=== PATIENT | male | born 1980 | race Caucasian/White ===

== ENCOUNTER → 2017-09-04 | Outpatient (CLI) | payer MEDICARE, MEDICAID ==
[~2017-09-04] MED LIST: ACCUNEB SO1.25 MG/1 INH; ACCUNEB SO1.25 MG/1 PO; ACETAMINOPHEN-1 EAC1 PO; ACETAMINOPHEN325 M1 PO; ADVAIR 250-501 EACH INH; ADVAIR 500-501 EACH INH; ADVAIR HFA 115-12 G1 INH; ADVAIR HFA 230M12 GM INH; ALBUTEROL2.5 MG/0.5 INH; ALBUTEROL2.5 MG/3 M INH; ALLEGRA ALLERG180 MG PO; ALLEGRA180 MG PO; AMOXICILLIN 50500 M1 PO; AUGMENTIN 875-1 EACH PO; AVELOX 400 MG400 M1 PO; AZITHROMYCIN 2250 MG PO; B COMPLEX-VITA1 EACH PO; B COMPLEX1 EACH PO; BACTROBAN22 GM TOP; BACTROBAN22 GM TP; CEFDINIR300 MG PO; CEFTIN 250 MG250 MG PO; CEFUROXIME500 MG PO; CENTRUM COMPLE1 EACH PO; CICLODAN 0.77%544 GM TOP; CICLODAN 0.77%544 GM TP; CLARITIN-D 24 H1 TA1 PO; CLARITIN10 MG PO; CLOTRIMAZOLE 1%15 G1 TOP; DELSYM COU30 MG/5 M1 PO; DELSYM30 MG/5 M1 PO; DELTASONE20 MG PO; DESONIDE CR. 1515 GM TOP; DIFLUCAN200 MG PO; DITROPAN XL5 M1 PO; DOXYCYCLINE 10100 MG PO; DUONEB 2.5-0.5 M3 ML INH; EUCERIN CREME120 GM TOP; EUCERIN CREME57 GM TOP; FLONASE16 GM NASAL; IBUPROFEN 200200 M1 PO; IBUPROFEN 400400 M2 PO; IBUPROFEN 800800 M1 PO; IPRATROPIU0.2 MG/1 M INH; KEFLEX500 MG PO; LEVAQUIN 500 M500 M1 PO; LEVAQUIN 500 M500 M2 PO; LEVAQUIN 500 M500 M4 PO; LEVAQUIN 750 M750 MG PO; LEVOTHYROXIN0.112 M1 PO; LEVOTHYROXIN0.125 M1 PO; MIRALAX17 GM PO; MUCINEX TA600 MG/TA2 PO; MUCINEX600 MG PO; MULTIVITAMINS1 EAC7 PO; MUPIROCIN15 GM TOP; NEXIUM40 MG PO; OMEPRAZOLE40 MG PO; OXYBUTYNIN 5 MG5 M1 PO; PHENERGAN50 M1 PO; PREDNISONE 10 M10 MG PO; PREDNISONE 20 M20 M1 PO; PREDNISONE 20 M20 MG; PREDNISONE 5 MG5 M1 PO; PREDNISONE50 MG PO; PROAIR HFA8.5 GM INH; PROZAC 10 MG CA10 MG PO; PROZAC10 MG PO; SINGULAIR 10 MG10 M1 PO; TESSALON PERLE100 M1 PO; THEREMS1 EAC1 PO; TRIAMCINOLONE A80 G2 TOP; TUMS PO; TYLENOL325 MG PO; VENTOLIN HFA 1818 GM INH; VITAMIN B COMP1 EACH PO; VITAMINC500 PO; ZPAK PO; ZYVOX600 MG PO; [UNRECOGNIZED DRUG - OTHER]; [UNRECOGNIZED DRUG - OTHER] TOP; [UNRECOGNIZED DRUG - SUPPLY] INH
== END ==
LOC: M.RAD 11:15
DX: J45.41 Moderate persistent asthma with (acute) exacerbation (principal)

== ENCOUNTER 2017-09-09 11:47 | Inpatient (IN) | payer MEDICARE, MEDICAID ==
[~2017-09-09] VITALS: Ht 165.1 cm; Wt 97.5 kg
[~2017-09-09 11:47] MED LIST changes: -ACCUNEB SO1.25 MG/1 INH; -ADVAIR HFA 115-12 G1 INH; -AMOXICILLIN 50500 M1 PO; -AUGMENTIN 875-1 EACH PO; -B COMPLEX1 EACH PO; -CEFDINIR300 MG PO; -CICLODAN 0.77%544 GM TOP; -CLOTRIMAZOLE 1%15 G1 TOP; -DELSYM30 MG/5 M1 PO; -DELTASONE20 MG PO; -DUONEB 2.5-0.5 M3 ML INH; -EUCERIN CREME57 GM TOP; -IBUPROFEN 200200 M1 PO; -IBUPROFEN 400400 M2 PO; -LEVAQUIN 500 M500 M1 PO; -MUPIROCIN15 GM TOP; -OMEPRAZOLE40 MG PO; -PHENERGAN50 M1 PO; -PREDNISONE 20 M20 MG; -PREDNISONE50 MG PO; -TRIAMCINOLONE A80 G2 TOP; -ZYVOX600 MG PO; -[UNRECOGNIZED DRUG - OTHER] TOP; -[UNRECOGNIZED DRUG - SUPPLY] INH
[2017-09-09 11:55] VITALS: BP 131/64
[2017-09-09] MEDS ORDERED: OMEPRAZOLE40 MG PO (12:07)
[2017-09-09] MEDS ORDERED: MUCINEX600 MG PO (12:08)
[2017-09-09] MEDS ORDERED: [UNRECOGNIZED DRUG - SUPPLY] INH (12:08)
[2017-09-09] MEDS ORDERED: TRIAMCINOLONE A80 G2 TOP (12:08)
[2017-09-09] MEDS ORDERED: CLOTRIMAZOLE 1%15 G1 TOP (12:08)
[2017-09-09] MEDS ORDERED: DELSYM30 MG/5 M1 PO (12:09)
[2017-09-09] MEDS ORDERED: IBUPROFEN 200200 M1 PO (12:09)
[2017-09-09] MEDS ORDERED: [UNRECOGNIZED DRUG - OTHER] TOP (12:09)
[2017-09-09] MEDS ORDERED: MUPIROCIN15 GM TOP (12:10)
[2017-09-09 12:23] LABS: ABSOLUTE BASOPHILS 0.1 thou/uL (0.0-0.2); ABSOLUTE EOSINOPHILS 0.2 thou/uL (0.0-0.7); ABSOLUTE LYMPHOCYTES 1.3 thou/uL (0.8-5.3); ABSOLUTE MONOCYTES 0.7 thou/uL (0.0-1.2); ABSOLUTE NEUTROPHILS 8.8 thou/uL (1.6-8.1); BASOPHILS 0.8 %; EOSINOPHILS 1.9 %; HEMATOCRIT 44.1 % (42.0-52.0); HEMOGLOBIN 14.4 gm/dL (14.0-18.0); MCH 31.5 pg (26.0-34.0); MCHC 32.6 g/dL (28.0-37.0); MCV 96.6 fL (80.0-100.0); MONOCYTES 6.5 %; MPV 6.7 fl. (7.2-11.1); NUCLEATED RBCS 0 /100WBC; PLATELET COUNT* 311 thou/uL (150-400); POLYS 78.8 %; RBC 4.56 mil/uL (4.50-6.00); RDW-CV 17.1 % (10.5-14.5); WBC 11.2 thou/uL (4.0-11.0)
[2017-09-09 12:31] LABS: ANION GAP 7 mmol/L (7-16); BUN 14 mg/dL (7-18); CALCIUM 8.4 mg/dL (8.5-10.1); CHLORIDE 102 mmol/L (98-107); CO2 31 mmol/L (21-32); CREATININE 1.4 mg/dL (0.6-1.3); GLUCOSE 109 mg/dL (70-99); POTASSIUM 3.8 mmol/L (3.5-5.1); SODIUM 140 mmol/L (136-145)
[2017-09-09 12:38] LABS: ALBUMIN 3.3 g/dL (3.4-5.0); ALKALINE PHOSPHATASE 70 U/L (46-116); SGOT 18 U/L (15-37); SGPT 38 U/L (30-65); TOTAL BILIRUBIN 0.3 mg/dL (<0.1-1.0); TROPONIN-I LEVEL <0.06 ng/mL (<0.06)
[2017-09-09 15:10] VITALS: BP 116/64
[2017-09-09 16:00] VITALS: BP 112/93; BP 118/61
[2017-09-09 20:20] VITALS: BP 113/50
[2017-09-10 08:54] VITALS: BP 116/61
[2017-09-10 10:28] LABS: INFLUENZA A ANTIGEN None Detected (None Detect); INFLUENZA B ANTIGEN None Detected (None Detect)
[2017-09-10 15:30] VITALS: BP 113/61
--- NOTE | 2017-09-10 16:38 | EKG ---
[place] [address] ELECTROCARDIOGRAM REPORT Name: BATESSONI Room: [address] ADM IN .R.#: [id number] Admission: 09/09/17 Attend Phys: Conner Field, Discharge: Date of : 84 Report #: [id number] THIS REPORT FOR: //name// [facility] ED Test Date: 2017-09-09 Test Time: 11:55:19 Pat Name: SONI BATES Department: Room: [facility] Gender: M Long Term: [place] : 1980 Requested By: Yesenia Williamson Order Number: [id number] MD: Derrick Polanco Measurements Intervals [place] Rate: 82 P: 43 ND: 129 QRS: 58 QRSD: 78 T: 41 QT: 344 QTc: 402 Interpretive Statements Sinus rhythm Low voltage, extremity leads Compared to ECG 04/04/2017 15:14:33 Sinus tachycardia no longer present Electronically Signed On 09-10-2017 16:38:33 CDT by Derrick Polanco [email or web address] <ELECTRONICALLY SIGNED> By: Derrick Polanco MD, [facility] 09/10/17 1638 [id number] [id number] Derrick Polanco MD, [facility] /EPI
[2017-09-10 21:00] VITALS: BP 99/61
[2017-09-11 00:59] VITALS: BP 101/67
[2017-09-11 09:10] VITALS: BP 128/57
[2017-09-11] MEDS ORDERED: LEVAQUIN 500 M500 M2 PO (13:24)
[2017-09-11 15:27] VITALS: BP 128/57
[2017-09-11] MEDS ORDERED: ACCUNEB SO1.25 MG/1 INH (15:47)
[2017-09-11 17:25] VITALS: BP 128/57
[2017-11-28] MEDS ORDERED: DOXYCYCLINE 10100 MG PO (07:51)
[2017-11-28] MEDS ORDERED: PREDNISONE 10 M10 MG PO (07:51)
[2017-11-28] MEDS ORDERED: CEFDINIR300 MG PO (07:51)
== END 2017-09-11 17:29 | disposition home or self-care (01) | DRG 177 ==
LOC: M.ERS 11:47 → M.TBA-ER 13:40 → M.ORTHSURG 13:40
PROVIDERS: Nurse Practitioner Family; ADMIT Family Medicine
DX: J15.6 Pneumonia due to other Gram-negative bacteria (principal); J96.21 Acute and chronic respiratory failure with hypoxia; Q90.9 Down syndrome, unspecified; J45.909 Unspecified asthma, uncomplicated; G47.33 Obstructive sleep apnea (adult) (pediatric); E03.9 Hypothyroidism, unspecified; Z79.51 Long term (current) use of inhaled steroids; Z99.81 Dependence on supplemental oxygen; Z79.899 Other long term (current) drug therapy; Z88.2 Allergy status to sulfonamides

== ENCOUNTER 2017-09-22 06:08 | Inpatient (IN) | payer MEDICARE, MEDICAID ==
[~2017-09-22] VITALS: Ht 162.6 cm; Wt 95.3 kg
[~2017-09-22 06:08] MED LIST changes: +ACCUNEB SO1.25 MG/1 INH; +CLOTRIMAZOLE 1%15 G1 TOP; +DELSYM30 MG/5 M1 PO; +IBUPROFEN 200200 M1 PO; +MUPIROCIN15 GM TOP; +OMEPRAZOLE40 MG PO; +TRIAMCINOLONE A80 G2 TOP; +[UNRECOGNIZED DRUG - OTHER] TOP; +[UNRECOGNIZED DRUG - SUPPLY] INH
[2017-09-22 06:09] VITALS: BP 99/71
[2017-09-22] MEDS ORDERED: PREDNISONE 20 M20 MG (06:33)
[2017-09-22 06:37] LABS: ABSOLUTE BASOPHILS 0.1 thou/uL (0.0-0.2); ABSOLUTE EOSINOPHILS 0.1 thou/uL (0.0-0.7); ABSOLUTE LYMPHOCYTES 1.7 thou/uL (0.8-5.3); ABSOLUTE MONOCYTES 0.6 thou/uL (0.0-1.2); ABSOLUTE NEUTROPHILS 6.2 thou/uL (1.6-8.1); BASOPHILS 0.8 %; EOSINOPHILS 1.7 %; HEMATOCRIT 43.1 % (42.0-52.0); HEMOGLOBIN 14.2 gm/dL (14.0-18.0); LYMPHOCYTES 19.3 %; MCH 31.9 pg (26.0-34.0); MCHC 32.9 g/dL (28.0-37.0); MONOCYTES 6.9 %; MPV 6.8 fl. (7.2-11.1); NUCLEATED RBCS 0 /100WBC; PLATELET COUNT* 247 thou/uL (150-400); POLYS 71.3 %; RBC 4.44 mil/uL (4.50-6.00); RDW-CV 17.7 % (10.5-14.5); WBC 8.6 thou/uL (4.0-11.0)
[2017-09-22 07:02] LABS: ANION GAP 10 mmol/L (7-16); BUN 15 mg/dL (7-18); CALCIUM 8.6 mg/dL (8.5-10.1); CHLORIDE 102 mmol/L (98-107); CO2 30 mmol/L (21-32); CREATININE 1.3 mg/dL (0.6-1.3); GLUCOSE 95 mg/dL (70-99); POTASSIUM 3.6 mmol/L (3.5-5.1); SODIUM 142 mmol/L (136-145)
[2017-09-22 07:06] LABS: ALBUMIN 3.4 g/dL (3.4-5.0); ALKALINE PHOSPHATASE 60 U/L (46-116); LIPASE 98 U/L (73-393); MAGNESIUM 2.1 mg/dL (1.8-2.4); NT-PRO BRAIN NAT PEPTIDE 37 pg/mL (<300); SGOT 17 U/L (15-37); SGPT 36 U/L (30-65); TOTAL BILIRUBIN 0.5 mg/dL (<0.1-1.0); TROPONIN-I LEVEL <0.06 ng/mL (<0.06)
[2017-09-22 07:29] LABS: INFLUENZA A ANTIGEN None Detected (None Detect); INFLUENZA B ANTIGEN None Detected (None Detect)
[2017-09-22 09:48] VITALS: BP 110/71
[2017-09-22 10:03] VITALS: BP 112/74
--- NOTE | 2017-09-22 13:55 | EKG ---
[place] [address] ELECTROCARDIOGRAM REPORT Name: SONI BATES Room: [address] ADM IN .R.#: [id number] Admission: 09/22/17 Attend Phys: Juan Pablo Valencia Discharge: Date of : 84 Report #: [id number] THIS REPORT FOR: //name// [facility] ED Test Date: 2017-09-22 Test Time: 06:39:08 Pat Name: SONI BATES Department: Room: [facility] Gender: M Dietary Assistant: 9 : 1980 Requested By: Roc Paz Order Number: [id number] MD: Derrick Polanco Measurements Intervals [place] Rate: 71 P: 30 W[place]: 138 QRS: 50 QRSD: 79 T: 12 QT: 385 QTc: 419 Interpretive Statements Sinus rhythm Borderline low voltage, extremity leads Baseline wander in lead(s) V5 Compared to ECG 09/09/2017 11:55:19 No significant changes Electronically Signed On 09-22-2017 13:54:57 CDT by Derrick Polanco [email or web address] <ELECTRONICALLY SIGNED> By: Derrick Polanco MD, [facility] 09/22/17 1354 [id number] Derrick Polanco MD, [facility] /EPI
[2017-09-22 16:00] VITALS: BP 120/65
[2017-09-22 20:38] VITALS: BP 99/65
[2017-09-23] VITALS (7 sets, daily range): BP systolic 102–137; BP diastolic 50–71
[2017-09-23 05:33] LABS: CALCIUM 8.3 mg/dL (8.5-10.1); CREATININE 1.3 mg/dL (0.6-1.3); MAGNESIUM 1.9 mg/dL (1.8-2.4); POTASSIUM 4.2 mmol/L (3.5-5.1)
--- NOTE | 2017-09-23 06:04 | NUR ---
At 2245, pt reports having pain to chest with coughing and deep breathing. Pt tearful. Page physician, orders received for one time dose of Fentanyl IVP. By the time medication was given, pt reports pain nearly subsided. Otherwise, no complaints. VSS. Will continue to monitor.
--- NOTE | 2017-09-23 18:55 | NUR ---
ASSUMED PT CARE AT 0700 PT IS ALERT AND ORIENTED X 4 PT IS UP WITH SBA PT IS NOT A FALL RISK PT HAD SHOWER TODAY, PT IS SR ON THE MONITOR PT IS PLEASANT AND COOPERTIVE, PT VSS, PT WALKED THE HALLWAY WITH FAMILY, PT HAS ANTIBIOTICS NO ADVERSE SIGNS NOTED, WILL CONTINUE TO MONITOR
--- NOTE | 2017-09-24 00:57 | NUR ---
ASSUMED CARE AT 1940, ASSESSMENT CHARTED. PATIENT ALERT/ORIENTED X4, RESTING IN BED WATCHING TV. UP WITH STANDBY ASSIST TO BATHROOM. DENIES PAIN OR NEEDS. REFUSING SCD'S. MEDS PER MAR. CALL LIGHT WITHIN REACH, ENCOURAGED TO CALL FOR NEEDS.
[2017-09-24 04:00] VITALS: BP 118/65
[2017-09-24 04:27] LABS: HEMATOCRIT 40.7 % (42.0-52.0); HEMOGLOBIN 13.2 gm/dL (14.0-18.0); MCH 31.6 pg (26.0-34.0); MCHC 32.5 g/dL (28.0-37.0); MCV 97.4 fL (80.0-100.0); NUCLEATED RBCS 0 /100WBC; PLATELET COUNT* 240 thou/uL (150-400); RBC 4.18 mil/uL (4.50-6.00); RDW-CV 17.8 % (10.5-14.5); WBC 14.6 thou/uL (4.0-11.0)
[2017-09-24 04:52] LABS: ABSOLUTE EOSINOPHILS 0.3 thou/uL (0.0-0.7); ABSOLUTE LYMPHOCYTES 0.7 thou/uL (0.8-5.3); ABSOLUTE NEUTROPHILS 12.6 thou/uL (1.6-8.1); ANISOCYTOSIS 1+; PLATELET ESTIMATE ADEQUATE
[2017-09-24 04:53] LABS: TOXIC GRANULATION 1+
--- NOTE | 2017-09-24 07:07 | NUR ---
PATIENT RESTING IN BED. REPORT GIVEN TO ONCOMING NURSE. WILL MONITOR.
[2017-09-24 09:00] VITALS: BP 128/63
--- NOTE | 2017-09-24 10:59 | NUR ---
ASSUMED PT CARE AT 0700 PT IS ALERT AND ORIENTED X 4 PT IS UP AD [place] PT IS NOT A FALL RISK, PT DENIES PAIN OR SOA ON RA, PT IS SR-ST ON THE MONITOR, PT IS PLEASANT AND COOPERATIVE, PT MAY DISCHARGE BACK TO SENIOR LIVING TODAY, PT HAS ATHELETS FOOT APPLIED CREAM, PT HAS FLUIDS RUNNING, WILL CONTINUE TO MONITOR
[2017-09-24] MEDS ORDERED: LEVAQUIN 500 M500 M2 PO (12:05)
[2017-09-24 12:06] VITALS: BP 128/63
[2017-09-24] MEDS ORDERED: DUONEB 2.5-0.5 M3 ML INH (12:23)
[2017-11-28] MEDS ORDERED: CEFDINIR300 MG PO (07:51)
[2017-11-28] MEDS ORDERED: PREDNISONE 10 M10 MG PO (07:51)
[2017-11-28] MEDS ORDERED: DOXYCYCLINE 10100 MG PO (07:51)
== END 2017-09-24 14:30 | disposition home or self-care (01) | DRG 194 ==
LOC: M.ERS 06:08 → M.2W 08:38 → M.TBA-ER 08:38 → M.2W 09:38
PROVIDERS: Emergency Medicine Emergency Medical Services; Personal Emergency Response Attendant; ADMIT Internal Medicine
DX: J15.9 Unspecified bacterial pneumonia (principal); L03.116 Cellulitis of left lower limb; L03.115 Cellulitis of right lower limb; R65.10 Systemic inflammatory response syndrome (SIRS) of non-infectious origin without acute organ dysfunction; J96.10 Chronic respiratory failure, unspecified whether with hypoxia or hypercapnia; J45.909 Unspecified asthma, uncomplicated; E03.9 Hypothyroidism, unspecified; Z88.2 Allergy status to sulfonamides; Q90.9 Down syndrome, unspecified; Z79.899 Other long term (current) drug therapy

== ENCOUNTER 2017-10-01 03:40 | Inpatient (IN) | payer MEDICARE, MEDICAID ==
[~2017-10-01] VITALS: Ht 165.1 cm; Wt 102.5 kg
[~2017-10-01 03:40] MED LIST changes: +DUONEB 2.5-0.5 M3 ML INH; +PREDNISONE 20 M20 MG
[2017-10-01 03:47] VITALS: BP 99/46
[2017-10-01 04:15] LABS: BE -0.6 mmol/L (-2 to +3); HCO3 23.2 mmol/L (22.0-26.0); PCO2 35.6 mmHg (35.0-45.0); pH 7.432 (7.340-7.450)
[2017-10-01 04:17] LABS: PO2 45.3 mmHg (75.0-100.0)
[2017-10-01 04:27] LABS: HEMATOCRIT 39.7 % (42.0-52.0); HEMOGLOBIN 13.1 gm/dL (14.0-18.0); MCH 31.6 pg (26.0-34.0); MCV 95.7 fL (80.0-100.0); MPV 7.2 fl. (7.2-11.1); NUCLEATED RBCS 0 /100WBC; PLATELET COUNT* 233 thou/uL (150-400); RBC 4.15 mil/uL (4.50-6.00); WBC 18.9 thou/uL (4.0-11.0)
[2017-10-01 04:44] LABS: CALCIUM 8.4 mg/dL (8.5-10.1); CREATININE 1.7 mg/dL (0.6-1.3); POTASSIUM 3.3 mmol/L (3.5-5.1)
[2017-10-01 04:49] LABS: ALBUMIN 3.2 g/dL (3.4-5.0); TOTAL BILIRUBIN 0.5 mg/dL (<0.1-1.0); TOTAL PROTEIN 6.6 g/dL (6.4-8.2)
[2017-10-01 05:09] LABS: NT-PRO BRAIN NAT PEPTIDE 165 pg/mL (<300); TROPONIN-I LEVEL <0.06 ng/mL (<0.06)
[2017-10-01 06:18] VITALS: BP 108/50
[2017-10-01 06:22] LABS: ABSOLUTE BASOPHILS 0.2 thou/uL (0.0-0.2); ABSOLUTE LYMPHOCYTES 0.9 thou/uL (0.8-5.3); ABSOLUTE MONOCYTES 0.6 thou/uL (0.0-1.2); ABSOLUTE NEUTROPHILS 17.2 thou/uL (1.6-8.1); PLATELET ESTIMATE ADEQUATE
[2017-10-01 07:34] LABS: MAGNESIUM 1.5 mg/dL (1.8-2.4); PHOSPHORUS* 2.5 mg/dL (2.5-4.9)
[2017-10-01 07:35] LABS: APTT 30.3 Seconds (25.0-31.3); INR 1.1; PROTIME 10.6 Seconds (9.20-11.50)
[2017-10-01 07:55] LABS: URINE BILIRUBIN NEGATIVE (Negative); URINE BLOOD NEGATIVE (Negative); URINE CLARITY CLEAR; URINE COLOR YELLOW; URINE GLUCOSE-RANDOM NEGATIVE (Negative); URINE KETONES NEGATIVE (Negative); URINE LEUKOCYTES-REFLEX NEGATIVE (Negative); URINE NITRITE-REFLEX NEGATIVE (Negative); URINE PROTEIN TRACE (Negative); URINE UROBILINOGEN 0.2 E.U./dl (0.2-1.0)
--- NOTE | 2017-10-01 08:12 | NUR ---
ASSUMED CARE OF PATIENT AT 0625 PAID CAREGIVER ARRIVES TO UNIT WITH PATIENT AND FACILITATES WITH OBTAINING HISTORY SAFETY INTERVENTIONS INITIATED SPOKE WITH PHARMACY REGARDING PENDING VANC DOSE AT 0700 PHARMACY TO ADJUST ET SUPPLY TO UNIT PENDING ADMINISTRATION REPORTED TO ONCOMING RN PATIENT WITHOUT ACUTE S/SX OF DISTRESS
[2017-10-01 08:15] VITALS: BP 105/54
[2017-10-01 11:37] VITALS: BP 121/62
[2017-10-01 14:06] LABS: IgA 212 mg/dL (90-386); IgG 657 mg/dL (700-1600); IgM 75 mg/dL (20-172)
[2017-10-01 15:29] VITALS: BP 122/56
--- NOTE | 2017-10-01 18:27 | NUR ---
ASSUMED PT CARE AT 0730, FULL ASSESMENT DONE CHARTED. PT A/O X4, C/O PAIN IN CHEST FROM COUGHING. LOW GRADE FEVER NOTED THIS AM. PT GIVEN TYLENOL WHICH HELPED BOTH. OTHER MEDS GIVEN PER AUG. FLUIDS INFUSING AT 150MLHR TO RIGHT FA. PT UP TO CHAIR FOR LUNCH AND DINNER. GOOD APITITE THIS AFTERNOON. PTS ABIMBOLA IN THIS AM, DIAMOND [phone]). PTS MOM ALEXANDREMIRIAM JANA([phone])ALSO IN TO VISIT. PTS VSS, ST ON THE MONITOR. HE CALLS APPROPRIALTY FOR NEEDS. UP TO BSC OR USES URINAL. WEARING O2 HIGH FLOW NC AT 10L THIS EVENING SATS 98%.
[2017-10-01 20:00] VITALS: BP 114/66
[2017-10-02] VITALS (7 sets, daily range): BP systolic 94–130; BP diastolic 35–79
--- NOTE | 2017-10-02 04:16 | NUR ---
ASSUMED CARE OF PATIENT AT 1900 THE PATIENT REMAINS SR ON THE MONITOR O2 SAT MAINTAINED ON 12 L HIGH DEXTER CONTINUES TO BE UP WITH ASSIST OF 1 TO THE BSCTHE PAITENT PROGRESSES TOWARDS GOALS THE ROUTINE REGIMEN CONTINUES TO BE EFFECTIVE FOR SX MANAGEMENT SAFETY INTERVENTIONS CONTINUE BED LOWERED WHEELS LOCKED CALL LIGHT IN REACH SIDE RAILS UP REPORT TO BE GIVEN TO ROCKY HARMAN
[2017-10-02 05:32] LABS: ABSOLUTE LYMPHOCYTES 0.4 thou/uL (0.8-5.3); ABSOLUTE MONOCYTES 0.1 thou/uL (0.0-1.2); ABSOLUTE NEUTROPHILS 19.4 thou/uL (1.6-8.1); BASOPHILS 0.1 %; HEMATOCRIT 35.4 % (42.0-52.0); HEMOGLOBIN 11.8 gm/dL (14.0-18.0); LYMPHOCYTES 2.2 %; MCH 32.5 pg (26.0-34.0); MCHC 33.3 g/dL (28.0-37.0); MCV 97.5 fL (80.0-100.0); MONOCYTES 0.6 %; MPV 7.4 fl. (7.2-11.1); NUCLEATED RBCS 0 /100WBC; PLATELET COUNT* 213 thou/uL (150-400); POLYS 97.1 %; RBC 3.63 mil/uL (4.50-6.00); RDW-CV 17.2 % (10.5-14.5)
[2017-10-02 06:00] LABS: CALCIUM 7.7 mg/dL (8.5-10.1); CREATININE 1.4 mg/dL (0.6-1.3); MAGNESIUM 1.9 mg/dL (1.8-2.4); POTASSIUM 4.2 mmol/L (3.5-5.1)
--- NOTE | 2017-10-02 08:28 | NUR ---
ASSUMED PT CARE AT 0730, FULL ASSESMENT DONE CHARTED. PT A/O X4, DENIES PAIN, AFEBRILE. ALL OTHER VSS, PT ON 10 L HIGH FLOW NC, SATS 96%. WILL ATTEMPT TO TITRATE HIM DOWN TODAY. PT USES CALL LIGHT APPROPRIALTY. WILL CONTINUE WITH PLAN OF CARE.
--- NOTE | 2017-10-02 11:40 | CON ---
[address] [address] CONSULTATION Name: SONI BATES Room: [address] IN M.R.#: [id number] Admission: 10/01/17 Attend Phys: Conner Field, Discharge: Date of : 84 Report #: [id number] THIS REPORT FOR: //name// CC: Shae Field DATE OF SERVICE: 10/01/2017 Consult has been requested by Dr. Reina. INDICATION FOR CONSULTATION: Pulmonary infiltrates and hypoxia. HISTORY OF PRESENT ILLNESS: A 37-year-old gentleman, his past medical history includes a history of Down syndrome. The patient also has obstructive sleep apnea and is on a CPAP long-term. The patient has had 2 previous admissions in this month in which he has been treated as pneumonia. The patient has been hypoxemic in both of these previous admissions. The patient is now again here with similar complaints. The patient at baseline does appear to have mild elevation in creatinine to around 1.2-1.4 as well. He currently is on 12 liters oxygen via nasal cannula and so far has been requiring 12 liters to maintain an O2 saturation in the low 90s. His O2 saturation has now improved to around 95%-96%. I do not see previous documentation of the patient using oxygen at his skilled nursing where he lives long-term, but he says that he uses oxygen long-term. The patient is not aware as to how much oxygen he uses. As noted, the patient does have a CPAP and he did have it at his bedside. The patient is able to provide only a limited history, but he does state that he is here because he has been short of breath. He says that he has also been wheezing and that he has had a cough with yellowish sputum production as well as fever. The patient while requiring oxygen at 12 liters in fact is in no distress. He is comfortably sitting in a chair. He is having his breakfast. He states that at this moment, he only has mild shortness of breath. The patient answered to the negative for 12 questions for review of systems. The patient's ability to answer questions, however, is limited. 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 I do not, however, see previous documentation of the patient being on long-term oxygen, Down syndrome, he lives in a skilled nursing, severe persistent asthma as mentioned on the chart. I do not have previous PFTs available, severe seasonal allergies, hypothyroidism, frequent urinary tract infections. SOCIAL HISTORY: Lifetime nonsmoker. No known history of heavy alcohol use or illegal drug use. He currently [place] [address] CONSULTATION Name: SONI BATES Room: [address] IN .RWilian#: [id number] Admission: 10/01/17 Attend Phys: Conner Field, Discharge: Date of : 84 Report #: [id number] FAMILY HISTORY: There is no known pertinent family history. CURRENT MEDICATIONS: List in [facility] reviewed. HOME MEDICATIONS: List in [facility] also reviewed and the patient is on Singulair and Advair 500/50 long-term. He is also on DuoNebs. PHYSICAL EXAMINATION: GENERAL: He is alert, awake and oriented. He is able to provide only a limited history. He is sitting comfortably in a chair having lunch. VITAL SIGNS: Has a pulse of 106 and a blood pressure of 121/62. He is on 12 liters oxygen via a high flow nasal cannula. He is saturating 95%-96%. He does not appear to be in any distress at this time. There is mild elevation in temperature to 37.5. HEENT: Head is normocephalic and atraumatic. Pupils are equal and reactive. There is no throat erythema. He has a very narrow airway around Mallampati class 4. NECK: Does not show raised JVP, asymmetry, mass or lymph nodes. CHEST: Symmetrical expansion on inspection and palpation. On auscultation, chest in fact is clear. HEART: Regular. There is no murmur. ABDOMEN: Soft and nontender. EXTREMITIES: Lower extremities show trace edema only. There is no calf tenderness. SKIN: Dry and intact. NEUROLOGICAL: He moves all extremities bilaterally, equally and spontaneously with no focal deficit identified. DIAGNOSTIC DATA: The patient's CT chest as well as chest x-ray done this morning are reviewed. The patient does have an infiltrate in the left lower lobe. There is a smaller infiltrate in the right lower lobe noted as well. Previous chest x-rays looked similar. I do not have a previous recent CT available for comparison. There are infiltrates present on the last CT performed in 2017; however, the infiltrate seen now appeared to be new. The patient's lab work, which does show elevation in creatinine up to 1.7 in [facility] reviewed. The patient's chemistries as well as arterial blood gas consistent with acute hypoxemic respiratory failure in [facility] reviewed. ASSESSMENT AND PLAN: 1. Acute hypoxemic respiratory failure. The patient does have infiltrates on his CT; however, I am not completely certain that this is the etiology of his acute hypoxemic respiratory failure. I would like to look at other etiologies as well and therefore, I would recommend that we repeat an echo as well as obtain a venous Doppler. The patient does have a large infiltrate in the left lower lobe and a smaller one in the right lower lobe. This [place] [address] CONSULTATION Name: SONI BATES Room: [address] IN [facility].#: [id number] Admission: 10/01/17 Attend Phys: Conner Field, Discharge: Date of : 84 Report #: [id number]; however, he should still have enough normal lung to maintain O2 saturation. The degree of hypoxemia appears to be out of proportion. 2. Pulmonary infiltrates, discussion as above. There are significant infiltrates present. The patient has had previous 2 admissions with pneumonia and the Infectious Disease service is on the case and I understand that they have elected to discontinue antibiotics and would prefer that we perform a bronchoscopy. Note, however, that the patient is on 12 liters oxygen at this time. Note also that the patient has a class 4 Mallampati airway. Note also in addition to the patient is currently receiving IV fluids, considering his elevation in creatinine. I therefore feel that it will be difficult to perform a bronchoscopy unless there is improvement in the patient's O2 saturation. I will keep him n.p.o. after midnight so that we can evaluate tomorrow and assess as to whether bronchoscopy can be safely performed. Otherwise, may need to restart empiric antibiotics and stabilize him first and consider bronchoscopy later when his oxygen needs are better. In addition to cultures and serologies as already ordered looking for infectious etiologies of infiltrates, I will go ahead and order connective tissue markers and alcohol levels as well. The patient may be aspirating. I recommend that during this admission, we also do a video swallow. 3. Severe persistent asthma. This is mentioned on the chart. The patient does not appear to be bronchospastic on exam. Regardless secondary to high FiO2 needs, I would continue still Solu-Medrol as well as DuoNebs as currently ordered. 4. Obstructive sleep apnea. Recommend continuing continuous positive airway pressure while asleep. We will need to get further information regarding whether the patient was on long-term oxygen or not. Weight loss is also recommended. 5. Down syndrome. He lives at a skilled nursing. Thanks for this consultation. <ELECTRONICALLY SIGNED> By: Brian Brown MD 10/02/17 1140 [id number] Long MD /nt
--- NOTE | 2017-10-02 14:43 | NUR ---
CM ASSESSMENT: Pt is A&O. Resides at [facility] [place] [facility]. Pt's family member, Ramo, is Pt's DPOA. Pt states that he is independent with ADLs, states he is able to do his own bathing and grooming. Pt wears home o2 and cpap through [facility]. No hx of HH or SNF. Staff prepare meals. Pt currently on 10L oxygen. Facility staff normally provide dc transportation. Following.
--- NOTE | 2017-10-02 19:09 | NUR ---
PT AFEBRILE TODAY, ST ON THE MONITOR. COUGHING UP YELLOW SPUTUME, ATTEMPTED TO GET A SPUTUME SAMPLE, PT CANNOT SPIT IT OUT WITH OUT SALIVA MIXED. PT GIVEN COUGH SYRUP PRN. PT USES CALL LIGHT APPROPRILATY. WILL CONTINUE TO MONITOR.
[2017-10-03 04:00] VITALS: BP 108/62
[2017-10-03 05:10] LABS: ABSOLUTE LYMPHOCYTES 0.5 thou/uL (0.8-5.3); ABSOLUTE MONOCYTES 0.5 thou/uL (0.0-1.2); ABSOLUTE NEUTROPHILS 24.8 thou/uL (1.6-8.1); BASOPHILS 0.1 %; HEMATOCRIT 33.3 % (42.0-52.0); HEMOGLOBIN 11.2 gm/dL (14.0-18.0); MCH 32.3 pg (26.0-34.0); MCHC 33.5 g/dL (28.0-37.0); MCV 96.4 fL (80.0-100.0); MONOCYTES 1.8 %; MPV 7.5 fl. (7.2-11.1); NUCLEATED RBCS 0 /100WBC; PLATELET COUNT* 221 thou/uL (150-400); POLYS 96.1 %; RBC 3.45 mil/uL (4.50-6.00); WBC 25.8 thou/uL (4.0-11.0)
[2017-10-03 08:15] VITALS: BP 106/67
--- NOTE | 2017-10-03 08:20 | NUR ---
ASSUMED CARE AT 1999, ASSESSMENT CHARTED. PATIENT ALERT/ORIENTED X4, RESTING IN BED. UP WITH ASSIST TO BATHROOM. DENIES NEEDS. STATES HAVING PAIN TO CHEST FROM FREQUENT COUGHING, MEDS PER MAR WITH RELIEF NOTED. REFUSING SCD'S. BED ALARM ON. REMAINS IN ISOLATION FOR PENDING RVP PANEL/MRSA. CALL LIGHT WITHIN REACH, ENCOURAGED TO CALL FOR NEEDS.
--- NOTE | 2017-10-03 08:23 | NUR ---
NO ACUTE CHANGES THROUGH THE NIGHT. REPORT GIVEN TO ONCOMING NURSE. BED ALARM ON. WILL MONITOR.
--- NOTE | 2017-10-03 12:03 | NUR ---
RECIEVED REPORT FROM SIMA AND ASSUMED CARE OF PT AT 0730. PT IS A/O X4, BP SLIGHTLY LOW AT 106/67. TRACING SR ON MONTIOR. LUNG SOUNDS ARE DIMINSHED WITH CRACKLES WITH GOOD PRODUCTIVE COUGH. LAST BM WAS YESTERDAY AND LOOSE-MIRALAX HELD TODAY. IV RIGHT FOREARM SALINE LOCKED AND PATENT. PT IS CALM AND COOPERATIVE WITH NO C/O PAIN AT TIME OF ASSESSMENT. PT GETS UP WITH SBA TO BATHROOM OR BSC AND URINAL. PT MAINTAINS CONTACT ISOLATION FOR MRSA IN NARES AND DROPLET PRECAUTIONS FOR PENDING VIRUS PANEL. PT GOT UP TO CHAIR FOR BREAKFAST AND TOOK SHOWER WITH STAFF PHYSICAL THERAPY ASSISTANT ASSIST. PT LEFT IN CHAIR WITH FALL PRECAUTIONS AND CALL LIGHT WITHIN REACH. WILL CONTINUE TO MONITOR.
[2017-10-03 16:11] VITALS: BP 107/70
--- NOTE | 2017-10-03 18:24 | NUR ---
THIS NURSE AGREES WITH ALL CHARTING AND DOCUMENTATION COMPLETED BY SONAL TOLEDO RN.
--- NOTE | 2017-10-03 18:40 | NUR ---
PT VSS, CARDIAC MONTIORING IN PLACE WITH NO CHANGES.REMAINS ON 10L O2 NC-UNABLE TO TITRATE DOWN.O2 SAT MID 90S. PT WEARS CPAP WHEN SLEEPING.PT PROGRESSING TOWARDS GOALS.PT DENIED PAIN THROUGHOUT SHIFT. IV PATENT AND SALINE LOCKED. PT IN FORMED OF PLAN OF CARE AND COMMUNICATES UNDERSTANDING. PT AMBULATED IN HALLWAY WITH STAFF AND UP TO CHAIR SEVERAL TIMES.ISOLATION FOR CONTACT AND DROPLET MAINTAINED. HOURLY ROUNDING COMPLETED FOR PT SAFETY. CALL LIGHT AND FALL PRECAUTIONS IN PLACE. WILL CONTINUE TO MONITOR FOR DURATION OF SHIFT.
[2017-10-03 20:00] VITALS: BP 107/60
[2017-10-03 23:10] LABS: MYCOPLASMA PNEUMONIA IgG 274 U/mL (0-99); MYCOPLASMA PNEUMONIA IgM <770 U/mL (0-769)
[2017-10-04 00:04] VITALS: BP 124/69
[2017-10-04 04:00] VITALS: BP 107/69
--- NOTE | 2017-10-04 05:28 | NUR ---
PT CARE ASSUMED AFTER REPORT. ASSESSMENT COMPLETE. SR ON MONITOR. O2 10 HFNC. UP WITH MIN ASSIST TO BSC. FALL PRECAUTIONS IN PLACE INCLUDING BED ALARM. DENIES PAIN. CALL LIGHT IN REACH. BED IN LOWEST POSITION. SLOW TO PROGRESS TOWARDS GOALS.
[2017-10-04 09:00] VITALS: BP 113/68
[2017-10-04 10:07] LABS: ANTI-DNA SCREEN <1 IU/mL (0-9); ANTI-RNP <0.2 AI (0.0-0.9)
[2017-10-04 11:55] VITALS: BP 106/65
[2017-10-04 16:00] VITALS: BP 111/66
--- NOTE | 2017-10-04 16:11 | NUR ---
ASSUMED PT CARE AT 0700 PT IS ALERT AND ORIENTED X 4 PT DENIES PAIN OR SOA ON 10L/HIGHFLOW, PT VOICE IS HOARSE PT HAS NO DIFFICULTY SWALLOWING PILLS, PT IS UP WITH SBA USING COMMODE PT IS A FALL RISK HAS CHAIR AND BED ALARM ON, PT HAS STEADY GAIT, PT IS SR ON THE MONITOR, PT IS IN DROPLET AND CONTACT ISOLATION, PT IS PLEASANT AND COOPERATIVE WILL CONTINUE TO MONITOR
[2017-10-04 20:00] VITALS: BP 128/77
[2017-10-05 00:13] VITALS: BP 123/77
[2017-10-05 03:53] VITALS: BP 116/69
--- NOTE | 2017-10-05 05:18 | NUR ---
PT CARE ASSUMED AFTER REPORT. ASSESSMENT COMPLETE. SR ON MONITOR. O2 9L HFNC. CPAP WHILE RESTING. VIRAL PANEL SWAB RESENT. CONTACT AND DROPLET PRECAUTIONS IN PLACE. UP WITH STB TO BSC. FALL PRECAUTIONS IN PLACE INCLUDING BED ALARM. CALL LIGHT IN REACH. BED IN LOWEST POSITION. SLOW TO PROGRESS TOWARDS GOALS.
[2017-10-05 07:43] VITALS: BP 119/74
--- NOTE | 2017-10-05 11:26 | NUR ---
RECEIVED REPORT AND ASSUMED CARE AT 0730. VSS. CARDIAC MONITORING IN PLACE. PT UP WITH SBA TO BSC. ON 7L NC. A&OX4. PT DENIES ANY COMPLAINTS OF PAIN. ASSESSMENT COMPLETED CHARTED. DISCUSSED PLAN OF CARE WITH PT, VERBALIZED UNDERSTANDING. BED IN LOWEST POSITION, CALL LIGHT WITHIN REACH, BED ALARM ON. WILL CONTINUE TO MONITOR FOR REMAINDER OF SHIFT.
[2017-10-05 11:56] VITALS: BP 113/68
[2017-10-05 17:01] VITALS: BP 106/64
--- NOTE | 2017-10-05 19:32 | NUR ---
PT IN ROOM RESTING. VSS. CARDIAC MONITORING IN PLACE. PT ON 6L NC, UP SBA TO BSC. PT DENIES ANY COMPLAINTS OF PAIN. A&O X4.PT STATUS NOT CHANGED. PT SAT IN CHAIR AT BEDSIDE FOR MAJORITY OF THE SHIFT. PROGRESSING TOWARDS GOAL NURSING WILL CONTINUE TO MONITOR
--- NOTE | 2017-10-05 19:46 | NUR ---
THIS NURSE AGREES WITH ALL CHARTING AND DOCUMENTATION COMPLETED BY AARTI BYRD RN THIS SHIFT.
[2017-10-05 20:00] VITALS: BP 130/67
[2017-10-06 00:52] VITALS: BP 126/71
[2017-10-06 04:43] VITALS: BP 123/64
--- NOTE | 2017-10-06 05:19 | NUR ---
PT CARE ASSUMED AFTER REPORT. ASSESSMENT COMPLETE. SR ON MONITOR. O2 6L HFNC. CPAP WHILE RESTING. UP WITH STB TO BSC. CONTACT AND DROPLET PRECAUTIONS IN PLACE. UA SENT. DENIES PAIN. FALL PRECAUTIONS IN PLACE INCLUDING BED ALARM. CALL LIGHT IN REACH. BED IN LOWEST POSITION. SLOWLY PROGRESSING TOWARDS GOALS.
[2017-10-06 05:30] LABS: ALBUMIN 2.9 g/dL (3.4-5.0); CREATININE 1.3 mg/dL (0.6-1.3); POTASSIUM 3.9 mmol/L (3.5-5.1); TOTAL BILIRUBIN 0.3 mg/dL (<0.1-1.0); TOTAL PROTEIN 6.1 g/dL (6.4-8.2)
[2017-10-06 06:27] LABS: HEMATOCRIT 38.1 % (42.0-52.0); HEMOGLOBIN 12.5 gm/dL (14.0-18.0); MCH 32.1 pg (26.0-34.0); MCHC 32.7 g/dL (28.0-37.0); MPV 7.7 fl. (7.2-11.1); NUCLEATED RBCS 0 /100WBC; PLATELET COUNT* 270 thou/uL (150-400); RBC 3.89 mil/uL (4.50-6.00); RDW-CV 16.9 % (10.5-14.5)
[2017-10-06 07:15] LABS: ABSOLUTE NEUTROPHILS 18.1 thou/uL (1.6-8.1)
[2017-10-06 07:16] LABS: PLATELET ESTIMATE ADEQUATE
[2017-10-06 08:18] VITALS: BP 122/75
--- NOTE | 2017-10-06 10:43 | NUR ---
ASSUMED CARE OF PATIENT AFTER REPORT THIS MORNING. PATIENT AWAKE, ALERT, AND ORIENTED APPROPRIATELY. PHYSICAL ASSESSMENT COMPLETED AND CHARTED. NO COMPLAINTS OF PAIN. VITAL SIGNS STABLE AND OXYGEN SATURATION WITHIN NORMAL LIMITS ON 3 LPM PER NASAL CANULA. SCHEDULED MEDICATIONS GIVEN BY CLAIMS COUNSEL JOSÉ AND HER INSTRUCTOR, SEE EMAR FOR DOCUMENTATION. PATIENT IS SITTING IN CHAIR AT BEDSIDE AT THIS TIME. TRANSFERS AND AMBULATES WITH ASSISTANCE FROM STAFF. USES CALL LIGHT APPROPRIATELY. DENIES NEEDS AT THIS TIME. CALL LIGHT WITHIN REACH. NURSING WILL CONTINUE TO MONITOR.
[2017-10-06 11:55] VITALS: BP 128/75
[2017-10-06 15:42] VITALS: BP 129/74
--- NOTE | 2017-10-06 15:51 | NUR ---
BRISSA, GUEST SERVICES ASSISTANT, LEFT PHONE NUMBER FOR NURSING TO CALL WHEN PATIENT IS BEING DISCHARGED. SHE WILL ASSIST IN SETTING UP A RIDE FOR PATIENT. PHONE NUMBER IS [phone].
--- NOTE | 2017-10-06 17:53 | NUR ---
PATIENT REMAINS ALERT AND ORIENTED APPROPRIATELY. NO COMPLAINTS OF PAIN. HAS SAT IN CHAIR AT BEDSIDE FOR MOST OF DAY. DENIES NEEDS AT THIS TIME. CALL LIGHT WITHIN REACH. NURSING WILL CONTINUE TO MONITOR.
[2017-10-06 20:00] VITALS: BP 124/72
[2017-10-07 00:04] VITALS: BP 120/74
[2017-10-07 04:00] VITALS: BP 123/73
--- NOTE | 2017-10-07 04:59 | NUR ---
ASSUMED CARE OF PATIENT AT 1900 THE PATIENT REMAINS SR ON THE MONITOR O2 SAT MAINTAINED ON 2 L NC CONTINUES TO BE UP WITH STANDBY ASSIST OF 1 PROGRESS CONTINUES TOWARDS GOALS THE ROUTINE REGIMEN CONTINUES TO BE EFFECTIVE FOR SX MANAGEMENT SAFETY INTERVENTIONS CONTINUE BED LOWERED WHEELS LOCKED CALL LIGHT IN REACH SIDE RAILS UP REPORT TO BE GIVEN TO ROCKY HARMAN
[2017-10-07 05:10] LABS: IgG 748 mg/dL (700-1600)
[2017-10-07 08:00] VITALS: BP 102/73
[2017-10-07 16:52] VITALS: BP 129/76
--- NOTE | 2017-10-07 18:16 | NUR ---
RECEIVED REPORT. ASSUMED CARE OF PT AROUND 07. VSS, BP A BIT SOFT AT 102/73, PT ASYMPTOMATIC. 02 SAT 96% ON 2L PER NC. YARD CLEANER IN PLACE THIS AM, TRACING SR. PT CHANGED TO M/S STATUS, MONITOR REMOVED. AM ASSESSMENT AND VITALS COMPELTED CHARTED. IV TO RIGHT FA INTACT AND SALINE LOCKED. PT EATING AND DRINKING WITHOUT ISSUE THROUGHOUT THE SHIFT. PT HAS DENIED PAIN OR DISCOMFORT THIS SHIFT. PT UP WITH STANDBY ASSIST TO BATHROOM FREQUENTLY THIS SHIFT, VOIDING WITHOUT ISSUE. PT HAD LARGE BM THIS AFTERNOON THAT WAS LOOSE - MIRALAX SHOULD BE HELD TOMORROW. PT ABLE TO BE TITRATED TO OFF NC TODAY, 02 SAT >90%. PT ALSO WALKED THE UNIT WITH STANDBY ASSIST AND O2 MONITOR WITHOUT O2 - SAT'S NEVER DROPPED BELOW 92%. FAMILY AT BEDSIDE OVER THE LUNCH TIME. PTS GUARDIAN CALLED THIS MORNING FOR UPDATE ON PT. RESPIRATORY PANNEL STILL PENDING. ISOLATION MAINTAINED FOR MRSA NARES. PT HAS SAT IN BEDSIDE CHAIR MOST OF DAY. PT REPOSITIONING SELF FOR COMFORT. HOURLY ROUNDING COMPLETED. LOW FALL RISK PRECAUTIONS ARE IN PLACE. CALL LIGHT IS WITHIN REACH. WCTM FOR DURATION OF SHIFT.
[2017-10-07 20:00] VITALS: BP 124/71
[2017-10-08 04:53] LABS: HEMATOCRIT 41.6 % (42.0-52.0); HEMOGLOBIN 13.6 gm/dL (14.0-18.0); MCH 31.9 pg (26.0-34.0); MCHC 32.7 g/dL (28.0-37.0); MCV 97.6 fL (80.0-100.0); MPV 7.5 fl. (7.2-11.1); RBC 4.26 mil/uL (4.50-6.00); RDW-CV 17.3 % (10.5-14.5); WBC 18.8 thou/uL (4.0-11.0)
[2017-10-08 05:20] LABS: CALCIUM 8.3 mg/dL (8.5-10.1); CREATININE 1.6 mg/dL (0.6-1.3); MAGNESIUM 2.3 mg/dL (1.8-2.4); POTASSIUM 4.6 mmol/L (3.5-5.1)
--- NOTE | 2017-10-08 05:20 | NUR ---
ASSUMED CARE OF PATIENT AT 1900 THE PATIENT REMAINS ON ISOLATION PRECAUTIONS +MRSA OF NARES AND PENDING RESP PANEL MOTHER AT BEDSIDE AT SHIFT START THE PATIENT WAS ON RA, DURING NIGHT HE AMBULATED TO BR AND REPORTEDLY GOT SHORT OF AIR AND HE THOUGHT HE WAS GOING TO PASS OUT PER MOTHER UPON ASSESSMENT O2 SAT 97% ON RA PATIENT UPRIGHT IN BED REPORTS FEELING BETTER NOW RESTING HOWEVER HE REQUEST THE O2 PLACED ON RT NOTIFIFED TOLERATING WELL MONITOR O2 SAT MAINTAINED ON CONTINUES TO BE UP WITH ASSIST OF TO THE ROUTINE REGIMEN CONTINUES TO BE EFFECTIVE FOR SX MANAGEMENT SAFETY INTERVENTIONS CONTINUE BED LOWERED WHEELS LOCKED CALL LIGHT IN REACH SIDE RAILS UP REPORT TO BE GIVEN TO ONCOMING RN
[2017-10-08 06:08] VITALS: BP 123/72
[2017-10-08] MEDS ORDERED: PREDNISONE 10 M10 MG PO (08:23)
[2017-10-08] MEDS ORDERED: ZYVOX600 MG PO (08:23)
[2017-10-08] MEDS ORDERED: LEVAQUIN 500 M500 M1 PO (08:23)
[2017-10-08 08:30] VITALS: BP 122/72
--- NOTE | 2017-10-08 09:00 | NUR ---
ASSUMED PT. CARE AND RECEIVED REPORT AT 0730. PT A/OX4,VSS, MED/SURG STATUS. PT. DENIES CURRENT PAIN/SOB. PT. ON RA 90% AT THIS TIME. UP TO BSC WITH LARGE URINE OUTPUT. FULL ASSESSMENT COMPLETED, REFER TO CHARTING. DR. PONCE INTO SEE, PLAN FOR DC TODAY. SPOKE WITH PT. GUARDIAN DIAMOND VIA PHONE. AWARE OF PLAN. ASKS THAT WE ARRANGE DC WITH BRISSA AT ALF AND FURTHER STATES THAT PT. WILL TRANSPORT WITH MOTHER AND HE WILL BE STAYING WITH HER AT HER HOUSE FOR A COUPLE OF DAYS.
[2017-10-08 12:07] VITALS: BP 122/72
--- NOTE | 2017-10-08 12:34 | NUR ---
DC ORDERS RECEIVED. PT. CAREGIVER AT BEDSIDE. DC PAPERWORK, CHART COPY, AND SCRIPTS GIVEN TO CAREGIVER. AWAITING PT. MOTHER TO ARRIVE FOR TRANSPORT. PT. EATING LUNCH AT THIS TIME. CDD CONSULTATION FORM GIVEN TO STAFF BY CAREGIVER, STATES IT HAS TO BE SIGNED AND FILLED OUT FOR PT. TO RETURN TO LONGTERM. DR. HAYWOOD NOTIFIED OF NEED AND ON UNIT TO SIGN. COPY MADE AND PLACED IN CHART.
--- NOTE | 2017-10-08 13:42 | NUR ---
IV REMOVED. PT. ABLE TO DRESS SELF. PT. LEFT WITH MOTHER TO RETURN HOME IN PERSONAL VEHICLE, ALL BELONGINGS ACCOUNTED FOR.
[2017-10-09 23:09] LABS: ADENOVIRUS Negative (Negative); INFLUENZA A Negative (Negative); INFLUENZA B Negative (Negative); METAPNEUMOVIRUS Negative (Negative); PARAINFLUENZA 1 Negative (Negative); PARAINFLUENZA 2 Negative (Negative); PARAINFLUENZA 3 Negative (Negative); RHINOVIRUS Negative (Negative); RSV A Negative (Negative); RSV B Negative (Negative)
--- NOTE | 2017-10-21 08:01 | CON ---
[address] [address] CONSULTATION Name: SONI DUMAS Room: [address] IN M.R.#: [id number] Admission: 10/01/17 Attend Phys: Conner Field, Discharge: 10/08/17 Date of : 84 Report #: [id number] THIS REPORT FOR: //name// CC: Shae Field DATE OF SERVICE: 10/01/2017 CONSULTATION: Infectious diseases. HISTORY OF PRESENT ILLNESS: Charles Dumas is a 37-year-old white male, who is readmitted to the hospital for the third time in 22 days for respiratory complaints diagnosed as "pneumonia." The patient has Down's syndrome and lives at a long term. He comes to the hospital with increasing cough, congestion and shortness of breath. The patient was admitted to the hospital on 09/09/2017 to 09/11/2017 with very similar symptoms. He did not have a positive culture. The radiographs showed some banding and streaking, but no obvious infiltrate. He was given IV antibiotic therapy in the hospital and was discharged on oral antibiotics. The patient returned to the hospital, 09/22/2017 through 09/24/2017 with a very similar history. He was treated in the hospital with Rocephin and azithromycin. Upon discharge, he went home on, I believe , Levaquin, cefdinir and azithromycin. I do not know how long he was on the antibiotics or if he is still on the antibiotics. He returned to the hospital last night with complaint of pressure in the chest, congestion and shortness of breath. He was started on broad-spectrum antibiotic therapy with vancomycin and Zosyn, given Solu-Medrol IV as well as a number of aerosolized bronchodilators and steroids. Infectious Disease consultation was requested. PAST MEDICAL HISTORY: Significant for Down syndrome. The patient has a diagnosis of asthma, hypothyroidism and sleep apnea. ALLERGIES: HE HAS A HISTORY OF ALLERGY TO SULFA DRUGS. MEDICATION RECONCILIATION: Current medication regimens include the following drugs: Budesonide 0.5 mg aerosol inhalation b.i.d., montelukast 10 mg daily, vitamin C 500 mg daily, vancomycin 1 g IV b.i.d., methylprednisolone 62.5 mg IV every 8 hours, triamcinolone cream q.i.d., Zosyn 3.375 g IV every 6 hours, DuoNeb 3 mL aerosol q.4h., clotrimazole b.i.d., fluoxetine 10 mg daily, fluticasone propionate nasal inhalation daily, pantoprazole 40 mg p.o. daily, levothyroxine 0.112 mg daily, loratadine 10 mg daily, multivitamins, vitamin C with minerals 1 tablet daily, polyethylene glycol 17 [place] [address] CONSULTATION Name: DUMASSONI Room: [address]#: [id number] Admission: 10/01/17 Attend Phys: Conner Field, Discharge: 10/08/17 Date of : 84 Report #: [id number] currently is on IV fluids, p.r.n. IV phosphorus, p.r.n. magnesium, potassium, promethazine, ondansetron, bisacodyl, Maalox, melatonin, Benadryl, ibuprofen, dextromethorphan, calcium carbonate, guaifenesin scheduled twice a day, p.r.n. Tylenol and DuoNeb. FAMILY HISTORY: Noncontributory. SOCIAL HISTORY: The patient is unmarried. He lives in a long term. He has no history of tobacco, alcohol nor drugs. REVIEW OF SYSTEMS: Somewhat difficult because of the patient's Down syndrome. The patient was somewhat somnolent and was answering questions intermittently; however, he did not admit to having any fevers, chills or sweats. He admitted to feeling badly. Denies any head or neck complaints. No congestion or drainage. The patient notes cough and dyspnea. When asked about pain, he points to the substernal area. The patient denies diarrhea or GI problems. No complaints of urinary problems. No pain in his extremities. PHYSICAL EXAMINATION: GENERAL: The patient appears comfortable, sitting up in bed, not in any distress. VITAL SIGNS: Show maximum measured temperature of 37.4. SKIN: Shows no significant rash nor exanthem. ENT: Examination demonstrates typical Down syndrome facies. HEENT: Mucous membranes are moist and normal. NECK: Thick, but supple. HEART: Sounds S1, S2. LUNGS: Breath sounds are very moist and coarse with rhonchi throughout. The patient was not coughing during the examination. ABDOMEN: Belly is protuberant, obese, soft, nontender. EXTREMITIES: Thin and otherwise unremarkable. No cyanosis, no edema. LABORATORY DATA: White count was elevated at 18.9, hemoglobin 13.1, platelets 233,000. Electrolytes normal. BUN 18, creatinine 1.7, glucose 110. Liver function tests were normal. BNP was normal. Troponin was normal. During the previous hospitalization on 09/22/2017, the patient had a normal TSH and normal T4. His blood gases in the ER showed pH 7.43, pCO2 of 36, pO2 of 45 on 2 liters of supplemental oxygen. The chest x-ray showed enlarged heart, widening of the mediastinum and some stranding in the right middle lobe. These were all described during his previous hospitalization radiographs on 09/24/2017. Chest radiographs bilateral basal densities suggesting atelectasis and chronic pleural thickening or fat during the 09/09/2017 hospitalization for cough and "pneumonia." The radiograph was described as stable right basilar atelectasis or scarring. CT angiogram done 04/02/2017 showed bilateral atelectasis or pneumonia in both bases with early bronchiectasis. Two views of the chest at that time showed improving, but persistent basal infiltrates, [place] [address] CONSULTATION Name: SONI DUMAS Room: [address] IN ..#: [id number] Admission: 10/01/17 Attend Phys: Conner Field, Discharge: 10/08/17 Date of : 84 Report #: [id number] than the left. A chest film done on 06/02/2017 for complaint of 6 weeks of chronic cough and sputum production described persistent opacities in the right lower lobe without improvement. IMPRESSION: Persistent pulmonary complaints in spite of multiple antibiotics. At this time, the patient has again respiratory complaints in spite of being on IV and oral antibiotics almost continuously since 09/09/2017. I am not convinced this represents acute pneumonia given the poor response to the antibiotics. I think it may be worthwhile to stop all the antibiotic therapy at this time and try to reassess what the underlying problem is. We should consider the possibility of a chronic anatomical problem like bronchiectasis, partial obstruction. Down syndrome can be associated with a tracheoesophageal fistulas, but usually in the period, I wonder if the patient may be having some kind of allergies with chronic mucus productions or even sinus drainage, which he is coughing up. For now, we will stop the antibiotic therapy. We will await pulmonary consultation. Bronchoscopy may be indicated. We have test pending for respiratory viruses as well as a sputum culture. We can check sputum antigens for Legionella and Pneumococcus. We now have 6 blood cultures in the last 3 weeks that so far are all no growth. A swallow study looking for reflux or aspiration may be indicated. It may be worthwhile for the patient to see an natural gas treating unit operator after this discharge to see if there is a chronic problem that is causing these recurring pulmonary symptoms. I appreciate the opportunity of input in the care of this pleasant gentleman. I am going to stop the antibiotic therapy and wait for results of cultures and pulmonary evaluation. A CT scan was done earlier today and this result is pending. Dr. Carvajal will assume infectious disease followup tomorrow. <ELECTRONICALLY SIGNED> By: Suresh Shay MD 10/21/17 0801 1121 [id number] Shay MD /nt
[2017-11-28] MEDS ORDERED: DOXYCYCLINE 10100 MG PO (07:51)
[2017-11-28] MEDS ORDERED: PREDNISONE 10 M10 MG PO (07:51)
[2017-11-28] MEDS ORDERED: CEFDINIR300 MG PO (07:51)
== END 2017-10-08 13:30 | disposition home or self-care (01) | DRG 871 ==
LOC: M.ERS 03:40 → M.2W 05:01 → M.TBA-ER 05:01 → M.2W 06:59
PROVIDERS: Internal Medicine; Internal Medicine Critical Care Medicine; Personal Emergency Response Attendant; Specialist; ADMIT Family Medicine
DX: A41.9 Sepsis, unspecified organism (principal); J18.9 Pneumonia, unspecified organism; J96.01 Acute respiratory failure with hypoxia; J45.51 Severe persistent asthma with (acute) exacerbation; E03.9 Hypothyroidism, unspecified; G47.33 Obstructive sleep apnea (adult) (pediatric); E66.9 Obesity, unspecified; N18.3 Chronic kidney disease, stage 3 (moderate); Q90.9 Down syndrome, unspecified; Z87.01 Personal history of pneumonia (recurrent); Z79.899 Other long term (current) drug therapy; Z88.2 Allergy status to sulfonamides; Z99.81 Dependence on supplemental oxygen; Z68.37 Body mass index [BMI] 37.0-37.9, adult

== ENCOUNTER 2017-12-12 17:23 | Inpatient (IN) | payer MEDICARE, MEDICAID ==
[~2017-12-12] VITALS: Ht 165.1 cm; Wt 91.6 kg
[~2017-12-12 17:23] MED LIST changes: +CEFDINIR300 MG PO; +LEVAQUIN 500 M500 M1 PO; +ZYVOX600 MG PO
[2017-12-12 17:35] VITALS: BP 111/82
[2017-12-12 18:19] LABS: HEMATOCRIT 37.8 % (42.0-52.0); HEMOGLOBIN 12.4 gm/dL (14.0-18.0); MCH 32.3 pg (26.0-34.0); MCHC 32.9 g/dL (28.0-37.0); MCV 98.3 fL (80.0-100.0); MPV 6.7 fl. (7.2-11.1); NUCLEATED RBCS 0 /100WBC; PLATELET COUNT* 282 thou/uL (150-400); RBC 3.84 mil/uL (4.50-6.00); RDW-CV 18.6 % (10.5-14.5); WBC 10.8 thou/uL (4.0-11.0)
[2017-12-12 18:30] LABS: CALCIUM 8.9 mg/dL (8.5-10.1); CREATININE 1.4 mg/dL (0.6-1.3)
[2017-12-12 18:35] LABS: ALBUMIN 3.1 g/dL (3.4-5.0); TOTAL BILIRUBIN 0.5 mg/dL (<0.1-1.0); TOTAL PROTEIN 6.4 g/dL (6.4-8.2)
[2017-12-12 18:40] LABS: ABSOLUTE BASOPHILS 0.2 thou/uL (0.0-0.2); ABSOLUTE EOSINOPHILS 0.1 thou/uL (0.0-0.7); ABSOLUTE LYMPHOCYTES 0.6 thou/uL (0.8-5.3); ABSOLUTE MONOCYTES 0.1 thou/uL (0.0-1.2); ABSOLUTE NEUTROPHILS 9.7 thou/uL (1.6-8.1); CLUMPED PLTS OCCASIONAL; PLATELET ESTIMATE ADEQUATE
[2017-12-12 18:41] LABS: ANISOCYTOSIS 1+; MACROCYTES 1+; POLYCHROMASIA 1+
[2017-12-12 19:53] LABS: URINE BILIRUBIN NEGATIVE (Negative); URINE BLOOD NEGATIVE (Negative); URINE CLARITY CLEAR; URINE COLOR YELLOW; URINE GLUCOSE-RANDOM NEGATIVE (Negative); URINE KETONES NEGATIVE (Negative); URINE LEUKOCYTES NEGATIVE (Negative); URINE NITRITE NEGATIVE (Negative); URINE PROTEIN NEGATIVE (Negative); URINE SPECIFIC GRAVITY 1.015 (1.005-1.030); URINE UROBILINOGEN 0.2 E.U./dl (0.2-1.0)
[2017-12-12 21:27] VITALS: BP 94/52
[2017-12-12 22:49] VITALS: BP 148/73
[2017-12-13 08:00] VITALS: BP 103/72
--- NOTE | 2017-12-13 10:34 | EKG ---
[place] [address] ELECTROCARDIOGRAM REPORT Name: SONI BATES Room: [address] ADM IN [facility].#: [id number] Admission: 12/12/17 Attend Phys: Juan Pablo Valencia Discharge: Date of : 84 Report #: [id number] THIS REPORT FOR: //name// [facility] ED Test Date: 2017-12-12 Test Time: 17:36:39 Pat Name: SONI BATES Department: Room: Gender: Animal Caregiver: Michael WAITE : 1980 Requested By: Delia Will Order Number: [id number] MD: Derrick Polanco Measurements Intervals [place] Rate: 124 P: OR: QRS: 71 QRSD: 72 T: 8 QT: 272 QTc: 391 Interpretive Statements sinus tachycardia Low voltage, extremity leads ST elev, probable normal early repol pattern Artifact in lead(s) I,II,III,aVR,aVL,aVF,V1,V2 Compared to ECG 11/24/2017 18:16:10 Sinus rhythm no longer present Electronically Signed On 12-13-2017 10:34:24 CDT by Derrick Polanco [email or web address] <ELECTRONICALLY SIGNED> By: Derrick Polanco MD, FACC 12/13/17 1034 1736 1736 Derrick Polanco MD, FAC /EPI
[2017-12-13 16:25] VITALS: BP 107/45
[2017-12-13 23:59] VITALS: BP 112/52
[2017-12-14 09:30] VITALS: BP 101/65
--- NOTE | 2017-12-14 11:33 | CON ---
[address] [address] CONSULTATION Name: SONI BATES Room: [address] IN M.R.#: [id number] Admission: 12/12/17 Attend Phys: Juan Pablo Valencia Discharge: Date of : 84 Report #: [id number] THIS REPORT FOR: //name// CC: Shae Salmon DATE OF SERVICE: 12/13/2017 INFECTIOUS DISEASE CONSULTATION ATTENDING PHYSICIAN: Ryan Salmon DO. REASON FOR EVALUATION: Pneumonitis. HISTORY OF PRESENT ILLNESS: Chart reviewed, the patient examined. This is a 37-year-old man with Down syndrome, who I saw in early October of this year when he was admitted with diagnosis of pneumonitis. Ultimately, he was discharged after a course of empiric antimicrobial therapy. Seemingly, he had improved. He developed fairly subacute onset of progressive shortness of breath with associated productive cough with greenish sputum. At this point, he complains of some chest discomfort, although he is not markedly uncomfortable. He did have a temperature at 100.2 earlier today, with fcvu-za-igttdamd hemodynamic instability with tachycardia, tachypnea and some borderline hypotension. He was initiated on therapy with piperacillin, tazobactam as well as vancomycin. Review of previous cultures during hospitalization were otherwise unrevealing. Per information, today he had lactic acid elevated at 3.2. Gram stain of his sputum showed rare gram-positive cocci with some gram-negative cocci and a few wbcs. ALLERGIES: SULFA. PAST MEDICAL HISTORY: In addition to the Down syndrome, he has history of asthma. He has some underlying COPD, utilizing CPAP; recurrent pneumonitis; hypothyroidism and seasonal allergies. SOCIAL HISTORY: Nonsmoker, no ethanol. FAMILY HISTORY: Noncontributory. REVIEW OF SYSTEMS: As above. Denies significant gastrointestinal-related complaints. CURRENT MEDICATIONS: Include levothyroxine, vancomycin, Zosyn, montelukast, ascorbic acid, fluoxetine and ipratropium inhaler. PHYSICAL EXAMINATION: [place] [address] CONSULTATION Name: SONI BATES Room: [address]#: [id number] Admission: 12/12/17 Attend Phys: Juan Pablo Valencia Discharge: Date of : 84 Report #: [id number] GENERAL: He is appears to be fairly well nourished. He is in mjso-jm-soooquko distress secondary to his breathing. VITAL SIGNS: Temperature 98.6, pulse 80, respirations 18 and blood pressure 107/45. SKIN: Warm, dry. No rashes. HEENT: Unremarkable. NECK: Supple. LUNGS: Few scattered coarse breath sounds. No wheezes. HEART: Regular. I do not appreciate a murmur. ABDOMEN: Obese, soft and nontender. There are no peritoneal signs. GENITOURINARY: Deferred. RECTAL: Deferred. LABORATORY DATA: Sputum culture is pending. Gram stain noted above. Blood cultures sterile thus far. Lactic acid elevated at 3.2. Urinalysis unremarkable. CBC: White count of 10.8, H and H 12.4 and 37.8 and platelets of 282,000. Electrolytes: Sodium 140, potassium 4.0, chloride 102, bicarbonate is 31, anion gap of 7, BUN and creatinine 11 and 1.4 and glucose of 111. LFTs unremarkable. Albumin of 3.1. Total protein 6.4. Estimated GFR 58. Chest x-ray, there is some hyperinflation, consistent with emphysematous changes. Heart is normal size. Some bibasilar interstitial infiltrates. There is similar to previous x-ray on 11/26/2017. ASSESSMENTAND PLAN: Pneumonitis in the setting of recurrence. It has been so difficult to obtain a sputum to collect for culture. At this point, it appears for his upper tract priscilla. Continue broad-spectrum therapy. At this point, he is not overtly toxic. Noted Pulmonary to evaluate and we will see if he has benefit from therapeutic bronchoscopy. <ELECTRONICALLY SIGNED> By: Jermaine Carvajal MD 12/14/17 1133 1742 [id number] Carvajal MD /nt
[2017-12-14 14:40] LABS: ABSOLUTE BASOPHILS 0.1 thou/uL (0.0-0.2); ABSOLUTE EOSINOPHILS 0.5 thou/uL (0.0-0.7); ABSOLUTE LYMPHOCYTES 0.9 thou/uL (0.8-5.3); ABSOLUTE MONOCYTES 0.6 thou/uL (0.0-1.2); ABSOLUTE NEUTROPHILS 6.1 thou/uL (1.6-8.1); BASOPHILS 1.3 %; HEMOGLOBIN 11.6 gm/dL (14.0-18.0); LYMPHOCYTES 10.4 %; MCH 32.1 pg (26.0-34.0); MCHC 33.2 g/dL (28.0-37.0); MCV 96.9 fL (80.0-100.0); MONOCYTES 7.9 %; MPV 7.1 fl. (7.2-11.1); NUCLEATED RBCS 0 /100WBC; PLATELET COUNT* 246 thou/uL (150-400); POLYS 74.4 %; RBC 3.61 mil/uL (4.50-6.00); RDW-CV 18.5 % (10.5-14.5); WBC 8.2 thou/uL (4.0-11.0)
[2017-12-14 15:08] LABS: ALBUMIN 2.8 g/dL (3.4-5.0); CALCIUM 8.1 mg/dL (8.5-10.1); CREATININE 1.5 mg/dL (0.6-1.3); POTASSIUM 3.6 mmol/L (3.5-5.1); TOTAL BILIRUBIN 0.5 mg/dL (<0.1-1.0); TOTAL PROTEIN 6.1 g/dL (6.4-8.2)
[2017-12-14 16:24] VITALS: BP 124/65
[2017-12-14 20:00] VITALS: BP 105/54
[2017-12-15 08:25] VITALS: BP 120/72
--- NOTE | 2017-12-15 08:33 | CON ---
[address] [address] CONSULTATION Name: SONI BATES Room: [address] IN M.R.#: [id number] Admission: 12/12/17 Attend Phys: Juan Pablo Valencia Discharge: Date of : 84 Report #: [id number] THIS REPORT FOR: //name// CC: Shae Salmon DATE OF SERVICE: 12/14/2017 HISTORY OF PRESENT ILLNESS: The patient is a 37-year-old man with Down syndrome. He is a nonsmoker. He has had recurrent episodes of pneumonia and unfortunately has had fair number of hospitalizations here at [facility], specifically over the last couple of years. He does have a history of asthma. He is a nonsmoker. He does live in a mcc. He was hospitalized here last month and treated for pneumonia. Was discharged home on 11/28/2017. Was discharged with antibiotics, prednisone taper, to continue his nebulizer treatments at home. However, presented to the Emergency Department on the evening of the of this month. care home had noted increased hypoxemia. Was on 4 liters and had low sats. Was seen in the ED. Chest x-ray was unchanged relative to prior studies. Does have prominent markings in the bases. He was admitted and was started on antibiotics to cover for pneumonia. Note, his white blood cell count was normal. Blood cultures negative to date. Overall, he is feeling fairly good this morning. In fact, he is asking me if he can go home. He has been seen by the Infectious Disease Service. He has been seen by our group when he has been hospitalized here previously. I am not sure if he has any followup in our office. As noted, he is a nonsmoker. Older CT scans done last year did reveal changes of bronchiectasis in his bases. When all of his imaging studies were reviewed last month when he was here, it was also noted that consistently his larger airways appeared collapsed on the imaging studies. He is not sure if this was representing either bronchial megaly or tracheomalacia versus just catching him at end inspirations at the time of the CT scans. He has been afebrile since admission here. He is resting quite comfortably, in fact is asking when he can go home. He is on O2 at 3 liters per nasal cannula. He has not been coughing much here now since admission. He notes he was coughing up some green mucus prior to coming in. PAST MEDICAL HISTORY: Remarkable for the asthma, seasonal allergies, bronchiectasis and recurrent infections, sleep apnea for which he does use CPAP at night, hypothyroidism. He has had urinary tract infections. When he was here previously, he did have a fairly extensive evaluation [place] [address] CONSULTATION Name: JANASONI Room: [facility] IN .R.#: [id number] Admission: 12/12/17 Attend Phys: Juan Pablo Valencia Discharge: Date of : 84 Report #: [id number] immunoglobulins done, which were normal. He has also been checked for connective tissue disease. His GINNY has been unremarkable, his ANCAs were also unremarkable. Also, note his IgG subclasses were normal. HOME MEDICATIONS: Scheduled nebulizer treatments with p.r.n. albuterol, Flonase nasal spray, montelukast, Advair 500/50 one puff b.i.d., loratadine, guaifenesin 600 mg twice a day, levothyroxine, Synthroid, ipratropium bromide along with the albuterol and the neb treatments, omeprazole, p.r.n. acetaminophen, p.r.n. ibuprofen. ALLERGIES: SULFA. SOCIAL HISTORY: Nonsmoker. He lives in a mcc. Previously been involved in some workshops but has not been doing that given his recurrent pneumonias and avoidance of respiratory irritants. FAMILY HISTORY: Negative for lung disease, heart disease. REVIEW OF SYSTEMS: ROS was done. Reliability appears to be fair. Denies any difficulty swallowing. Not having any chest pain. Still having some cough, though his mother notes she has not noted any cough while he has been here. Denies any nausea or vomiting. Appetite has been good. Intermittently may have the cough, was bringing up green mucus. No hemoptysis. No blood in his stools. No syncopal episodes. No recent falls. PHYSICAL EXAMINATION: GENERAL: A young man sitting up in the chair. He has obvious features of Down syndrome. His O2 running via nasal cannula. He is alert, conversant. He is in no acute distress. Did appear to be becoming increasingly anxious; however, throughout the interview and discussions. Looks comfortable at rest. HEENT: Sclerae nonicteric. Mucous membranes little dry. NECK: Negative for adenopathy. No JVD. HEART: He has regular rate. Minimally tachycardic. No S3 is heard. LUNGS: Sounds are clear. Breath sounds minimally diminished in the bases. No wheezing or crackles are heard. ABDOMEN: Soft without appreciable hepatosplenomegaly. There is no guarding or rebound tenderness noted. EXTREMITIES: He has no clubbing. No lower extremity edema. SKIN: Warm and dry. Turgor is fairly good. PSYCHIATRIC: Does appear alert and oriented x 3. LABORATORY AND X-RAY FINDINGS: X-rays were reviewed. He has some prominence of markings in the bases. It is actually quite similar to the study he had when he was discharged here in late October. He had a CT scan done of his chest mid October this year. Bibasilar infiltrates. Given some of the respiratory artifact, somewhat difficult to interpret. He did have [place] [address] CONSULTATION Name: SONI BATES Yasmine Room: [address] IN [facility]#: [id number] Admission: 12/12/17 Attend Phys: Juan Pablo Valencia Discharge: Date of : 84 Report #: [id number] Studies done last fall did show changes of bronchiectasis. Echocardiogram done last month given the question of pericardial effusion revealed LV to be normal with an EF of 65%. No diastolic dysfunction was noted. No significant valvular heart disease. He had a mild circumferential pericardial effusion. His chemistry, BUN is 11, creatinine of 1.4, potassium 4.0, bicarbonate 31. Transaminases normal. White blood cell count 10,800, hemoglobin 12.4, hematocrit 37.8, platelets are normal. He is known to test positive in his nose for MRSA. Blood cultures sent on admission are pending. Sputum cultures also sent. Gram stain is showing few gram-positive cocci and gram-negative cocci. Culture to date; however, is growing only upper respiratory priscilla. IMPRESSION: 1. Recurrent lower respiratory tract infections. Changes of bronchiectasis noted on older CT scans in lower lung basurto. It is probably the main culprit. He may also have certain amount of tracheomalacia. This would also contribute to difficulty clearing secretions and consequently make him more likely to have recurrent episodes of pneumonia. Clinically, doubt tuberculosis, etc. Could have a mycobacterial infection. Prior immune workup was unremarkable. Clinically, does not appear to be aspirating. 2. History of asthma, not bronchospastic. 3. History of sleep apnea, is compliant with his CPAP at night. 4. Chronic hypoxic respiratory failure. 5. History of Down syndrome. 6. Chronic kidney disease, has mild elevated creatinine with decreased clearance. RECOMMENDATIONS: 1. Discussed possible bronchoscopy with the patient. He did become quite nervous and anxious in regards to discussion. He notes he does "not want to do it." His mother was there as we discussed the procedure. However, she is not his DPOA. Although he does have a DPOA, obviously would not want to proceed with any type of procedure if the patient himself is not willing to proceed with that. We can revisit that. 2. Antibiotics per ID. 3. Increase his neb treatments to be scheduled every 4 hours with combination of the albuterol and ipratropium. 4. Long-term remains a difficult problem. Consider cycling antibiotics. 5. Potentially could also benefit from vibrating vest if he would tolerate that. <ELECTRONICALLY SIGNED> By: Gabby Navarro MD 12/15/17 0833 1113 1421Gabby Navarro MD /nt
[2017-12-15 10:48] VITALS: BP 120/72
[2017-12-15 11:05] LABS: HEMATOCRIT 34.4 % (42.0-52.0); HEMOGLOBIN 11.2 gm/dL (14.0-18.0); MCH 32.1 pg (26.0-34.0); MCHC 32.7 g/dL (28.0-37.0); MCV 98.3 fL (80.0-100.0); MPV 7.6 fl. (7.2-11.1); NUCLEATED RBCS 0 /100WBC; PLATELET COUNT* 228 thou/uL (150-400); RDW-CV 18.3 % (10.5-14.5); WBC 7.1 thou/uL (4.0-11.0)
[2017-12-15 11:12] LABS: ALBUMIN 2.8 g/dL (3.4-5.0); CALCIUM 8.1 mg/dL (8.5-10.1); CREATININE 1.3 mg/dL (0.6-1.3); TOTAL BILIRUBIN 0.5 mg/dL (<0.1-1.0); TOTAL PROTEIN 5.6 g/dL (6.4-8.2)
[2017-12-15 11:33] LABS: ABSOLUTE BASOPHILS 0.1 thou/uL (0.0-0.2); ABSOLUTE EOSINOPHILS 0.4 thou/uL (0.0-0.7); ABSOLUTE LYMPHOCYTES 1.2 thou/uL (0.8-5.3); ABSOLUTE MONOCYTES 0.4 thou/uL (0.0-1.2)
[2017-12-15 11:34] LABS: PLATELET ESTIMATE ADEQUATE
[2017-12-15 11:35] LABS: MACROCYTES 1+
[2017-12-15 17:28] VITALS: BP 114/72
[2017-12-15 23:00] VITALS: BP 104/68
[2017-12-16 03:58] LABS: ABSOLUTE BASOPHILS 0.1 thou/uL (0.0-0.2); ABSOLUTE EOSINOPHILS 0.1 thou/uL (0.0-0.7); ABSOLUTE LYMPHOCYTES 0.9 thou/uL (0.8-5.3); ABSOLUTE MONOCYTES 0.6 thou/uL (0.0-1.2); ABSOLUTE NEUTROPHILS 7.7 thou/uL (1.6-8.1); BASOPHILS 0.9 %; EOSINOPHILS 0.7 %; HEMATOCRIT 31.2 % (42.0-52.0); HEMOGLOBIN 10.5 gm/dL (14.0-18.0); LYMPHOCYTES 9.7 %; MCH 32.5 pg (26.0-34.0); MCHC 33.7 g/dL (28.0-37.0); MCV 96.6 fL (80.0-100.0); MONOCYTES 6.3 %; MPV 7.3 fl. (7.2-11.1); NUCLEATED RBCS 0 /100WBC; PLATELET COUNT* 233 thou/uL (150-400); POLYS 82.4 %; RBC 3.23 mil/uL (4.50-6.00); RDW-CV 17.9 % (10.5-14.5); WBC 9.3 thou/uL (4.0-11.0)
[2017-12-16 04:04] LABS: ALBUMIN 2.6 g/dL (3.4-5.0); CALCIUM 8.2 mg/dL (8.5-10.1); CREATININE 1.2 mg/dL (0.6-1.3); POTASSIUM 3.8 mmol/L (3.5-5.1); TOTAL BILIRUBIN 0.4 mg/dL (<0.1-1.0)
[2017-12-16 04:16] LABS: PREALBUMIN 30.9 mg/dL (18.0-35.7)
[2017-12-16 08:45] VITALS: BP 104/71
[2017-12-16 16:00] VITALS: BP 102/63
[2017-12-16 23:03] VITALS: BP 100/61
[2017-12-17 08:00] VITALS: BP 112/68
[2017-12-17] MEDS ORDERED: PREDNISONE 10 M10 MG PO (12:04)
[2017-12-17] MEDS ORDERED: AUGMENTIN 875-1 EACH PO (12:05)
== END 2017-12-17 13:00 | disposition home health service (06) | DRG 177 ==
LOC: M.ERS 17:23 → M.TBA-ER 20:29 → M.3W 20:29
PROVIDERS: Internal Medicine; Physician Assistant Surgical; ADMIT Internal Medicine
DX: J15.6 Pneumonia due to other Gram-negative bacteria (principal); J96.21 Acute and chronic respiratory failure with hypoxia; N17.0 Acute kidney failure with tubular necrosis; R65.10 Systemic inflammatory response syndrome (SIRS) of non-infectious origin without acute organ dysfunction; J44.0 Chronic obstructive pulmonary disease with (acute) lower respiratory infection; M83.9 Adult osteomalacia, unspecified; J39.8 Other specified diseases of upper respiratory tract; M10.9 Gout, unspecified; G47.33 Obstructive sleep apnea (adult) (pediatric); N18.9 Chronic kidney disease, unspecified; E03.9 Hypothyroidism, unspecified; K21.9 Gastro-esophageal reflux disease without esophagitis; Q90.9 Down syndrome, unspecified; Z88.2 Allergy status to sulfonamides; Z79.2 Long term (current) use of antibiotics; Z79.899 Other long term (current) drug therapy; Z99.81 Dependence on supplemental oxygen

== ENCOUNTER 2018-01-26 09:15 | Emergency (ER) | payer MEDICARE, MEDICAID ==
[~2018-01-26] VITALS: Ht 165.1 cm; Wt 91.6 kg
[~2018-01-26 09:15] MED LIST changes: +AUGMENTIN 875-1 EACH PO
[2018-01-26 10:28] LABS: ABSOLUTE BASOPHILS 0.1 thou/uL (0.0-0.2); ABSOLUTE EOSINOPHILS 0.2 thou/uL (0.0-0.7); ABSOLUTE LYMPHOCYTES 1.3 thou/uL (0.8-5.3); ABSOLUTE MONOCYTES 0.6 thou/uL (0.0-1.2); ABSOLUTE NEUTROPHILS 6.6 thou/uL (1.6-8.1); BASOPHILS 1.4 %; HEMATOCRIT 40.8 % (42.0-52.0); HEMOGLOBIN 13.6 gm/dL (14.0-18.0); LYMPHOCYTES 14.7 %; MCH 31.8 pg (26.0-34.0); MCHC 33.2 g/dL (28.0-37.0); MCV 95.8 fL (80.0-100.0); MONOCYTES 7.3 %; MPV 7.6 fl. (7.2-11.1); NUCLEATED RBCS 0 /100WBC; PLATELET COUNT* 347 thou/uL (150-400); POLYS 74.6 %; RBC 4.26 mil/uL (4.50-6.00); RDW-CV 16.9 % (10.5-14.5); WBC 8.9 thou/uL (4.0-11.0)
[2018-01-26 10:37] LABS: ANION GAP 8 mmol/L (7-16); BUN 7 mg/dL (7-18); CALCIUM 9.1 mg/dL (8.5-10.1); CHLORIDE 101 mmol/L (98-107); CO2 30 mmol/L (21-32); CREATININE 1.2 mg/dL (0.6-1.3); GLUCOSE 120 mg/dL (70-99); POTASSIUM 3.7 mmol/L (3.5-5.1); SODIUM 139 mmol/L (136-145)
[2018-01-26 10:48] LABS: ALBUMIN 3.3 g/dL (3.4-5.0); ALKALINE PHOSPHATASE 75 U/L (46-116); LIPASE 83 U/L (73-393); NT-PRO BRAIN NAT PEPTIDE 68 pg/mL (<300); SGOT 17 U/L (15-37); SGPT 27 U/L (30-65); TOTAL BILIRUBIN 0.3 mg/dL (<0.1-1.0); TOTAL PROTEIN 7.6 g/dL (6.4-8.2); TROPONIN-I LEVEL <0.06 ng/mL (<0.06)
[2018-01-26 11:14] VITALS: BP 113/68
--- NOTE | 2018-01-26 16:32 | EKG ---
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
== END 2018-01-26 11:14 | disposition home or self-care (01) ==
LOC: M.ERS 09:15
PROVIDERS: Emergency Medicine
DX: R07.89 Other chest pain (principal); J45.50 Severe persistent asthma, uncomplicated; G47.30 Sleep apnea, unspecified; Z87.01 Personal history of pneumonia (recurrent); Z88.2 Allergy status to sulfonamides

== ENCOUNTER 2018-03-09 18:52 | Emergency (ER) | payer MEDICARE, MEDICAID ==
[~2018-03-09] VITALS: Ht 160 cm; Wt 97.1 kg
[2018-03-09] MEDS ORDERED: EUCERIN CREME57 GM TOP (19:15)
[2018-03-09] MEDS ORDERED: CICLODAN 0.77%544 GM TOP (19:17)
[2018-03-09] MEDS ORDERED: B COMPLEX1 EACH PO (19:18)
[2018-03-09] MEDS ORDERED: IBUPROFEN 400400 M2 PO (19:21)
[2018-03-09] MEDS ORDERED: PHENERGAN50 M1 PO (19:22)
[2018-03-09] MEDS ORDERED: VENTOLIN HFA 1818 GM INH (19:23)
[2018-03-09] MEDS ORDERED: AMOXICILLIN 50500 M1 PO (19:29)
[2018-03-09] MEDS ORDERED: ZPAK PO (19:29)
[2018-03-09] MEDS ORDERED: PREDNISONE50 MG PO (19:30)
[2018-03-09 19:35] VITALS: BP 107/65
--- NOTE | 2018-03-10 12:48 | EKG ---
[place] [address] ELECTROCARDIOGRAM REPORT Name: SONI BATES Room: [facility]#: [id number] Admission: 03/09/18 Attend Phys: Discharge: 03/09/18 Date of : 84 Report #: [id number] THIS REPORT FOR: //name// [facility] ED Test Date: 2018-03-09 Test Time: 19:00:29 Pat Name: SONI BATES Department: Room: Gender: M Account Clerk: : 1980 Requested By: Андрей Aragon Order Number: [id number] MD: Angel Avalos Measurements Intervals [place] Rate: 86 P: 61 CA: 129 QRS: 77 QRSD: 82 T: 49 QT: 345 QTc: 413 Interpretive Statements Sinus rhythm Compared to ECG 01/26/2018 10:07:29 No significant changes Electronically Signed On 03-10-2018 12:48:22 CDT by Angel Avalos [email or web address] <ELECTRONICALLY SIGNED> By: Jefferson Avalos MD, [facility] 03/10/18 1248 1900 99 Jefferson Avalos MD, FACC /EPI
== END 2018-03-09 19:40 | disposition home or self-care (01) ==
LOC: M.ERS 18:52
DX: J18.1 Lobar pneumonia, unspecified organism (principal); Q90.9 Down syndrome, unspecified; E03.9 Hypothyroidism, unspecified; G47.30 Sleep apnea, unspecified; Z88.2 Allergy status to sulfonamides

== ENCOUNTER 2018-03-22 07:18 | Inpatient (IN) | payer MEDICARE, MEDICAID ==
[~2018-03-22] VITALS: Ht 165.1 cm; Wt 104.3 kg
[~2018-03-22 07:18] MED LIST changes: +AMOXICILLIN 50500 M1 PO; +B COMPLEX1 EACH PO; +CICLODAN 0.77%544 GM TOP; +EUCERIN CREME57 GM TOP; +IBUPROFEN 400400 M2 PO; +PHENERGAN50 M1 PO; +PREDNISONE50 MG PO
[2018-03-22 07:19] VITALS: BP 117/63
--- NOTE | 2018-03-22 07:30 | NUR ---
Katie BALBUENA CONTACTED FOR NEBULIZER TREATMENT.
[2018-03-22 07:55] LABS: HEMATOCRIT 43.4 % (42.0-52.0); HEMOGLOBIN 14.1 gm/dL (14.0-18.0); MCH 30.9 pg (26.0-34.0); MCHC 32.4 g/dL (28.0-37.0); MCV 95.4 fL (80.0-100.0); MPV 6.8 fl. (7.2-11.1); NUCLEATED RBCS 0 /100WBC; PLATELET COUNT* 340 thou/uL (150-400); RBC 4.55 mil/uL (4.50-6.00); RDW-CV 16.3 % (10.5-14.5); WBC 14.3 thou/uL (4.0-11.0)
--- NOTE | 2018-03-22 08:03 | NUR ---
OBTAINED TELEPHONE CONSENT FROM DIAMOND MCKEON TO TREAT PATIENT WITH SECOND WITNESS OF ELIOT SANCHEZ RN. RECIEVED ALTERNATIVE PHONE NUMBER DUE TO [employer] AT WORK AND CELL PHONE OCCASIONALLY DOES NOT WORK. [phone].
[2018-03-22 08:13] LABS: ANION GAP 6 mmol/L (7-16); BUN 15 mg/dL (7-18); CHLORIDE 102 mmol/L (98-107); CO2 30 mmol/L (21-32); CREATININE 1.2 mg/dL (0.6-1.3); GLUCOSE 100 mg/dL (70-99); POTASSIUM 3.6 mmol/L (3.5-5.1); SODIUM 138 mmol/L (136-145)
[2018-03-22 08:17] LABS: ALBUMIN 3.2 g/dL (3.4-5.0); ALKALINE PHOSPHATASE 59 U/L (46-116); LIPASE 108 U/L (73-393); MAGNESIUM 1.6 mg/dL (1.8-2.4); NT-PRO BRAIN NAT PEPTIDE 44 pg/mL (<300); SGOT 15 U/L (15-37); SGPT 27 U/L (30-65); TOTAL BILIRUBIN 0.4 mg/dL (<0.1-1.0); TOTAL PROTEIN 6.5 g/dL (6.4-8.2); TROPONIN-I LEVEL <0.06 ng/mL (<0.06)
[2018-03-22 08:46] LABS: ABSOLUTE LYMPHOCYTES 2.1 thou/uL (0.8-5.3); ABSOLUTE MONOCYTES 0.6 thou/uL (0.0-1.2); ABSOLUTE NEUTROPHILS 11.6 thou/uL (1.6-8.1); PLATELET ESTIMATE ADEQUATE
[2018-03-22 08:51] LABS: URINE BILIRUBIN NEGATIVE (Negative); URINE BLOOD NEGATIVE (Negative); URINE CLARITY CLEAR; URINE COLOR YELLOW; URINE GLUCOSE-RANDOM NEGATIVE (Negative); URINE KETONES NEGATIVE (Negative); URINE LEUKOCYTES-REFLEX NEGATIVE (Negative); URINE NITRITE-REFLEX NEGATIVE (Negative); URINE PROTEIN NEGATIVE (Negative); URINE SPECIFIC GRAVITY 1.015 (1.005-1.030); URINE UROBILINOGEN 0.2 E.U./dl (0.2-1.0)
[2018-03-22 09:42] VITALS: BP 117/63
[2018-03-22 10:00] VITALS: BP 88/55
[2018-03-22 12:00] VITALS: BP 105/54
--- NOTE | 2018-03-22 12:00 | NUR ---
VSS, ASSUMED CARE OF PT FROM ER, ASSESSMENT PERFORMED AND AND CHARTED, PT IS UP WITH ONE, IS A&O4, ON 4L NC AND STATES HE HAS SOME CHEST PAIN BUT ONLY WITH DEEP BREATHING, PT HAS WHZ AND DIM LINGS SOUNDS, PT IS TRAING ST ON THE MONITOR, HAS FALL PRECAUTIONS IN PLACE AND CALL LIGHT IN RECAH, PT GOAL IS TO IMPROVE BREATHING, WILL FOLLOW WITH PLAN OF CARE.
[2018-03-22 16:00] VITALS: BP 131/69
[2018-03-22 16:17] LABS: BE -1.8 mmol/L (-2 to +3); HCO3 21.7 mmol/L (22.0-26.0); PCO2 33.6 mmHg (35.0-45.0); PO2 114.3 mmHg (75.0-100.0); pH 7.428 (7.340-7.450)
--- NOTE | 2018-03-22 16:45 | EKG ---
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
--- NOTE | 2018-03-22 19:44 | NUR ---
vss, pt mom joanna can cause pt to have anxiety, his katey negrete has ask that joanna pt mom to leave if this happens,
[2018-03-22 20:00] VITALS: BP 148/80
[2018-03-23] VITALS: BP 148/66
[2018-03-23 01:12] LABS: ABSOLUTE LYMPHOCYTES 0.3 thou/uL (0.8-5.3); ABSOLUTE MONOCYTES 0.1 thou/uL (0.0-1.2); BASOPHILS 0.2 %; HEMATOCRIT 41.9 % (42.0-52.0); HEMOGLOBIN 13.7 gm/dL (14.0-18.0); MCH 31.1 pg (26.0-34.0); MCHC 32.8 g/dL (28.0-37.0); MCV 94.9 fL (80.0-100.0); MONOCYTES 0.6 %; MPV 7.1 fl. (7.2-11.1); NUCLEATED RBCS 0 /100WBC; PLATELET COUNT* 331 thou/uL (150-400); POLYS 97.2 %; RBC 4.41 mil/uL (4.50-6.00); RDW-CV 15.9 % (10.5-14.5); WBC 15.4 thou/uL (4.0-11.0)
[2018-03-23 01:27] LABS: CALCIUM 8.3 mg/dL (8.5-10.1); CREATININE 1.4 mg/dL (0.6-1.3); MAGNESIUM 1.9 mg/dL (1.8-2.4); POTASSIUM 4.2 mmol/L (3.5-5.1)
[2018-03-23 04:00] VITALS: BP 121/73
--- NOTE | 2018-03-23 05:00 | NUR ---
PT ALERT AND ORIENTED X 4, TYLENOL GIVEN AT HS FOR PAIN IN CHEST, PT ASLEEP AT REASSESMENT, ON , CPAP HS, TELEMETRY TRACING SR, WILL CONTINUE TO MONITOR.
--- NOTE | 2018-03-23 07:56 | CON ---
[address] [address] CONSULTATION Name: SONI BATES Room: [address] IN M.R.#: [id number] Admission: 03/22/18 Attend Phys: Jn Johnson MD Discharge: Date of : 84 Report #: [id number] THIS REPORT FOR: //name// CC: Jn Kaufman Santoro DATE OF SERVICE: 03/22/2018 ATTENDING PHYSICIAN: Jn Johnson M.D. REASON FOR EVALUATION: Pneumonitis and sepsis. HISTORY OF PRESENT ILLNESS: Chart reviewed, patient examined. This is a 38-year-old man who I know from previous, was hospitalized in December of this year, has Down syndrome and has repeated issues with pneumonitis, I suspect on the basis of aspiration, who had developed increasing respiratory difficulty with shortness of air, cough, although no sore throat. He was evaluated and found to have some pulmonary infiltrates. White count was mildly elevated. He was given some supplemental oxygen, empirically started on therapy with Zosyn and levofloxacin. ALLERGIES: SULFA. CURRENT MEDICATIONS: Include levofloxacin, clotrimazole, enoxaparin, montelukast, ascorbic acid, fluoxetine, Zosyn, ipratropium and albuterol inhaler, levothyroxine, loratadine, pantoprazole, and was given some methylprednisolone as well. PAST MEDICAL HISTORY: Down syndrome, history of asthma, seasonal allergies, current pneumonitis, hypothyroidism, and sleep apnea. SOCIAL HISTORY: Nonsmoker, no ethanol. FAMILY HISTORY: Noncontributory. REVIEW OF SYSTEMS: As above. PLAN: Significant gastrointestinal-related complaints. PHYSICAL EXAMINATION: GENERAL: He is pleasant, alert, cooperative. He is in moderate respiratory distress. VITAL SIGNS: Temperature 98.3, pulse 92, respirations 15, blood pressure 105/54. HEENT: He has nasal cannula oxygen in place. NECK: [place] [address] CONSULTATION Name: SONI BATES Room: [address] IN [facility]#: [id number] Admission: 03/22/18 Attend Phys: Jn Johnson MD Discharge: Date of : 82 Report #: [id number] SKIN: Warm, dry, no rashes. LUNGS: Few scattered coarse breath sounds. HEART: Regular. Borderline tachycardic. I do not appreciate murmur. ABDOMEN: Soft, nontender, nondistended. EXTREMITIES: No cyanosis. GENITOURINARY: Deferred. RECTAL: Deferred. LABORATORY DATA: Chest x-ray: Patchy medial right basilar and right middle lobe opacities. Lactic acid 1.2. D-dimer 0.32. Electrolytes: Sodium 138, potassium 3.6, chloride 102, bicarbonate is 30, BUN and creatinine 15 and 1.2, anion gap of 6, glucose of 100. LFTs unremarkable. Albumin of 3.2, total protein of 6.5. CBC: White count of 14.3, H and H of 14.1 and 43.4, platelets of 340, neutrophilia. Urinalysis was unremarkable. ASSESSMENT: Pneumonitis. In the current situation, we will continue combination therapy due to possibility of resistant organisms at this point, he is not overtly toxic. Continue efforts to wean off therapy, I think he has some underlying aspiration issues, certainly he has an asthmatic component as well that perhaps puts him at risk. We will see how he does clinically over the next 24-48 hours. <ELECTRONICALLY SIGNED> By: Jermaine Carvajal MD 03/23/18 0756 [id number] 1924Jomariana Carvajal MD /nt
[2018-03-23 08:00] VITALS: BP 125/64
--- NOTE | 2018-03-23 15:06 | NUR ---
MET WITH PT AND SPOKE WITH GUARDIAN/DIAMOND MCKEON AND CAREGIVERS FROM [facility]. PT HAS DOWNS, LIVES AT [facility]. HE MANAGES WELL THERE. WEARS O2 AND USES NEBULIZER. IS FOLLOWED BY [facility] AND WOULD LIKE TO CONTINUE THAT CARE AT [place]. PT IS FAIRLY INDEPENDENT WITH ADLS. PLAN IS FOR HIM TO RETURN HOME AT [place]. WILL FOLLOW [facility] [phone] IF PT DC'S OVER WEEKEND DIAMOND MCKEON-[facility] [phone] [facility] [phone] FAX [phone]
[2018-03-23 15:08] VITALS: BP 125/64
[2018-03-23 20:00] VITALS: BP 126/70
[2018-03-24] VITALS: BP 114/60
--- NOTE | 2018-03-24 05:12 | NUR ---
PATIENT PROGRESSING TOWARDS GOALS: REMAINS ON 4L 02 NC, HAS "HOME" CPAP, 02 SATS REMAIN GREATER THAN 92%. COUGH RELIEVED WITH ROBITUSSIN. PATIENT ANXIOUS AND TEARFUL AT START OF SHIFT BUT WAS RESOLVED TOWARD THE END DUE TO REASSURANCE. PATIENT HAS RESTED WELL. HOURLY ROUNDED OBSERVED CALL LIGHT WITHIN REACH.
[2018-03-24 05:22] LABS: BE -1.2 mmol/L (-2 to +3); HCO3 23.6 mmol/L (22.0-26.0); PO2 60.1 mmHg (75.0-100.0); pH 7.389 (7.340-7.450)
[2018-03-24 05:30] LABS: ALBUMIN 2.8 g/dL (3.4-5.0); CREATININE 1.3 mg/dL (0.6-1.3); POTASSIUM 3.8 mmol/L (3.5-5.1); TOTAL BILIRUBIN 0.2 mg/dL (<0.1-1.0); TOTAL PROTEIN 6.2 g/dL (6.4-8.2)
[2018-03-24 05:36] LABS: ABSOLUTE LYMPHOCYTES 0.8 thou/uL (0.8-5.3); ABSOLUTE MONOCYTES 0.8 thou/uL (0.0-1.2); ABSOLUTE NEUTROPHILS 24.3 thou/uL (1.6-8.1); BASOPHILS 0.1 %; HEMATOCRIT 38.6 % (42.0-52.0); HEMOGLOBIN 12.6 gm/dL (14.0-18.0); LYMPHOCYTES 3.1 %; MCH 31.2 pg (26.0-34.0); MCHC 32.8 g/dL (28.0-37.0); MCV 95.1 fL (80.0-100.0); MONOCYTES 3.2 %; MPV 7.1 fl. (7.2-11.1); NUCLEATED RBCS 0 /100WBC; PLATELET COUNT* 318 thou/uL (150-400); POLYS 93.6 %; RBC 4.06 mil/uL (4.50-6.00); RDW-CV 16.7 % (10.5-14.5)
[2018-03-24 08:00] VITALS: BP 125/68
[2018-03-24 12:00] VITALS: BP 112/56
--- NOTE | 2018-03-24 18:35 | NUR ---
RECEIVED REPORT. ASSUMED CARE OF PT AROUND 729. PT A&O X4, VSS, O2 SAT 90% ON RA. RT HAS TURNED PT'S O2 SAT UP TO 5L PER NC TO MAINTAIN SATS >90%. PT M/S STATUS. AM ASSESSMENT AND VITALS COMPLETED CHARTED. PT USING INCENTIVE SPIROMETER. IV TO LEFT FA INTACT AND SALINE LOCKED. PT SEEN BY ID AND THERAPIES THIS SHIFT. PT PLACED ON NECTAR THICK FLUIDS PER SPEECH THERAPY - PT TO HAVE VIDEO SWALLOW STUDY DONE MONDAY. PT'S GUARDIAN DIAMOND CALLED, UPDATE GIVEN. PT HAS HAD GOOD APPETITE THIS SHIFT. PT UP TO THE BATHROOM WITH STAND BY ASSIST SEVERAL TIMES THIS SHIFT TO VOID AND HAVE A BM. PT HAS DENIED PAIN OR DISCOMFORT THROUGHOUT THIS SHIFT. ALL NEEDS MET AT THIS TIME. PT CURRENTLY SITTING UP IN BEDSIDE CHAIR. FALL PRECAUTIONS IN PLACE. CALL LIGHT IS WITHIN REACH. HOURLY ROUNDING PERFORMED. WCTM FOR DURATION OF SHIFT.
[2018-03-24 20:00] VITALS: BP 108/52
[2018-03-25] VITALS: BP 112/65
[2018-03-25 04:45] LABS: ABSOLUTE LYMPHOCYTES 0.5 thou/uL (0.8-5.3); ABSOLUTE MONOCYTES 0.4 thou/uL (0.0-1.2); ABSOLUTE NEUTROPHILS 15.1 thou/uL (1.6-8.1); HEMATOCRIT 38.3 % (42.0-52.0); HEMOGLOBIN 12.6 gm/dL (14.0-18.0); LYMPHOCYTES 3.4 %; MCH 31.2 pg (26.0-34.0); MCHC 32.9 g/dL (28.0-37.0); MCV 94.8 fL (80.0-100.0); MONOCYTES 2.4 %; NUCLEATED RBCS 0 /100WBC; PLATELET COUNT* 303 thou/uL (150-400); POLYS 94.2 %; RBC 4.04 mil/uL (4.50-6.00); RDW-CV 16.4 % (10.5-14.5)
--- NOTE | 2018-03-25 04:45 | NUR ---
PATIENT HAS BEEN ON 5L O2 NC AND HOME CPAP. SATS MAINTAINED >92%. SHOWER PROVIDED. PT WAS LESS ANXIOUS THIS SHIFT. HOURLY ROUNDING OBSERVED. CALL LIGHT WITHIN REACH.
[2018-03-25 05:00] LABS: CALCIUM 7.9 mg/dL (8.5-10.1); CREATININE 1.3 mg/dL (0.6-1.3)
[2018-03-25 08:00] VITALS: BP 116/70
[2018-03-25 15:55] VITALS: BP 112/69
--- NOTE | 2018-03-25 18:38 | NUR ---
RECEIVED REPORT. ASSUMED CARE OF PT AROUND 729. PT A&O X4. VSS. O2 SAT 97% ON 5L NC THIS AM - PT ABLE TO BE TITRATED DOWN TO 1.5 LITERS PER NC. PT M/S STATUS. AM ASSESSMENT AND VITALS COMPLETED CHARTED. IV TO LEFT FA INTACT AND SALINE LOCKED. PT HAS DENIED PAIN OR DISCOMFORT THIS SHIFT. PT EATING AND DRINKING WITHOUT ISSUE - TOLERATING NECTAR THICK LIQUIDS. PT ABLE TO AMBULATE IN THE HALLWAY THIS SHIFT WITH O2. PT VISITED BY FAMILY AND HIS GUARDIAN. PT PROGRESSING TOWARDS GOALS. PT ABLE TO HAVE 2 SMALL BM'S THIS SHIFT - SCANT BRIGHT RED BLOOD NOTED IN TOILET, PT REPORTS THAT HE HAS HEMORRHOIDS AND THAT THEY BLEED SOMETIMES. PT CURRENTLY SITTING UP IN BEDSIDE CHAIR. FALL PRECAUTIONS IN PLACE. CALL LIGHT IS WITHIN REACH. HOURLY ROUNDING PERFORMED. WCTM FOR DURATION OF SHIFT.
[2018-03-25 20:00] VITALS: BP 119/67
--- NOTE | 2018-03-26 05:17 | NUR ---
PATIENT TRANSFERRED FROM TELEMETRY AT SHIFT CHANGE. REPORT GIVEN FROM DAY NURSE. HAS RESTED COMFORTABLY SINCE BEING TRANSFERRED FROM TELEMETRY. VSS ON 1.5L OF 02 VIA NASAL CANNULA. NO C/O PAIN. IV IN LEFT FOREARM-SL. PATIENT INSTRUCTED TO USE CALL LIGHT WHEN NEEDING ASSISTANCE. HOURLY ROUNDS MADE. WILL CONTINUE WITH PLAN OF CARE AND NURSING TO MONITOR.
[2018-03-26 08:50] VITALS: BP 127/59
--- NOTE | 2018-03-26 11:57 | NUR ---
PT.TO BE DISCHARGED TODAY AFTER VIDEO SWALLOW. NOTIFIED [facility]SHANIA JAIL. SHE SAID TO CALL HER WHEN PT.READY FOR CLINICAL DOCUMENTATION CLERK. SHE SAID THEY WILL NEED CHART COPIES TO COME WITH HIM.
--- NOTE | 2018-03-26 13:04 | NUR ---
I have reviewed the documentation by MYA RUSH from 03/26/18 and I concur with it. KARIN BATES
[2018-03-26] MEDS ORDERED: LEVAQUIN 750 M750 MG PO (14:27)
--- NOTE | 2018-03-26 14:34 | NUR ---
NOTIFIED BY NURSING THAT PT.CAN BE DISCHARGED. VIDEO SWALLOW WAS NORMAL. CALLED [facility] TO INFORM.SHE SAID THEY CAN PICK PT.UP BETWEEN 4:30-5:00. THEY WILL BRING O2. NOTIFIED DIAMOND MCKEON/GUARDIAN THAT PT.BEING DISCHARGED BACK TO [facility].
[2018-03-26] MEDS ORDERED: VITAMIN B COMP1 EACH PO (14:36)
[2018-03-26 15:41] VITALS: BP 125/64
[2018-03-26] MEDS ORDERED: TUMS PO (15:56)
[2018-03-26] MEDS ORDERED: DELSYM30 MG/5 M1 PO (15:59)
[2018-03-26 16:00] VITALS: BP 132/58
[2018-03-26] MEDS ORDERED: EUCERIN CREME120 GM TOP (16:01)
[2018-03-26] MEDS ORDERED: DELTASONE20 MG PO (16:05)
[2018-03-26 16:30] VITALS: BP 125/64
--- NOTE | 2018-03-26 17:24 | NUR ---
PT ALERT ORIENTED X 4. PT DENIES NAUSEA OR PAIN. IV PATENT. PT USING OXYGEN @ 1.5 L/NC. LUNGS COARSE WITH CRACKLES. PT HAS DRY SKIN ON LOWER EXTREMITIES-TREATMENT PROVIDED. PT TOLERATING NECTAR THICK LIQUIDS DURING SHIFT. ISOLATION MAINTAINED. VIDEO SWALLOW COMPLETED IN AFTERNOON. PT UP WITH THERAPY TO AMBULATE IN AFTERNOON. HOURLY ROUNDS MAINTAINED. VS STABLE. WILL USE CALL LIGHT FOR ASSISTANCE. CALL LIGHT WITHIN REACH. CAREGIVER/TRANSPORT GIVEN ENVELOPE WITH PATIENT MEDICAL INFORMATION TO TAKE BACK TO ASSISTED. IV REMOVED. PT GIVEN DISCHARGE INSTRUCTIONS. PT LEFT WITH PERSONAL BELONGINGS AND CAREGIVER BY W/C PER PRIVATE CAR @ 5154.
== END 2018-03-26 16:30 | disposition home or self-care (01) | DRG 177 ==
LOC: M.ERS 07:18 → M.TBA-ER 08:30 → M.2W 08:30 → M.ORTHSURG 03-25 20:27
PROVIDERS: Emergency Medicine Emergency Medical Services; ADMIT Internal Medicine
PROC: 5A09357 Assistance with Respiratory Ventilation, Less than 24 Consecutive Hours, Continuous Positive Airway Pressure (ICD-10-PCS; principal; 2018-03-25)
DX: J69.0 Pneumonitis due to inhalation of food and vomit (principal); J96.21 Acute and chronic respiratory failure with hypoxia; R65.10 Systemic inflammatory response syndrome (SIRS) of non-infectious origin without acute organ dysfunction; E03.9 Hypothyroidism, unspecified; G47.33 Obstructive sleep apnea (adult) (pediatric); J44.9 Chronic obstructive pulmonary disease, unspecified; Q90.9 Down syndrome, unspecified; Z88.2 Allergy status to sulfonamides; Z79.899 Other long term (current) drug therapy

== ENCOUNTER → 2018-04-04 | Outpatient (CLI) | payer MEDICARE, MEDICAID ==
[~2018-04-04] MED LIST changes: +ADVAIR HFA 115-12 G1 INH; +DELTASONE20 MG PO
[2018-04-04 13:31] LABS: BE 1.5 mmol/L (-2 to +3); HCO3 25.6 mmol/L (22.0-26.0); PCO2 38.8 mmHg (35.0-45.0); pH 7.437 (7.340-7.450)
== END ==
LOC: M.PUL 12:52
PROVIDERS: Internal Medicine Critical Care Medicine
DX: J45.909 Unspecified asthma, uncomplicated (principal); E03.9 Hypothyroidism, unspecified; G47.33 Obstructive sleep apnea (adult) (pediatric)

== ENCOUNTER 2018-05-04 23:56 | Inpatient (IN) | payer MEDICARE, MEDICAID ==
[~2018-05-04] VITALS: Ht 152.4 cm; Wt 92.1 kg
[~2018-05-04 23:56] MED LIST changes: -ADVAIR HFA 115-12 G1 INH
[2018-05-05 00:03] VITALS: BP 111/71
[2018-05-05 00:44] LABS: ABSOLUTE BASOPHILS 0.1 thou/uL (0.0-0.2); ABSOLUTE EOSINOPHILS 0.2 thou/uL (0.0-0.7); ABSOLUTE LYMPHOCYTES 1.2 thou/uL (0.8-5.3); ABSOLUTE MONOCYTES 0.7 thou/uL (0.0-1.2); ABSOLUTE NEUTROPHILS 6.6 thou/uL (1.6-8.1); BASOPHILS 1.2 %; EOSINOPHILS 1.7 %; HEMATOCRIT 39.7 % (42.0-52.0); HEMOGLOBIN 13.2 gm/dL (14.0-18.0); LYMPHOCYTES 14.1 %; MCH 31.8 pg (26.0-34.0); MCHC 33.3 g/dL (28.0-37.0); MCV 95.4 fL (80.0-100.0); MONOCYTES 8.5 %; MPV 7.1 fl. (7.2-11.1); NUCLEATED RBCS 0 /100WBC; PLATELET COUNT* 346 thou/uL (150-400); POLYS 74.5 %; RBC 4.16 mil/uL (4.50-6.00); RDW-CV 17.3 % (10.5-14.5); WBC 8.8 thou/uL (4.0-11.0)
[2018-05-05 00:52] LABS: CALCIUM 8.7 mg/dL (8.5-10.1); CREATININE 1.2 mg/dL (0.6-1.3); POTASSIUM 3.8 mmol/L (3.5-5.1)
[2018-05-05 00:57] LABS: ALBUMIN 3.1 g/dL (3.4-5.0); TOTAL BILIRUBIN 0.5 mg/dL (<0.1-1.0); TOTAL PROTEIN 6.9 g/dL (6.4-8.2)
[2018-05-05 01:38] LABS: INFLUENZA A ANTIGEN None Detected (None Detect); INFLUENZA B ANTIGEN None Detected (None Detect)
[2018-05-05 02:02] LABS: BE 0.5 mmol/L (-2 to +3); HCO3 24.7 mmol/L (22.0-26.0); PCO2 38.4 mmHg (35.0-45.0); PO2 67.8 mmHg (75.0-100.0); pH 7.426 (7.340-7.450)
[2018-05-05 02:29] VITALS: BP 115/65
[2018-05-05 03:00] VITALS: BP 131/57
[2018-05-05 07:55] VITALS: BP 126/79
[2018-05-05 11:45] VITALS: BP 120/68
[2018-05-05 16:53] VITALS: BP 111/66
[2018-05-06 00:31] VITALS: BP 93/60
[2018-05-06 03:49] LABS: HEMATOCRIT 37.5 % (42.0-52.0); HEMOGLOBIN 12.4 gm/dL (14.0-18.0); MCH 31.6 pg (26.0-34.0); MCV 95.8 fL (80.0-100.0); MPV 7.8 fl. (7.2-11.1); NUCLEATED RBCS 0 /100WBC; PLATELET COUNT* 360 thou/uL (150-400); RBC 3.91 mil/uL (4.50-6.00); RDW-CV 17.4 % (10.5-14.5); WBC 18.6 thou/uL (4.0-11.0)
[2018-05-06 04:00] VITALS: BP 99/40
[2018-05-06 04:21] LABS: CALCIUM 8.3 mg/dL (8.5-10.1); CREATININE 1.1 mg/dL (0.6-1.3); POTASSIUM 3.8 mmol/L (3.5-5.1)
[2018-05-06 06:00] LABS: ABSOLUTE LYMPHOCYTES 0.7 thou/uL (0.8-5.3); ABSOLUTE MONOCYTES 0.2 thou/uL (0.0-1.2); ABSOLUTE NEUTROPHILS 17.7 thou/uL (1.6-8.1); PLATELET ESTIMATE ADEQUATE
[2018-05-06 06:01] LABS: ANISOCYTOSIS 1+
[2018-05-06 07:55] VITALS: BP 114/54
[2018-05-06 16:53] VITALS: BP 123/71
[2018-05-06 20:00] VITALS: BP 117/65
[2018-05-07] VITALS: BP 150/64
[2018-05-07 04:00] VITALS: BP 122/62
[2018-05-07 04:18] LABS: ABSOLUTE LYMPHOCYTES 1.3 thou/uL (0.8-5.3); ABSOLUTE MONOCYTES 0.6 thou/uL (0.0-1.2); BASOPHILS 0.1 %; EOSINOPHILS 0.1 %; HEMATOCRIT 37.1 % (42.0-52.0); HEMOGLOBIN 12.2 gm/dL (14.0-18.0); LYMPHOCYTES 8.5 %; MCH 31.7 pg (26.0-34.0); MCHC 32.9 g/dL (28.0-37.0); MCV 96.4 fL (80.0-100.0); MONOCYTES 4.3 %; MPV 7.6 fl. (7.2-11.1); NUCLEATED RBCS 0 /100WBC; PLATELET COUNT* 328 thou/uL (150-400); RBC 3.84 mil/uL (4.50-6.00); RDW-CV 17.3 % (10.5-14.5); WBC 14.9 thou/uL (4.0-11.0)
[2018-05-07 04:35] LABS: CALCIUM 8.1 mg/dL (8.5-10.1); CREATININE 1.2 mg/dL (0.6-1.3); TOTAL BILIRUBIN 0.1 mg/dL (<0.1-1.0); TOTAL PROTEIN 6.5 g/dL (6.4-8.2)
[2018-05-07 08:15] VITALS: BP 120/71
--- NOTE | 2018-05-07 09:54 | EKG ---
[place] [address] ELECTROCARDIOGRAM REPORT Name: SONI BATES Room: [address] ADM IN .R.#: [id number] Admission: 05/05/18 Attend Phys: Jn Johnson MD Discharge: Date of : 82 Report #: [id number] THIS REPORT FOR: //name// [facility] ED Test Date: 2018-05-05 Test Time: 00:27:58 Pat Name: SONI BATES Department: Room: [facility] Gender: M Horseradish Maker: JORDAN : 1980 Requested By: Nicolasa Estrada Order Number: [id number] MD: Derrick Polanco Measurements Intervals [place] Rate: 84 P: 18 TN: 137 QRS: 63 QRSD: 79 T: 15 QT: 362 QTc: 428 Interpretive Statements Sinus rhythm Low voltage, extremity leads Compared to ECG 03/22/2018 07:21:35 Sinus tachycardia no longer present Electronically Signed On 05-07-2018 9:54:40 [employer]CO WAREHOUSE MANAGER by Derrick Polanco [email or web address] <ELECTRONICALLY SIGNED> By: Derrick Polanco MD, [facility] 05/07/18 0954 0027 0027 Derrick Polanco MD, [facility] /EPI
[2018-05-07 16:00] VITALS: BP 130/81
[2018-05-07 19:30] VITALS: BP 107/61
[2018-05-07 23:55] VITALS: BP 105/42
[2018-05-08 04:01] VITALS: BP 114/65
[2018-05-08 09:30] VITALS: BP 145/76
[2018-05-08 12:00] VITALS: BP 154/85
--- NOTE | 2018-05-08 12:30 | CON ---
[address] [address] CONSULTATION Name: SONI BATES Room: [address] IN M.R.#: [id number] Admission: 05/05/18 Attend Phys: Jn Johnson MD Discharge: Date of : 82 Report #: [id number] THIS REPORT FOR: //name// CC: Jn Santoro REASON FOR CONSULTATION: Acute hypoxic respiratory failure. HISTORY OF PRESENT ILLNESS: This is a 38-year-old male patient with history of Down syndrome. He has had multiple hospitalizations at this facility. I was able to talk to his guardian over the phone who told me in the past he was diagnosed with asthma, then he started following with a ict trainer in [place], Dr. Zaidi, who told him last week he has COPD, but he does not need oxygen, so they took him off oxygen and they took him off his inhaler. He was on Singulair, Advair and albuterol inhaler in addition to nebulization machine. According to the guardian, he had been diagnosed with COPD secondary to significant secondhand smoke when he lived with his both parents, they were smoking around him all the time. The patient has oxygen equipment at home and he had actually been wearing oxygen until 3 weeks ago. He has also obstructive sleep apnea. He sleeps on CPAP with oxygen bled through the CPAP. The patient started having increasing shortness of breath of a few days associated with cough with sputum production. The sputum was yellow to green in color and he was found hypoxic. Currently, he is on 5 liters oxygen. He was admitted to the hospital for further evaluation. Reviewing his previous medical records, a CT showed changes of bronchiectasis at the bases of the lung bilaterally. The patient reported also had been wheezing in the last few days more than usual. ALLERGIES: SULFA. HOME MEDICATIONS: Ascorbic acid, Flonase, loratadine, vitamin B12, levothyroxine, omeprazole, calcium supplement, mineral oil in addition to Advair, Singulair, albuterol and nebulization treatment that were stopped a few days ago. PAST MEDICAL HISTORY: History of Down syndrome, history of asthma in the past. In addition to that, there is a mention of COPD. He has seasonal allergies. He has recurrent pneumonias as mentioned above, sleep apnea on CPAP at night in addition to oxygen, history of COPD as mentioned above. PAST SURGICAL HISTORY: No major chest surgery. SOCIAL HISTORY: He never smoked in his life, but he had secondhand smoke when he lived with his parents. REVIEW OF SYSTEMS: The patient denied fever, chills, nasal congestion, dysarthria. Denied any change in urine, denied any nausea or vomiting. Denied any bruising or anemia or blood loss. The rest [place] [address] CONSULTATION Name: SONI BATES Room: [address] IN ..#: [id number] Admission: 05/05/18 Attend Phys: Jn Johnson MD Discharge: Date of : 84 Report #: [id number]. PHYSICAL EXAMINATION: VITAL SIGNS: When I saw him this morning, he was on 5 liters oxygen with saturation more than 90%, blood pressure 99/40, breathing 17 times a minute, pulse rate 74, temperature 36.5. GENERAL: He looks comfortable. HEENT: He had a CPAP with a nasal mask. He was able to talk, has features of Down syndrome. He is not pale. External ears look healthy and normal. Oral cavity: Moist mucous membrane. Mallampati of 3. NECK: Supple, thick. No palpable lymph node, no palpable thyroid. Trachea is central. CHEST: Diminished air movement bilaterally with rhonchi and occasional wheezes. HEART: S1, S2, no murmur. ABDOMEN: Soft, lax, nontender, positive bowel sounds. No masses felt, no rebound or rigidity. EXTREMITIES: Lower extremities, no edema noted. SKIN: Normal for age and race. NEUROLOGIC: Moving 4 extremities spontaneously. No focal weakness. PSYCHIATRIC: Mood and affect calm and quiet. LYMPHATICS: No palpable lymph nodes. LABORATORY DATA: His chest x-ray in the ER demonstrated basilar opacities with possible atelectasis. His white blood count is 8.8, hemoglobin 13.2, platelets 346. ABG 7.42/38/67. His D-dimer is not elevated. His creatinine is 1.1 with potassium 3.8, sodium 137. His influenza A and B screen was negative. His previous CTs were reviewed as mentioned above. IMPRESSION: 1. Acute hypoxemic respiratory failure on chronic. 2. Chronic obstructive pulmonary disease/asthma. 3. Bronchiectasis based on previous CT scan. 4. Secondhand smoke exposure. 5. Down syndrome. 6. Obstructive sleep apnea, on CPAP. The patient's hypoxia is most likely a combination of factors. He has secondhand smoking, which definitely could be a risk factor for chronic obstructive pulmonary disease, but also there is a history of asthma in the past. In any case, I agree with the steroids at this point, scheduled nebulization treatment. Also, his previous CT scan showed bronchiectasis at the bases, which also can cause obstructive defect. I would continue the antibiotic. We will try to get sputum sample for further analysis, culture and sensitivity. [facility] [address] [place] [address] CONSULTATION Name: SONI BATES Room: [address] IN M.R.#: [id number] Admission: 05/05/18 Attend Phys: Jn Johnson MD Discharge: Date of : 84 Report #: [id number] I would recommend for the patient to go back on his medication, which include Advair, Singulair and nebulization treatments at home. Likely he will need to continue to be on oxygen. At this point, we will start to wean his oxygen down. We will follow along with you. Thank you for the consult. <ELECTRONICALLY SIGNED> By: Brian Brown MD 05/08/18 1230 0740 [id number] Brown MD /nt
[2018-05-08] MEDS ORDERED: PREDNISONE 10 M10 MG PO (14:08)
[2018-05-08] MEDS ORDERED: SINGULAIR 10 MG10 M1 PO (14:09)
[2018-05-08] MEDS ORDERED: ADVAIR HFA 115-12 G1 INH (14:22)
[2018-05-08] MEDS ORDERED: AUGMENTIN 875-1 EACH PO (14:22)
[2018-05-08 14:51] VITALS: BP 154/85
== END 2018-05-08 16:30 | disposition home or self-care (01) | DRG 177 ==
LOC: M.ERS 23:56 → M.3W 05-05 01:37 → M.TBA-ER 05-05 01:37 → M.3W 05-05 02:52
PROVIDERS: Emergency Medicine; ADMIT Internal Medicine
DX: J15.6 Pneumonia due to other Gram-negative bacteria (principal); J96.21 Acute and chronic respiratory failure with hypoxia; R65.11 Systemic inflammatory response syndrome (SIRS) of non-infectious origin with acute organ dysfunction; E66.2 Morbid (severe) obesity with alveolar hypoventilation; J44.0 Chronic obstructive pulmonary disease with (acute) lower respiratory infection; E03.9 Hypothyroidism, unspecified; Q90.9 Down syndrome, unspecified; J30.2 Other seasonal allergic rhinitis; Z77.22 Contact with and (suspected) exposure to environmental tobacco smoke (acute) (chronic); Z68.39 Body mass index [BMI] 39.0-39.9, adult; Z88.2 Allergy status to sulfonamides; Z87.01 Personal history of pneumonia (recurrent); Z99.81 Dependence on supplemental oxygen; Z79.2 Long term (current) use of antibiotics; Z79.899 Other long term (current) drug therapy

== ENCOUNTER 2018-06-12 19:41 | Inpatient (IN) | payer MEDICARE, MEDICAID ==
[~2018-06-12] VITALS: Ht 162.6 cm; Wt 97.1 kg
[~2018-06-12 19:41] MED LIST changes: +ADVAIR HFA 115-12 G1 INH; +FLONASE 0.05%50 MCG NASAL; -FLONASE16 GM NASAL; -LEVOTHYROXIN0.112 M1 PO; +SYNTHROID112 MC1 PO
[2018-06-12 19:55] VITALS: BP 155/113
[2018-06-12] MEDS ORDERED: MUCINEX600 MG PO (20:11)
[2018-06-12] MEDS ORDERED: DELSYM30 MG/5 M1 (20:12)
[2018-06-12] MEDS ORDERED: NEPHROCAPS SOFT1 CAP PO (20:12)
[2018-06-12] MEDS ORDERED: IBUPROFEN 200200 M1 PO (20:13)
[2018-06-12] MEDS ORDERED: NAPROSYN500 MG PO (20:13)
[2018-06-12] MEDS ORDERED: PROMETHAZINE (20:15)
[2018-06-12 20:22] LABS: ABSOLUTE BASOPHILS 0.1 thou/uL (0.0-0.2); ABSOLUTE EOSINOPHILS 0.1 thou/uL (0.0-0.7); ABSOLUTE LYMPHOCYTES 1.1 thou/uL (0.8-5.3); ABSOLUTE MONOCYTES 0.9 thou/uL (0.0-1.2); BASOPHILS 1.1 %; EOSINOPHILS 0.9 %; HEMATOCRIT 41.2 % (42.0-52.0); HEMOGLOBIN 13.8 gm/dL (14.0-18.0); LYMPHOCYTES 12.3 %; MCH 32.1 pg (26.0-34.0); MCHC 33.5 g/dL (28.0-37.0); MCV 95.8 fL (80.0-100.0); MONOCYTES 9.9 %; MPV 7.3 fl. (7.2-11.1); NUCLEATED RBCS 0 /100WBC; PLATELET COUNT* 293 thou/uL (150-400); POLYS 75.8 %; RDW-CV 15.8 % (10.5-14.5); WBC 9.3 thou/uL (4.0-11.0)
[2018-06-12 20:35] LABS: CALCIUM 8.9 mg/dL (8.5-10.1); CREATININE 1.2 mg/dL (0.6-1.3); POTASSIUM 3.7 mmol/L (3.5-5.1)
[2018-06-12 20:40] LABS: ALBUMIN 3.5 g/dL (3.4-5.0); TOTAL BILIRUBIN 0.5 mg/dL (<0.1-1.0); TOTAL PROTEIN 6.8 g/dL (6.4-8.2)
[2018-06-12 23:05] LABS: BE 0.6 mmol/L (-2 to +3); HCO3 25.1 mmol/L (22.0-26.0); PCO2 40.4 mmHg (35.0-45.0); PO2 97.5 mmHg (75.0-100.0); pH 7.412 (7.340-7.450)
[2018-06-12 23:37] VITALS: BP 108/57
[2018-06-13 00:30] VITALS: BP 113/54
[2018-06-13 04:43] VITALS: BP 95/67
--- NOTE | 2018-06-13 05:39 | NUR ---
RECEIVED REPORT FROM ED. PT TRANSFERRED TO 231. PT A&OX4. VSS. ADMISSION ASSESSMENT & PHYSICAL ASSESSMENT COMPLETED AND CHARTED. PT ON O2 AT 4L NC/ BIPAP WHEN SLEEPING WITH 92% O2 SAT. PT TRACING SR/ST ON TELE. PT UP STANDBY ASSIST TO RESTROOM. DENIES ANY PAIN OR DISCOMFORT. HOURLY ROUNDING OBSERVED. CALL LIGHT WITHIN REACH.
[2018-06-13 08:00] VITALS: BP 113/86
--- NOTE | 2018-06-13 10:19 | EKG ---
[place] [address] ELECTROCARDIOGRAM REPORT Name: SONI BATES Room: [address] ADM IN M.R.#: [id number] Admission: 06/12/18 Attend Phys: Juan Pablo Valencia Discharge: Date of : 84 Report #: [id number] THIS REPORT FOR: //name// [facility] ED Test Date: 2018-06-12 Test Time: 20:57:20 Pat Name: SONI BATES Department: Room: [facility] Gender: M Foster Care Case Manager: ZEENAT : 1980 Requested By: Nicolasa Estrada Order Number: [id number] MD: Derrick Polanco Measurements Intervals [place] Rate: 105 P: 73 MN: 129 QRS: 70 QRSD: 75 T: 28 QT: 329 QTc: 435 Interpretive Statements Sinus tachycardia Baseline wander in lead(s) V4 Compared to ECG 05/05/2018 00:27:58 Sinus rhythm no longer present Electronically Signed On 06-13-2018 10:19:45 PRODUCTION CONTROL SCHEDULER by Derrick Polanco [email or web address] <ELECTRONICALLY SIGNED> By: Derrick Polanco MD, [facility] 06/13/18 1019 [id number] 56 Derrick Polanco MD, [facility] /EPI
[2018-06-13 11:58] VITALS: BP 108/61
--- NOTE | 2018-06-13 12:45 | NUR ---
Pt is A&O. Resides at [facility]. Pt states that he is able to complete is own IADLS. senior care staff complete ADLs. Pt wears home o2 and has a neb. [facility]x of [facility]. Pt's goal is to return to his shelter at dc. CM left for Pt's legal guardian, Ramo, regarding dc plans. Pt known to this CM from previous hospital stay, [facility]p home staff normally provide dc transportation. Following.
[2018-06-13 16:00] VITALS: BP 109/48
--- NOTE | 2018-06-13 18:20 | NUR ---
PT UP IN ROOM WITH SB ASSIST. PT IN CHAIR MOST OF DAY. DENIES INCREASED SOA. O2@4L NC.PT TOLERATING PO WELL. MOTHER AT BS AND UPDATED ON PLAN OF CARE. SPOKE WITH GUARDIAN DIAMOND WHO WAS UPDATED ON PLAN OF CARE
[2018-06-13 20:00] VITALS: BP 94/53
[2018-06-14] VITALS: BP 113/55
[2018-06-14 04:00] VITALS: BP 99/48
[2018-06-14 05:00] LABS: HEMATOCRIT 37.6 % (42.0-52.0); HEMOGLOBIN 12.3 gm/dL (14.0-18.0); MCHC 32.8 g/dL (28.0-37.0); MCV 97.5 fL (80.0-100.0); MPV 7.8 fl. (7.2-11.1); RBC 3.86 mil/uL (4.50-6.00); RDW-CV 16.2 % (10.5-14.5); WBC 19.8 thou/uL (4.0-11.0)
--- NOTE | 2018-06-14 05:07 | NUR ---
PT ALERT ORIENTED. UP AD MIKEY IN ROOM. O2 AT 4 LITERS NC. PTS HOME CPAP BROUGHT IN AND PLACED ON PT PER RT. DENIES PAIN. TELEMETRY SHOWS SR/ST.
[2018-06-14 05:12] LABS: CALCIUM 8.5 mg/dL (8.5-10.1); CREATININE 1.1 mg/dL (0.6-1.3)
[2018-06-14 08:00] VITALS: BP 114/64
--- NOTE | 2018-06-14 09:00 | NUR ---
ASSUMED CARE OF PT AT 0730. PT SITTING UP IN THE CHAIR WAITING FOR BREAKFAST. PT A&0X4, DENIES ANY PAIN OR SHORTNESS OF BREATH. PT TRACING ST ON THE CIGAR PACKER AND SHADER. ON 5L NC SAT 93%. PT UP AD MIKEY IN ROOM. PT GOAL FOR TODAY IS TITRATE OXYGEN, INCREASE ACTIVITY AND IV STEROIDS. AM ASSESSMENT CHARTED. MEDICATIONS PER AUG. PT REPOSITIONS SELF. HOURLY ROUNDING OBSERVED, BED IN LOW POSITION. CALL LIGHT WITHIN REACH. WILL CONTINUE PLAN OF CARE.
[2018-06-14 11:37] VITALS: BP 103/64
[2018-06-14 16:06] VITALS: BP 112/60
[2018-06-14 19:45] VITALS: BP 112/59
[2018-06-15] VITALS (8 sets, daily range): BP systolic 90–128; BP diastolic 54–76
[2018-06-15 04:59] LABS: HEMATOCRIT 36.9 % (42.0-52.0); HEMOGLOBIN 12.2 gm/dL (14.0-18.0); MCH 32.1 pg (26.0-34.0); MCHC 33.1 g/dL (28.0-37.0); MPV 7.6 fl. (7.2-11.1); RBC 3.8 mil/uL (4.50-6.00); RDW-CV 16.2 % (10.5-14.5); WBC 22.7 thou/uL (4.0-11.0)
[2018-06-15 05:16] LABS: CALCIUM 8.1 mg/dL (8.5-10.1); CREATININE 1.1 mg/dL (0.6-1.3); POTASSIUM 4.2 mmol/L (3.5-5.1)
--- NOTE | 2018-06-15 06:40 | NUR ---
PT ALERT ORIENTED. UP AD MIKEY IN ROOM. O2 AT 2 LITERS NC. HOME CPAP AT HS. TELEMETRY SHOWS SR/ST. DENIES PAIN.
--- NOTE | 2018-06-15 07:56 | CON ---
[address] [address] CONSULTATION Name: SONI BATES Room: [address] ADM IN M.R.#: [id number] Admission: 06/12/18 Attend Phys: Juan Pablo Valencia Discharge: Date of : 84 Report #: [id number] THIS REPORT FOR: //name// CC: Shae Snatoro Primary Care Physician Ryan Salmon DATE OF SERVICE: 06/14/2018 PATIENT LOCATION: He is located in room 231. ATTENDING PHYSICIAN: . HISTORY OF PRESENT ILLNESS: The patient is a pleasant 38-year-old male, nonsmoker, who lives in a halfway. He has had severe persistent asthma and has been oxygen dependent for the last couple of years. Actually, he is a quite good and accurate historian. He knew several details of his medical history. He has had a cough with wheezing for about the past week or so. He initially told his physicians that it was nonproductive. He told me it was yellow-green sputum and he was bringing some up in the morning and occasionally later on in the afternoon. He denied any fever, chills or sweats and states he just was not feeling well. He uses a CPAP at home. He thinks it is 8-12 cm with a nasal mask and he has done that for the last couple of years. He has had problems with recurrent bronchitis and pneumonia and his asthma has been hard to control. Again, he has been oxygen dependent for the last couple of years. He states he sees a door patcher, but we are not sure if he sees anybody in our group or in another group. He just got off a round of prednisone taper and Augmentin, it appears, a week or two ago. He still has some wheezing at this time. He was initially on BiPAP when he first came in the to the hospital 36 hours ago. He is off the BiPAP and is now on 4 liters with a sat of 92% or 93%. He appears in less distress at this time. He has an aunt who is with him at the bedside. He can swallow well, without aspiration. PAST MEDICAL HISTORY: 1. He has had a history of Down syndrome or trisomy 13, lives in a halfway. 2. Severe persistent asthma, not steroid dependent. 3. Allergic rhinitis. 4. Recurrent bronchitis. 5. Obstructive sleep apnea, CPAP dependent at night, 8-12 cm with a nasal mask. ALLERGIES: HE HAS ALLERGIES OR INTOLERANCE TO SULFA, WHICH GIVES HIM A SKIN RASH. OUTPATIENT MEDICATIONS: He was on montelukast 10 mg daily, albuterol nebulizer treatments every 3-4 hours or 4 times a day and also on levothyroxine [address] [place] [address] CONSULTATION Name: SONI BATES Room: [address] IN M.R.#: [id number] Admission: 06/12/18 Attend Phys: Juan Pablo Valencia Discharge: Date of : 84 Report #: [id number]. He was not on Advair or Symbicort that I could ascertain and not on inhaled steroids. Also supposed to be on Prozac 10 mg daily, guaifenesin 600 mg every 12 hours, Naprosyn 500 mg b.i.d., Claritin 10 mg daily and omeprazole 40 mg daily. He does have a peak flow meter he is supposed to check daily. In the hospital, he is on IV Solu-Medrol 62.5 mg IV q 8 hours, DuoNeb treatments q. 4 hours and inhaled budesonide 0.5 mg once daily in the morning. FAMILY HISTORY: Negative for premature cardiopulmonary disease. SOCIAL HISTORY: Lifelong nonsmoker, nondrinker. He lives in a halfway in [place], [place]. REVIEW OF SYSTEMS: A 14-point review of systems reviewed and negative, except for pertinent positives noted in the HPI, according to his aunt. PHYSICAL EXAMINATION: GENERAL: This is a pleasant 38-year-old male who can answer some questions. He is alert and oriented. VITAL SIGNS: His blood pressure is 112/60, heart rate is 96 and respirations are 16-20 and not labored. Saturation on 2 liters is 98% and his temperature is 36.8 degrees. He is 5 feet 4 inches tall, weight is 97 kilograms and his BMI is 36. HEENT: He has some mild boggy turbinates bilaterally. Sinuses are nontender. Pharynx shows a crowded pharynx. Mucous membranes are moist. No exudates noted. NECK: Shows a thick sternocleidomastoid muscle and thick trapezius muscles. No masses or adenopathy is noted. No increased jugular venous pressure. CHEST: Shows inspiratory and expiratory wheezes with prolonged expiratory phase. CARDIOVASCULAR: Sinus tachycardia with a heart rate of 96-100. No S3 is noted. No murmur, gallop or rub is noted. ABDOMEN: Soft, without masses or megaly. EXTREMITIES: No calf tenderness. No cyanosis, clubbing or edema. NEUROLOGIC: He can stand at his bedside and move all fours to commands. LABORATORY DATA: Laboratory from 06/14/2018 shows hemoglobin of 12, white count is 19,800 and platelets are 304,000. Sodium is 142, potassium is 4.0, carbon dioxide is 26, glucose is 153, BUN is 13 and creatinine is 1.0. He had a blood gas upon admit on 80% BiPAP at 14/8, his pO2 was 97, a pH of 7.41, pCO2 is 40 and bicarbonate is 25 with a sat of 96%. Chest x-ray basically showed mild bibasilar scarring and mild hyperinflation; heart size was normal, though. No PFTs on this patient. No previous note of eosinophilia or no note of elevated IgE levels is noted. Previous mycoplasma IgG was positive and regular IgG levels were normal at 74/18 and IgM was normal at 75. I did find an IgE on 10/01/2017 at 54, which was within normal range, 0-100 [place] [address] CONSULTATION Name: SONI BATES Room: [address] IN .R.#: [id number] Admission: 06/12/18 Attend Phys: Juan Pablo Valencia Discharge: Date of : 84 Report #: [id number] IMPRESSION: 1. Moderately severe asthma with frequent exacerbations. 2. Persistent bronchospasm. 3. Obstructive sleep apnea, on CPAP at home. PLAN: Continue therapy and I would avoid beta blockers in this patient with bronchospasm with Coreg, which has beta cecelia effect as well as an alpha adrenergic blockade. I think his tachycardia is physiologic. We will add oral and inhaled bronchodilators. He needs inhaled budesonide daily at home, so we can use inhaled steroids on him. Outpatient fiberoptic bronchoscopy at some point in time may be indicated to evaluate for endobronchial lesion to obtain specimens to make sure he does not have resistant organism. I have ordered a sputum culture on him. Again, his IgE level has been normal in the past. He may need an allergy evaluation. Certainly, a CT scan of the sinuses and workup for esophageal reflux and other exacerbating factors may be indicated. He may also need another repeat sleep study at some point in time. We will see what we can do to increase his oral and inhaled bronchodilators and see if we can get him under better control. He has proved to be a difficult challenging situation. We may need to talk about durable ramírez of attorneys and intubation if needed. We will continue to follow up along with you while he is in the hospital. Thanks again for allowing us to participate in this man's care. <ELECTRONICALLY SIGNED> By: Naeem Mcconnell MD 06/15/18 0756 05 0048Alaquita Mcconnell MD /nt
--- NOTE | 2018-06-15 09:00 | NUR ---
ASSUMED PT. CARE AND RECEIVED REPORT AT 0730. PT A/OX4, VSS, MONITOR ON TRACING SR. PT. DENIES CURRENT PAIN. STATES HE IS FEELING BETTER AND NOT WHEEZING MUCH TODAY. ON 2L NC @ 94%. FULL ASSESSMENT COMPLETED, REFER TO CHARTING. PT UP TO CHAIR FOR BREAKFAST, DR. LORENZO INTO SEE, SPOKE VIA PHONE TO PT. EDUARDO FIELDS. PLAN FOR PT. TO SEE DR. LORENZO GROUP OUTPATIENT, DISCHARGE UPDATED. CALL LIGHT IN REACH, WILL CONTINUE WITH PLAN OF CARE.
--- NOTE | 2018-06-15 13:08 | NUR ---
INFO FOR DC: IF DC'ING OVER WEEKEND CONTACT JOSH @ [phone] IF DC'ING MONDAY CONTACT BRISSA @ [phone]
--- NOTE | 2018-06-15 14:24 | NUR ---
CONTINUE TO FOLLOW. PT NEEDS F/U WITH [facility] SAQIB GUAMAN RN. MADE APPT FOR JUL 06 AND FAXED CLINICAL INFO TO [facility] [phone] IF PT DC'D OVER WEEKEND, NEED TO CONTACT THE FOLLOWING RAFIQ/DIAMOND MCKEON [phone] SHANIA VIZCAINO/JOSH [phone] IF ON MONDAY, BRISSA [phone]
--- NOTE | 2018-06-15 18:57 | NUR ---
PT. STABLE THROUGH OUT THE DAY. UP TO CHAIR MOST OF THE DAY AND AMBULATING IN ROOM AD MIKEY. PT. WITH VERY LITTLE COUGHING TODAY AND HAS REMAINED ON 2L. HAS DENIED SOB. UPDATE GIVEN TO PT. GUARDIJOSH ELIZABETH FROM [facility], AND PT MOTHER. HOURLY ROUNDING COMPLETED THROUGH OUT THE DAY FOR PT. SAFETY.
--- NOTE | 2018-06-16 00:11 | NUR ---
PT NOTED TO HAVE CONGESTED PRODUCTIVE COUGH. PT TRACING SR-ST ON MONITOR. PT DENIES PAIN. IV SITE CHANGED D/T PT C/O PAIN. NO ISSUES NOTED. REFER TOP COMPUTER CHARTING FOR FURTHER DETAIL. CLWR.
[2018-06-16 04:00] VITALS: BP 115/64
--- NOTE | 2018-06-16 05:20 | NUR ---
PT HAS SLEPT WELL T/O THIS SHIFT WITH CPAP ON. VSS. NO NEW CONCERNS AT THIS TIME. CLWR.
[2018-06-16 08:00] VITALS: BP 115/75
[2018-06-16] MEDS ORDERED: PREDNISONE 10 M10 MG PO (09:36)
[2018-06-16] MEDS ORDERED: AUGMENTIN 875-1 EACH PO (09:36)
[2018-06-16] MEDS ORDERED: ALLEGRA ALLERG180 MG PO (09:36)
[2018-06-16] MEDS ORDERED: SINGULAIR 10 MG10 M1 PO (09:36)
[2018-06-16] MEDS ORDERED: ADVAIR HFA 230M12 GM INH (09:36)
[2018-06-16 10:12] VITALS: BP 90/54
--- NOTE | 2018-06-16 10:35 | NUR ---
Following for d/c planning needs. Received request to assist with obtaining small portable tank for pt. Per previous CM note, pt is on service with [facility] and [facility] was contacted on 05/08. Spoke with [facility] answering service today, and she said it takes weeks to obtain authorization for small tank and they are not able to obtain over the weekend. Staff at [facility] will need to follow up with [facility] during regular weekday business hours to inquire about availability of small portable tank.
[2018-06-16 11:50] VITALS: BP 130/77
--- NOTE | 2018-06-16 11:52 | NUR ---
SPOKE WITH JOSH SPARKS, SHE STATES THAT [facility] BROU[facility]HT OUT A BACKPACK REGULATOR FOR PT, BUT THAT PT DID NOT TAKE DEEP ENOUGH BREATHS FOR THE REGULATOR TO RECOGNIZE. TOLD HER THAT [employer] SAID TO CALL [employer] AND DISCUSS WITH THEM ON MONDAY WE HAVE PREVIOUSLY GOTTEN THAT STARTED LAST MONTH.
[2018-06-16 16:31] VITALS: BP 90/54
--- NOTE | 2018-06-16 16:49 | NUR ---
PT CARE GIVERS HERE TO PICK PT UP, ALL DISCHARGE INSTRUCTIONS REVIEWED WITH THEM AND PT. DISCHARGE INSTRUCTIONS, EDUCATION MATERIALS AND PRESCRIPTIONS SENT WITH PT AND CAREGIVERS. PIV WAS DC'D EARLIER AND HOSPICE/HOME HEALTH AIDE. ALL BELONGINGS SENT WITH PT.
== END 2018-06-16 16:52 | disposition home or self-care (01) | DRG 189 ==
LOC: M.ERS 19:41 → M.TBA-ER 20:50 → M.2W 20:50
PROVIDERS: Emergency Medicine; Family Medicine; ADMIT Internal Medicine
PROC: 5A09357 Assistance with Respiratory Ventilation, Less than 24 Consecutive Hours, Continuous Positive Airway Pressure (ICD-10-PCS; principal; 2018-06-13)
PROC: 5A09357 Assistance with Respiratory Ventilation, Less than 24 Consecutive Hours, Continuous Positive Airway Pressure (ICD-10-PCS; 2018-06-14)
PROC: 5A09357 Assistance with Respiratory Ventilation, Less than 24 Consecutive Hours, Continuous Positive Airway Pressure (ICD-10-PCS; 2018-06-16)
DX: J96.21 Acute and chronic respiratory failure with hypoxia (principal); R65.11 Systemic inflammatory response syndrome (SIRS) of non-infectious origin with acute organ dysfunction; J45.901 Unspecified asthma with (acute) exacerbation; E03.9 Hypothyroidism, unspecified; J44.9 Chronic obstructive pulmonary disease, unspecified; G47.33 Obstructive sleep apnea (adult) (pediatric); Z88.6 Allergy status to analgesic agent; Z99.81 Dependence on supplemental oxygen; Q90.9 Down syndrome, unspecified; Z79.899 Other long term (current) drug therapy

== ENCOUNTER 2018-07-11 10:42 | Inpatient (IN) | payer MEDICARE, MEDICAID ==
[2018-07-11] VITALS (11 sets, daily range): BP systolic 78–108; BP diastolic 40–66
[~2018-07-11] VITALS: Ht 162.6 cm; Wt 93.0 kg
[~2018-07-11 10:42] MED LIST changes: +NAPROSYN500 MG PO; +NEPHROCAPS SOFT1 CAP PO; +PROMETHAZINE
[2018-07-11 11:14] LABS: HEMOGLOBIN 14.1 gm/dL (14.0-18.0); MCH 32.1 pg (26.0-34.0); MCHC 33.6 g/dL (28.0-37.0); MCV 95.5 fL (80.0-100.0); MPV 6.7 fl. (7.2-11.1); NUCLEATED RBCS 0 /100WBC; PLATELET COUNT* 284 thou/uL (150-400); RDW-CV 15.9 % (10.5-14.5); WBC 9.1 thou/uL (4.0-11.0)
[2018-07-11 11:25] LABS: ANION GAP 10 mmol/L (7-16); BUN 12 mg/dL (7-18); CALCIUM 7.9 mg/dL (8.5-10.1); CHLORIDE 100 mmol/L (98-107); CO2 26 mmol/L (21-32); CREATININE 1.3 mg/dL (0.6-1.3); GLUCOSE 104 mg/dL (70-99); POTASSIUM 3.4 mmol/L (3.5-5.1); SODIUM 136 mmol/L (136-145)
[2018-07-11 11:26] LABS: APTT 31.8 Seconds (25.0-31.3); INR 1.1; PROTIME 10.9 Seconds (9.20-11.50)
[2018-07-11 11:32] LABS: ALKALINE PHOSPHATASE 54 U/L (46-116); SGOT 16 U/L (15-37); SGPT 21 U/L (30-65); TOTAL BILIRUBIN 0.7 mg/dL (<0.1-1.0); TOTAL PROTEIN 6.3 g/dL (6.4-8.2); TROPONIN-I LEVEL <0.06 ng/mL (<0.06)
--- NOTE | 2018-07-11 11:32 | NUR ---
DIAMOND MCKEON WAS NOTIFIED OF SONI PRESENT IN THE ED, BROUGHT IN BY EMS, DIAMOND AUTHORIZED TREATMENTS OF PT, LET HIM KNOW IF HE IS ADMITTED.
[2018-07-11 11:40] LABS: ABSOLUTE EOSINOPHILS 0.1 thou/uL (0.0-0.7); ABSOLUTE LYMPHOCYTES 0.6 thou/uL (0.8-5.3); ABSOLUTE MONOCYTES 0.7 thou/uL (0.0-1.2); ABSOLUTE NEUTROPHILS 7.6 thou/uL (1.6-8.1); PLATELET ESTIMATE ADEQUATE
[2018-07-11 12:49] LABS: INFLUENZA A ANTIGEN n (None Detect); INFLUENZA B ANTIGEN n (None Detect)
[2018-07-11 13:42] LABS: URINE BILIRUBIN NEGATIVE (Negative); URINE BLOOD NEGATIVE (Negative); URINE CLARITY CLEAR; URINE COLOR YELLOW; URINE GLUCOSE-RANDOM NEGATIVE (Negative); URINE KETONES NEGATIVE (Negative); URINE LEUKOCYTES-REFLEX NEGATIVE (Negative); URINE NITRITE-REFLEX NEGATIVE (Negative); URINE PROTEIN NEGATIVE (Negative); URINE SPECIFIC GRAVITY <= 1.005 (1.005-1.030); URINE UROBILINOGEN 0.2 E.U./dl (0.2-1.0)
[2018-07-11 16:53] LABS: BE -3.5 mmol/L (-2 to +3); HCO3 21.3 mmol/L (22.0-26.0); PCO2 38.2 mmHg (35.0-45.0); PO2 69.8 mmHg (75.0-100.0); pH 7.365 (7.340-7.450)
--- NOTE | 2018-07-11 18:48 | EKG ---
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[facility] [place] 1980 Requested By: Marely Vela Order Number: [id number] MD: Emilio Lowe Measurements Intervals [place] Rate: 133 P: 58 TN: 120 QRS: 48 QRSD: 66 T: 39 QT: 284 QTc: 423 Interpretive Statements Sinus tachycardia Compared to ECG 06/12/2018 20:57:20 No significant changes Electronically Signed On 07-11-2018 18:48:38 METAL WASHING MACHINE OPERATOR by Emilio Lowe [email or web address] <ELECTRONICALLY SIGNED> By: Emilio Lowe MD, [facility] 07/11/18 1848 D: [id number] 50 Emilio Lowe MD, FACC /EPI
[2018-07-12] VITALS (14 sets, daily range): BP systolic 89–107; BP diastolic 47–70
[2018-07-12 03:27] LABS: ABSOLUTE LYMPHOCYTES 0.3 thou/uL (0.8-5.3); ABSOLUTE MONOCYTES 0.1 thou/uL (0.0-1.2); ABSOLUTE NEUTROPHILS 8.6 thou/uL (1.6-8.1); BASOPHILS 0.1 %; HEMATOCRIT 38.6 % (42.0-52.0); LYMPHOCYTES 2.9 %; MCH 32.4 pg (26.0-34.0); MCHC 33.6 g/dL (28.0-37.0); MCV 96.5 fL (80.0-100.0); MONOCYTES 0.8 %; MPV 7.2 fl. (7.2-11.1); NUCLEATED RBCS 0 /100WBC; PLATELET COUNT* 262 thou/uL (150-400); POLYS 96.2 %; RDW-CV 15.9 % (10.5-14.5)
[2018-07-12 03:43] LABS: ALBUMIN 2.6 g/dL (3.4-5.0); CREATININE 1.4 mg/dL (0.6-1.3); MAGNESIUM 1.5 mg/dL (1.8-2.4); PHOSPHORUS* 2.8 mg/dL (2.5-4.9); POTASSIUM 3.7 mmol/L (3.5-5.1); TOTAL BILIRUBIN 0.4 mg/dL (<0.1-1.0)
[2018-07-12 03:48] LABS: CALCIUM 7.9 mg/dL (8.5-10.1)
--- NOTE | 2018-07-12 04:15 | NUR ---
PT'T BP MAP HAS BEEN GREATER THAN 65 ALL NOC SHIFT. ASSESSMENT CHARTED. TOLERATING CPAP DURING SLEEP HOURS. MOTHER AND GAURDIAN UPDATED ON HIS STATUS. ALL NEEDS ADDRESSED. CALL LIGHT IN REACH. CONTINUE WITH PLAN OF CARE.
--- NOTE | 2018-07-12 11:22 | CON ---
[address] [address] CONSULTATION Name: JANASONI OZZIE Room: [address] IN M.R.#: [id number] Admission: 07/11/18 Attend Phys: Arya Milian MD Discharge: Date of : 84 Report #: [id number] THIS REPORT FOR: //name// CC: Shae Milian DATE OF SERVICE: 07/11/2018 REASON FOR CONSULTATION: Respiratory failure, pneumonia, asthma exacerbation. HISTORY OF PRESENT ILLNESS: This is a 38-year-old male patient with history of Down syndrome who is known to our service from previous hospitalization. He is a resident of a nursing home, presented to the ER with nausea, vomiting, diarrhea prior to presentation started 1 night before; then the second day, he was tired and fatigued. He was found to be tachycardic with low blood pressure in the ER and he was hypoxic and he had fever. Apparently had 3 episodes of nausea and vomiting the night before hospitalization. He was admitted to the ICU, bolused with IV fluid and started on antibiotic and had a central line placed. He has a background history of asthma and obstructive sleep apnea. He is on Advair and albuterol in addition to nebulization machine at home and he is chronically on oxygen. Also, he has a CPAP machine. The patient told me he does not have much of a cough or sputum production. He feels better. When I saw him, he was on 2 L oxygen. He denied any lower extremity edema, but he reported history of wheezing. PAST MEDICAL HISTORY: Down syndrome, history of asthma, obstructive sleep apnea. There is a mention of COPD in his record. He has seasonal allergies. He is on CPAP machine at home. PAST SURGICAL HISTORY: No major surgery. SOCIAL HISTORY: Never smoked in his life. He had secondhand smoke exposure when he lived with his parents. He is a resident of a nursing home. He has Down syndrome. REVIEW OF SYSTEMS: Currently, he denied fever, chills, nasal congestion. He denied any change in urine. He denied any further nausea or vomiting. He is currently actually on diet. He denied any bruising. The 12-point review of systems reviewed with the patient and negative other than as mentioned above. HOME MEDICATIONS: He is on Flonase, fluoxetine, levothyroxine, Tylenol, omeprazole, vitamin supplement, bronchodilator as mentioned above, Advair, CPAP, oxygen. PHYSICAL EXAMINATION: [place] [address] CONSULTATION Name: SONI BATES Room: [address] IN [facility]#: [id number] Admission: 07/11/18 Attend Phys: Arya Milian MD Discharge: Date of : 84 Report #: [id number] VITAL SIGNS: During my visit, he was on 2 L oxygen with saturation 94%, blood pressure 100/60, breathing 17 times a minute, pulse rate 100, temperature 37.1. GENERAL: Overall comfortable, no distress, speaks in full sentences, features of Down syndrome. HEENT: Head normocephalic, atraumatic. Pupils are reactive to light. External ear looks healthy and normal. Not pale, no jaundice. Oral cavity: Mallampati of 3, crowded oral airways. NECK: Supple. CHEST: Diminished air movement bilaterally. Rhonchi at the bases and expiratory wheeze. HEART: S1, S2, no murmur. ABDOMEN: Benign, soft, lax, nontender, positive bowel sounds. LOWER EXTREMITIES: No edema, no calf tenderness. SKIN: Normal for age and race. NEUROLOGIC: Moving 4 extremities spontaneously. No focal weakness. Cranial nerves grossly normal. LYMPHATICS: No palpable lymph node. LABORATORY DATA: His white blood count 9.1, hemoglobin 14.1, platelets of 284. His ABGs 7.36/38/69. His INR is 1.1. Creatinine of 1.4, respiratory virus panel pending. He had abdominal CT in the ER, did not show acute intra-abdominal process, some basilar atelectatic changes. Chest x-ray suggested pneumonia at the bases with infiltrates. IMPRESSION: 1. Quqtk-sr-lkdzpty hypoxic respiratory failure. 2. Asthma exacerbation. 3. Bronchospasm. 4. Wheezing. 5. Pulmonary infiltrate. 6. Pneumonia. 7. Picture of sepsis. 8. Obstructive sleep apnea. PLAN: At this point, I would continue the patient on the current therapy. Continue scheduled nebulization treatment, steroids, IV antibiotic. Follow cultures and adjust accordingly. Wean oxygen down. Continue CPAP during sleep. Encouraged more time off the bed. Monitor for signs of aspiration and monitor blood pressure. We will continue to follow along with you. Thank you for the consult. <ELECTRONICALLY SIGNED> By: Brian Brown MD 07/12/18 1122 0925 Clemencia Brown MD /nt
--- NOTE | 2018-07-12 14:45 | NUR ---
PT CARE ASSUMED AFTER REPORT. ASSESSMENTS COMPLETE. SR/ST ON MONITOR. O2 2L NC. HOME CPAP WHILE ASLEEP. PT TRANSFERED TO ROOM 204. REPORT GIVEN TO GHAZAL NICOLE. PT CPAP, GLASSES AND ALL OTHER BELONGINGS SENT WITH PT. VOICE MAIL LEFT FOR GUARDIAN DIAMOND LINDA RE: PT TRANSFER TO ROOM 204.
--- NOTE | 2018-07-12 18:48 | NUR ---
PT TRANSFERED TO ROOM 204 FROM ICU AT APPROX 1440 REVIEWED PREVIOUS SHIFT ASSESMENT, AGREE WITH CHARTING OF PREVIOUS ASSESMENT. PT ON 2L O2, SOA WITH EXHERSION, LUNGS VERY COURSE. PT C/O COUGH, STOMACH ACHE, LOOSE STOOLS. PT USES CALL LIGHT APPROPRIATLY. UP WITH ASSIST. ST ON THE MONITOR. WILL CONTINUE WITH PLAN OF CARE
[2018-07-13] VITALS: BP 101/55
--- NOTE | 2018-07-13 01:40 | NUR ---
ASSUMED PT CARE @ 1930. PT WAS SOA W COUGHING EPISODE AFTER WALKING BACK FROM THE BATHROOM. RT PAGED FOR BREATHING TX. PT WAS VERY CONGESTED AND COUGHED UP MUCOUS. SYMPTOMS RESOLVED AFTER RT TX. ASSISTED PT WITH CPAP @ HS. D/C'D IV IN R HAND- OCCLUDED. R AC IV AND R GROIN TLC FLUSHES WELL. NO C/O OF PAIN OR OTHER DISCOMFORTS. CALL LIGHT IN REACH. HOURLY ROUNDING FOR SAFETY.
[2018-07-13 04:00] VITALS: BP 108/63
[2018-07-13 08:00] VITALS: BP 100/62; BP 96/54
--- NOTE | 2018-07-13 08:32 | NUR ---
ASSUMED PT CARE AT 0700, PT IN BED, CIPAP ON, DEFENSE TRAVEL ADMINISTRATOR TRACING SINUS RHYTHM. TRANSPORTATION PRESENT TO TAKE PT TO XRAY. IV FLUIDS RUNNING, IV IN RIGHT AC WITH TRANSPARENT DRESSING. PT CONT ON IV ABTS.
[2018-07-13 12:00] VITALS: BP 97/54
--- NOTE | 2018-07-13 14:01 | NUR ---
Pt is A&O. Resides at [facility]. Known to this CM from previous hospital stays. Pt is independent with IADLS. Staff complete ADLs. Pt has a legal guardian, Ramo, his [id number]. Pt wears home o2 and has a neb through [facility]. [facility] of [facility]. Goal is to return to his [facility] dc. Ramo will need to be contacted prior to dc to inform of disposition. Staff will transport.
[2018-07-13 16:00] VITALS: BP 104/63
--- NOTE | 2018-07-13 17:24 | 2DMMODE ---
[place] [address] 2 D/M-MODE ECHOCARDIOGRAM Name: BATESSONI OZZIE Room: [facility]- ADM IN [facility]#: [id number] Admission: 07/11/18 Attend Phys: Arya Milian MD Discharge: Date of : 84 Date of Service: 07/13/18 1724 Report #: [id number] THIS REPORT FOR: //name// APPROVED REPORT Study performed: 07/13/2018 16:19:15 EXAM: Comprehensive 2D, Doppler, and color-flow Echocardiogram Patient Location: In-Patient Room #: [facility] Status: routine BSA: 1.99 HR: 88 bpm BP: 97/54 mmHg Rhythm: NSR Other Information Study Quality: Good Indications Hypotension Sepsis 2D Dimensions IVSd: 8.12 (7-11mm) LVOT Diam: 25.31 (18-24mm) LVDd: 54.68 mm PWd: 7.73 (7-11mm) Ascending Ao: 28.18 (22-36mm) LVDs: 31.56 (25-40mm) Aortic Root: 29.66 mm Volumes Left Atrial Volume (Systole) LA ESV Index: 19.40 mL/m2 Aortic Valve AoV Peak Romulo.: 1.32 m/s AO Peak Gr.: 6.97 mmHg LVOT Max P.69 mmHg AO Mean Gr.: 4.21 mmHg LVOT Mean P.89 mmHg LVOT Max V: 0.96 m/s AO V2 VTI: 28.34 cm LVOT Mean V: 0.64 m/s AKANKSHA (VTI): 3.35 cm2 LVOT V1 VTI: 18.88 cm Mitral Valve E/A Ratio: 1.19 MV Decel. Time: 188.55 [place] [address] 2 D/M-MODE ECHOCARDIOGRAM Name: SONI BATES Room: [address] IN .R.#: [id number] Admission: 07/11/18 Attend Phys: Arya Milian MD Discharge: Date of : 84 Date of Service: 07/13/18 1724 Report #: [id number] MV E Max Romulo.: 1.10 m/s MV PHT: 54.68 ms MVA (PHT): 4.02 cm2 TDI E/Lateral E': 6.11 E/Medial E': 6.11 Medial E' Romulo.: 0.18 m/s Lateral E' Romulo.: 0.18 m/s Pulmonary Valve PV Peak Romulo.: 0.91 m/s PV Peak Gr.: 3.29 mmHg Tricuspid Valve RAP Estimate: 5.00 mmHg TR Peak Gr.: 21.57 mmHg RVSP: 26.00 mmHg PA Pressure: 26.00 mmHg Left Ventricle The left ventricle is normal size. There is normal LV segmental wall motion. There is normal left ventricular wall thickness. Left ventricular systolic function is normal. LVEF is 50-55%. The left ventricular diastolic function is normal. Right Ventricle The right ventricle is normal size. The right ventricular systolic function is normal. Atria The left atrium size is normal. The right atrium size is normal. Aortic Valve The aortic valve is normal in structure. Mild aortic regurgitation. There is no aortic valvular stenosis. Mitral Valve The mitral valve is normal in structure. There is no mitral valve regurgitation noted. No evidence of mitral valve stenosis. Tricuspid Valve The tricuspid valve is normal in structure. Trace tricuspid regurgitation. No pulmonary hypertension. Pulmonic Valve The pulmonary valve is normal in structure. There is no pulmonic [place] [address] 2 D/M-MODE ECHOCARDIOGRAM Name: SONI BATES Room: [address] IN [facility]#: [id number] Admission: 07/11/18 Attend Phys: Arya Milian MD Discharge: Date of : 84 Date of Service: 07/13/18 1724 Report #: [id number] Great Vessels The aortic root is normal in size. IVC is normal in size and collapses >50% with inspiration. Pericardium Mild circumferential pericardial effusion. No echo indications of pericardial tamponade. <Conclusion> The left ventricle is normal size. There is normal left ventricular wall thickness. Left ventricular systolic function is normal. LVEF is 50-55%. The left ventricular diastolic function is normal. Mild aortic regurgitation. Trace tricuspid regurgitation. No pulmonary hypertension. IVC is normal in size and collapses >50% with inspiration. Mild circumferential pericardial effusion. No echo indications of pericardial tamponade. <ELECTRONICALLY SIGNED> By: Emilio Lowe MD, FACC 07/13/181723 23 23 Emilio Lowe MD, FACC /INF
--- NOTE | 2018-07-13 18:41 | NUR ---
PT LYING IN BED, FLUIDS RUNNING, RIGHT AC IV PATENT WITH FLUIDS RUNNING, TRIPLE LUMEN CENTRAL LINE IN GROIN. LS RHONCHI, LOOSE COUGH, 2LPM VIA NC. BARGAIN TABLE CLERK CONT TO TRACE SINUS RHYTHM ON MONITOR. HOURLY ROUNDING COMPLETED, PT ABLE TO USE CALL LIGHT AND MAKE NEEDS KNOWN, FALL PRECAUTIONS IN PLACE.
[2018-07-13 20:00] VITALS: BP 104/56
[2018-07-14 00:15] VITALS: BP 102/72
[2018-07-14 04:00] VITALS: BP 99/63
--- NOTE | 2018-07-14 06:09 | NUR ---
ASSUMED PT CARE @ 1930. PT HAS SOA WHEN AMBULATES TO BATHROOM. PRODUCTIVE COUGHING SPELLS AT TIMES. NO PAIN OR DISCOMFORT REPORTED OR OBSERVED. TRACING ST/SR WITH PVCS ON MONITOR. PT ABLE TO SLEEP MORE THIS SHIFT THAN OBSERVED BY THIS RN ON PREVIOUS MD PHYSICIAN DERMATOLOGIST. CALL LIGHT IN REACH. HOURLY ROUNDING FOR SAFETY.
[2018-07-14 08:10] VITALS: BP 114/67
[2018-07-14 11:30] VITALS: BP 121/69
[2018-07-14 16:00] VITALS: BP 126/77
--- NOTE | 2018-07-14 18:07 | NUR ---
ASSUMED PT CARE AT 0730, FULL ASSESMENT DONE CHARTED. PT A/O X4, UP TO CHAIR MOST OF THE SHIFT, NON PRODUCTIVE COUGH, GOOD APITITE, LOOSE STOOLS THIS SHIFT, BLOOD NOTED, PT REPORTS HAVING HEMORRHIODS, MEDS ORDERED, REFER TO MAR. VSS, ST/PVC'S ON THE MONITOR, FALL PRECAUIONS IN PLACE, PT USES CALL LIGHT APPROPRAILTY. WILL CONTINUE WITH PLAN OF CARE.
[2018-07-15] VITALS (7 sets, daily range): BP systolic 103–141; BP diastolic 58–75
--- NOTE | 2018-07-15 07:03 | NUR ---
ASSUMED PT CARE @ 1930. PT A+OX4. PT HAD SOME SOA W AMBULATION. PT DID WELL W NIGHT MEDS AND WAS RELAXING IN BED. PT STARTED HAVING SOA WITH COUGHING EPISODE AROUND 2330.RT WAS PAGED FOR A PRN BREATHING TX. WHILE WAITING FOR HIS TREATMENT THE COUGHING RESOLVED BUT REPORTED NEW ONSET CHEST PAIN- AND WAS CLUTCHING CHEST. WAS NOTIFIED. SERIAL TROPONIN, STAT EKG, AND CXR ORDERED. NOTIFIED WE HAD ALSO STOPPED IVF. NO OTHER LABS OR ORDERS RECEIVED. PT WAS ABLE TO RELAX AND GO BACK TO SLEEP AFTER TREATMENT. NO OTHER ISSUES NOTED THROUGH REST OR OBSERVED. CALL LIGHT IN REACH. HOURLY ROUNDING FOR SAFETY.
[2018-07-15 11:10] LABS: MCH 32.2 pg (26.0-34.0)
[2018-07-15 11:15] LABS: HEMATOCRIT 35.4 % (42.0-52.0); MCHC 33.9 g/dL (28.0-37.0); MCV 95.1 fL (80.0-100.0); MPV 7.6 fl. (7.2-11.1); NUCLEATED RBCS 0 /100WBC; PLATELET COUNT* 213 thou/uL (150-400); RBC 3.72 mil/uL (4.50-6.00); RDW-CV 15.9 % (10.5-14.5)
[2018-07-15 11:39] LABS: CALCIUM 7.7 mg/dL (8.5-10.1); CREATININE 1.2 mg/dL (0.6-1.3)
[2018-07-15 12:05] LABS: ABSOLUTE MONOCYTES 0.4 thou/uL (0.0-1.2); ABSOLUTE NEUTROPHILS 9.6 thou/uL (1.6-8.1); PLATELET ESTIMATE ADEQUATE
[2018-07-15 12:06] LABS: ANISOCYTOSIS Occasional
--- NOTE | 2018-07-15 13:49 | EKG ---
[place] [address] ELECTROCARDIOGRAM REPORT Name: SONI BATES Room: [address] ADM IN M.R.#: [id number] Admission: 07/11/18 Attend Phys: Arya Milian MD Discharge: Date of : 84 Report #: [id number] THIS REPORT FOR: //name// [facility] Test Date: 2018-07-14 Test Time: 22:45:56 Pat Name: SONI BATES Department: Room: [address] Gender: M Emergency Vehicle Dispatcher: : 1980 Requested By: Arya Milian Order Number: [id number] Reading MD: Bryce Camarena Measurements Intervals [place] Rate: 101 P: 57 TX: 124 QRS: 62 QRSD: 79 T: 30 QT: 334 QTc: 433 Interpretive Statements Sinus tachycardia Ventricular premature complex Borderline low voltage, extremity leads Compared to ECG 07/11/2018 10:51:45 Ventricular premature complex(es) now present Electronically Signed On 07-15-2018 13:49:31 CIRCUIT WALKER by Bryce Camarena [email or web address] <ELECTRONICALLY SIGNED> By: Bryce Camarena MD, [facility] 07/15/18 1349 [id number] Bryce Camarena MD, [facility] /EPI
--- NOTE | 2018-07-15 20:03 | NUR ---
I ASSUMED CARE OF THE PATIENT AT 0700. HE IS ALERT AND ORIENTED X4 AND IS UP WITH STAND BY ASSIST. BED IS IN THE LOW LOCKED POSITION AND CALL LIGHT IS IN REACH. HOURLY ROUNDING WAS COMPLETED AND PATIENT NEEDS WERE MET. PAIN IS DENIED. RIGHT A/C IV WAS REMOVED INTACT. MOM WAS HERE FOR A VISIT. PATIENT HAD A FULL SHOWER AND LINEN CHANGE. ISOLATION WAS MAINTAINED FOR DROPLET/CONTACT. PATIENT HAD ISSUES WITH HEMORROIDS MOST OF THE DAY AND A WAFFLE CUSHION WAS REQUESTED. WILL CONTINUE TO MONITOR.
[2018-07-16 04:00] VITALS: BP 117/54
--- NOTE | 2018-07-16 04:57 | NUR ---
REPORT RECEIVED FROM OFF GOING SHIFT. CARE ASSEMMED. PT AAOX4 SITTING IN CHAIR AT BEDSIDE. RESP REG AND UNALBORED SKIN W/D NO ACUTE DISTRESS NOTED AT THIS TIME, CARDAIC MONITOR INTACT WITH ALARMS SET. PT UTILIZED HIS CPAP WHEN IN BED FOR THE NIGHT. VSS AND NO ACUTE CHANGES DURING SHIFT WILL CONTINUE TO MONITOR. PT REMAINS IN ISOLATION ORDERED.
[2018-07-16 08:00] VITALS: BP 136/73
--- NOTE | 2018-07-16 08:00 | NUR ---
ASSUMED PT CARE AT 0700, PT UP IN CHAIR, CALL LIGHT IN REACH, CALL CENTER DISPATCHER TRACING SINUS ARRYTHMIA. PT DENIES ANY PAIN OR SOA, PT REMAINS ON O2 2LPM, LS COARSE WITH RHONCHI IN UPPER AND LOWER LOBES. PT UP WITH ASSIST, CONT ON CONTACT AND DROPLET PRECAUTIONS FOR MRSA.
[2018-07-16 11:51] VITALS: BP 116/66
[2018-07-16 15:55] VITALS: BP 99/62
--- NOTE | 2018-07-16 18:30 | NUR ---
PT SITTING UP IN CHAIR, O2 VIA NC, LS CONT TO SOUND COARSE WITH RHONCHI IN UPPER AND LOWER LEFT LOBES. UP WITH STANDBY ASSIST FOR ALL TRANSFERS, PT HAVING MULTIPLE BM'S THROUGH OUT DAY AND HEMORRHOIDS BLEEDING, PRN CREAM APPLIED. PT CONT ON FALL PRECAUTIONS. NO C/O PAIN AT THIS TIME. CENTRAL LINE IN RIGHT GROIN IS PATENT AND ALL 3 LUMENS FLUSHING APPROPIATELY.
[2018-07-17] VITALS: BP 126/66
[2018-07-17 04:00] VITALS: BP 132/72
[2018-07-17 06:05] LABS: ADENOVIRUS Negative (Negative); INFLUENZA A Negative (Negative); INFLUENZA B Negative (Negative); METAPNEUMOVIRUS Negative (Negative); PARAINFLUENZA 1 Negative (Negative); PARAINFLUENZA 2 Negative (Negative); PARAINFLUENZA 3 Negative (Negative); RHINOVIRUS Negative (Negative); RSV A Negative (Negative); RSV B Negative (Negative)
--- NOTE | 2018-07-17 07:52 | CON ---
[address] [address] CONSULTATION Name: JANASONI OZZIE Room: [address] IN M.R.#: [id number] Admission: 07/11/18 Attend Phys: Arya Milian MD Discharge: Date of : 84 Report #: [id number] THIS REPORT FOR: //name// CC: Shae Milian DATE OF SERVICE: 07/16/2018 INFECTIOUS DISEASE CONSULTATION ATTENDING PHYSICIAN: Jn Johnson M.D. REASON FOR EVALUATION: Pneumonitis with laboratory evidence of MRSA, associated with at least colonization. The patient with repeated pneumonitis. HISTORY OF PRESENT ILLNESS: Chart reviewed, the patient examined. This 38-year-old well known to myself has Down syndrome and history of multiple hospitalizations, primarily involving pneumonitis. He is on supplemental oxygen per nasal cannula on a chronic basis for underlying pulmonary disease. He presented on 07/11/2018 with history of nausea, emesis, chest congestion and chest pain and thought to have a component of asthma exacerbation as well. He was transferred to the Intensive Care Unit for aggressive treatments. He was eventually transitioned now to the telemetry floor where he is being seen. He nearly feels somewhat better. He does have persistent cough. It is only marginally productive. He has been on empiric antimicrobial therapy with levofloxacin, vancomycin and fluconazole. Cultures thus far have been otherwise unrevealing. He did have a positive MRSA PCR. ALLERGIES: SULFA. CURRENT MEDICATIONS: Include prednisone, vancomycin, fluconazole, hydrocortisone, levofloxacin, fluoxetine, levofloxacin, pantoprazole, montelukast, budesonide, enoxaparin, benzonatate and ipratropium and albuterol inhaler. PAST MEDICAL HISTORY: As noted above, respiratory failure, history of repeated pneumonitis; has obstructive sleep apnea, requiring CPAP and he does have a component of asthma. SOCIAL HISTORY: Nonsmoker, no ethanol, no illicit drug use. FAMILY HISTORY: Noncontributory. REVIEW OF SYSTEMS: A 10-point review of systems is otherwise unremarkable, with the exception noted in the above history of present illness. No gastrointestinal-related [place] [address] CONSULTATION Name: SONI BATES Room: [address] IN [facility]#: [id number] Admission: 07/11/18 Attend Phys: Arya Milian MD Discharge: Date of : 84 Report #: [id number] PHYSICAL EXAMINATION: GENERAL: He appears moderately ill. He is not acutely distressed. He is on nasal cannula oxygen. He is alert, oriented. VITAL SIGNS: Temperature 97.8, pulse 74, respirations 18 and blood pressure 117/54. SKIN: Warm, dry. No rashes. HEENT: Extraocular muscles intact. He does have a bit of a scleral hemorrhage on the left. Oropharynx appears to be moist. NECK: Supple. LUNGS: Few scattered coarse breath sounds. I do not appreciate anything for consolidation. HEART: Regular. I do not appreciate a murmur. ABDOMEN: Soft. He is obese, nontender. There are no peritoneal signs. EXTREMITIES: Distal lower extremities have trace edema. GENITOURINARY: Deferred. RECTAL: Deferred. LABORATORY DATA: Chest x-ray, persistent patchy bibasilar atelectasis and pneumonitis. CBC from 07/15/2018, white count of 11.0, H and H 12.0 and 35.4 and platelets of 213,000. Electrolytes: Sodium 144, potassium 3.0, chloride 105, bicarbonate is 30, anion gap of 9 and BUN and creatinine 8 and 1.2. Sputum culture showed some yeast. Gram stain culture pending. MRSA PCR nasal was positive. Pneumococcal antigen was negative. Legionella antigen in the urine was negative as well. DIAGNOSTIC STUDIES: Echo showed EF of 50% to 55%, mild aortic regurgitation, trace tricuspid regurgitation and mild circumferential pericardial effusion without evidence of tamponade. Blood cultures were sterile. ASSESSMENT AND PLAN: Recurrent pneumonitis in a patient with known evidence of methicillin-resistant Staphylococcus aureus associated with the respiratory tract. We will continue combination therapy at this point, as he is better based on the clinical picture, however, it is not certain whether MRSA is playing a role at this point. Ultimately, there may be a consideration to use linezolid in this setting, although he is on fluoxetine. We will explore that a little further as he is on a low dose. We will see how he does over the course of the next 24-48 hours. <ELECTRONICALLY SIGNED> By: Jermaine Carvajal MD 07/17/18 0752 0934 [id number] Carvajal MD /ginna
[2018-07-17 08:00] VITALS: BP 120/65
--- NOTE | 2018-07-17 10:10 | NUR ---
ASSUMED PT CARE AT 0700, PT LYING IN BED, CALL LIGHT IN REACH, BED IN LOWEST POSITION. PT CONT ON FALL PRECAUTIONS. A&O, O2 97% WITH CPAP, LS CONT TO HAVE COARSE SOUNDS WITH RHONCHI IN LEFT UPPER AND LOWER LOBES. CORN SHREDDER TRACING SINUS RHYTHM, PT DENIES ANY PAIN/SOA.
[2018-07-17 12:00] VITALS: BP 101/53
--- NOTE | 2018-07-17 14:58 | NUR ---
CALLED IN [employer] SCRIPT PER DR MULLER TO CHECK ON COST, PT LIVES IN [place] AND WENT THRU WITH NO COPAY PER [employer]. HAVE ASKED THAT THEY NOT FILL SCRIPT UNTIL FINAL ONE SENT FROM [place].
--- NOTE | 2018-07-17 19:56 | NUR ---
PT CURRENTLY IN CHAIR, O2 2LPM VIA NC, IV ABTS DISCONTINUED AND PO ABTS STARTED. FAMILY UPDATED ON PROBABLE DISCHARGE TOMORROW. MULTIPLE BM'S THIS SHIFT WITH SMALL AMT OF BRIGHT RED BLOOD FROM HEMORRHOIDS, PT HAS PRN CREAM ON BOARD. HOURLY ROUNDING, PT CONT ON CONTACT PRECAUTION FOR MRSA IN NARES.
[2018-07-17 20:22] VITALS: BP 101/61
[2018-07-18] VITALS: BP 118/73
[2018-07-18 03:53] VITALS: BP 132/78
[2018-07-18 05:04] LABS: HEMATOCRIT 37.2 % (42.0-52.0); HEMOGLOBIN 12.5 gm/dL (14.0-18.0); MCH 32.3 pg (26.0-34.0); MCHC 33.6 g/dL (28.0-37.0); MCV 96.2 fL (80.0-100.0); MPV 8.1 fl. (7.2-11.1); RBC 3.87 mil/uL (4.50-6.00); RDW-CV 15.8 % (10.5-14.5); WBC 11.1 thou/uL (4.0-11.0)
[2018-07-18 05:27] LABS: CALCIUM 8.1 mg/dL (8.5-10.1); CREATININE 1.2 mg/dL (0.6-1.3); POTASSIUM 3.4 mmol/L (3.5-5.1)
--- NOTE | 2018-07-18 05:41 | NUR ---
RECEIVED REPORT AND ASSUMED CARE AT 1900. VSS. CARDIAC MONITORING IN PLACE. PT DENIES ANY COMPLAINTS OF PAIN. ASSESSMENT COMPLETED CHARTED. PT GIVEN BATH, LINENS CHANGED. PT UP WITH SBA TO BATHROOM, ON 2L NC. BED LOCKED IN LOWEST POSITION, CALL LIGHT WITHIN REACH. HOURLY ROUNDING COMPLETED AND ALL NEEDS MET. NURSING WILL CONTINUE TO MONITOR
[2018-07-18 08:00] VITALS: BP 120/74
--- NOTE | 2018-07-18 10:00 | NUR ---
MAXIMUS spoke with Pt's [facility], [facility]. She confirmed that Pt continues to wear home o2. Edita stated that Pt recently went to a new vest front presser, during that visit, the pulm asked the Pt if he wanted to go to a day program, Pt stated yes, staff informed pulm that in order for Pt to go to a day program, he will need to be on PRN o2, so the dtr switched him to PRN o2. Per Edita, Pt requires continuous o2, so she requested that if the pulm wanted Pt on PRN o2, that they would need the documentation to support it, per their penitentiary policy. Per Edita, they have yet to receive that documentation, so stated that they have kept him on his continuous o2. Per nursing, Pt continues to require o2 at dc. Anticipate dc today. Edita stated that they can provide transportation at dc.
[2018-07-18] MEDS ORDERED: LINEZOLID600 MG PO (11:41)
[2018-07-18] MEDS ORDERED: PHENERGAN 25 MG25 M1 PO (11:48)
[2018-07-18 11:51] VITALS: BP 120/74
== END 2018-07-18 15:00 | disposition home or self-care (01) | DRG 871 ==
LOC: M.ERS 10:42 → M.TBA-ER 13:18 → M.ICU 13:18 → M.ERS 13:32 → M.ICU 13:49 → M.2W 07-12 14:51
PROVIDERS: Internal Medicine; Nurse Practitioner Family; ADMIT Family Medicine
DX: A41.9 Sepsis, unspecified organism (principal); R65.21 Severe sepsis with septic shock; J96.21 Acute and chronic respiratory failure with hypoxia; J15.212 Pneumonia due to Methicillin resistant Staphylococcus aureus; J45.51 Severe persistent asthma with (acute) exacerbation; J44.0 Chronic obstructive pulmonary disease with (acute) lower respiratory infection; E83.42 Hypomagnesemia; G47.33 Obstructive sleep apnea (adult) (pediatric); E03.9 Hypothyroidism, unspecified; Z79.899 Other long term (current) drug therapy; Z88.2 Allergy status to sulfonamides; Q90.9 Down syndrome, unspecified; Z99.81 Dependence on supplemental oxygen

== ENCOUNTER 2018-08-07 21:22 | Emergency (ER) | payer MEDICARE, MEDICAID ==
[~2018-08-07] VITALS: Ht 162.6 cm; Wt 89.0 kg
--- NOTE | ~2018-08-07 | EKG ---
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
[~2018-08-07 21:22] MED LIST changes: +LINEZOLID600 MG PO; +PHENERGAN 25 MG25 M1 PO
[2018-08-07] MEDS ORDERED: LEVAQUIN 500 M500 M2 PO (21:35)
[2018-08-07 22:03] LABS: ABSOLUTE BASOPHILS 0.1 thou/uL (0.0-0.2); ABSOLUTE EOSINOPHILS 0.1 thou/uL (0.0-0.7); ABSOLUTE LYMPHOCYTES 1.2 thou/uL (0.8-5.3); ABSOLUTE MONOCYTES 0.5 thou/uL (0.0-1.2); ABSOLUTE NEUTROPHILS 3.7 thou/uL (1.6-8.1); BASOPHILS 1.3 %; EOSINOPHILS 2.7 %; HEMATOCRIT 39.8 % (42.0-52.0); HEMOGLOBIN 13.2 gm/dL (14.0-18.0); LYMPHOCYTES 21.7 %; MCH 31.6 pg (26.0-34.0); MCHC 33.1 g/dL (28.0-37.0); MCV 95.5 fL (80.0-100.0); MONOCYTES 8.9 %; MPV 7.1 fl. (7.2-11.1); NUCLEATED RBCS 0 /100WBC; PLATELET COUNT* 343 thou/uL (150-400); POLYS 65.4 %; RBC 4.16 mil/uL (4.50-6.00); WBC 5.6 thou/uL (4.0-11.0)
[2018-08-07 22:24] LABS: ALBUMIN 3.6 g/dL (3.4-5.0); ALKALINE PHOSPHATASE 63 U/L (46-116); ANION GAP 8 mmol/L (7-16); CALCIUM 9.4 mg/dL (8.5-10.1); CHLORIDE 105 mmol/L (98-107); CO2 27 mmol/L (21-32); CREATININE 1.3 mg/dL (0.6-1.3); GLUCOSE 92 mg/dL (70-99); POTASSIUM 3.9 mmol/L (3.5-5.1); SGOT 17 U/L (15-37); SGPT 22 U/L (30-65); SODIUM 140 mmol/L (136-145); TOTAL BILIRUBIN 0.3 mg/dL (<0.1-1.0); TOTAL PROTEIN 6.8 g/dL (6.4-8.2); TROPONIN-I LEVEL <0.06 ng/mL (<0.06)
[2018-08-07 22:33] LABS: INFLUENZA A ANTIGEN None Detected (None Detect); INFLUENZA B ANTIGEN None Detected (None Detect)
[2018-08-07] MEDS ORDERED: LEVAQUIN 500 M500 MG PO (23:26)
[2018-08-07 23:30] LABS: BUN 14 mg/dL (7-18)
[2018-08-07 23:35] VITALS: BP 118/61
== END 2018-08-07 23:35 | disposition home or self-care (01) ==
LOC: M.ERS 21:22
PROVIDERS: Emergency Medicine
DX: J18.9 Pneumonia, unspecified organism (principal); J44.9 Chronic obstructive pulmonary disease, unspecified; G47.30 Sleep apnea, unspecified; E03.9 Hypothyroidism, unspecified; Z88.2 Allergy status to sulfonamides

== ENCOUNTER 2018-08-12 13:42 | Inpatient (IN) | payer MEDICARE, MEDICAID ==
[~2018-08-12] VITALS: Ht 162.6 cm; Wt 88.5 kg
[~2018-08-12 13:42] MED LIST changes: +LEVAQUIN 500 M500 MG PO
[2018-08-12 13:47] VITALS: BP 103/65
[2018-08-12 14:23] LABS: HEMATOCRIT 39.7 % (42.0-52.0); HEMOGLOBIN 13.5 gm/dL (14.0-18.0); MCH 32.2 pg (26.0-34.0); MCHC 34.1 g/dL (28.0-37.0); MCV 94.6 fL (80.0-100.0); MPV 7.2 fl. (7.2-11.1); NUCLEATED RBCS 0 /100WBC; PLATELET COUNT* 346 thou/uL (150-400); RDW-CV 16.9 % (10.5-14.5); WBC 9.9 thou/uL (4.0-11.0)
[2018-08-12 14:32] LABS: ANION GAP 6 mmol/L (7-16); BUN 12 mg/dL (7-18); CALCIUM 9.1 mg/dL (8.5-10.1); CHLORIDE 102 mmol/L (98-107); CO2 30 mmol/L (21-32); CREATININE 1.3 mg/dL (0.6-1.3); GLUCOSE 92 mg/dL (70-99); POTASSIUM 3.9 mmol/L (3.5-5.1); SODIUM 138 mmol/L (136-145)
[2018-08-12 14:35] LABS: APTT 34.4 Seconds (25.0-31.3); PROTIME 10.6 Seconds (9.20-11.50)
[2018-08-12 14:45] LABS: ALBUMIN 3.4 g/dL (3.4-5.0); ALKALINE PHOSPHATASE 60 U/L (46-116); LIPASE 70 U/L (73-393); MAGNESIUM 1.9 mg/dL (1.8-2.4); NT-PRO BRAIN NAT PEPTIDE 98 pg/mL (<300); SGOT 17 U/L (15-37); SGPT 21 U/L (30-65); TOTAL BILIRUBIN 0.8 mg/dL (<0.1-1.0); TOTAL PROTEIN 7.1 g/dL (6.4-8.2); TROPONIN-I LEVEL <0.06 ng/mL (<0.06)
[2018-08-12 14:46] LABS: ABSOLUTE EOSINOPHILS 0.1 thou/uL (0.0-0.7); ABSOLUTE MONOCYTES 0.6 thou/uL (0.0-1.2); ABSOLUTE NEUTROPHILS 8.2 thou/uL (1.6-8.1); PLATELET ESTIMATE ADEQUATE
[2018-08-12 16:11] VITALS: BP 123/83
[2018-08-12 20:00] VITALS: BP 139/51
[2018-08-13 00:53] VITALS: BP 111/58
[2018-08-13 04:42] LABS: ABSOLUTE BASOPHILS 0.2 thou/uL (0.0-0.2); ABSOLUTE EOSINOPHILS 0.2 thou/uL (0.0-0.7); ABSOLUTE LYMPHOCYTES 1.2 thou/uL (0.8-5.3); ABSOLUTE MONOCYTES 0.7 thou/uL (0.0-1.2); ABSOLUTE NEUTROPHILS 5.3 thou/uL (1.6-8.1); BASOPHILS 2.2 %; EOSINOPHILS 2.3 %; HEMATOCRIT 36.7 % (42.0-52.0); HEMOGLOBIN 12.3 gm/dL (14.0-18.0); LYMPHOCYTES 15.4 %; MCH 31.9 pg (26.0-34.0); MCHC 33.5 g/dL (28.0-37.0); MCV 95.2 fL (80.0-100.0); MONOCYTES 9.6 %; MPV 7.4 fl. (7.2-11.1); NUCLEATED RBCS 0 /100WBC; PLATELET COUNT* 325 thou/uL (150-400); POLYS 70.5 %; RBC 3.86 mil/uL (4.50-6.00); RDW-CV 17.6 % (10.5-14.5); WBC 7.5 thou/uL (4.0-11.0)
[2018-08-13 04:48] VITALS: BP 97/58
[2018-08-13 05:00] LABS: CALCIUM 8.5 mg/dL (8.5-10.1); CREATININE 1.3 mg/dL (0.6-1.3); POTASSIUM 3.5 mmol/L (3.5-5.1)
--- NOTE | 2018-08-13 10:24 | EKG ---
[place] [address] ELECTROCARDIOGRAM REPORT Name: JANASONI Room: [address] ADM IN .R.#: [id number] Admission: 08/12/18 Attend Phys: Jn Johnson MD Discharge: Date of : 84 Report #: [id number] THIS REPORT FOR: //name// [facility] ED Test Date: 2018-08-12 Test Time: 13:49:01 Pat Name: SONI BATES Department: Room: [facility] Gender: M Special Needs Child Caregiver: MARY LOU : 1980 Requested By: Roc Paz Order Number: [id number] MD: Derrick Polanco Measurements Intervals [place] Rate: 100 P: 52 MS: 125 QRS: 63 QRSD: 80 T: 32 QT: 337 QTc: 435 Interpretive Statements Sinus tachycardia Low voltage, extremity leads Compared to ECG 08/07/2018 21:41:05 Sinus rhythm no longer present Electronically Signed On 08-13-2018 10:24:33 LOOM OVERHAULER by Derrick Polanco [email or web address] <ELECTRONICALLY SIGNED> By: Derrick Polanco MD, [facility] [id number] Derrick Polanco MD, FAC /EPI
[2018-08-13 11:19] VITALS: BP 113/52
[2018-08-13 15:32] VITALS: BP 119/64
[2018-08-13 20:00] VITALS: BP 114/60
[2018-08-13 20:57] LABS: URINE BILIRUBIN NEGATIVE (Negative); URINE BLOOD NEGATIVE (Negative); URINE CLARITY CLEAR; URINE COLOR YELLOW; URINE GLUCOSE-RANDOM NEGATIVE (Negative); URINE KETONES NEGATIVE (Negative); URINE LEUKOCYTES NEGATIVE (Negative); URINE NITRITE NEGATIVE (Negative); URINE PROTEIN NEGATIVE (Negative); URINE SPECIFIC GRAVITY 1.015 (1.005-1.030); URINE UROBILINOGEN 0.2 E.U./dl (0.2-1.0)
[2018-08-14] VITALS: BP 107/50
[2018-08-14 04:00] VITALS: BP 114/44
[2018-08-14 04:48] LABS: ABSOLUTE LYMPHOCYTES 0.2 thou/uL (0.8-5.3); ABSOLUTE MONOCYTES 0.1 thou/uL (0.0-1.2); BASOPHILS 0.1 %; HEMATOCRIT 34.9 % (42.0-52.0); HEMOGLOBIN 11.7 gm/dL (14.0-18.0); LYMPHOCYTES 2.6 %; MCH 31.8 pg (26.0-34.0); MCHC 33.6 g/dL (28.0-37.0); MCV 94.6 fL (80.0-100.0); MONOCYTES 0.9 %; MPV 7.9 fl. (7.2-11.1); NUCLEATED RBCS 0 /100WBC; PLATELET COUNT* 331 thou/uL (150-400); POLYS 96.4 %; RBC 3.69 mil/uL (4.50-6.00); RDW-CV 16.8 % (10.5-14.5); WBC 7.3 thou/uL (4.0-11.0)
[2018-08-14 08:00] VITALS: BP 85/45
--- NOTE | 2018-08-14 08:35 | CON ---
[address] [address] CONSULTATION Name: JANASONI HORNE Room: [address] ADM IN M.R.#: [id number] Admission: 08/12/18 Attend Phys: nJ Johnson MD Discharge: Date of : 84 Report #: [id number] THIS REPORT FOR: //name// CC: Jn Santoro MD DATE OF SERVICE: 08/13/2018 ATTENDING PHYSICIAN: Jn Johnson MD. LOCATION: The patient is located in room 203 at the [facility] [place]. INDICATION FOR CONSULTATION: Asthma, chronic bronchitis, bronchiectasis, progressive hypoxemia. CLINICAL SUMMARY: The patient is a 38-year-old male, nonsmoker, lives in a usp. The patient has Down syndrome and trisomy 13. He has had recurrent admissions because of hypoxia and chronic bronchitis with bronchiectasis. He has been admitted to the hospital here probably 8 or 10 times over the past year, about every month or so. He comes in with low O2 sats and fever, cough and bronchitis. He was seen by my partner, Dr. Nuñez, on 07/05/2018. He was added on Incruse. He had seen either a primary care physician or urgent care physician, was on a prednisone taper about 10 days, 2 weeks ago and also a round of Levaquin 500 mg daily and he had a day or two left of [facility] when he was admitted yesterday. His O2 sats were low again in the 77-78% range and he has had concerns or problems with trying to keep the oxygen on at the usp. Specific orders have been written for supplemental oxygen at 2 liters 23/01 and he is on CPAP at night. We think it is either 8-12 cm. He has been on an auto titrating CPAP in the past, so that may be the other issue. The patient is sleeping relatively well at this time. He does feel better today than he felt yesterday. He is a relatively high functioning individual and called his legal guardian, Ramo Foster, and I talked with Ramo on the phone and he reiterated the same issues. We may see by trying to get a home health nurse to the usp twice a week to see if that will help. PAST MEDICAL HISTORY: The patient has a history of chronic asthma and chronic bronchitis, bronchiectasis. He has had previous immunoglobulins checked and they are within normal limits. He has not had a bronchoscopy at this time. PAST MEDICAL HISTORY: Again, is positive for cough and chronic bronchitis, has had MRSA of his nares. ALLERGIES: HE HAS ALLERGIES OR INTOLERANCE TO SULFA, WHICH GIVES HIM A SKIN [place] [address] CONSULTATION Name: SONI BATES Room: [address] IN .R.#: [id number] Admission: 08/12/18 Attend Phys: Jn Johnson MD Discharge: Date of : 84 Report #: [id number] OUTPATIENT MEDICATIONS: Included montelukast 10 mg daily. He is supposed to be on Advair HFA 230/21 two puffs b.i.d., albuterol nebulizer treatments 2-4 times a day routinely every day and then levofloxacin. He was tapering off of 500 mg 1 tablet daily. He was not on prednisone at this time. He is currently back on Solu-Medrol 60 mg IV q. 8 hours. Also, on linezolid 600 mg b.i.d. OTHER MEDICAL AND SURGICAL HISTORY: The patient has had frequent upper respiratory infections and bronchitis. He is hypothyroid, had recurrent pneumonia, also has obstructive sleep apnea, on auto titrating CPAP either that or 8-12 cm at night with oxygen at 2 liters, we are not exactly certain. Also, Down syndrome, lives in a usp. FAMILY HISTORY: Negative for premature cardiopulmonary disease. SOCIAL HISTORY: The patient lives in a usp. He is a lifelong nonsmoker, nondrinker. His legal guardian is Ramo Foster whose address is [address] [place] [address]. The patient's cell phone number is [phone]. The legal guardian works at [employer]. REVIEW OF SYSTEMS: Otherwise, 14-point review of systems reviewed and negative except for pertinent positives noted in HPI. PHYSICAL EXAMINATION: GENERAL: This is a 38-year-old male, pleasant, sleeping quietly on oxygen at 2 liters. VITAL SIGNS: Blood pressure is 111/60, heart rate is 88, respirations are 16, and he is afebrile, saturation at least at this time on 3 liters is 97%. He is 5 feet 3 inches tall, weight 89 kilograms or 208 pounds, BMI is 33. HEENT: He has wide set eyes and broad nose and pharynx is somewhat crowded. He has a decreased submental angle and some redundant neck tissue. Carotid pharynx was noted also. Probably Mallampati score 3-4. CHEST: Shows a few rhonchi and expiratory wheeze in both lower lobes. CARDIOVASCULAR: Regular rate and rhythm without murmur, gallop or rub. Heart rate is 88. ABDOMEN: Obese without masses or megaly. EXTREMITIES: Without cyanosis, clubbing or edema. NEUROLOGIC: Grossly intact, moves all fours to commands. LABORATORY DATA: Hemoglobin is 12, white count 7500, platelets are 325,000, normal differential. Serology MRSA screen is pending. Electrolytes from today from 08/13/2018: Sodium is 139, potassium 3.5, being repleted. Carbon dioxide is 28, BUN is 10, creatinine is 1.3, glucose is 94. LFTs within normal limits and lipase was low at 70. Anti-ProBNP was 98 within normal limits. Chest x-ray shows patchy basilar infiltrates. Heart size upper limits of normal. Some mild [place] [address] CONSULTATION Name: SONI BATES Room: [address] ADM IN [facility].#: [id number] Admission: 08/12/18 Attend Phys: Jn Johnson MD Discharge: Date of : 84 Report #: [id number] PFTs dated 01/16/[address] Marie shows an FEV1 of 1.45, FVC of 2.28, ratio of 64%, FEV1 48% of predicted making him GOLD level 3. Minimal bronchodilator effect was noted. He had marked decrease in small airways disease with 23-33% of predicted of small airways. His vital capacity did improve 32% after FEV1. He could not get into the body box and performed plethysmography. It should be noted that the patient was able to blow longer than 5 seconds prior to the bronchodilator. His vital capacity is also 48% of predicted. IMPRESSION: 1. Moderately severe to severe chronic asthmatic bronchitis. Also, has restrictive defect, probably related to his body habitus. 2. Down syndrome with recurrent chronic asthmatic bronchitis with bronchiectasis, frequent flareups and exacerbations. 3. Down syndrome. 4. Obstructive sleep apnea. PLAN: The patient appears to be on auto titrating CPAP. We will keep him somewhere between 8 and 12 and may need a Stim card to see how he is doing. May need to repeat sleep study at some point in time. May need to see next time he is in the office, we can do some full PFTs or at least some spirometry with and without bronchodilators and see what he does. He has had recurrent exacerbations, had been in the hospital about every month. We will try and get a counter caser and nurse to go out to his usp at least twice a week, see if he is getting up and moving around and see if he is on oral medications that will keep his asthma and bronchitis under control. Other options include azithromycin 500 mg every other day, Mondays, Wednesdays and Fridays and then also possibly using prednisone 10 mg every other day. On the off days, he is not on azithromycin. We will see if we cut down his infections and cut down him coming into the hospital. It has been quite frustrating to all involved including his legal guardian that he has had such a kind of a downhill course. I think bronchoscopy in the future might be an option, although he may need a general anesthetic to keep him sedated enough to do a bronchoscopy. It may have to be done in the operating room. Again, repeat high resolution CT of the chest at some point in time to rule out pulmonary fibrosis might be indicated and CT scan of the sinuses to rule out chronic sinusitis. He denies any esophageal reflux to me and we will see what we can do to keep Ramo out of the hospital here. Thanks again for allowing us to participate in this challenging man's care. We will follow up along with you and see what we can do to help him out. He has [facility] [address] [place] [address] CONSULTATION Name: SONI BATES Room: [address] ADM IN M.R.#: [id number] Admission: 08/12/18 Attend Phys: Jn Johnson MD Discharge: Date of : 84 Report #: [id number] Nuñez in our office and hopefully we will try and keep him coming back to our office for further followup. <ELECTRONICALLY SIGNED> By: Naeem Mcconnell MD 08/14/18 0835 1125 [id number] Mcconnell MD /nt
[2018-08-14 12:00] VITALS: BP 103/51
[2018-08-14 16:51] VITALS: BP 106/55
[2018-08-14 20:00] VITALS: BP 107/58
[2018-08-15] VITALS: BP 97/42
[2018-08-15 04:00] VITALS: BP 109/46
[2018-08-15 08:00] VITALS: BP 113/61
[2018-08-15 12:00] VITALS: BP 114/52
[2018-08-15 16:00] VITALS: BP 96/44
[2018-08-15 20:00] VITALS: BP 121/65
[2018-08-16] VITALS: BP 107/70
[2018-08-16 04:00] VITALS: BP 118/77
[2018-08-16 08:17] VITALS: BP 107/69
--- NOTE | 2018-08-16 11:21 | CON ---
[address] [address] CONSULTATION Name: SONI BATES Room: [address] ADM IN M.R.#: [id number] Admission: 08/12/18 Attend Phys: Jn Johnson MD Discharge: Date of : 84 Report #: [id number] THIS REPORT FOR: //name// CC: Jn Johnson Shae Santoro DATE OF SERVICE: 08/15/2018 INFECTIOUS DISEASE CONSULTATION ATTENDING PHYSICIAN: Jn Johnson M.D. REASON FOR EVALUATION: MRSA pneumonitis, appears to be relapsing. HISTORY OF PRESENT ILLNESS: Chart reviewed, the patient examined. This is a 38-year-old, well known to myself, has Down syndrome as well as some underlying COPD in the setting of asthma, who gets repeatedly admitted to the hospital with respiratory complaints. He was in July. At that point, he was found to be PCR positive with MRSA in his nasopharyngeal tract as well as MRSA from a respiratory tract specimen collection. Apparently, he had been maintaining; however, in the days leading up to 08/12/2018, he had increasing cough productive of yellow sputum, perhaps some chills, low-grade temperature elevations and worsening dyspnea. He is intermittently on supplemental oxygen and may be that he needs it on a more regular basis. He does have underlying obstructive sleep apnea as well. Due to his tenuous state, he was admitted through the Emergency Room. He was placed on supplemental oxygen, treated with broad-spectrum antibiotic therapy including piperacillin, tazobactam, levofloxacin and vancomycin. He is somewhat improved, approaching his baseline at this point. ALLERGIES: SULFA. CURRENT MEDICATIONS: Include vancomycin, folic acid, ascorbic acid, fluoxetine, fluticasone, budesonide, levothyroxine, pantoprazole, montelukast, enoxaparin, p.r.n. analgesics, antiemetics, Zosyn, Levaquin and ipratropium and albuterol inhaler. PAST MEDICAL HISTORY: As noted, Down syndrome, asthma, component of COPD, seasonal allergies, recurrent pneumonitis, hypothyroidism and sleep apnea. SOCIAL HISTORY: Nonsmoker. No ethanol. FAMILY HISTORY: Noncontributory. REVIEW OF SYSTEMS: Denies any significant gastrointestinal-related complaints including anorexia, nausea or any issue with bowel movements. Otherwise, [place] [address] CONSULTATION Name: JANASONI OZZIE Room: [address]#: [id number] Admission: 08/12/18 Attend Phys: Jn Johnson MD Discharge: Date of : 84 Report #: [id number] unremarkable 10-point review of systems. PHYSICAL EXAMINATION: GENERAL: He is pleasant, alert, cooperative, in moderate distress. He has features of Down syndrome. VITAL SIGNS: Temperature 97.6, pulse 89, respirations 18 and blood pressure 114/52. SKIN: Warm, dry. No rashes. HEENT: Nasal cannula oxygen in place. Extraocular muscles intact. He is normocephalic. NECK: Supple. LUNGS: Diminished breath sounds. Few scattered crackles. HEART: Regular. I do not appreciate a murmur. ABDOMEN: Soft, obese and nontender. There are no peritoneal signs. GENITOURINARY: Deferred. RECTAL: Deferred. LABORATORY DATA: Most recent chest x-ray showed basilar infiltrates, cardiomegaly. Blood cultures sterile thus far, collected at time of admission. CBC from 08/14/2018, white count 7.3, H and H 11.7 and 34.9 and platelets of 331,000. Urinalysis unremarkable. Electrolytes: Sodium 139, potassium 3.5, chloride 103, bicarb 28, BUN and creatinine 10 and 1.3, anion gap of 8 and estimated GFR of 62. Initial lactic acid was 0.5. ASSESSMENT AND PLAN: Recurrent pneumonitis with known recent history of isolation of methicillin-resistant Staphylococcus aureus from both upper and lower respiratory tracts and there is some concern that recurrent aspiration, exposure and underlying lung disease puts him at risk for difficulty to eradicate colonization. There is a CT of the chest ordered and there has been discussion about possible bronchoscopy. I think that is reasonable. Historically, he has been somewhat reluctant to proceed with that; however, considering his recurrent nature of these infections and repeated hospitalizations, I think we have to consider other interventions. <ELECTRONICALLY SIGNED> By: Jermaine Carvajal MD 08/16/18 1121 1422 [id number] Carvajal MD /nt
[2018-08-16 12:04] VITALS: BP 105/56
[2018-08-16 17:20] VITALS: BP 92/54
[2018-08-16 19:45] VITALS: BP 102/56
[2018-08-17] VITALS: BP 116/60
[2018-08-17 04:00] VITALS: BP 116/76
[2018-08-17 08:00] VITALS: BP 107/66
[2018-08-17 10:22] VITALS: BP 107/66
[2018-08-17 11:58] VITALS: BP 101/67
[2018-08-17] MEDS ORDERED: PREDNISONE 10 M10 MG PO (12:47)
[2018-08-17 13:20] VITALS: BP 107/66
== END 2018-08-17 14:40 | disposition home health service (06) | DRG 193 ==
LOC: M.ERS 13:42 → M.2W 15:14 → M.TBA-ER 15:14 → M.2W 16:25
PROVIDERS: Emergency Medicine Emergency Medical Services; ADMIT Internal Medicine
PROC: 5A09357 Assistance with Respiratory Ventilation, Less than 24 Consecutive Hours, Continuous Positive Airway Pressure (ICD-10-PCS; principal; 2018-08-12)
DX: J18.1 Lobar pneumonia, unspecified organism (principal); J96.21 Acute and chronic respiratory failure with hypoxia; J45.51 Severe persistent asthma with (acute) exacerbation; E66.2 Morbid (severe) obesity with alveolar hypoventilation; J20.8 Acute bronchitis due to other specified organisms; E03.9 Hypothyroidism, unspecified; B95.62 Methicillin resistant Staphylococcus aureus infection as the cause of diseases classified elsewhere; G47.33 Obstructive sleep apnea (adult) (pediatric); Q90.9 Down syndrome, unspecified; Z68.33 Body mass index [BMI] 33.0-33.9, adult; Z79.51 Long term (current) use of inhaled steroids; Z79.899 Other long term (current) drug therapy; Z88.2 Allergy status to sulfonamides

== ENCOUNTER → 2018-08-28 | Outpatient (CLI) | payer MEDICARE, MEDICAID ==
--- NOTE | 2018-08-30 07:53 | PROC ---
[address] [address] PROCEDURE REPORT Name: JANASONI OZZIE [facility] [id number] Admission: 08/28/18 Attend Phys: Naeem Mcconnell MD Discharge: Date of : 84 Report #: [id number] THIS REPORT FOR: //name// CC: Naeem Andrews DATE OF SERVICE: 08/28/2018 PROCEDURE: Outpatient bronchoscopy with brushings and washings. PRIMARY CARE PHYSICIAN: Shae Santoro DO. PREOPERATIVE DIAGNOSES: Chronic bronchitis, bronchiectasis, left lower lobe recurrent infections. POSTOPERATIVE DIAGNOSES: Chronic bronchitis; bronchiectasis, left lower lobe recurrent infections and mucus plugging, left lower lobe. No endobronchial lesions. COMPLICATIONS: None. SPECIMENS: Noted and obtained. INDICATIONS: The patient is a 38-year-old male, special needs with Down syndrome, who has had recurrent bronchitis and pneumonias. He has had multiple admissions to the hospital for the last year or two. He has had a left lower lobe bronchiectasis noted on CAT scans and on chest x-rays. He has now been off antibiotics for the last 3-4 days. He is still on a steroid taper. He has been on breathing treatments and oxygen at 2 liters. Bronchoscopy is indicated to evaluate for endobronchial lesion to obtain specimens. The indications, benefits and risks of bronchoscopy and possible biopsy were explained to the patient and also to his durable power of district attorney, Angel Cavazos.. He understood and agreed and informed consent was obtained from Angel Cavazos, the patient's legal guardian and durable power of district attorney. I discussed this with him when he was in the hospital last week or two. The patient was n.p.o. prior to the procedure. He did a verbal timeout there. His elastic assembler from the retirement was with him here, her name is Beverley, and his mother's name is Vivienne and she was also here with him. The procedure was explained to them. Premedication consisted of meperidine 50 mg and Robinul 0.1 mg IM and then he had fentanyl 50 mcg and then Versed 5 mg total in 1 mg increments throughout the procedure and prior to the procedure. O2 was at 3 liters per nasal cannula and O2 sat did not drop below 94%. Heart rate did get up to 120s-130s, [place] [address] PROCEDURE REPORT Name: SONI BATES Room: [facility]#: [id number] Admission: 08/28/18 Attend Phys: Naeem Mcconnell MD Discharge: Date of : 84 Report #: [id number] patient has always run a sinus tachycardia between 110 and 120 normally in the hospital. Blood pressure was adequate and above 100. DESCRIPTION OF PROCEDURE: Flexible fiberoptic bronchoscopy carried out via right transnasal route subsegmental level. Nasopharynx and vocal cords were normal. Vocal cords opposed normally. Trachea and slime were normal. Slime was sharp. Right lung was normal, without any endobronchial lesions or mucosal abnormalities. He had mild erythema and some heaping of his bronchial openings, but there was no actual tracheomalacia noted in the right lower lung. Secretions were suctioned easily from there. He had moderate coughing, so no pictures were obtained. Left lung was then examined. Left upper lobe was within normal limits. Left middle lobe and lingula were within normal limits. Left lower lobe was covered with thick mucus plugging. This took us several minutes to lavage out his mucus plugs from the left lower lobe and we obtained a bronchial wash for that. We also sent the bronchial wash #1 for Gram stain, C and S, AFB with smear and culture and fungal smear with culture and then later on, a micro brush was also obtained for Gram stain, C and S, AFB with smear and culture and fungal smear and cultures. The left lower lobe was lavaged nearly clear. A second bronchial wash which came up with some purulent secretions was also sent for cytology and then again as mentioned before, there was also a cytology brush from the left lower lobe, which was sent for chronic bronchitis and recurrent pneumonias from the left lower lobe. Evaluate for malignant process versus chronic inflammation. Bronchoscope was then withdrawn without incident. The patient tolerated the procedure well, without complications. Working diagnosis was chronic bronchitis and chronic bronchiectasis with mucus plugging of the left lower lobe. No endobronchial lesions were noted. The patient's family will call us in the office on 08/31/2018, in the afternoon and we will discuss results, may need another phone call about a week later. We will get the AFB and fungal smears back. Hopefully, this was diagnostic as well as somewhat therapeutic in helping him stay out of the hospital. Continue to take his breathing treatments and his prednisone tapers. May need prednisone 10 mg every other day, Monday, Monday and Monday to keep him out of the hospital. He has a Z-JAMES at the retirement if needed if he starts having more problems. He had some mild wheezing post-bronchoscopy and we gave him Solu-Medrol 62.5 mg IV push and albuterol breathing treatment 2.5 mg. He is doing quite well. He is chronically on oxygen at 2 liters. We will see him in the office in a couple of months and make sure he is more stable. We will attempt to do some spirometry on him at some point in time. <ELECTRONICALLY SIGNED> By: Naeem Mcconnell MD 08/30/18 0753 1120 [id number] Mcconnell MD /nt
--- NOTE | 2018-08-31 15:27 | PATH ---
[address] [address] PATHOLOGY RPT PROCEDURE Name: SONI BATES Room: [facility] Cande#: [id number] Admission: 08/28/18 Date of : 84 Discharge: Report #: [id number] Path Case #: [id number] Note [facility] Accession Number: [id number] TESTS RESULT FLAG UNITS REF RANGE LAB Clinician Provided Cytology Information No. of containers..01 Slide Source: BRONCHIAL BRUSHING DIAGNOSIS: 02 LLL, BRONCHIAL BRUSHING NEGATIVE FOR MALIGNANT CELLS. REACTIVE BRONCHIAL EPITHELIAL CELLS, PULMONARY MACROPHAGES AND FEW INFLAMMATORY CELLS. Signed out by: 02 Shahbaz Avila MD, Pathologist NPI- [id number] Performed by: 01 Horace Myrick, Clerk Rating (ASCP) FLAG LEGEND: L-Low Normal,H-High Normal,LL-Alert Low,HH-Alert High <-Panic Low,>-Panic High,A-Abnormal,AA-Critical Abnormal Performed at: [address] [place] [address] Altaf Bryant MD, [address] [place] [address] [facility], [place] [address] Shahbaz Avila MD, Performed at: [address], [place], [place] [id number] MD Altaf Bryant MD Phone: [phone]
--- NOTE | 2018-08-31 15:27 | PATH ---
[address] [address] PATHOLOGY RPT PROCEDURE Name: SONI BATES Room: [facility] Peggy.Raya.#: [id number] Admission: 08/28/18 Date of : 84 Discharge: Report #: [id number] Path Case #: [id number] Note [facility] Accession Number: [id number] TESTS RESULT FLAG UNITS REF RANGE LAB Clinician Provided Cytology Information No. of containers..01 Other (Miscellaneous) Source: BRONCHIAL WASHING DIAGNOSIS: 02 LLL, BRONCHIAL WASHING NEGATIVE FOR MALIGNANT CELLS. SCANT CELLULARITY WITH BRONCHIAL EPITHELIAL CELLS, PULMONARY MACROPHAGES (DUST CELLS) AND INFLAMMATORY CELLS. Signed out by: Shahbaz Avila MD, Pathologist NPI- [id number] Performed by: Horace Myrick, Cable Assembler ([facility]) Gross description: 01 20ML, YELLOW TINTED, CLOUDY /LCS FLAG LEGEND: L-Low Normal,H-High Normal,LL-Alert Low,HH-Alert High <-Panic Low,>-Panic High,A-Abnormal,AA-Critical Abnormal Performed at: [address] [place] [address] Altaf Bryant MD, 02 [facility] [address] [facility], [place] [address] Shahbaz Avila MD, Specimen Comment: Report sent to Performed at: [address], [place], [place] [id number] MD Altaf Bryant MD Phone: [phone]
== END | disposition home or self-care (01) ==
LOC: M.PUL 05:19
DX: J20.1 Acute bronchitis due to Hemophilus influenzae (principal); B96.3 Hemophilus influenzae [H. influenzae] as the cause of diseases classified elsewhere; J42 Unspecified chronic bronchitis; J47.9 Bronchiectasis, uncomplicated; Z88.2 Allergy status to sulfonamides; Z79.899 Other long term (current) drug therapy; Z98.890 Other specified postprocedural states

== ENCOUNTER 2018-09-26 13:46 | Inpatient (IN) | payer MEDICARE, MEDICAID ==
[~2018-09-26] VITALS: Ht 160 cm; Wt 92.6 kg
[2018-09-26 13:49] VITALS: BP 130/69
[2018-09-26 14:12] LABS: ABSOLUTE BASOPHILS 0.1 thou/uL (0.0-0.2); ABSOLUTE EOSINOPHILS 0.1 thou/uL (0.0-0.7); ABSOLUTE LYMPHOCYTES 1.5 thou/uL (0.8-5.3); ABSOLUTE MONOCYTES 0.5 thou/uL (0.0-1.2); ABSOLUTE NEUTROPHILS 3.9 thou/uL (1.6-8.1); BASOPHILS 1.9 %; EOSINOPHILS 1.7 %; HEMATOCRIT 41.5 % (42.0-52.0); HEMOGLOBIN 13.9 gm/dL (14.0-18.0); LYMPHOCYTES 24.8 %; MCHC 33.5 g/dL (28.0-37.0); MCV 92.6 fL (80.0-100.0); MONOCYTES 7.6 %; MPV 7.4 fl. (7.2-11.1); NUCLEATED RBCS 0 /100WBC; PLATELET COUNT* 445 thou/uL (150-400); RBC 4.48 mil/uL (4.50-6.00); RDW-CV 19.2 % (10.5-14.5)
[2018-09-26] MEDS ORDERED: LORATIDINE 10 M10 M1 PO (14:14)
[2018-09-26] MEDS ORDERED: THEREMS-M1 EACH PO (14:17)
[2018-09-26] MEDS ORDERED: IBUPROFEN 200200 M1 PO (14:17)
[2018-09-26 14:35] LABS: ALBUMIN 3.4 g/dL (3.4-5.0); CALCIUM 9.3 mg/dL (8.5-10.1); CREATININE 1.3 mg/dL (0.6-1.3); POTASSIUM 4.1 mmol/L (3.5-5.1); TOTAL BILIRUBIN 0.2 mg/dL (<0.1-1.0); TOTAL PROTEIN 7.2 g/dL (6.4-8.2)
[2018-09-26 15:41] LABS: INFLUENZA A ANTIGEN None Detected (None Detect); INFLUENZA B ANTIGEN None Detected (None Detect)
[2018-09-26 16:13] VITALS: BP 116/60
[2018-09-26 16:30] VITALS: BP 111/56
--- NOTE | 2018-09-26 18:40 | NUR ---
PATIENT ARIVED FROM ER THIS EVENING. PATIENT SETTLED TO ROOM. HISTORY, ASSESSMENT AND VITALS COMPLETED AND DOCUMENTED. PATIENT ON 5L/NC, DENIES ANY TROUBLE BREATHING AT THIS TIME. PATIENT IS UP STANDBY ASSIST. PATIENT DENIES ANY NEEDS AT THIS TIME. CALL LIGHT WITHIN REACH. WILL CONTINUE TO MONITOR.
[2018-09-26 23:59] VITALS: BP 109/43
[2018-09-27 02:10] LABS: IgA 232 mg/dL (90-386); IgG 809 mg/dL (700-1600); IgM 94 mg/dL (20-172)
[2018-09-27 03:45] VITALS: BP 99/50
--- NOTE | 2018-09-27 06:11 | NUR ---
PATIENT SLEPT MOST OF THE NIGHT. IV REMAINS SALINE LOCKED. FIRST COUPLE HOURS OF THE SHIFT PATIENT WAS HAVING COUGHING SPELLS AND HAVING A VERY HARD TIME COUGH UP THICK SPUTUM. HR WAS GOING UP TO 150'S TO 160'S DURING THE COUGHING SPELLS BUT THEN CAME BACK DOWN TO LOW 100'S AND 90'S. PATIENT HAS BEEN ON HIS CPAP MOST OF THE NIGHT WITH 5L OF 02. WILL CONTINUE TO MONITOR.
[2018-09-27 08:05] VITALS: BP 130/56
--- NOTE | 2018-09-27 12:52 | 2DMMODE ---
[place] [address] 2 D/M-MODE ECHOCARDIOGRAM Name: JANASONI OZZIE Room: 316-P ADM IN .R.#: [id number] Admission: 09/26/18 Attend Phys: Ethel Bowie, Discharge: Date of : 84 Date of Service: 09/27/18 1251 Report #: [id number] THIS REPORT FOR: //name// APPROVED REPORT Study performed: 09/27/2018 11:11:29 EXAM: Limited 2D Echocardiogram Patient Location: In-Patient Room #: 316 Status: routine BSA: 1.95 HR: 100 bpm BP: 99/50 mmHg Rhythm: NSR Other Information Study Quality: Good Indications Pericardial Effusion Left Ventricle The left ventricle is normal size. There is normal LV segmental wall motion. There is normal left ventricular wall thickness. The left ventricular systolic function is normal. The left ventricular ejection fraction is within the normal range. LVEF is 55-60%. Right Ventricle The right ventricle is normal size. The right ventricular systolic function is normal. Atria The left atrium size is normal. The right atrium size is normal. Aortic Valve The aortic valve is normal in structure. Mitral Valve The mitral valve is normal in structure. Tricuspid Valve Tricuspid valve is not well visualized. Pulmonic Valve [address] [address] 2 D/M-MODE ECHOCARDIOGRAM Name: SONI BATES Room: 316-P ADM IN M.R.#: [id number] Admission: 09/26/18 Attend Phys: Ethel Bowie, Discharge: Date of : 84 Date of Service: 09/27/18 1251 Report #: [id number] Pulmonic valve is not well visualized. Great Vessels The aortic root is normal in size. IVC is normal in size and collapses >50% with inspiration. Pericardium small ,circumferential pericardial effusion. <Conclusion> LVEF is 55-60%. There is normal LV segmental wall motion. small pericardial effusion. <ELECTRONICALLY SIGNED> By: Bryce Camarena MD, FACC 09/27/18 1251 1251 50 Bryce Camarena MD, FACC /INF
[2018-09-27 15:44] LABS: URINE BILIRUBIN NEGATIVE (Negative); URINE BLOOD NEGATIVE (Negative); URINE CLARITY CLEAR; URINE COLOR YELLOW; URINE GLUCOSE-RANDOM NEGATIVE (Negative); URINE KETONES NEGATIVE (Negative); URINE LEUKOCYTES-REFLEX NEGATIVE (Negative); URINE NITRITE-REFLEX NEGATIVE (Negative); URINE PROTEIN NEGATIVE (Negative); URINE SPECIFIC GRAVITY <= 1.005 (1.005-1.030); URINE UROBILINOGEN 0.2 E.U./dl (0.2-1.0)
[2018-09-27 16:47] VITALS: BP 122/56
--- NOTE | 2018-09-27 16:53 | NUR ---
Pt up walking with walker and staff. Pt known to SW due to previous admissions. Pt lives at [facility]. Pt has hx with [facility], oxygen and nebulizer with [facility]. SW to continue to follow to assist with safe dc planning. Pt has a gaurdian and [facility] staff involved in his care.
--- NOTE | 2018-09-27 17:22 | NUR ---
PATIENT RESTING UP IN CHAIR. PATIENT IS UP STANDBY ASSIST. PATIENT WALKED IN HALLS THIS AFTERNOON. PATIENT HAS O2 ON AT 5L/NC. PATIENT IS SHORT OF AIR WITH EXERTION. PATIENT DENIES ANY PAIN. PATIENT HAS GOOD APPETITE. PATIENT DENIES ANY NEEDS AT THIS TIME. CALL LIGHT WITHIN REACH. WILL CONTINUE TO MONITOR.
--- NOTE | 2018-09-27 19:37 | NUR ---
PATIENT WENT TO BATHROOM THIS EVENING. PATIENT BECAME NAUSEATED AND SHORT OF BREATH. PATIENT DID VOMIT AND HAD BOWEL MOVEMENT. PATIENT OXYGEN SATS GOOD AT 95% ON 5L.NC. PATIENT ASSISTED BACK TO BED. ZOFRAN GIVEN. PATIENT HAD COMPLAINTS OF ABDOMINAL/CHEST PAIN. UNABLE TO GET CLEAR ANSWER TO AREA OF DISCOMFORT. EKG SHOW SINUS TACHYCARDIA. PATIENT STATES HE FEELS BETTER AT THIS TIME. DR ZABALA NOTIFIED.
[2018-09-27 20:20] VITALS: BP 121/59
[2018-09-28] VITALS (7 sets, daily range): BP systolic 99–120; BP diastolic 45–72
[2018-09-28 03:56] LABS: HEMATOCRIT 34.2 % (42.0-52.0); MCH 31.1 pg (26.0-34.0); MCHC 33.1 g/dL (28.0-37.0); MCV 93.7 fL (80.0-100.0); MPV 7.5 fl. (7.2-11.1); NUCLEATED RBCS 0 /100WBC; PLATELET COUNT* 398 thou/uL (150-400); RBC 3.65 mil/uL (4.50-6.00); RDW-CV 19.5 % (10.5-14.5)
[2018-09-28 04:10] LABS: HEMOGLOBIN 11.3 gm/dL (14.0-18.0); WBC 25.2 thou/uL (4.0-11.0)
[2018-09-28 04:12] LABS: ALBUMIN 3.1 g/dL (3.4-5.0); CREATININE 1.3 mg/dL (0.6-1.3); PHOSPHORUS* 2.7 mg/dL (2.5-4.9); TOTAL BILIRUBIN 0.3 mg/dL (<0.1-1.0); TOTAL PROTEIN 6.3 g/dL (6.4-8.2)
--- NOTE | 2018-09-28 06:01 | NUR ---
PATIENT SLEPT PART OF THE NIGHT. PATIENT WAS ANXIOUS AND RESTLESS BEGINNING PART OF SHIFT ATIVAN WAS GIVEN ONCE FOR ANXIETY WITH SOME RELIEF. PATIENT WAS GIVEN TYLENOL FOR LEG PAIN ONCE. PATIENT REMAINS ON OXYGEN AT 5L NC WHILE AWAKE AND CPAP AT NIGHT WITH 5L. SPUTUM SAMPLE WAS SENT TO LAB. PATIENT HAS BEEN SR TO STACH ON MONITOR. IV ANTIBIOTICS WERE GIVEN ORDERED. WILL CONTINUE TO MONITOR.
[2018-09-28 06:06] LABS: ABSOLUTE LYMPHOCYTES 0.3 thou/uL (0.8-5.3); ABSOLUTE MONOCYTES 0.5 thou/uL (0.0-1.2); ABSOLUTE NEUTROPHILS 24.4 thou/uL (1.6-8.1); ANISOCYTOSIS 1+; PLATELET ESTIMATE ADEQUATE; POLYCHROMASIA 1+
[2018-09-28 06:07] LABS: POIKILOCYTOSIS 1+
--- NOTE | 2018-09-28 12:39 | EKG ---
[place] [address] ELECTROCARDIOGRAM REPORT Name: SONI BATES Room: [address] ADM IN M.R.#: [id number] Admission: 09/26/18 Attend Phys: Ethel Bowie MD Discharge: Date of : 84 Report #: [id number] THIS REPORT FOR: //name// [facility] Test Date: 2018-09-27 Test Time: 19:07:38 Pat Name: SONI BATES Department: Room: [address] Gender: M [employer] Manager: AP : 1980 Requested By: Ethel Bowie Order Number: [id number] Nisha MD: Derrick Polanco Measurements Intervals [place] Rate: 104 P: 36 [place]: 123 QRS: 54 QRSD: 81 T: 10 QT: 348 QTc: 458 Interpretive Statements Sinus tachycardia Compared to ECG 08/12/2018 13:49:01 No significant changes Electronically Signed On 09-28-2018 12:39:41 CDT by Derrick Polanco [email or web address] <ELECTRONICALLY SIGNED> By: Derrick Polanco MD, [facility] 09/28/18 1239 D: [id number] Derrick Polanco MD, FACC /EPI
--- NOTE | 2018-09-28 15:32 | NUR ---
ASSESSMENT COMPLETE. PT ALERT AND ORIENTED X4. PT UNABLE TO HAVE EGD TODAY DUE TO RESPIRATORY FUNCTION PER ANAESTHESIOLOGY. PT DENIES PAIN. PT TOLERATING MEALS. SOLUMEDROL DECREASED TO 40MG. VANC TROUGH WNL AT 19 TODAY. PT TAKES MEDICATIONS WITHOUT COMPLICATIONS. ISOLATION FOR MRSA. RENAL US DONE THIS AFTERNOON. PT HAS RED FACE, REPORT FROM [facility]. PT DENIES PAIN. SEE ASSESSMENT AND VITALS FOR OTHER DETAILS. CALL LIGHT WITHIN REACH, WILL CONTINUE PLAN OF CARE
[2018-09-29] VITALS: BP 95/50
[2018-09-29 04:00] VITALS: BP 135/66
--- NOTE | 2018-09-29 04:46 | NUR ---
PT CARE ASSUMED AT 1930. SAT MAINTAINED IN CPAP AT NIGHT. ALERT AND ORIENTED X4. CALL LIGHT WITHIN REACH AND BED IN LOW POSITION. PT IS AMXIOUS AT TIMES. HAS CHEST PAIN WITH COUGH. HOURLY ROUNDING DONE FOR PT SAFETY.
[2018-09-29 05:02] LABS: ABSOLUTE LYMPHOCYTES 0.5 thou/uL (0.8-5.3); ABSOLUTE MONOCYTES 0.5 thou/uL (0.0-1.2); ABSOLUTE NEUTROPHILS 23.4 thou/uL (1.6-8.1); HEMATOCRIT 33.5 % (42.0-52.0); LYMPHOCYTES 2.1 %; MCH 30.7 pg (26.0-34.0); MCHC 32.7 g/dL (28.0-37.0); MCV 93.8 fL (80.0-100.0); MONOCYTES 2.1 %; MPV 7.8 fl. (7.2-11.1); NUCLEATED RBCS 0 /100WBC; PLATELET COUNT* 389 thou/uL (150-400); POLYS 95.8 %; RBC 3.57 mil/uL (4.50-6.00); RDW-CV 19.6 % (10.5-14.5); WBC 24.5 thou/uL (4.0-11.0)
[2018-09-29 05:38] LABS: ALBUMIN 2.9 g/dL (3.4-5.0); CALCIUM 7.4 mg/dL (8.5-10.1); CREATININE 1.2 mg/dL (0.6-1.3); POTASSIUM 3.5 mmol/L (3.5-5.1); TOTAL BILIRUBIN 0.3 mg/dL (<0.1-1.0); TOTAL PROTEIN 5.7 g/dL (6.4-8.2)
[2018-09-29 08:00] VITALS: BP 114/57
[2018-09-29 11:50] VITALS: BP 111/61
[2018-09-29 15:56] VITALS: BP 103/53
--- NOTE | 2018-09-29 17:12 | NUR ---
PT REMAINED A&Ox4 THROUGHOUT SHIFT. VITALS STABLE. IV PULLED OUT, NEW ON PLACED IN L HAND THAT IS PATENT, INFUSING. ISOLATION MAINTAINED FOR MRSA. WORKED WELL WITH THERAPY AND WALKED AROUND THE ROOM. BM TODAY. DENIED PAIN. ON 3LO2. UP WITH STB USING WALKER. CALL LIGHT WITHIN REACH. FALL PRECAUTIONS IN PLACE. WILL CONTINUE TO MONITOR.
[2018-09-30] VITALS: BP 144/77
[2018-09-30 04:08] VITALS: BP 124/74
--- NOTE | 2018-09-30 05:03 | NUR ---
PT REMAINED A&O X 4. VITALS, SpO2 STABLE. IV ANTIBIOTICS GIVEN ORDERED. NO NAUSEA OR VOMITING. PT DENIED PAIN. PT COUGHED UP LARGE MUCUS PLUG AT HS. NO BREATHING DIFFICULTY THROUGH THE NIGHT. PT TOLERATED RT TREATMENT AND CPAP. PT AMBULATED HALLWAY WITH WALKER, GAIT BELT, OXYGEN AND TOLERATED WELL. HOURLY ROUNDING COMPLETED. WILL CONTINUE TO MONITOR.
[2018-09-30 09:15] VITALS: BP 138/74
--- NOTE | 2018-09-30 13:47 | CON ---
[address] [address] CONSULTATION Name: JANASONI OZZIE Room: [address] ADM IN M.R.#: [id number] Admission: 09/26/18 Attend Phys: Ethel Bowie MD Discharge: Date of : 84 Report #: [id number] THIS REPORT FOR: //name// CC: Ethel BARBOSA DO Shae Barbosa DICTATED BY: Haydee Walker [facility] DATE OF SERVICE: 09/27/2018 PCP: Dr. Shae Barbosa. Please note at the time of this dictation, the patient was seen and physically examined by myself. HISTORY OF PRESENT ILLNESS: This 38-year-old male who presented to the ER with increasing shortness of breath that was noted that morning. The patient has Down syndrome and lives [place] [facility] [place]. His guardian is Ramo. He apparently recently had hospitalization for pneumonia about 2 weeks ago, in which Pulmonary has been following him and now he is on Trelegy. He does wear oxygen 2 liters nasal cannula. However, due to his increased needs, he is now on 5 liters due to his shortness of air. He has been on several rounds of oral antibiotics and admits that he has not been eating very well either. The patient is not the best historian; however, he does admit that he has been noticing some heartburn and that he does cough a lot. He does not noticing coughing more after he eats however. He has never seen a GI doctor before. His mother can add to his history who came in the middle of the consultation and states that he has never had any upper scopes done or lower scopes. The patient does take omeprazole 40 mg daily; however, it is also noted that he is on prednisone and also takes naproxen twice a day as well. ALLERGIES: SULFA. MEDICATIONS: Albuterol and Singulair. Recently, finished the Levaquin. Prednisone, he just finished the treatment and Dorita. PAST MEDICAL HISTORY: Down syndrome and he lives [place] [facility] [place], persistent asthma, severe seasonal allergies, recurrent pneumonia, and hypothyroidism. He does have sleep apnea and has a CPAP at night. PAST SURGICAL HISTORY: When he was younger, tonsillectomy and adenoidectomy and myringotomy tubes. FAMILY HISTORY: Negative for any [place] [address] CONSULTATION Name: SONI BATES Room: [address]#: [id number] Admission: 09/26/18 Attend Phys: Ethel Bowie MD Discharge: Date of : 84 Report #: [id number] SOCIAL HISTORY: The patient lives in [place] [facility] [place]. Negative for any alcohol, tobacco or illegal drug use. REVIEW OF SYSTEMS: Twelve-point review of systems is essentially negative except what is mentioned in the HPI. PHYSICAL EXAMINATION: VITAL SIGNS: Temperature 37, pulse 96, respirations 18 and blood pressure 130/56. HEART: Regular rate and rhythm. LUNGS: Diminished with a few crackles and wheezes noted. ABDOMEN: Soft, positive bowel sounds in all 4 quadrants with no masses or tenderness noted. NEUROLOGIC: In talking about the possible procedure for EGD, the patient became very emotional. LABORATORY DATA: White count is 6, hemoglobin 13.9, platelets 445, GFR is 62. LFTs are normal. ASSESSMENT: 1. Gastroesophageal reflux disease history per mother. 2. History of asthma. 3. Cough. 4. Recurrent pneumonia. 5. Down syndrome. PLAN: 1. EGD tomorrow with Dr. Combs. 2. Further recommendations to be made once the EGD has been performed. Thank you for allowing us to participate in this patient's care. Please do not hesitate to call with any questions in regard to this consult. <ELECTRONICALLY SIGNED> By: Sundeep Liriano DO 09/30/18 1347 1116 [id number] Liriano DO /nt
--- NOTE | 2018-09-30 16:12 | NUR ---
PATIENT RESTING UP IN CHAIR. PATIENT IS UP STANDBY ASSIST. PATIENT HAS WALKED IN HALLS X 1 TODAY. PATIENT DENIES ANY TROUBLE BREATHING. OXYGEN IS ON AT 3L/NC. PATIENT HAS EXCELLENT APPETITE. PATIENT DENIES ANY NEEDS AT THIS TIME. CALL LIGHT WITHIN REACH. WILL CONTINUE TO MONITOR.
[2018-09-30 20:00] VITALS: BP 140/66
[2018-10-01] VITALS: BP 124/63
--- NOTE | 2018-10-01 03:02 | NUR ---
ASSUMED CARE OF PATIENT AT 1900. VSS, AFEBRILE. UP TO CHAIR UNTIL READY FOR BED. HAS COUGHING FIT ONE TIME, COUGHS UP A SMALL AMOUNT OF THICK SPUTUM. HEART RATE EXTREMELY TACHY DURING THIS EPISODE. SAYS IT HURTS HIM AND IT WON'T STOP. CPAP PLACED WHEN READY TO SLEEP. CALLS OUT APPROPRIATELY. NPO AFTER MIDNIGHT FOR PLANNED EGD IN AM. WILL CONTINUE TO MONITOR.
[2018-10-01 04:00] VITALS: BP 126/65
[2018-10-01 04:14] LABS: ABSOLUTE LYMPHOCYTES 0.6 thou/uL (0.8-5.3); ABSOLUTE MONOCYTES 0.5 thou/uL (0.0-1.2); ABSOLUTE NEUTROPHILS 14.9 thou/uL (1.6-8.1); BASOPHILS 0.1 %; HEMATOCRIT 35.6 % (42.0-52.0); HEMOGLOBIN 11.6 gm/dL (14.0-18.0); LYMPHOCYTES 3.6 %; MCH 30.5 pg (26.0-34.0); MCHC 32.7 g/dL (28.0-37.0); MCV 93.5 fL (80.0-100.0); MONOCYTES 3.3 %; MPV 7.7 fl. (7.2-11.1); NUCLEATED RBCS 0 /100WBC; PLATELET COUNT* 375 thou/uL (150-400); RBC 3.81 mil/uL (4.50-6.00); RDW-CV 19.7 % (10.5-14.5)
[2018-10-01 04:43] LABS: ALBUMIN 2.9 g/dL (3.4-5.0); CALCIUM 7.7 mg/dL (8.5-10.1); CREATININE 1.2 mg/dL (0.6-1.3); TOTAL BILIRUBIN 0.3 mg/dL (<0.1-1.0); TOTAL PROTEIN 5.7 g/dL (6.4-8.2)
[2018-10-01] MEDS ORDERED: PREDNISONE 10 M10 MG PO (10:14)
[2018-10-01] MEDS ORDERED: AUGMENTIN 875-1 EACH PO (10:14)
[2018-10-01 10:55] VITALS: BP 116/57
[2018-10-01 12:00] VITALS: BP 147/83
--- NOTE | 2018-10-01 14:13 | CON ---
[address] [address] CONSULTATION Name: JANASONI HORNE Room: [address] IN M.R.#: [id number] Admission: 09/26/18 Attend Phys: Ethel Bowie MD Discharge: Date of : 84 Report #: [id number] THIS REPORT FOR: //name// CC: Ethel Snatoro DATE OF SERVICE: 09/27/[address] Bowie. INDICATION FOR CONSULTATION: Shortness of breath. HISTORY OF PRESENT ILLNESS: This is a 38-year-old gentleman. He has a history of Down syndrome as well as bronchial asthma. He does have some bronchiectasis as well and does have obstructive sleep apnea. He uses a CPAP at night. The patient was on 2 liters of oxygen with subsequent last admission in this hospital in August. Duration for which he is on oxygen is not known to me at this time. The patient has had a recent bronchoscopy, which was performed by Dr. Mcconnell, this did grow Haemophilus parainfluenzae as well as Renea albicans. The patient has a previous history of documented MRSA colonization. The patient is reported to have received multiple antibiotics recently. I do not have full details available. The patient was admitted yesterday for worsening shortness of breath as well as hypoxemia. As noted previously, the patient was on 2 liters of oxygen. He was now requiring 5 liters of oxygen to maintain O2 saturation above 90%. He complained of increasing shortness of breath as well as some chest pain with respiration and coughing as well. He was coughing as well. He does not report much increase in sputum production or upper respiratory complaints, swelling of lower extremities or calf pain. He answered to the negative for 12 questions for review of systems; however, his ability to understand questions appears to be limited. Since yesterday, there has been an improvement in the patient's shortness of breath. He also is no longer complaining of chest pain at this time. The patient, however, continues to require 5 liters of oxygen to maintain O2 saturation, which has trended up though to 95% now; now therefore, there may be some room to cut back on oxygen therapy. PAST MEDICAL HISTORY: Down syndrome, bronchial asthma, bronchiectasis, recurrent pulmonary infiltrates, MRSA colonization. Recent bronchoscopy with Dr. Mcconnell as discussed above. The patient has had a video swallow, which was performed and last swallowing was unremarkable. He does use a CPAP at night. He has a recent echocardiogram performed, which was unremarkable; however, it appears that the right heart was not fully evaluated during this echocardiogram and he did have a small pericardial effusion. SOCIAL HISTORY: Lifetime nonsmoker. No known [place] [address] CONSULTATION Name: SONI BATES Room: [address] IN .R.#: [id number] Admission: 09/26/18 Attend Phys: Ethel Bowie MD Discharge: Date of : 84 Report #: [id number] illegal drug use. He lives at a intermediate. ALLERGIES: He has had an adverse reaction or allergy to SULFONAMIDE ANTIBIOTICS, which may have included itching. CURRENT MEDICATIONS: List in [employer] reviewed. [facility] MEDICATIONS[facility]. FAMILY HISTORY: There is no pertinent family history. PHYSICAL EXAMINATION: GENERAL: He is alert, awake and oriented; however, he is able to provide only a limited history. VITAL SIGNS: Has a pulse of 96 and blood pressure of 130/56. He is saturating 95%. He is on 5 liters nasal cannula. His respiratory rate is 18. HEENT: There is no throat erythema. Airway is Mallampati 4. NECK: Does not show raised JVP. CHEST: Breath sounds equal, decreased. No added sounds. HEART: Regular, no murmur. ABDOMEN: Soft and nontender. EXTREMITIES: Lower extremities show no edema, no calf tenderness. The patient did have a CT chest performed, which does show increase in left lower lobe infiltrates compared to the patient's previous CT. There is also a pericardial effusion, this is moderate in size noted. The patient's lab work is in [facility] and is reviewed. ASSESSMENT/PLAN: 1. Acute respiratory insufficiency. There has been an increase in patient's oxygen needs. On his CT, there is clearly an increase in left lower lobe infiltrates; however, this may not be the full etiology of his hypoxia. Note that he does have a pericardial effusion as well. Connective tissue markers are ordered by the primary service and we will follow these. We will continue to titrate oxygen. 2. Pulmonary infiltrates. Agree with vancomycin and Zosyn at this time. Note that he did have Haemophilus parainfluenzae cultured recently and does have a history of MRSA colonization. There is also Renea albicans noted on his bronchoscopy. I doubt that this will be an infectious organism in his lungs; however, there could be Renea infection in his upper airways and therefore, I did go ahead and add fluconazole as well. We will go ahead and repeat a sputum culture as well as obtain urine for legionella and pneumococcal antigens. His previous swallow evaluation is unremarkable. Regardless, he does appear to be high risk for aspiration; however, recommend keeping him on strict aspiration precautions and making sure that he is fully sitting up when he is taking p.o. 3. Bronchial asthma. We will continue with albuterol as well [place] [address] CONSULTATION Name: SONI BATES Room: [address] IN M.R.#: [id number] Admission: 09/26/18 Attend Phys: Ethel Bwoie MD Discharge: Date of : 84 Report #: [id number] I will be inclined to cut back on Solu-Medrol dose tomorrow. 4. Bronchiectasis that appears primarily supportive at this time. 5. Obstructive sleep apnea. Continue CPAP for a while asleep. 6. Evaluation for thromboembolic phenomena. I feel that we should investigate this further as well. Right heart was not fully evaluated in the recent echo. At this time, we will start with obtaining venous Dopplers. Should the patient's oxygen needs remain high, I will consider obtaining a CTA chest. 7. Down's syndrome. Thanks for this consultation. <ELECTRONICALLY SIGNED> By: Kathy Nuñez MD 10/01/18 1413 1351 Sushma Long MD /nt
[2018-10-01 16:00] VITALS: BP 121/65
--- NOTE | 2018-10-01 18:39 | NUR ---
PATIENT IS ALERT AND ORIENTED TODAY VERY PLEASANT. PATIENT IS ANXIOUS TO GO HOME BUT PROVIDER WANTS ANOTHER DAY AND MORE TREATMENT. DPOA NOTIFIED. PATIENT HAS WALKED THE HALLS TODAY WITH THE TECH AND HAS DONE WELL. NO COMPLAINTS OF PAIN TODAY. PATIENT WAS UNABLE TO EGD TODAY WILL DO OUTPATIENT. CALL LIGHT IS IN REACH, WILL CONTINUE TO MONITOR,
[2018-10-01 21:30] VITALS: BP 105/67
[2018-10-02] VITALS (9 sets, daily range): BP systolic 103–144; BP diastolic 59–84
--- NOTE | 2018-10-02 05:38 | NUR ---
PT SLEPT MOST OF SHIFT. ASSESSMENT DOCUMENTED. MEDS GIVEN PER E-MAR. PT REPORTED CHEST DISCOMFORT FROM COUGHING. O2 WORN AT 3L NC WHILE AWAKE AND BIPAP WORN WHILE SLEEPING. IV PATENT, ABX INFUSED. TELE MONITOR IN PLACE READING SR-ST. WILL CONTINUE WITH PLAN OF CARE.
[2018-10-02] MEDS ORDERED: MAXZIDE-25 MG1 EACH PO (10:29)
--- NOTE | 2018-10-02 14:03 | NUR ---
LOAN talked with Edita to confirm dc information, summary, pt to dc home to half-way today. SW faxed dc orders, med list to [facility] to be able to resume HH care. Pt caregiver provided pt ride home.
--- NOTE | 2018-10-03 21:28 | CON ---
[address] [address] CONSULTATION Name: SONI BATES Room: [address] IN M.R.#: [id number] Admission: 09/26/18 Attend Phys: Ethel Bowie MD Discharge: 10/02/18 Date of : 84 Report #: [id number] THIS REPORT FOR: //name// CC: Ethel Santoro DO DATE OF SERVICE: 09/27/2018 ADDENDUM REFERRING PHYSICIAN: Ethel Bowie MD Addendum to the job #[id number]. I have seen and examined the patient and agree with plan that has been outlined by our nurse practitioner, Haydee Walker. HISTORY OF PRESENT ILLNESS: This is a pleasant 38-year-old white male with Down syndrome, who has had problem with chronic asthma issues and respiratory issues. He also has problems with chronic acid reflux. He currently does not take anything on a regular basis for his reflux, but is on a number of different medications to help with issues related to same. He is currently in the hospital at this point in time complaining of some heartburn and indigestion. However, he has been able to eat well at this time. He has never had previous studies of his upper or lower GI tract in the past. In reviewing his records, it does appear, however, that he has taken omeprazole 40 mg once daily, but he has never had an upper endoscopy. Because he has already eaten today, we will have to wait until tomorrow to have him undergo an endoscopic evaluation. I have discussed these plans with the patient as well as family and everyone is in agreement with the same. We will proceed with upper endoscopy tomorrow and make further recommendations thereafter. <ELECTRONICALLY SIGNED> By: Sundeep Liriano DO 10/03/18 2128 1419 [id number] Liriano DO /nt
== END 2018-10-02 14:05 | disposition home health service (06) | DRG 177 ==
LOC: M.ERS 13:46 → M.3W 14:58 → M.TBA-ER 14:58 → M.3W 16:33
PROVIDERS: Internal Medicine Critical Care Medicine; Nurse Practitioner Family; ADMIT Internal Medicine
PROC: 5A09357 Assistance with Respiratory Ventilation, Less than 24 Consecutive Hours, Continuous Positive Airway Pressure (ICD-10-PCS; principal; 2018-10-01)
PROC: 5A09357 Assistance with Respiratory Ventilation, Less than 24 Consecutive Hours, Continuous Positive Airway Pressure (ICD-10-PCS; 2018-10-02)
DX: J15.6 Pneumonia due to other Gram-negative bacteria (principal); J96.20 Acute and chronic respiratory failure, unspecified whether with hypoxia or hypercapnia; E43 Unspecified severe protein-calorie malnutrition; J44.0 Chronic obstructive pulmonary disease with (acute) lower respiratory infection; J45.909 Unspecified asthma, uncomplicated; E03.9 Hypothyroidism, unspecified; K21.9 Gastro-esophageal reflux disease without esophagitis; G47.33 Obstructive sleep apnea (adult) (pediatric); Z79.1 Long term (current) use of non-steroidal anti-inflammatories (NSAID); Z88.2 Allergy status to sulfonamides; Q90.9 Down syndrome, unspecified; Z88.1 Allergy status to other antibiotic agents; Z68.36 Body mass index [BMI] 36.0-36.9, adult; Z79.899 Other long term (current) drug therapy

== ENCOUNTER 2018-10-31 11:08 | Inpatient (IN) | payer MEDICARE, MEDICAID ==
[~2018-10-31] VITALS: Ht 152.4 cm; Wt 90.7 kg
[~2018-10-31 11:08] MED LIST changes: +LORATIDINE 10 M10 M1 PO; +MAXZIDE-25 MG1 EACH PO; +THEREMS-M1 EACH PO
[2018-10-31 11:21] VITALS: BP 114/59
[2018-10-31] MEDS ORDERED: GAVILAX17 GM PO (11:24)
[2018-10-31] MEDS ORDERED: TRELEGY ELLIPT1 EACH INH (11:26)
[2018-10-31 11:43] LABS: HEMATOCRIT 42.3 % (42.0-52.0); MCH 30.6 pg (26.0-34.0); MCV 92.6 fL (80.0-100.0); MPV 7.3 fl. (7.2-11.1); NUCLEATED RBCS 0 /100WBC; PLATELET COUNT* 375 thou/uL (150-400); RBC 4.56 mil/uL (4.50-6.00); RDW-CV 19.5 % (10.5-14.5)
[2018-10-31 12:16] LABS: ALBUMIN 3.1 g/dL (3.4-5.0); CALCIUM 8.9 mg/dL (8.5-10.1); CREATININE 1.6 mg/dL (0.6-1.3); POTASSIUM 3.5 mmol/L (3.5-5.1); TOTAL BILIRUBIN 0.4 mg/dL (<0.1-1.0); TOTAL PROTEIN 6.9 g/dL (6.4-8.2); TROPONIN-I LEVEL 0.11 ng/mL (<0.06)
[2018-10-31 12:44] LABS: ABSOLUTE EOSINOPHILS 0.2 thou/uL (0.0-0.7); ABSOLUTE LYMPHOCYTES 1.4 thou/uL (0.8-5.3); ABSOLUTE MONOCYTES 0.6 thou/uL (0.0-1.2); ABSOLUTE NEUTROPHILS 17.8 thou/uL (1.6-8.1); LARGE PLATELETS RARE; MYELOCYTES 1 %; PLATELET ESTIMATE ADEQUATE
[2018-10-31 12:45] LABS: GIANT PLATELETS RARE; MACROCYTES 1+
[2018-10-31 12:46] LABS: ANISOCYTOSIS 1+; POLYCHROMASIA 1+
[2018-10-31 12:50] LABS: APTT 29.2 Seconds (25.0-31.3); PROTIME 10.2 Seconds (9.20-11.50)
[2018-10-31 14:52] VITALS: BP 104/77
--- NOTE | 2018-10-31 16:10 | EKG ---
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: : 1980 Requested By: Soren Sacnhez Order Number: [id number] MD: Derrick Polanco Measurements Intervals [place] Rate: 122 P: 59 AR: 135 QRS: 68 QRSD: 76 T: 19 QT: 305 QTc: 435 Interpretive Statements Sinus tachycardia Borderline low voltage, extremity leads Compared to ECG 09/27/2018 19:07:38 No significant changes Electronically Signed On 10-31-2018 16:09:46 CDT by Derrick Polanco [email or web address] <ELECTRONICALLY SIGNED> By: Derrick Polanco MD, [facility] 10/31/18 1609 1115 1115 Derrick Polanco MD, FAC /EPI
[2018-10-31 17:00] VITALS: BP 102/69
[2018-10-31 17:36] LABS: INFLUENZA A ANTIGEN None Detected (None Detect); INFLUENZA B ANTIGEN None Detected (None Detect)
--- NOTE | 2018-10-31 19:33 | NUR ---
ASSUMED PT CARE 1700, PT FROM ER. VSS, ADMISSION ASSESSMENT DONE. PT ALERT AND AWAKE, SBA. O2 SAT AT 90'S ON 5L NC. TRACING SR/TACHY ON TELE. COARSE/CRACKLES NOTED ON LUNG SOUND. PT COUGHING THICK SECRETION. PT SPUTUM CULTURE, MRSA, FLU COLLECTED. PT ON CONTACT ISOLATION. LAST BM TODAY, ABDOMEN SOFT AND ROUND. HOURLY ROUNDING OBSERVED, CALL LIGHT WITHIN REACH GIVE REPORT TO FEDERICA HARMAN. WILL CONTINUE TO MONITOR.
--- NOTE | 2018-10-31 19:40 | NUR ---
I HAVE REVIEWED AND AGREE WITH THE CHARTING OF ANDREA HARMAN ON 10/31/18
[2018-10-31 20:10] VITALS: BP 108/56
[2018-11-01] VITALS (7 sets, daily range): BP systolic 88–131; BP diastolic 49–70
--- NOTE | 2018-11-01 03:54 | NUR ---
RECIEVED REPORT AND ASSUMED CARE AT 1900. BUILDING PRINCIPAL IN PLACE. PULSE TACHY, OTHER THAN THAT VITAL SIGNS STABEL. PT IS UP WITH SBA. PT HAS SOME CHEST PAIN AND RIB PAIN RIGHT AND LEFT FROM COUGHING, PRN PAIN MEDS GIVEN ORDERED. ASSESSMENT COMPLETED. BED LOCKED AND CALL LIGHTS WTIHIN REACH. FALL PRECAUTIONS IN PLACE. HOURLY ROUNDING DONE AND ALL NEEDS MET. NURSING WILL CONTINUE TO MONITOR.
[2018-11-01 04:23] LABS: HEMATOCRIT 37.5 % (42.0-52.0); HEMOGLOBIN 12.6 gm/dL (14.0-18.0); MCH 30.9 pg (26.0-34.0); MCHC 33.7 g/dL (28.0-37.0); MCV 91.6 fL (80.0-100.0); MPV 7.6 fl. (7.2-11.1); RBC 4.09 mil/uL (4.50-6.00); RDW-CV 19.5 % (10.5-14.5); WBC 17.2 thou/uL (4.0-11.0)
[2018-11-01 04:38] LABS: CREATININE 1.4 mg/dL (0.6-1.3); MAGNESIUM 1.9 mg/dL (1.8-2.4); POTASSIUM 3.9 mmol/L (3.5-5.1); TOTAL BILIRUBIN 0.4 mg/dL (<0.1-1.0); TOTAL PROTEIN 6.8 g/dL (6.4-8.2)
--- NOTE | 2018-11-01 11:07 | CON ---
[address] [address] CONSULTATION Name: JANASONI OZZIE Room: [place] [address] ADM IN M.R.#: [id number] Admission: 10/31/18 Attend Phys: Ethel Bowie MD Discharge: Date of : 84 Report #: [id number] THIS REPORT FOR: //name// CC: Ethel Santoro DATE OF SERVICE: 10/31/2018 INFECTIOUS DISEASE CONSULTATION ATTENDING PHYSICIAN: Dr. Bowie. REASON FOR EVALUATION: Pneumonitis. HISTORY OF PRESENT ILLNESS: Chart reviewed, patient examined. This is a 38-year-old gentleman with Down syndrome, who has had a series of hospitalizations related to respiratory distress with pneumonitis. He has undergone bronchoscopy in August. At that point, was found to have parainfluenza and Renea albicans on his bronchoscopy specimen. He was initially hospitalized in latter part of August. At that point, he was treated and released. He has been fairly stable. He is on chronic supplemental O2 therapy at 2 liters over the course of the last 24 hours and developed increasing dyspnea with cough productive of varying colors sputum. At one point, saturation was noted to be low 80s. I increased his oxygen to 5 liters per nasal cannula. He has had some low-grade temperature elevations. He lives in a half-way situation. It is not clear if he has had exposure, but cannot exclude it. Denies any significant changes in appetite. No gastrointestinal related complaints. He is not encephalopathic. ALLERGIES: SULFA. MEDICATIONS: Include levofloxacin, methylprednisolone, vancomycin, montelukast, famotidine, enoxaparin, p.r.n. analgesics and antiemetics. PAST MEDICAL HISTORY: As described above, Down syndrome, has chronic anemia, recurrent pneumonitis and has severe seasonal allergies, hypothyroidism, sleep apnea with CPAP. There is some underlying chronic obstructive pulmonary disease, asthmatic component. SOCIAL HISTORY: Nonsmoker, no ethanol. FAMILY HISTORY: Noncontributory. REVIEW OF SYSTEMS: As above. A 10-point review of systems is otherwise unremarkable except noted in the history [place] [address] CONSULTATION Name: BATESSONI Room: [address] IN [facility].#: [id number] Admission: 10/31/18 Attend Phys: Ethel Bowie MD Discharge: Date of : 84 Report #: [id number] PHYSICAL EXAMINATION: GENERAL: He is alert, cooperative, in [id number] distress. He does have paroxysms of coughing, actually quite effectively was able to expectorate some sputum I think from his lungs. This was collected and sent for analysis and culture, appears to be reasonably well nourished. VITAL SIGNS: Temperature 99.8, pulse 113, respirations 13, blood pressure 104/77, saturation is 92-94%. SKIN: Warm, dry, no rashes. HEENT: Normocephalic. Extraocular muscles intact. NECK: Supple. LUNGS: Scattered coarse breath sounds bilaterally. HEART: Regular, tachycardic. I do not appreciate a murmur. ABDOMEN: Soft, mildly distended. There are no peritoneal signs. No tenderness. GENITOURINARY: Deferred. RECTAL: Deferred. LABORATORY DATA: Chest x-ray showed bibasilar infiltrates. Electrolytes: Sodium 139, potassium 3.5, chloride 100, bicarbonate is 30, anion gap of 9, BUN and creatinine of 10 and 1.6, glucose of 144. LFTs unremarkable. Albumin is 3.1, total protein 6.9. CBC: White count of 20.0, H and H 14.0 and 42.3, platelet count of 375. Lactic acid 1.8. ASSESSMENT: Pneumonitis in a patient with recurrent issues with underlying chronic obstructive pulmonary disease. We will support with supplemental oxygen as required, increasing concentrations at this point to maintain saturations. We will continue empiric therapies, reasonable combination with Levophed as well as vancomycin. Recent evaluation is history of methicillin-resistant Staphylococcus aureus as well as Haemophilus parainfluenzae. <ELECTRONICALLY SIGNED> By: Jermaine Carvajal MD 11/01/18 1107 [id number] [id number] Carvajal MD /nt
--- NOTE | 2018-11-01 13:56 | NUR ---
MET WITH PT AND CG/BRISSA FROM [facility] WHERE PT LIVES. ALSO SPOKE WITH GUARDIAN/DIAMOND MCKEON OVER THE PHONE. PT WELL KNOWN TO , HAS HAD MONTHLY ADMITS TO HOSPITAL SINCE FIRST OF THE YEAR, PNEUMONIA. PER BRISSA, THEY ARE COMPLIANT WITH PT'S O2 AND FLUTTER VALVE AT HOME. DIAMOND STATED THAT SINCE LAST ADMIT AND SUBSEQUENT VISIT TO HIS PULMONARY DR DIETRICH, PT HAS NOT BEEN ON RT TX. BRISSA STATED DR DIETRICH OFFICE HAS ORDERED A 'VEST' FOR PT BUT HAS NOT ARRIVED YET. PT HAS HAD HH WITH [facility] FOR SOME TIME BUT THEY HAVE DC'D AND ARE NOT ABLE TO ACCEPT PT BACK. DIAMOND AND BRISSA WOULD LIKE TO HAVE HH WITH RT AVAILABLE. REFERRAL CALLED AND FAXED TO [facility]. WILL FOLLOW SHANIA VIZCAINO [phone] BRISSA [phone] DIAMOND MCKEON [phone] [facility] [phone]
--- NOTE | 2018-11-01 14:26 | NUR ---
ATTEMPTED TO COMPLETE A COGNITIVE/COMMUNICATION EVALUATION. PT AND MOTHER DECLINED PT IS AT CURRENT BASELINE, SAFETY IS NOT AN ISSUE PROVIDING CURRENT LIVING SITUATION, AND PT IS ABLE TO COMMUNICATE WANTS/NEEDS EFFECTIVELY. WILL D/C COGNITIVE/COMMUNICATION EVAL ORDERS.
[2018-11-01] MEDS ORDERED: TRELEGY ELLIPT1 EACH IH (17:45)
[2018-11-01] MEDS ORDERED: MAXZIDE-25 MG1 EACH PO (17:46)
[2018-11-01] MEDS ORDERED: SYNTHROID112 MC1 PO (17:46)
[2018-11-01] MEDS ORDERED: THEREMS1 EAC1 PO (17:46)
[2018-11-01] MEDS ORDERED: CULTURELLE1 EACH PO (17:47)
[2018-11-01] MEDS ORDERED: MUPIROCIN1 GM (17:49)
--- NOTE | 2018-11-01 18:05 | NUR ---
PT ALERT/AWAKE, SBA, O2 SAT 90'S NC 5L. TRACING SR ON TELE/TACH. PT LAST BM TODAY. PT ON CONTACT ISOLATION FOR MRSA. IV ACCESS INTACT ON L AC. PT LUNG SOUND COARSE/CRACKLES. VSS, AM ASSESSMENT, MEDS GIVEN PER MAR CHARTED, HOURLY ROUNDING. WILL CONTINUE TO MONITOR
--- NOTE | 2018-11-01 18:31 | NUR ---
I HAVE REVIEWED AND AGREE WITH THE CHARTING AND NOTES OF ANDREA Willis RN ON 11/01/18
[2018-11-02] VITALS (7 sets, daily range): BP systolic 100–149; BP diastolic 54–72
--- NOTE | 2018-11-02 01:01 | NUR ---
ASSUMED CARE OF PT AT 1900. PT IS ALERT AND ORIENTED. VSS. PERRLA. PT REPORTS ONGOING SOA WITH EXACERBATION. PT REQUIRES 3.5 LITERS OF O2. PT IS CURRENTLY ON HIS CPAP AND TOLERATING WELL. PT IS SINUS TACHYCARDIA ON THE TELEMETRY. PT IS RESTING COMFORTABLY IN BED. RESPIRATIONS ARE EVEN AND NONLABORED. WILL CONTINUE TO MONITOR PT.
[2018-11-02 05:16] LABS: ABSOLUTE LYMPHOCYTES 0.3 thou/uL (0.8-5.3); ABSOLUTE MONOCYTES 0.6 thou/uL (0.0-1.2); ABSOLUTE NEUTROPHILS 27.2 thou/uL (1.6-8.1); HEMATOCRIT 36.9 % (42.0-52.0); HEMOGLOBIN 12.1 gm/dL (14.0-18.0); LYMPHOCYTES 0.9 %; MCH 30.5 pg (26.0-34.0); MCHC 32.9 g/dL (28.0-37.0); MCV 92.7 fL (80.0-100.0); MONOCYTES 2.2 %; MPV 7.6 fl. (7.2-11.1); NUCLEATED RBCS 0 /100WBC; PLATELET COUNT* 319 thou/uL (150-400); POLYS 96.9 %; RBC 3.98 mil/uL (4.50-6.00); RDW-CV 20.2 % (10.5-14.5); WBC 28.1 thou/uL (4.0-11.0)
[2018-11-02 05:40] LABS: CALCIUM 8.8 mg/dL (8.5-10.1); CREATININE 1.2 mg/dL (0.6-1.3); POTASSIUM 3.6 mmol/L (3.5-5.1); TROPONIN-I LEVEL 0.06 ng/mL (<0.06)
--- NOTE | 2018-11-02 14:43 | NUR ---
WAS ASKED BY DR SOARES TO CHECK WITH [facility] RE: CLEANING OF PT'S CPAP. CALLED AND SPOKE WITH BRISSA/SHANIA VIZCAINO. SHE STATED THAT THEY MANAGE THE CLEANING OF HIS EQUIPMENT THERE. HIS TUBING AND MASK ARE CLEANED 2X/WEEK. THEY CHECK THE FILTER WEEKLY AND CHANGE IT NEEDED AND MONTHLY. FOR HIS O2, THEY CHANGE OUT HIS NASAL CANNULA MONTHLY. THEY ARE PROVIDED BY [facility] AND SUPPLIES ARE SENT OUT AND BRISSA STATED WHEN [facility] CALLS TO OFFER NEW SUPPLIES THEY ALWAYS SAY 'YES'
--- NOTE | 2018-11-02 14:57 | EKG ---
[place] [address] ELECTROCARDIOGRAM REPORT Name: ROB BATESOLAS OZZIE Room: [place] [address] ADM IN M.R.#: [id number] Admission: 10/31/18 Attend Phys: Ethel Bowie MD Discharge: Date of : 84 Report #: [id number] THIS REPORT FOR: //name// [facility] Test Date: 2018-11-02 Test Time: 07:57:51 Pat Name: SONI BATES Department: Room: [place] [address] Gender: M Dampener: CHRISTINE : 1980 Requested By: Ryan Salmon Order Number: [id number] Nisha MD: Derrick Polanco Measurements Intervals [place] Rate: 109 P: 64 MN: 130 QRS: 61 QRSD: 81 T: -10 QT: 319 QTc: 430 Interpretive Statements Sinus tachycardia Borderline T abnormalities, inferior leads Compared to ECG 10/31/2018 11:15:51 rate slowed Electronically Signed On 11-02-2018 14:57:07 CDT by Derrick Polanco [email or web address] <ELECTRONICALLY SIGNED> By: Derrick Polanco MD, [facility] 11/02/18 1457 0757 0757 Derrick Polanco MD, FAC /EPI
--- NOTE | 2018-11-02 18:18 | NUR ---
PT ALERT AND ORIENTED. TELE TRACKING NSR/TACH AND ALL VSS ON ROOM AIR. PT HAD EPISODE OF RIGHT SIDED CHEST PAIN DURING NEB THIS AM WHICH QUICKLY RESOLVED-MD AWARE. EDUCATED ON SAFETY AND PLAN OF CARE. PLEASE SEE ASSESSMENT FOR ADDITIONAL INFORMATION. WILL CONT FOR MONITOR
[2018-11-03] VITALS: BP 120/77
[2018-11-03 04:00] VITALS: BP 129/84
--- NOTE | 2018-11-03 04:06 | NUR ---
ASSUMED PT CARE AT APPRX 1930. PT IS AWAKE AND ORIENTED X4. VSS ON 3.5L/NC. TRACING SR/ST ON TELE WITH OCCASIONAL PVCs. WITH C/O GENERALISED BODY PAIN RELIEVED BY TYLENOL GIVEN PER AUG. PT C/O SOA, O2 SAT 94-96%, RELIEVED BY PRN BREATHING TREATMENT. PT WAS ABLE TO SLEEP THROUGH THE NIGHT WITH CPAP ON. CALL LIGHT WITHIN REACH. HOURLY ROUNDING DONE FOR PT SAFETY.
[2018-11-03 05:28] LABS: ABSOLUTE LYMPHOCYTES 0.6 thou/uL (0.8-5.3); ABSOLUTE MONOCYTES 0.6 thou/uL (0.0-1.2); ABSOLUTE NEUTROPHILS 25.2 thou/uL (1.6-8.1); BASOPHILS 0.1 %; HEMATOCRIT 37.1 % (42.0-52.0); HEMOGLOBIN 12.3 gm/dL (14.0-18.0); LYMPHOCYTES 2.5 %; MCH 30.8 pg (26.0-34.0); MCHC 33.2 g/dL (28.0-37.0); MONOCYTES 2.1 %; MPV 7.5 fl. (7.2-11.1); NUCLEATED RBCS 0 /100WBC; PLATELET COUNT* 314 thou/uL (150-400); POLYS 95.3 %; RBC 3.99 mil/uL (4.50-6.00); RDW-CV 20.2 % (10.5-14.5); WBC 26.4 thou/uL (4.0-11.0)
[2018-11-03 05:40] LABS: ALBUMIN 2.9 g/dL (3.4-5.0); CALCIUM 8.8 mg/dL (8.5-10.1); CREATININE 1.3 mg/dL (0.6-1.3); POTASSIUM 3.6 mmol/L (3.5-5.1); TROPONIN-I LEVEL 0.07 ng/mL (<0.06)
[2018-11-03 08:00] VITALS: BP 135/60
[2018-11-03 11:39] VITALS: BP 112/62
[2018-11-03 15:37] VITALS: BP 120/68
--- NOTE | 2018-11-03 16:39 | NUR ---
PATIENT ALERT AND ORIENTED X 3-4. UP WITH ASSIST TO/FROM THE RESTROOM. CONT. ABX.
[2018-11-03 20:00] VITALS: BP 120/74
[2018-11-04] VITALS: BP 121/70
--- NOTE | 2018-11-04 03:55 | NUR ---
ASSUMED PT CARE AT APPROX 1930. PT IS AWAKE AND ORIENTED X4. VSS ON 3.5L/NC. TRACING SR ON TELE. REASSESSMENT DONE AND CHARTED. PT ON CPAP AT HS. PT ABLE TO SLEEP WELL THROUGH THE NIGHT. CALL LIGHTS WITHIN REACH. FALL PRECAUTIONS IN PLACE. HOURLY ROUNDING DONE FOR PT SAFETY.
[2018-11-04 04:00] VITALS: BP 121/70
[2018-11-04 05:14] LABS: HEMATOCRIT 35.4 % (42.0-52.0); HEMOGLOBIN 11.8 gm/dL (14.0-18.0); MCH 30.9 pg (26.0-34.0); MCHC 33.2 g/dL (28.0-37.0); MPV 7.8 fl. (7.2-11.1); NUCLEATED RBCS 0 /100WBC; PLATELET COUNT* 289 thou/uL (150-400); WBC 18.5 thou/uL (4.0-11.0)
[2018-11-04 05:19] LABS: ALBUMIN 2.7 g/dL (3.4-5.0); ANION GAP 9 mmol/L (7-16); BUN 18 mg/dL (7-18); CALCIUM 8.3 mg/dL (8.5-10.1); CHLORIDE 105 mmol/L (98-107); CO2 28 mmol/L (21-32); CREATININE 1.1 mg/dL (0.6-1.3); GLUCOSE 146 mg/dL (70-99); POTASSIUM 3.9 mmol/L (3.5-5.1); SODIUM 142 mmol/L (136-145); TROPONIN-I LEVEL <0.06 ng/mL (<0.06)
[2018-11-04 07:26] LABS: ABSOLUTE LYMPHOCYTES 0.4 thou/uL (0.8-5.3); ABSOLUTE MONOCYTES 0.4 thou/uL (0.0-1.2); ABSOLUTE NEUTROPHILS 17.8 thou/uL (1.6-8.1); METAMYELOCYTES 1 %
[2018-11-04 07:27] LABS: MICROCYTES 2+; OVALOCYTES 2+; PLATELET ESTIMATE ADEQUATE
[2018-11-04 07:28] LABS: ANISOCYTOSIS 1+
[2018-11-04 11:46] VITALS: BP 131/70
[2018-11-04 12:00] VITALS: BP 108/58
--- NOTE | 2018-11-05 08:27 | CON ---
[address] [address] CONSULTATION Name: SONI BATES Room: [address] IN M.R.#: [id number] Admission: 10/31/18 Attend Phys: Ethel Bowie MD Discharge: 11/04/18 Date of : 84 Report #: [id number] THIS REPORT FOR: //name// CC: Ethel Santoro REQUESTING PHYSICIAN: Ethel Bowie MD REASON FOR CONSULTATION: Recurrent pneumonia. DISCUSSION: The patient is a pleasant 38-year-old man who is a nonsmoker. Does have a history of Down syndrome, was in a [place] [facility]. He has had recurrent episodes of pneumonia and lower respiratory tract infections. Our group has seen him previously when he has been here in the hospital. Currently, also has a history of asthma. He was admitted when he presented to the Emergency Room yesterday. Had been having increasing cough, shortness of breath. O2 saturations were low. Typically, he is on 2 liters at the [place] [facility]. Those notes indicate they have dropped down into the 80s. They were having trouble keeping his sats up. He was also complaining of some chest pain. He was seen in the Emergency Department. They had him admitted. Chest imaging did reveal some infiltrates. He has been started on antibiotics. He does tell me he is feeling somewhat better today. He has not had any fever today. Did have a leukocytosis, which is improving. Blood cultures were sent, those results are still pending and sputum is pending as well. Our group has seen him previously. He has had extensive evaluations done. He also had a bronchoscopy, which was done earlier this year. Did have some mucus plugs removed. AFB and cultures were negative. Did grow out some yeast as well as some Haemophilus parainfluenzae. In the past, other cultures have shown MRSA and yeast. He has been followed by Speech Therapy as well. He was reevaluated, was not thought he need any additional services. He also had a barium swallow done today, which was unremarkable. PAST MEDICAL HISTORY: Has recurrent episodes of pneumonia with possible sleep apnea. Does sleep with CPAP at night. He is on O2 continuously at 2 liters. 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 No history of heart disease or thromboembolic disease. He has had cellulitis and sepsis in the past as well, but I do not believe he has ever been intubated at least at this facility. Do note older studies also revealed he had changes of bronchiectasis on the scans. Serologies done in the past, which include ANAs, ANCAs and quantitative immunoglobulins were all normal. SOCIAL HISTORY: He lives in a [place] [facility] [place] [address] CONSULTATION Name: JANASONI Room: [address] IN .R.#: [id number] Admission: 10/31/18 Attend Phys: Ethel Bowie MD Discharge: 11/04/18 Date of : 84 Report #: [id number] FAMILY HISTORY: Apparently is negative for lung disease and heart disease. REVIEW OF SYSTEMS: ROS was done. Note positives as above. At this time, he is not having any pain. He does acknowledge he was having pain at home. His shortness of breath is somewhat better. He is not having any hemoptysis. He denies any vomiting. No diarrhea. He acknowledges that he does sit up for all of his meals in a chair. He does seem to be cognizant of those recommendations. No problems with lower extremity edema. He denies any recent falls. PHYSICAL EXAMINATION: GENERAL APPEARANCE: A male who looks stated age. He is alert, cooperative. O2 running at 5 liters. He is watching TV. He is in no acute distress. HEENT: Head is normocephalic. Sclerae nonicteric. Mucous membranes do look a little dry. NECK: Without any adenopathy. HEART: Regular rate. No S3 is heard. LUNGS: Reveal some rhonchi heard bilaterally, particularly in the lower lung basurto. No dullness to percussion. Excursion is equal. BACK: No CVA tenderness. ABDOMEN: Soft without appreciable hepatosplenomegaly. No guarding or rebound. LOWER EXTREMITIES: Negative for edema. He has no clubbing. Radial pulses are present. SKIN: Warm and dry. LABORATORY AND X-RAY FINDINGS: Chest x-ray does show some bibasilar infiltrates. I am able to review his most current study, but I am unable to do a direct comparison with the studies done a month ago when he was here. Last CT chest was done in late August when he was here. Had showed changes of infiltrates, but they had improved. Had a moderate sized pericardial effusion noted at that time. Current blood cultures are pending. On his chemistry, BUN is 15, creatinine of 1.4 which is improved from 1.6, bicarbonate is normal at 28. Transaminase is normal. Albumin 3.0. White blood cell count on admission was 20,000, down to 17,200 today. Hemoglobin 12.6, hematocrit 37.5. Immunoglobulins checked last year were all normal including the subclasses. Has MRSA positive. Influenza screen was negative this admission. HIV was negative. Last echocardiogram, which was done in August, revealed normal systolic function with EF 55-60%. No valvular disease. Noted just he had a small circumferential pericardial effusion. IMPRESSION: 1. Bibasilar infiltrates consistent with pneumonia. Clinically, he is improving. He has had some improvement in his leukocytosis. 2. Recurrent lower respiratory tract infections. He has already had an extensive evaluation. No definite immune issue has been found. Not aspirating. However, if he does not follow precautions at his [place], it is possibility [address] [place] [address] CONSULTATION Name: JANASONI GEORGE Room: [address] IN [facility].#: [id number] Admission: 10/31/18 Attend Phys: Ethel Bowie MD Discharge: 11/04/18 Date of : 84 Report #: [id number] he could be. However, he does seem relatively reliable. Prior CAT scan suggests he could have bronchiectasis. This may also be contributing to recurrent pneumonias. 3. History of Down syndrome. 4. History of asthma. Not overly bronchospastic on exam. 5. History of sleep apnea, on CPAP at night. 6. Chronic hypoxemia. He is on O2, 23/01. However, he does have increased O2 needs at this time. 7. Acute kidney injury superimposed on chronic kidney disease. RECOMMENDATIONS: 1. Follow up cultures. Continue antibiotics. 2. Continue with bronchodilator regimen. 3. Continue with the guaifenesin maximum strength to help loosen his secretions. Hopefully, he will not need a bronchoscopy again. <ELECTRONICALLY SIGNED> By: Gabby Navarro MD 11/05/18 0827 1647 [id number] Navarro MD /nt
--- NOTE | 2018-11-05 10:00 | NUR ---
RECEIVED CALL FROM [facility] THAT THEY DID NOT RECEIVE DC ORDERS. ORDERS RETRIEVED FROM MEDICAL RECORDS AND FAXED TO [facility]
== END 2018-11-04 14:10 | disposition home health service (06) | DRG 871 ==
LOC: M.ERS 11:08 → M.2W 12:06 → M.TBA-ER 12:06 → M.2W 15:08
PROVIDERS: Family Medicine; Internal Medicine; ADMIT Internal Medicine
DX: A41.9 Sepsis, unspecified organism (principal); J96.21 Acute and chronic respiratory failure with hypoxia; N17.0 Acute kidney failure with tubular necrosis; J15.9 Unspecified bacterial pneumonia; J44.0 Chronic obstructive pulmonary disease with (acute) lower respiratory infection; J45.51 Severe persistent asthma with (acute) exacerbation; G47.33 Obstructive sleep apnea (adult) (pediatric); E88.09 Other disorders of plasma-protein metabolism, not elsewhere classified; N18.9 Chronic kidney disease, unspecified; E03.9 Hypothyroidism, unspecified; Q90.9 Down syndrome, unspecified; Z88.2 Allergy status to sulfonamides; Z82.49 Family history of ischemic heart disease and other diseases of the circulatory system; Z83.6 Family history of other diseases of the respiratory system; Z99.81 Dependence on supplemental oxygen

== ENCOUNTER → 2018-11-19 | Day surgery (SDC) | payer MEDICARE, MEDICAID ==
[~2018-11-19] MED LIST changes: +CULTURELLE1 EACH PO; +GAVILAX17 GM PO; +MUPIROCIN1 GM; +TRELEGY ELLIPT1 EACH IH; +TRELEGY ELLIPT1 EACH INH; +ZANTAC 150MG T150 MG PO
== END | disposition home or self-care (01) ==
LOC: M.SUR 09:11
DX: R12 Heartburn (principal); R05 Cough; K21.9 Gastro-esophageal reflux disease without esophagitis; I10 Essential (primary) hypertension; J45.909 Unspecified asthma, uncomplicated; E66.09 Other obesity due to excess calories; Z98.890 Other specified postprocedural states; Z79.899 Other long term (current) drug therapy; Z99.81 Dependence on supplemental oxygen; Z88.2 Allergy status to sulfonamides

== ENCOUNTER 2018-11-21 07:24 | Inpatient (IN) | payer MEDICARE, MEDICAID ==
[2018-11-21] VITALS (12 sets, daily range): BP systolic 82–153; BP diastolic 46–87
[~2018-11-21] VITALS: Ht 165.1 cm; Wt 89.4 kg
[~2018-11-21 07:24] MED LIST changes: -MUPIROCIN1 GM; +MUPIROCIN1 GM TOP; -ZANTAC 150MG T150 MG PO
[2018-11-21] MEDS ORDERED: OMEPRAZOLE40 MG PO (07:32)
[2018-11-21] MEDS ORDERED: ZANTAC 150MG T150 MG PO (07:33)
[2018-11-21 07:55] LABS: HEMATOCRIT 41.1 % (42.0-52.0); HEMOGLOBIN 13.7 gm/dL (14.0-18.0); MCH 31.1 pg (26.0-34.0); MCHC 33.3 g/dL (28.0-37.0); MCV 93.5 fL (80.0-100.0); MPV 7.2 fl. (7.2-11.1); NUCLEATED RBCS 0 /100WBC; PLATELET COUNT* 236 thou/uL (150-400); RBC 4.39 mil/uL (4.50-6.00); RDW-CV 20.4 % (10.5-14.5); WBC 16.8 thou/uL (4.0-11.0)
[2018-11-21 08:02] LABS: CALCIUM 8.2 mg/dL (8.5-10.1); CREATININE 1.7 mg/dL (0.6-1.3)
[2018-11-21 08:03] LABS: APTT 27.4 Seconds (25.0-31.3); PROTIME 10.7 Seconds (9.20-11.50)
[2018-11-21 08:12] LABS: ALBUMIN 2.9 g/dL (3.4-5.0); MAGNESIUM 1.4 mg/dL (1.8-2.4); TOTAL BILIRUBIN 0.8 mg/dL (<0.1-1.0); TROPONIN-I LEVEL 0.1 ng/mL (<0.06)
[2018-11-21 09:13] LABS: ABSOLUTE BASOPHILS 0.2 thou/uL (0.0-0.2); ABSOLUTE LYMPHOCYTES 0.5 thou/uL (0.8-5.3); ABSOLUTE MONOCYTES 0.3 thou/uL (0.0-1.2); ABSOLUTE NEUTROPHILS 15.8 thou/uL (1.6-8.1); METAMYELOCYTES 1 %; PLATELET ESTIMATE ADEQUATE
--- NOTE | 2018-11-21 09:25 | NUR ---
GUARDIAN HAS BEEN NOTIFIED OF ADMISSION
[2018-11-21 12:41] LABS: BE -2.3 mmol/L (-2 to +3); PCO2 39.1 mmHg (35.0-45.0); PO2 95.8 mmHg (75.0-100.0); pH 7.378 (7.340-7.450)
--- NOTE | 2018-11-21 13:22 | EKG ---
[place] [address] ELECTROCARDIOGRAM REPORT Name: SONI BATES Room: [address] ADM IN M.R.#: [id number] Admission: 11/21/18 Attend Phys: Carl Reina MD Discharge: Date of : 84 Report #: [id number] THIS REPORT FOR: //name// [facility] ED Test Date: 2018-11-21 Test Time: 07:27:07 Pat Name: SONI BATES Department: Room: [facility] Gender: M Respiratory Care Program [facility] 1980 Requested By: Soren Sanchez Order Number: [id number] MD: Suresh Bradley Measurements Intervals [place] Rate: 126 P: 69 MA: 123 QRS: 74 QRSD: 78 T: 32 QT: 323 QTc: 468 Interpretive Statements Sinus tachycardia Ventricular premature complex Low voltage with right axis deviation Compared to ECG 11/02/2018 07:57:51 Ventricular premature complex(es) now present Right-axis deviation now present Low QRS voltage now present Electronically Signed On 11-21-2018 13:21:50 CDT by Suresh Bradley [email or web address] <ELECTRONICALLY SIGNED> By: Suresh Bradley MD, [facility] 11/21/18 1321 0727 0727 Suresh Bradley MD, [facility] /EPI
--- NOTE | 2018-11-21 16:32 | 2DMMODE ---
[place] [address] 2 D/M-MODE ECHOCARDIOGRAM Name: JANASONI OZZIE Room: 008-P ADM IN .R.#: [id number] Admission: 11/21/18 Attend Phys: Carl Reina, Discharge: Date of : 84 Date of Service: 11/21/18 1632 Report #: [id number] THIS REPORT FOR: //name// APPROVED REPORT Study performed: 11/21/2018 16:02:24 EXAM: Limited 2D Echocardiogram Patient Location: In-Patient Room #: 008 Status: routine BSA: 1.97 HR: 92 bpm BP: 100/70 mmHg Rhythm: NSR Other Information Study Quality: Good Indications Pericardial Effusion Left Ventricle The left ventricle is normal size. There is normal LV segmental wall motion. There is normal left ventricular wall thickness. The left ventricular systolic function is normal. The left ventricular ejection fraction is within the normal range. LVEF is 50-55%. Right Ventricle The right ventricle is normal size. The right ventricular systolic function is normal. Atria The left atrium size is normal. The right atrium size is normal. Aortic Valve The aortic valve is normal in structure. Mitral Valve The mitral valve is normal in structure. Tricuspid Valve The tricuspid valve is normal in structure. Pulmonic Valve [facility] [address] [place] [address] 2 D/M-MODE ECHOCARDIOGRAM Name: SONI BATES Room: 008-P ADM IN M.R.#: [id number] Admission: 11/21/18 Attend Phys: Carl Reina, Discharge: Date of : 84 Date of Service: 11/21/181631 Report #: [id number] The pulmonary valve is normal in structure. Great Vessels The aortic root is normal in size. IVC is normal in size and collapses >50% with inspiration. Pericardium Small pericardial effusion without hemodynamic effect There is no pleural effusion. <Conclusion> The left ventricle is normal size. There is normal left ventricular wall thickness. The left ventricular systolic function is normal. The left ventricular ejection fraction is within the normal range. LVEF is 50-55%. The right ventricle is normal size. The left atrium size is normal. The aortic valve is normal in structure. The mitral valve is normal in structure. IVC is normal in size and collapses >50% with inspiration. Small pericardial effusion without hemodynamic effect There is normal LV segmental wall motion. <ELECTRONICALLY SIGNED> By: Suresh Bradley MD, [facility] 11/21/181631 31 1632 Suresh Bradley MD, FACC /INF
--- NOTE | 2018-11-21 17:36 | NUR ---
PT ADMITTED FROM ER. PT CAREGIVER AT BEDSIDE AT TIME OF ADMISSION. CAREGIVER GAVE INFO R/T ADMISSION. PT WITH LIMITED ABILITIES R/T DOWNS SYNDROME. ST ON MONITOR. O2 6L HF NC. HOME CPAP IN ROOM. PT TO WEAR CPAP WHILE RESTING PER DR FRANKLIN. DIAMOND MCKEON, DPOA, REFUSED PT SWALLOW STUDY. STATES THAT PT HAS HAD SEVERAL AND THEY HAVE BEEN NORMAL. DR PONCE NOTIFIED. DIET ORDERED. IVF INFUSING. PT UP WITH STB ASSIST. MAGNESIUM AND POTASSIUM REPLACED. CONTACT PRECAUTIONS R/T HX OF MRSA. DENIES PAIN.
[2018-11-21 18:25] LABS: MAGNESIUM 1.9 mg/dL (1.8-2.4)
[2018-11-21 18:26] LABS: POTASSIUM 4.2 mmol/L (3.5-5.1)
[2018-11-22] VITALS (19 sets, daily range): BP systolic 108–154; BP diastolic 64–87
--- NOTE | 2018-11-22 05:59 | NUR ---
REPORT RECEIVED FROM OFF GOIGN SHIFT AND CARE ASSUMMED. PT AAOX3. O26L HF NC INTACT UNTIL BEDTIME AND PATIENT SLEEP WITH HIS HOME CPAP MACHINE ANBD TOLERATED WELL. VSS AND NO ACUTE CHANGES DURING SHIFT, WILL CONTINUE TO MONITOR
--- NOTE | 2018-11-22 08:13 | CON ---
[address] [address] CONSULTATION Name: SONI BATES Room: [address] ADM IN M.R.#: [id number] Admission: 11/21/18 Attend Phys: Carl Reina MD Discharge: Date of : 84 Report #: [id number] THIS REPORT FOR: //name// CC: Carl Santoro DATE OF SERVICE: 11/21/2018 CONSULT REQUESTED BY: Carl Reina MD. HISTORY OF PRESENT ILLNESS: This is a 38-year-old gentleman with past medical history includes a history of Down syndrome. The patient also has a history of bronchial asthma as well as obstructive sleep apnea, is on a CPAP as well as oxygen long-term. He also carries a diagnosis of bronchiectasis; however, given his previous CT in 2017, I see only minimal bronchiectasis. He has had several CAT scans performed since then; however, evaluation regarding bronchiectasis is limited on these subsequent CAT scans due to the presence of infiltrates. The patient has had multiple episodes of pneumonia and has therefore had several admissions to this hospital in the recent few months. He is noted to have at least 2 positive cultures for MRSA. He also previously has been positive for Renea albicans via bronchoscopy. The last bronchoscopy was positive for Haemophilus parainfluenzae. Further, there have been some unexplained elevations in his creatinine. At his baseline at times, his creatinine is up to 1.3, which appears to be abnormal for his age. During a previous admission, I had, therefore, performed a renal ultrasound which in fact was abnormal. There has been suspicion of aspiration. He has had several video swallows performed. These in fact all look unremarkable. He in fact had a recent barium swallow just a few days ago as an outpatient as well and has been investigated by CT paranasal sinuses recently also. His last echo is from August of this year. Interestingly, it does show a small pericardial effusion. He did have an GINNY profile as well as an ANCA tested at that time. These were unremarkable other than the presence of the pericardial effusion, which is small in size. The last echo in fact is unremarkable. The patient once again is admitted today with significant pneumonia. He is reported to have worsened shortness of breath over the last 24 hours at baseline. He requires only 2 or 3 liters of oxygen during the daytime. He has needed up to 10 liters and currently is on 8 liters, although his O2 saturation is now up in the high 90s. He is reported to have had chills. He also states that he is coughing up significant amounts of yellow sputum and he has had some chest discomfort with respiration and coughing; however, this is not a major complaint for him. He reports that he has had a runny nose. He does not, however, say that he has a sore throat. There is no swelling of lower extremities or calf pain. The patient is reported to be hypotensive on initial presentation. He did receive a fluid bolus in the ER, his blood pressure did return to the normal range. The patient currently is not on vasopressors. The [address] [address] CONSULTATION Name: JANASONI OZZIE Room: [address] IN .R.#: [id number] Admission: 11/21/18 Attend Phys: Carl Reina MD Discharge: Date of : 84 Report #: [id number] patient does have significant electrolyte abnormalities including markedly decreased potassium as well as magnesium levels. I asked him 12 other questions for review of systems. Due to his Down syndrome, his ability to understand and answer questions does appear to be somewhat limited, but he answered to the negative to all other questions asked for review of systems. There is no obvious discomfort with swallowing reported. The patient is noted to have had sleep disturbances and daytime sleepiness, improved with CPAP. He did not report any new change in his sleep pattern. REVIEW OF SYSTEMS: Negative except as described above. PAST MEDICAL HISTORY: Recurrent pneumonia with suspicion of aspiration, possibly positional. Previous video swallow was unremarkable. Obstructive sleep apnea, on CPAP, oil heaterman, on oxygen long-term. In fact, has been on oxygen 2-3 liters during the daytime as well, possible history of bronchiectasis. See discussion above. He is colonized with MRSA, small pericardial effusion on the last echo with unremarkable GINNY and ANCA pattern. I do not have a previous rheumatoid arthritis factor available. His echocardiogram was unremarkable other than the presence of small pericardial effusion. As noted, he does use CPAP at night for sleep apnea. Interestingly, he has been requiring oxygen during the day as well. Previous history of cellulitis and evaluation for HIV which was negative. Also, immunoglobulins reported to be normal in the past. SOCIAL HISTORY: Lives at a halfway. No known history of smoking, ethanol abuse or drug abuse. CURRENT MEDICATIONS: List in MyClasses reviewed. HOME MEDICATIONS: List also in MyClasses reviewed. FAMILY HISTORY: Negative for heart or lung disease per the records. ALLERGIES: SULFONAMIDE ANTIBIOTICS. PHYSICAL EXAMINATION: GENERAL: He is awake. He does answer simple questions appropriately. VITAL SIGNS: He has a pulse of 98 and a blood pressure of 113/75. He was saturating 97% with 8 liters oxygen via nasal cannula when I was in the room. His respiratory rate was around 25, but he did not appear to be in any distress. He was febrile with a temperature of 36.9. Body mass index is elevated to 33. HEENT: Head is normocephalic and atraumatic. Pupils are equal and reactive. There is no throat erythema. Airway is narrow, Mallampati 4. Mucous members are moist. NECK: Does not show raised JVP, asymmetry, mass or lymph nodes. CHEST: Symmetrical expansion on inspection and palpation. On auscultation, [place] [address] CONSULTATION Name: SONI BATES Room: [address] IN [facility]#: [id number] Admission: 11/21/18 Attend Phys: Carl Reina MD Discharge: Date of : 84 Report #: [id number] breath sounds are bilaterally equal, but diminished. His respiratory rate is on the higher side as mentioned. I do not hear any added sounds. HEART: Regular. There is no murmur. ABDOMEN: Soft and nontender. EXTREMITIES: Lower extremities show no edema, no calf tenderness. SKIN: Dry and intact. NEUROLOGICAL: He does move all extremities bilaterally equally and spontaneously. There is no focal deficit identified. LABORATORY DATA: The patient's CBC, which does show leukocytosis with 8% bands as well as chemistries which show creatinine elevated to 1.7 in [employer] reviewed. Arterial blood gases, which was just performed does show pO2 low for the amount of oxygen. He is on about a normal pCO2. We have sent a repeat MRSA culture, which is pending at this time. ASSESSMENT AND PLAN: 1. Acute on chronic hypoxemic respiratory failure secondary to pneumonia. Recommend continuing with oxygen and titrating as tolerated. I feel that it is important that he be kept in a positive airway pressure device while asleep. If he is comfortable and does not have increase in work of breathing then using his home CPAP is reasonable. If his FiO2 needs increase or he has increased work of breathing then in that case, I would consider switching him over to a BiPAP. The patient's pCO2 and pH are noted to be normal. 2. Pneumonia/recurrent pulmonary infiltrates. Despite previous video swallows repeated several times being negative, I have a significant suspicion that he is aspirating. Note that video swallows are performed when the patient is fully sitting up. I have suspicion that the patient has not been fully sitting up and taking orally and thus aspirating intermittently and this may be the etiology of his recurrent infiltrates. At this time, I feel that the safest option will be to keep him n.p.o. overnight and then reevaluate tomorrow morning. Should the patient be stable tomorrow morning then under strict aspiration precautions after performing a video swallow and while making sure that he fully sits up at 90 degrees for all oral intake, we can consider resuming oral intake. Meanwhile, I agree with continuing broad-spectrum antibiotics considering that he has tested positive for MRSA twice in the past. I, regardless of the nasal swab for MRSA, favor continuing with MRSA coverage for now. The patient is noted to have had some mild elevation in creatinine up to 1.3 at his baseline, which will be abnormal for his age and therefore, he is higher than average risk for vancomycin toxicity. I would defer to Dr. Carvajal who has been consulted as to whether we consider switching him over from vancomycin to linezolid now or continue vancomycin with close surveillance of his creatinine, regardless should there be any further rise in his creatinine. I would have a strong preference of switching him over to linezolid. I agree with Zosyn as well as Levaquin as ordered by Dr. Reina, would defer followup of the antibiotics to the Infectious Disease Service. 3. Bronchial asthma exacerbation. The primary etiology of his respiratory [address] [address] CONSULTATION Name: SONI BATES Room: [address] IN [facility].#: [id number] Admission: 11/21/18 Attend Phys: Carl Reina MD Discharge: Date of : 84 Report #: [id number] failure appears to be pneumonia; however, there does appear to be a component of bronchospasm as well. I agree with Solu-Medrol as well as nebulized bronchodilators as currently prescribed. 4. Obstructive sleep apnea. See discussion above. 5. Pericardial effusion. This was small in size in the last echo. I would repeat an echo. His previous GINNY as well as ANCA were negative. I would recommend that we obtain rheumatoid arthritis factor as well. 6. Down syndrome. 7. Gastroesophageal reflux disease. He did have an EGD performed by Dr. Liriano recently and was recommended an aggressive therapy with a proton pump inhibitor. I switched his Protonix over to IV until he is able to take p.o. Note, Dr. Liriano recommended proton pump inhibitor in addition to ranitidine. Proton pump inhibitor appears to be more important, we can add an H2 cecelia as well. 8. Depression/Prozac use. Note that, he is on Prozac. In case he is administered Zyvox, Prozac may need to be held. 9. Hypokalemia/hypomagnesemia. He is on electrolyte replacement protocol. 10. Deep vein thrombosis prophylaxis. I will go ahead and order Lovenox. The patient is critically ill at this time. Total time spent providing critical care to this patient today exceeds 45 minutes. <ELECTRONICALLY SIGNED> By: Gabby Navarro MD 11/22/18 0813 1256 [id number] Long MD /nt
--- NOTE | 2018-11-22 11:00 | NUR ---
PT KNOWN TO CASE MGT FROM PREVIOUS ADMISSIONS. PT LIVES IN A LONG TERM, [place]AN[place] VIZ[place]. HE WAS DISCHARGED ON 11/01 WITH THE [facility]. HE HAS OXYGEN AND CPAP FROM [facility]. GUARDIAN: DIAMOND MCKEON [phone] SHANIA SALAZARSANDY: [phone]
--- NOTE | 2018-11-22 11:02 | CON ---
[address] [address] CONSULTATION Name: JNAASONI OZZIE Room: [address] ADM IN M.R.#: [id number] Admission: 11/21/18 Attend Phys: Carl Reina MD Discharge: Date of : 84 Report #: [id number] THIS REPORT FOR: //name// CC: Carl Santoro DATE OF SERVICE: 11/21/2018 INFECTIOUS DISEASE CONSULTATION ATTENDING PHYSICIAN: Dr. Reina REASON FOR EVALUATION: Recurrent pneumonitis. HISTORY OF PRESENT ILLNESS: Chart reviewed, patient examined. This is a 38-year-old gentleman with Down syndrome who has issues with recurrent aspiration pneumonitis. He was just hospitalized for same earlier part of this month and has had extensive evaluation including swallowing issues. There are times when he requires supplemental oxygen, although this apparently is somewhat non-consistent. He reportedly was noted over the course of the last few days to have increasing dyspnea with associated cough. There was some degree of sputum production. It is unclear whether he has had fevers. He states his appetite has been fair. He is normally on 2 liters. Pulmonary has recommended increase it to 6 at this point. He was not encephalopathic. He responded to the urgent treatment in the Emergency Room. Chest x-ray compared to 11/02/2018 showed development of significant bilateral mid to lower lobe infiltrates. There is a question of aspiration. Lactic acid was 1.9. Electrolytes unremarkable although creatinine was 1.7. White count was elevated at 16.8, which is typical. PO2 on 8 liters was 95.8. He is seen in the Intensive Care Unit, was empirically started on broad-spectrum antimicrobials with vancomycin as well as piperacillin and tazobactam and levofloxacin. Previous cultures, sputum has generally been unremarkable. In August, did have bronchoscopy which grew out Haemophilus parainfluenzae. ALLERGIES: LISTED TO SULFA. CURRENT MEDICATIONS: As noted above, levofloxacin, vancomycin, enoxaparin, montelukast, budesonide, folic acid, ascorbic acid, pantoprazole, ipratropium and albuterol inhaler, methylprednisolone, triamterene and hydrochlorothiazide combination, levothyroxine, fluoxetine, Zosyn, loratadine, Naproxen, p.r.n. analgesics, antiemetics and guaifenesin. PAST MEDICAL HISTORY: As above. Down syndrome. Lives in a correction. There is underlying chronic obstructive pulmonary disease with asthmatic component, severe seasonal allergies, current pneumonitis, hypothyroidism and obstructive sleep [place] [address] CONSULTATION Name: JANASONI GEORGE Room: [address] IN ..#: [id number] Admission: 11/21/18 Attend Phys: Carl Reina MD Discharge: Date of : 84 Report #: [id number] SOCIAL HISTORY: Nonsmoker, no ethanol, no illicit drug use. FAMILY HISTORY: Noncontributory. REVIEW OF SYSTEMS: Otherwise unremarkable 10-point review of systems with exception of the above in the history of present illness. PHYSICAL EXAMINATION: GENERAL: He has typical Down's features. He is alert and cooperative. He is tracking well. HEENT: Normocephalic. Extraocular muscles are intact. NECK: Supple. He does have nasal cannula oxygen at 6 liters per supplemental presently. LUNGS: Scattered coarse breath sounds bilaterally. HEART: Regular, tachycardic. I do not appreciate a murmur. ABDOMEN: Mildly distended, soft. There are no overt peritoneal signs. GENITOURINARY AND RECTAL: Deferred. LABORATORY DATA: Chest x-ray as described above. Electrolytes: Sodium 142, potassium 3.0, chloride 103, bicarbonate is 30, anion gap of 9, BUN and creatinine 15 and 1.7, glucose of 113. LFTs are unremarkable. Albumin of 2.9 and total protein 6.0. Estimated GFR of 46. CBC: White count of 16.8, H and H 13.7 and 41.1, platelets of 236. There is neutrophilia and lymphocytopenia noted on differential. ABGs: pH 7.378, pCO2 of 39.1 and pO2 of 95.8. Troponin elevated at 0.08. ASSESSMENT: Pneumonitis complicated by worsening respiratory failure in this gentleman with underlying chronic obstructive pulmonary disease. Agree with empiric antimicrobial therapy. I think it is worthwhile to try to collect sputum on. Continue the combination therapy of levofloxacin, piperacillin, tazobactam and vancomycin. At this point, it seems to have slowed the worsening progression. He does remain critically ill; however, continue supportive therapy. It is difficult to overcome I think the recurrent aspiration in this setting. Thank you. We will follow. <ELECTRONICALLY SIGNED> By: Jermaine Carvajal MD 11/22/18 1102 [id number] Carvajal MD /nt
--- NOTE | 2018-11-22 12:59 | NUR ---
Nutrition: Pt admitted to Rehab with sepsis 2/2 recurrent PNA. MRSA PNA. Wt is stable all year ~200#. Heart Healthy diet. Fair to good appetite. H/o Down syndrome. RX: MVI, folic/B, L. acidophilus, solumedrol. +BM. BG 113-167, alb 2.9. Uses CPAP. Appears at low nutrition risk at this time. Will follow weekly.
--- NOTE | 2018-11-22 18:10 | NUR ---
11/22 Days: Patient improving, weaned to 4L HHNC. Up to recliner multiple times today. Good UOP and intake. Cough is loosening and decreasing in frequencey. Downgraded to M/S tele.
[2018-11-23 00:18] VITALS: BP 128/74
[2018-11-23 02:15] LABS: CALCIUM 8.4 mg/dL (8.5-10.1); CREATININE 1.5 mg/dL (0.6-1.3); MAGNESIUM 2.1 mg/dL (1.8-2.4); POTASSIUM 3.7 mmol/L (3.5-5.1)
[2018-11-23 02:18] VITALS: BP 126/65
[2018-11-23 02:20] LABS: HEMATOCRIT 31.6 % (42.0-52.0); MCH 31.9 pg (26.0-34.0); MCHC 34.1 g/dL (28.0-37.0); MCV 93.8 fL (80.0-100.0); MPV 7.5 fl. (7.2-11.1); RBC 3.37 mil/uL (4.50-6.00); RDW-CV 20.2 % (10.5-14.5); WBC 20.6 thou/uL (4.0-11.0)
[2018-11-23 02:22] LABS: HEMOGLOBIN 10.8 gm/dL (14.0-18.0)
[2018-11-23 04:18] VITALS: BP 129/67
[2018-11-23 06:18] VITALS: BP 134/70
--- NOTE | 2018-11-23 06:52 | NUR ---
PT REMAINS STABLE, O2 SAT REMAINS >92% ON 5L O2 PER NC WHILE AWAKE AND 5L O2 BLEED-IN ON HOME CPAP MACHINE. DYSPNEA ON EXERTION. ASSISTED TO BSC X3, MILD UNSTEADINESS ON FEET, REQUIRES ONLY SBA. PT IS APPROPRIATE AND ABLE TO MAKE NEEDS KNOWN. CALL LIGHT WITHIN REACH.
[2018-11-23 16:55] VITALS: BP 108/62
--- NOTE | 2018-11-23 18:30 | NUR ---
PT SAT IN CHAIR FOR ALL MEALS. PT AMBULATED IN ROOM. PT DESATTING WITH ACTIVITY. PT SAT IN RECLINER THIS SHIFT. PT AFEBRILE THIS SHIFT. PT HAD 3 BM'S THIS SHIFT. UPDATE GIVEN TO GUARDIAN BY AND BY RN. PT'S MOTHER TO VISIT THIS SHIFT AND UPDATE GIVEN.
[2018-11-23 20:54] VITALS: BP 113/71
--- NOTE | 2018-11-23 21:00 | NUR ---
TORNADO WARNING ANNOUNCED AT APPROXIMATELY 1949. PER HOSPITAL POLICY, PT WAS BROUGHT FROM HIS ROOM TO AREA NEAR THE NURSES STATION. PT SAT UP IN RECLINER DURING THIS PERIOD OF TIME PER HIS REQUEST. INTERMITTENTLY PT BECAME TEARFUL AND AFRAID DURING THE TIME THAT THE TORNADO WARNING WAS ACTIVE. PTS TABLET AND BEDSIDE TABLE WERE BROUGHT TO HIM TO PROVIDE DISTRACTION. COMFORT AND REASSURANCE PROVIDED PRN. TORNADO WARNING WAS LIFTED AT APPROXIMATELY 2044 AND AT THAT TIME PT AND HIS BELONGINGS WERE RETURNED ICU BED 8. DUE TO RELOCATION OF PATIENT DURING TORNADO WARNING, CONTINUOUS TOE CLOSING MACHINE TENDER COULD NOT BE MAINTAINED FROM APPROXIMATELY [id number]. PT DENIED PAIN, SOA AND OTHER DISCOMFORT DURING THIS TIME, COMPLAINING ONLY OF FEAR OF TORNADO.
[2018-11-24 00:20] VITALS: BP 114/63
--- NOTE | 2018-11-24 00:34 | NUR ---
PT AWOKE DUE TO SEVERE COUGHING SPELL, FRIGHTENED AND ANXIOUS. REPORTS UPPER ABD AND RIB PAIN DUE TO COUGHING, BRACING UPPER ABD. COMFORT PROVIDED, ASSISTED PT TO SLOW HIS BREATHING. PT REMAINED SLIGHTLY RESTLESS EVEN AFTER FEAR SUBSIDED, OFFERED PRN BENADRYL FOR ANXIETY WHICH PT AGREED WOULD HELP. PT ALSO REQUESTED SLEEP MED. PRN BENADRYL AND MELATONIN GIVEN ORDERED. WARM BLANKET PLACED TO PTS ABDOMEN TO AID WITH MUSCLE SORENESS, PT STATED HEAT WAS VERY HELPFUL. ORDER RECEIVED FOR K-PAD.
[2018-11-24 03:53] VITALS: BP 125/79
[2018-11-24 05:11] LABS: HEMATOCRIT 30.5 % (42.0-52.0); HEMOGLOBIN 10.4 gm/dL (14.0-18.0); MCH 31.7 pg (26.0-34.0); MCHC 34.1 g/dL (28.0-37.0); MCV 93.2 fL (80.0-100.0); MPV 7.4 fl. (7.2-11.1); RBC 3.27 mil/uL (4.50-6.00); RDW-CV 20.1 % (10.5-14.5); WBC 19.2 thou/uL (4.0-11.0)
[2018-11-24 06:25] LABS: CALCIUM 8.7 mg/dL (8.5-10.1); CREATININE 1.5 mg/dL (0.6-1.3); POTASSIUM 3.8 mmol/L (3.5-5.1)
[2018-11-24 08:00] VITALS: BP 110/70
[2018-11-24 12:04] VITALS: BP 106/58
--- NOTE | 2018-11-24 15:38 | NUR ---
AGREE WITH PRIOR NURSE 0800 ASSESSMENT-NO CHANGES NOTED. PT TOLERATING 3L NC, PRODUCTIVE COUGH. EDUCATED ON SAFETY AND PLAN OF CARE. WILL CONT TO MONITOR
[2018-11-24 16:31] VITALS: BP 115/59
[2018-11-24 19:50] VITALS: BP 114/64
--- NOTE | 2018-11-25 03:43 | NUR ---
ASSUMED CARE OF PT AT 1900. PT IS ALERT AND ORIENTED. VSS. PERRLA. NO COMPLAINTS OF PAIN. PT IS REQUIRING O2 AT 4 LITERS. PT IS CURRENTLY WEARING CPAP. PT IS SLEEPING QUIETLY IN BED. RESPIRATIONS ARE EVEN AND NONLABORED. WILL CONTINUE TO MONITOR PT.
[2018-11-25 04:00] VITALS: BP 118/68
[2018-11-25 07:45] VITALS: BP 112/68
--- NOTE | 2018-11-25 12:25 | NUR ---
PT ALERT AND ORIENTED. M/S STATUS AND ALL VSS ON 5L HFNC. PT DID REQUIRE UP TITRATION IN O2 THIS AM-MD AWARE. CONTINUES TO HAVE PRODUCTIVE COUGH. PT STATES HE IS CONTINUING TO FEEL BETTER EACH DAY AND IS LOOKING FORWARD TO DC [facility] TOMORROW. DENIES CP, SOA STABLE. EDUCATED ON SAFETY AND PLAN OF CARE. PLEASE SEE ASSESSMENT FOR ADDITIONAL INFORMATION. WILL CONT TO MONITOR
[2018-11-25 17:22] VITALS: BP 105/51
[2018-11-25 17:23] VITALS: BP 125/55
[2018-11-25 19:50] VITALS: BP 114/64
--- NOTE | 2018-11-26 03:58 | NUR ---
ASSUMED CAR OF PT AT 1900. PT IS ALERT AND ORIENTED. VSS. PERRLA. NO COMPLAINTS OF PAIN. PT IS ON 4 LITERS OF O2. PT HAS A STEADY GAIT. PT IS SLEEPING COMFORTABLY IN BED. RESPIRATIONS ARE EVEN AND NONLABORED. WILL CONTINUE TO MONITOR PT.
[2018-11-26 04:00] VITALS: BP 127/78
[2018-11-26 05:32] LABS: CALCIUM 8.7 mg/dL (8.5-10.1); CREATININE 1.4 mg/dL (0.6-1.3); MAGNESIUM 1.9 mg/dL (1.8-2.4); POTASSIUM 3.5 mmol/L (3.5-5.1)
[2018-11-26] MEDS ORDERED: IPRAT-ALBUT 0.5-3 ML INH (08:03)
[2018-11-26] MEDS ORDERED: AZITHROMYCIN 2250 MG PO (08:03)
[2018-11-26] MEDS ORDERED: MUCINEX600 MG PO (08:03)
[2018-11-26] MEDS ORDERED: LEVAQUIN 750 M750 MG PO (08:03)
[2018-11-26] MEDS ORDERED: MINOCIN50 MG PO (08:03)
[2018-11-26] MEDS ORDERED: PREDNISONE 10 M10 MG PO (08:06)
[2018-11-26 08:31] VITALS: BP 104/61
[2018-11-26 11:19] VITALS: BP 104/61
--- NOTE | 2018-11-26 12:12 | NUR ---
PT ALERT AND ORIENTED. ABLE TO TITRATE PT TO 3L PER NC THIS AM MAINTAINING SATS > 91%. PT DOES REQUIRE INCREASE IN SUPP O2 WITH EXERTION/AMBULATION. VSS. DENIES CP. SOB STABLE. LOOKING FORWARD TO DC TODAY. DIAMOND MCKEON ([facility]) NOTIFIED OF DC ORDERS AND STATES SOMEONE FROM [facility] WILL BE PICKING PT UP AROUND 1400. EDUCATED ON SAFETY AND PLAN OF CARE. PLEASE SEE ASSESSMENT FOR ADDITIONAL INFORMATION. WILL CONT TO MONITOR
[2018-11-26 15:28] VITALS: BP 104/61
--- NOTE | 2018-11-26 16:31 | NUR ---
THIS RESPIRTORY THERAPIST HAS SPOKEN WITH NURSE ALEJANDRO WHO THEN RELAYED INFORMATION TO DOCTOR ABOUT PATIENTS OXYGEN NEEDS. CHECKED OXYGEN TWICE ON 3 LPM WITH SATS BELOW 90%. ASKED NURSE NOT TO TURN PATIENTS OXYGEN DOWN TO 3 LPM AND TO LEAVE IT ON 5 LPM. SPOKE TO PATIENT'S CAREGIVER ABOUT MY CONCERNS WITH PATIENT GOING HOME, SHE SPOKE WITH THE NURSE.THE NURSE STATES THAT DOCTOR IS FINE WITH ALLOWING PATIENT TO GO HOME ON 5 LPM. BREATH SOUNDS ARE COARSE WHEEZES.
== END 2018-11-26 16:25 | disposition home or self-care (01) | DRG 871 ==
LOC: M.ERS 07:24 → M.ICU 08:57 → M.TBA-ER 08:57 → M.ICU 08:57 → M.2W 11-24 14:03
PROVIDERS: Family Medicine; ADMIT Internal Medicine
DX: A41.9 Sepsis, unspecified organism (principal); J15.212 Pneumonia due to Methicillin resistant Staphylococcus aureus; J96.21 Acute and chronic respiratory failure with hypoxia; J45.51 Severe persistent asthma with (acute) exacerbation; I31.3 Pericardial effusion (noninflammatory); N28.9 Disorder of kidney and ureter, unspecified; F32.9 Major depressive disorder, single episode, unspecified; K21.9 Gastro-esophageal reflux disease without esophagitis; G47.33 Obstructive sleep apnea (adult) (pediatric); E87.6 Hypokalemia; E83.42 Hypomagnesemia; E03.9 Hypothyroidism, unspecified; Z99.81 Dependence on supplemental oxygen; Q90.9 Down syndrome, unspecified; Z88.2 Allergy status to sulfonamides

== ENCOUNTER 2018-11-27 21:24 | Inpatient (IN) | payer MEDICARE, MEDICAID ==
[~2018-11-27] VITALS: Ht 162.6 cm; Wt 87.5 kg
[~2018-11-27 21:24] MED LIST changes: +IPRAT-ALBUT 0.5-3 ML INH; +MINOCIN50 MG PO; +ZANTAC 150MG T150 MG PO
[2018-11-27 21:25] VITALS: BP 119/52
[2018-11-27 22:19] LABS: BE 4.9 mmol/L (-2 to +3); PCO2 44.9 mmHg (35.0-45.0); PO2 71.1 mmHg (75.0-100.0); pH 7.439 (7.340-7.450)
[2018-11-27 22:28] LABS: HEMATOCRIT 37.6 % (42.0-52.0); HEMOGLOBIN 12.3 gm/dL (14.0-18.0); MCH 30.4 pg (26.0-34.0); MCHC 32.6 g/dL (28.0-37.0); MCV 93.4 fL (80.0-100.0); MPV 7.6 fl. (7.2-11.1); NUCLEATED RBCS 0 /100WBC; PLATELET COUNT* 370 thou/uL (150-400); RBC 4.03 mil/uL (4.50-6.00); RDW-CV 20.3 % (10.5-14.5); WBC 8.9 thou/uL (4.0-11.0)
[2018-11-27 22:36] LABS: ANION GAP 7 mmol/L (7-16); BUN 20 mg/dL (7-18); CALCIUM 9.1 mg/dL (8.5-10.1); CHLORIDE 100 mmol/L (98-107); CO2 32 mmol/L (21-32); CREATININE 1.7 mg/dL (0.6-1.3); GLUCOSE 105 mg/dL (70-99); POTASSIUM 3.7 mmol/L (3.5-5.1); SODIUM 139 mmol/L (136-145)
[2018-11-27 22:37] LABS: PROTIME 10.4 Seconds (9.20-11.50)
[2018-11-27 22:46] LABS: ALBUMIN 2.6 g/dL (3.4-5.0); ALKALINE PHOSPHATASE 54 U/L (46-116); MAGNESIUM 1.7 mg/dL (1.8-2.4); NT-PRO BRAIN NAT PEPTIDE 86 pg/mL (<300); SGOT 18 U/L (15-37); SGPT 31 U/L (30-65); TOTAL BILIRUBIN 0.4 mg/dL (<0.1-1.0); TOTAL PROTEIN 6.8 g/dL (6.4-8.2); TROPONIN-I LEVEL <0.06 ng/mL (<0.06)
[2018-11-27 22:54] LABS: URINE BILIRUBIN NEGATIVE (Negative); URINE BLOOD NEGATIVE (Negative); URINE CLARITY CLEAR; URINE COLOR YELLOW; URINE GLUCOSE-RANDOM NEGATIVE (Negative); URINE KETONES NEGATIVE (Negative); URINE LEUKOCYTES-REFLEX NEGATIVE (Negative); URINE NITRITE-REFLEX NEGATIVE (Negative); URINE PROTEIN NEGATIVE (Negative); URINE SPECIFIC GRAVITY <= 1.005 (1.005-1.030); URINE UROBILINOGEN 0.2 E.U./dl (0.2-1.0)
[2018-11-27 22:58] LABS: ABSOLUTE EOSINOPHILS 0.6 thou/uL (0.0-0.7); ABSOLUTE LYMPHOCYTES 1.2 thou/uL (0.8-5.3); ABSOLUTE MONOCYTES 0.3 thou/uL (0.0-1.2); ABSOLUTE NEUTROPHILS 6.9 thou/uL (1.6-8.1); PLATELET ESTIMATE ADEQUATE
[2018-11-28 01:20] VITALS: BP 130/72
[2018-11-28 04:00] VITALS: BP 137/70
[2018-11-28 07:30] VITALS: BP 129/66
--- NOTE | 2018-11-28 11:27 | EKG ---
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: : 1980 Requested By: Rosa Gonzalez Order Number: [id number] Nisha MD: Derrick Polanco Measurements Intervals Benedict Rate: 100 P: 51 DC: 118 QRS: 63 QRSD: 74 T: 34 QT: 323 QTc: 417 Interpretive Statements Sinus tachycardia Compared to ECG 11/21/2018 07:27:07 Ventricular premature complex(es) no longer present Rate slowed Electronically Signed On 11-28-2018 11:27:24 CDT by Derrick Polanco [email or web address] <ELECTRONICALLY SIGNED> By: Derrick Polanco MD, [facility] 11/28/18 1127 22 22 Derrick Polanco MD, [facility] /EPI
[2018-11-28 12:05] VITALS: BP 122/63
[2018-11-28 20:55] VITALS: BP 119/70
[2018-11-29] VITALS: BP 132/48
[2018-11-29 05:17] LABS: CREATININE 1.4 mg/dL (0.6-1.3); POTASSIUM 4.1 mmol/L (3.5-5.1)
--- NOTE | 2018-11-29 07:42 | CON ---
[address] [address] CONSULTATION Name: SONI BATES Room: [address] ADM IN M.R.#: [id number] Admission: 11/28/18 Attend Phys: Carl Reina MD Discharge: Date of : 84 Report #: [id number] THIS REPORT FOR: //name// CC: Carl Santoro DATE OF SERVICE: 11/28/[address] Reina. INDICATION FOR CONSULTATION: Recurrent pneumonia. HISTORY OF PRESENT ILLNESS: This is a 38-year-old gentleman with past medical history as mentioned below. This does include a history of Down syndrome. The patient also does have a history of bronchial asthma as well as obstructive sleep apnea. He carries a diagnosis of bronchiectasis; however, the only CT I have available on which there is not significant infiltrates present as well is from 2017 and it shows only minimal bronchiectasis, so I am not certain if the patient in fact has significant bronchiectasis or not. The patient has had multiple admissions to this hospital, in fact was just discharged a couple of days ago after admission to this hospital. He has had 2 previous positive cultures for MRSA. He again tested positive for nasal swab for MRSA during the last hospitalization. Previous bronchoscopy was positive for Haemophilus parainfluenzae and Renea albicans. The patient at baseline also has some mild unexplained elevation in creatinine to 1.3. The patient was transferred to his long-term care facility. At the long-term care facility, the patient was reported to be significantly hypoxemic with a high flow nasal cannula at 7 or 8 liters. The patient is described as having an O2 saturation in the low 80s and therefore, the patient was transferred back to this hospital. The patient was ordered minocycline as well as Levaquin at the time of discharge, which was the day before yesterday. The patient's antibiotics are reported to not have been picked up from the pharmacy prior to his transfer back to this hospital. At this time, the patient says that he still has shortness of breath, but this is better. He is coughing, but there is in fact not much sputum. There is no chest pain. He does not have upper respiratory complaints. There is minimal swelling of lower extremities. There is no calf pain. The patient is reported to have had sputum production on admission, also is reported to have had abdominal pain as well as abdominal bruising around the umbilicus on admission and therefore, a CT of the abdomen and pelvis has also been performed, which is as described below. I performed 12-point review of systems which is [place] [address] CONSULTATION Name: JANAROBSONI GEORGE Room: [address] IN M.R.#: [id number] Admission: 11/28/18 Attend Phys: Carl Reina MD Discharge: Date of : 84 Report #: [id number]. PAST MEDICAL HISTORY: Down syndrome, bronchial asthma, obstructive sleep apnea. The patient is on a CPAP long-term. Also, is on oxygen long-term. There is a question regarding previous history of bronchiectasis, see further discussion as above. He was tested positive for MRSA on 3 previous occasions, has had Renea albicans as well as Haemophilus parainfluenzae in his bronchoscopy earlier this year. His previous GINNY and ANCA patterns have been unremarkable. Last echocardiogram was also unremarkable except for showing a small pericardial effusion. He has a previous history of cellulitis. He was previously tested negative for HIV. His immunoglobulins are reported to be normal per the records. SOCIAL HISTORY: He lives at a halfway. There is no known history of heavy alcohol use or illegal drug use. CURRENT MEDICATIONS: List in [place] reviewed. HOME MEDICATIONS: List also in [facility] reviewed. FAMILY HISTORY: This is negative for heart or lung disease. ALLERGIES: SULFONAMIDE ANTIBIOTICS. PHYSICAL EXAMINATION: GENERAL: He is alert, awake and oriented. He is sitting in a chair, does not appear to be in any distress at this time. VITAL SIGNS: Has a pulse of 96 and a blood pressure of 122/63. He is on 4 liters nasal cannula, saturating 97%. His respiratory rate is 17. He is afebrile with a temperature of 36.5. His body mass index is elevated to 34. HEENT: Head is normocephalic and atraumatic. Pupils are equal and reactive. There is no throat erythema. Airway is narrow. It is around Mallampati 4. NECK: Does not show raised JVP, asymmetry, mass or lymph nodes. CHEST: Symmetrical expansion on inspection and palpation. On auscultation, breath sounds are bilaterally equal, decreased, expirations are prolonged. I do hear scattered expiratory wheezes as well. HEART: Regular. There is no murmur. ABDOMEN: Soft and nontender. The patient was sitting in a chair and due to that position, it would have been difficult to look under his gown; therefore, I did not examine the abdomen with the gown removed and note that on admission, he is reported to have had bruising around his umbilicus. EXTREMITIES: Lower extremities show trace edema. There is no calf tenderness. SKIN: Dry and intact. NEUROLOGICAL: Moves all extremities bilaterally equally and spontaneously. There is no focal deficit identified. [address] [address] CONSULTATION Name: SONI BATES Room: [address] IN M.R.#: [id number] Admission: 11/28/18 Attend Phys: Carl Reina MD Discharge: Date of : 84 Report #: [id number] LABORATORY DATA: The patient's chest x-ray is reviewed. See further discussion regarding his chest x-ray with assessment and plan. The patient's CT of the abdomen and pelvis report is reviewed. I also reviewed the films of the lower lungs, which accompanied the CT's. This is also as discussed below. The patient's CBC as well as chemistries are in [facility]. These are reviewed. Note that the patient's creatinine is now elevated to 1.7. The patient's arterial blood gas is also in [facility], reviewed. Urinalysis is in [facility] and this is also reviewed. There are several previous video swallows performed which are unremarkable. ASSESSMENT AND PLAN: 1. Acute respiratory insufficiency/hypoxia. The patient does appear to have a component of bronchospasm now. The patient also does have persistent infiltrates; however, at this time, his oxygen needs are at his baseline. Note that, he is reported to have had a significantly decreased oxygen level at the halfway prior to his transfer. If the reading obtained was in fact accurate, then the etiology of this is not fully defined at this time. It will be possible that the patient was more bronchospastic when this was performed, which could be a possible etiology. Also, thromboembolism while not likely is not completely ruled out at this time. 2. Recurrent pneumonia/pulmonary infiltrates. The patient has had recurrent pneumonia; however, on my review since 11/21/2018, the infiltrates are essentially unchanged. The chest x-ray performed on the does look worse likely due to an increase in pulmonary vascular congestion. It is not known to me as to why this occurred, now the infiltrates looked essentially the same as they did on 11/21/2018. The patient is currently on minocycline as well as Levaquin, which are ordered by the ID service. Note that, he tested positive for methicillin-resistant Staphylococcus aureus. The patient did receive vancomycin during the last hospitalization; however, I see 2 vancomycin troughs performed, one is 15 and the other one is 10 and therefore likely the patient did not have therapeutic levels off vancomycin in blood for most of last admission. He has had elevation in creatinine as described above and therefore he does appear to be high risk for nephrotoxicity for vancomycin and therefore, I would try to avoid vancomycin and I did not order the same now. In fact, I would have proceeded with the ordering Zyvox; however, I note that the patient is on Prozac and there is an obvious interaction and therefore, I did not order the same. I called the pharmacy and discussed Teflaro with them. I am told that Teflaro is not stocked in this hospital; therefore, for now, we will continue with minocycline as well as Levaquin as was recommended by Dr. Carvajal. If the patient fails to improve, then I suggest obtaining an ID consult; potentially, we could hold Prozac and treat him with Zyvox in that case. 3. Bronchial asthma exacerbation. On my evaluation, the patient is wheezing and does have a component of bronchospasm. He is on 40 mg of prednisone daily. I went ahead and ordered one additional dose of Solu-Medrol and now suggest reevaluating his steroid needs tomorrow. The patient does remain on nebulized bronchodilators. [address] [address] CONSULTATION Name: SONI BATES Room: [address] IN M.R.#: [id number] Admission: 11/28/18 Attend Phys: Carl Reina MD Discharge: Date of : 84 Report #: [id number] 4. Obstructive sleep apnea. He is on his own CPAP while asleep long-term and notes that the patient also is on long-term oxygen. 5. Evaluation for thromboembolic phenomenon. This appears to be unlikely; however, I will want to do venous Dopplers. 6. Mild chronic renal insufficiency. I have done a renal ultrasound during a previous admission. There are no pertinent findings on his CT of the abdomen and pelvis, would defer additional investigations if indicated to the primary service. I would try to avoid nephrotoxic agents. 7. Mucus plugging. There is a component of this noted on the CT abdomen and pelvis as well. I did not order Mucomyst now as he does have a component of bronchospasm. We will consider the same later. I will go ahead and treat him with Mucinex. He is already on a flutter valve. 8. Pericardial effusion. This is noted. Etiology is not fully defined. 9. Down syndrome. 10. Gastroesophageal reflux disease. 11. High aspiration risk despite the fact that previous video swallows have been unremarkable. I feel that he likely intermittently aspirates when he is not fully sitting up. I recommend fully sitting him up when he is taking orally. 12. Possible bronchiectasis. Bronchiectasis is minimal on the last CT that I have available when he did not have infiltrate, which is from 2017. I recommend obtaining a CT of the chest without contrast at a future date when he does not have pneumonia, so that we can evaluate further as to whether the patient in fact has any significant bronchiectasis or not. Thanks for this consultation. <ELECTRONICALLY SIGNED> By: Gabby Navarro MD 11/29/18 0742 1228 [id number] Long MD /nt
[2018-11-29 08:00] VITALS: BP 117/62
[2018-11-29 11:08] VITALS: BP 117/62
[2018-11-29] MEDS ORDERED: BROVANA15 MCG/2 M INH (11:19)
[2018-11-29] MEDS ORDERED: DULCOLAX5 MG PO (11:19)
[2018-11-29] MEDS ORDERED: VITAMINC500 PO (11:23)
[2018-11-29] MEDS ORDERED: IBUPROFEN 200200 M1 PO (13:34)
[2018-11-29] MEDS ORDERED: CLARITIN10 MG PO (13:36)
== END 2018-11-29 15:29 | DRG 177 ==
LOC: M.ERS 21:24 → M.2W 11-28 00:35 → M.TBA-ER 11-28 00:35 → M.2W 11-28 01:09
PROVIDERS: Personal Emergency Response Attendant; ADMIT Internal Medicine
PROC: 5A09357 Assistance with Respiratory Ventilation, Less than 24 Consecutive Hours, Continuous Positive Airway Pressure (ICD-10-PCS; principal; 2018-11-28)
DX: J15.212 Pneumonia due to Methicillin resistant Staphylococcus aureus (principal); J96.21 Acute and chronic respiratory failure with hypoxia; I31.3 Pericardial effusion (noninflammatory); J45.51 Severe persistent asthma with (acute) exacerbation; J44.9 Chronic obstructive pulmonary disease, unspecified; K21.9 Gastro-esophageal reflux disease without esophagitis; G47.33 Obstructive sleep apnea (adult) (pediatric); N18.9 Chronic kidney disease, unspecified; E03.9 Hypothyroidism, unspecified; T17.990A Other foreign object in respiratory tract, part unspecified in causing asphyxiation, initial encounter; E87.70 Fluid overload, unspecified; J69.0 Pneumonitis due to inhalation of food and vomit; Q90.9 Down syndrome, unspecified; Z88.2 Allergy status to sulfonamides; X58.XXXA Exposure to other specified factors, initial encounter; Y93.89 Activity, other specified; Y92.89 Other specified places as the place of occurrence of the external cause; Y99.8 Other external cause status

== ENCOUNTER 2018-11-29 11:41 | Inpatient (IN) | payer MEDICARE, MEDICAID ==
[~2018-11-29] VITALS: Ht 162.6 cm; Wt 88.9 kg
[~2018-11-29 11:41] MED LIST changes: +BROVANA15 MCG/2 M INH; +DULCOLAX5 MG PO
[2018-11-29] MEDS ORDERED: IBUPROFEN 200200 M1 PO (13:34)
[2018-11-29] MEDS ORDERED: CLARITIN10 MG PO (13:36)
[2018-11-29 16:06] VITALS: BP 117/72
--- NOTE | 2018-11-29 18:57 | NUR ---
PT CAME TO UNIT 1600 ON BED. PT SETTLED AND ADMISSION PROFILE COMPLETED TO BEST OF ABILITY SINCE GUARDIAN WAS NOT PRESENT. PT ATE DINNER AND HAS NO C/O PAIN AT THIS TIME. HOURLY ROUNDING MAINTAINED AND VSS. WILL CONTINUE TO MONITOR AND ASSESS.
[2018-11-29 20:26] VITALS: BP 117/75
--- NOTE | 2018-11-29 23:21 | NUR ---
ASSUMED CARE AT 1929. PATIENT RESTING IN RECLINER UNTIL AROUND 2144 THEN TO BED. CPAP APPLIED BY NURSING. UP WITH SBA, GAIT BELT, WALKER. VOIDS PER TOILET. O2 4L/NC. SOA WITH EXERTION. ON ISOLATION FOR MRSA OF NARES AND RESP. NO C/O PAIN. USED TABLET AND WAS COLORING WITH PENCILS. HOURLY ROUNDS CONTINUE. BED AND CHAIR ALARMS IN USE. CALL LITE IN REACH.
[2018-11-30 03:31] LABS: HEMATOCRIT 35.1 % (42.0-52.0); HEMOGLOBIN 11.3 gm/dL (14.0-18.0); MCH 30.1 pg (26.0-34.0); MCHC 32.3 g/dL (28.0-37.0); MCV 93.2 fL (80.0-100.0); MPV 7.6 fl. (7.2-11.1); RBC 3.76 mil/uL (4.50-6.00); RDW-CV 19.8 % (10.5-14.5); WBC 14.1 thou/uL (4.0-11.0)
[2018-11-30 03:47] LABS: CALCIUM 8.8 mg/dL (8.5-10.1); CREATININE 1.5 mg/dL (0.6-1.3); POTASSIUM 3.5 mmol/L (3.5-5.1)
--- NOTE | 2018-11-30 06:08 | NUR ---
SLEPT NOST OF THE NIGHT. CPAP ON. NO C/O PAIN. HOURLY ROUNDS CONTINUE. BED ALARM ON. CALL LITE IN REACH.
[2018-11-30 08:10] VITALS: BP 112/65
[2018-11-30 09:03] VITALS: BP 112/65
--- NOTE | 2018-11-30 14:45 | NUR ---
SW called and spoke with Edita, hotel service manager of pt assisted to complete initial assessment, introduce self, and role on inpt rehab unit. SW familiar with pt situation from pt previous admissions. Pt has home oxygen and nebulizer isha Cornelius. Pt has hx with [facility] who would not accept back after so many readmissions, so [facility] accepted pt referral. SW to continue to follow to assist with safe dc planning.
--- NOTE | 2018-11-30 18:17 | NUR ---
AM ASSESSMENT AND VITAL SIGNS COMPLETED DOCUMENTED. PT HAS DONE WELL WITH ALL THERAPIES TODAY. O2 HAS BEEN DECREASED FROM 5L TO 2L/NC BY RESPIRATORY THERAPY. PT HAS AN OCCASIONAL WET COUGH BUT I HAVE NOT OBSERVED ANY SPUTUM. FALL PRECAUTIONS AND HOURLY ROUNDING CONTINUE.
[2018-11-30 20:27] VITALS: BP 101/63
[2018-11-30 20:50] VITALS: BP 101/63
--- NOTE | 2018-12-01 05:34 | NUR ---
PT ALERT AND ORIENTED. VSS ON 2L NC. BREATHING TREATMENT GIVEN BY RT THIS SHIFT. TYLENOL GIVEN FOR RIB PAIN RELATED TO COUGHING. MEDS GIVEN PER EMAR AND DOCUMENTED. PT SLEPT THROUGH SHIFT. FALL PRECAUTION IN PLACE. CALL LIGHT WITHIN REACH. HOURLY ROUNDINGS MADE. PT PLEASANT AND COOPERATIVE. WILL CONTINUE TO MONITOR.
[2018-12-01 07:54] VITALS: BP 138/57
[2018-12-01 20:10] VITALS: BP 111/75
[2018-12-02 05:06] LABS: HEMATOCRIT 36.6 % (42.0-52.0); HEMOGLOBIN 11.7 gm/dL (14.0-18.0); MCH 29.9 pg (26.0-34.0); MCV 93.4 fL (80.0-100.0); MPV 7.5 fl. (7.2-11.1); RBC 3.92 mil/uL (4.50-6.00); RDW-CV 19.5 % (10.5-14.5); WBC 15.7 thou/uL (4.0-11.0)
--- NOTE | 2018-12-02 05:26 | NUR ---
PT ALERT AND ORIENTED. HR 107. VSS STABLE ON 2L NC. PT SLEPT WELL THIS SHIFT. SMALL BM NOTED BEGINING OF SHIFT. MEDS GIVEN PER EMAR. FALL PRECAUTION IN PLACE. CONTACT ISOLATION IN PLACE. PT DENIES N/V/P THIS SHIFT. CALL LIGHT WITHIN REACH. HOURLY ROUNDINGS MADE. WILL CONTINUE TO MONITOR.
[2018-12-02 05:45] LABS: CALCIUM 8.4 mg/dL (8.5-10.1); CREATININE 1.5 mg/dL (0.6-1.3); POTASSIUM 3.2 mmol/L (3.5-5.1)
[2018-12-02 07:48] VITALS: BP 124/62
--- NOTE | 2018-12-02 17:46 | NUR ---
PATIENT UP TO CHAIR. PATIENT IS UP STANDBY ASSIST WITH WALKER. PATIENT HAS WALKED IN HALLS WITH ASSISTANCE TODAY. PATIENT DENIES ANY PAIN. PATIENT HAS EXCELLENT APPETITE. PATIENT DENIES ANY NEEDS AT THIS TIME. CALL LIGHT WITHIN REACH. WILL CONTINUE TO MONITOR.
[2018-12-02 19:10] VITALS: BP 99/68
--- NOTE | 2018-12-02 20:30 | NUR ---
SITTING UP IN RECLINER WATCHING [employer] JAFFE ON COMPUTER FROM HOME. DENIES PAIN. 02 NC AT TWO LITERS WITH EXTENSION TUBING. TOOK MEDICATIONS WHOLE WITH WATER. CALL LIGHT WITHIN REACH.
--- NOTE | 2018-12-03 06:19 | NUR ---
RESTED SOUNDLY WITH CPAP AND 02 AT TWO LITERS. NO COMPLAINTS VOICED. TURNS SELF. HOURLY ROUNDING IN PROGRESS.
[2018-12-03 07:51] VITALS: BP 101/54
[2018-12-03 08:02] VITALS: BP 101/54
--- NOTE | 2018-12-03 11:02 | NUR ---
Nutrition: Pt admit to Rehab for debility, PNA. Wt down several pounds from priors. Nsg noted pt w/ "excellent appetite." Intake 100%. Albumin and K+ low. RFT's elevated. Med hx reviewed. MVI, probiotic, pepcid, folic acid with B vitains, vit C and other meds reviewed. BMI inidicates obesity. Assessed at low nutrition risk.
--- NOTE | 2018-12-03 17:59 | NUR ---
AM ASSESSMENT AND VITAL SIGNS COMPLETED DOCUMENTED. PT IS NOW ON 2L/NC DURING THE DAY AND TOLERATES ACTIVITY BETTER. FALL PRECAUTIONS AND HOURLY ROUNDING CONTINUE.
[2018-12-03 20:00] VITALS: BP 102/62
[2018-12-04 03:20] LABS: HEMATOCRIT 37.1 % (42.0-52.0); HEMOGLOBIN 11.9 gm/dL (14.0-18.0); MCH 29.9 pg (26.0-34.0); MCHC 32.1 g/dL (28.0-37.0); MCV 93.2 fL (80.0-100.0); MPV 7.3 fl. (7.2-11.1); RBC 3.98 mil/uL (4.50-6.00); RDW-CV 19.4 % (10.5-14.5); WBC 17.5 thou/uL (4.0-11.0)
[2018-12-04 03:24] LABS: CALCIUM 8.1 mg/dL (8.5-10.1); CREATININE 1.7 mg/dL (0.6-1.3); POTASSIUM 3.3 mmol/L (3.5-5.1)
--- NOTE | 2018-12-04 05:23 | NUR ---
ASSUMED CARES AT 1920. ALERT AND ORIENTED. PLEASANT. ON O2 2L NC. CPAP AT NIGHT. AFLO VEST BROUGHT IN BY [facility]. PT SAYS USES TWICE DAILY. APPLIED VEST FOR 15 MINUTES. HS SNACK GIVEN. SBA WITH GAIT BELT AND WALKER. UP TO BATHROOM. DOES OWN CARES. REMAINS ON ISOLATION FOR MRSA. SLEPT WELL. USING CALL LIGHT APPROPRIATELY. BED ALARM ON.
[2018-12-04 07:58] VITALS: BP 126/73
[2018-12-04 11:42] LABS: CALCIUM 8.6 mg/dL (8.5-10.1); MAGNESIUM 1.9 mg/dL (1.8-2.4); POTASSIUM 3.2 mmol/L (3.5-5.1)
[2018-12-04 14:21] LABS: CREATININE 1.7 mg/dL (0.6-1.3)
--- NOTE | 2018-12-04 18:58 | NUR ---
PT REMAINS PLEASANT AND COOPERATIVE. NO CHANGE IN PLAN OF CARE. POTASSIUM REPLACED PER ELECTROLYTE PROTOCOL THIS SHIFT. HOURLY ROUNDING AND FALL PRECAUTIONS IN PLACE.
[2018-12-04 19:54] VITALS: BP 106/62
[2018-12-05 05:03] LABS: HEMATOCRIT 35.2 % (42.0-52.0); HEMOGLOBIN 11.7 gm/dL (14.0-18.0); MCHC 33.2 g/dL (28.0-37.0); MCV 93.4 fL (80.0-100.0); MPV 7.6 fl. (7.2-11.1); RBC 3.77 mil/uL (4.50-6.00); RDW-CV 19.8 % (10.5-14.5); WBC 14.6 thou/uL (4.0-11.0)
--- NOTE | 2018-12-05 05:25 | NUR ---
ASSUMED CARE AT 1920. ALERT AND ORIENTED. PLEASANT. CONTACT ISOLATION FOR MRSA. CPAP AT NIGHT. ON O2 2L NC. SBA WITH GAIT BELT AND WALKER. UP TO BATHROOM. DOES OWN CARES. SLEPT WELL. CALL LIGHT IN REACH AND BED ALARM ON.
[2018-12-05 05:38] LABS: CALCIUM 8.5 mg/dL (8.5-10.1); CREATININE 1.6 mg/dL (0.6-1.3); POTASSIUM 3.9 mmol/L (3.5-5.1)
[2018-12-05 10:37] VITALS: BP 98/60
--- NOTE | 2018-12-05 15:39 | NUR ---
LOAN and Dr Sánchez met with pt to review team conference summary and plan for pt to remain on inpt rehab unit continuing therapies for at least one more week with plan to reassess pt length of stay during team conference next Tuesday 12/12. LOAN called pt group practice pediatrician Edita and reviewed team conference summary and plan and discussion regarding trying to wean off oxygen. Pt and Edita in agreement with plan. SW to continue to follow to assist with safe dc planning.
--- NOTE | 2018-12-05 17:51 | NUR ---
PATIENT HAS BEEN WITHOUT COMPLAINTS. AMBULATES WITH GAITBELT AND WALKER.
--- NOTE | 2018-12-05 20:00 | NUR ---
SITTING UP IN RECLINER WATCHING A MOVIE ON COMPUTER FROM HOME. DENIES DISCOMFORT. 02 NC AT TWO LITERS. CALL LIGHT WITHIN REACH.
[2018-12-05 20:14] VITALS: BP 98/59
--- NOTE | 2018-12-06 05:49 | NUR ---
RESTED SOUNDLY WITH CPAP AND 02 AT TWO LITERS. NO COMPLAINTS VOICED. HOURLY ROUNDING IN PROGRESS.
[2018-12-06 08:50] VITALS: BP 114/60
[2018-12-06 20:00] VITALS: BP 105/60
--- NOTE | 2018-12-07 06:05 | NUR ---
RESTED QUIETLY WITH CPAP AND OXYGEN AT 2 LITERS. NO COMPLAINTS VOICED. HOURLY ROUNDING IN PROGRESS.
[2018-12-07 08:18] VITALS: BP 109/76
--- NOTE | 2018-12-07 16:54 | NUR ---
ASSUMMED CARE OF PT AT 07, PT ALERT ORIENTED, TRANSFERS WITH SBA GB WALKER AND O2, TAKING FOOD AND FLUID , HAD LUNCH IN DININGROOM, VOIDS PER TOILET, LARGE BM X 2, BRIGHT RED BLOOD NOTED WITH FIRST BM BUT NONE NOTED WITH SECOND, PT STATES HE DOES HAVE HEMORRHOIDS, PT GUARDIAN DIAMOND CALLED THIS AM AND WAS CONCERNED THAT PT WOULD BE WEANED OFF OF HIS 2 LITERS OF 02, EXPRESSED CONCERN THAT IT HAS BEEN ATTEMPTED BEFORE AND PT RESPIRATORY STATUS WORSENS, ASSURED GUARDIAN THAT PT WAS STILL ON O2, GUARDIAN STATED HE HAD LEFT MESSAGE TO HAVE PHYSCIAN CALL HIM MONDAY BUT HAD NOT RECIEVED CALL, INFORMED DR AMBROCIO AND HE TALKED WITH GUARDIAN TODAY. DENIED PAIN THIS SHIFT, PARTICIPATED IN ALL THERAPIES, HOURLY ROUNDING COMPLETED ASSESSMENT COMPLETE, WILL CONTINUE TO MONITOR.
[2018-12-07 20:05] VITALS: BP 106/66
--- NOTE | 2018-12-08 02:08 | NUR ---
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
--- NOTE | 2018-12-08 05:15 | NUR ---
SLEPT LATE SINCE 2300 & SLEPT GOOD ALL NIGHT.BRP X1.TOOK ALL TURKEY SANDWICH, CHIPS,PEACHES,ONE PACKAGE IBIS CRACKERS & SODA HS SNACKS.
--- NOTE | 2018-12-08 06:44 | NUR ---
BEHIND EARS-PINK/RED.FOAM PLACED ON O2 TUBING BEHIND EARS.HAD MOD,FORMED @ 0630 & PINK COLORED H20 IN TOILET BOWL.CLAIMS HE HAS HEMORRHOIDS BUT RN CLEANED ANAL AREA.NO HEMORRHOIDS SEEN.MUST BE INTERNAL.HAS HYDROCORTISONE CREAM BUT ORDERED EXTERNAL USE ONLY.
[2018-12-08 07:29] VITALS: BP 118/72
--- NOTE | 2018-12-08 15:28 | NUR ---
ASSUMED CARE AT 0730. ALERT ORIENTED PLEASANT COOPERATIVE. HX OF PNEUMONIA AND DEBILITY. WEARS O2 AT 2L/M PER N/C CONTINOUSLY. TRANSFERS WITH SBA G BELT AND WALKER AMBULATES TO TO VOID HAS INTERNAL HEMMORHOIDS AND HAS SOME BLEEDING WITH TOILET USE. DR. Amanda BALLESTEROS ORDERED SUPPOSITORY FOR THIS ISSUE ALSO REQUESTS THAT HE WEAR HIS RESPIRATORY VEST X 2 DAY FOR 20 MINUTES HE HAS WORN IT X 1 THIS AFTERNOON. ALSO REQUESTS THAT WE ACQUIRE A NEW C PAP FOR HIM AND NEW TUBING TRANSPORT ASSISTANT HERE AND SPOKE WITH PT. AND HIS MOM REGARDING THIS. PARTICIPATING IN THERAPIES TODAY. TO DR FOR MEALS. APPETITE GOOD FEEDS SELF TAKES MEDS WITHOUT DIFFICULTY. DENIES PAIN OR REQUESTS STAFF HELPED PT. FILL OUT TOMORROWS MENU. IN ISOLATION FOR HX OF MRSA.
[2018-12-08 20:09] VITALS: BP 107/67
--- NOTE | 2018-12-08 23:46 | NUR ---
ASSUMED CARE AT 1930. PATIENT IN CHAIR UNTIL HS. UP WITH ONE, GAIT BELT, WALKER. VOIDS PER TOILET. HAD BM THIS PM. NEEDS HELP WITH HYGIENE AFTER BM. GIVEN ANUSOL SUPPOSITORY AT HS. TAKES PILLS WHOLE WITH WATER ALL AT ONE TIME. NO C/O PAIN. TURNS SELF. O2 2L/NC. CPAP AT HS. HOURLY ROUNDS CONTINUE. BED ALARM ON. CALL LITE IN REACH.
--- NOTE | 2018-12-09 05:42 | NUR ---
SLEPT MOST OF THE NIGHT. CPAP CONTINUES. TURNS SELF. NO C/O PAIN. VOIDED PER TOILET AT HS, NONE SINCE, WHICH IS HIS NORMAL. HOURLY ROUNDS CONTINUE. BED ALARM ON. CALL LITE IN REACH.
[2018-12-09 07:45] VITALS: BP 99/66
[2018-12-09 09:12] VITALS: BP 116/60
--- NOTE | 2018-12-09 14:53 | NUR ---
ASSUMED CARE AT 0730. ALERT ORIENTED PLEASANT COOPERATIVE. HX OF PNEUMONIA DEBILITY AND DOWNS SYNDROME. WEARS O2 AT 2L/M PER N/C CONTINOUSLY. TRANSFERS WITH SBA G BELT WALKER AMBULATES TO TO VOID AND HAS HAD [address] FOR MEALS. APPETITE GOOD FEEDS SELF AND TAKES MEDS WITHOUT DIFFICULTY. USES CALL LIGHT APPROPRIATELY FOR ASSISTANCE. IN ISOLATION FOR HX OF MRSA. DR. BALLESTEROS ROUNDED THIS A.M. DENIES PAIN OR CONCERNS.
--- NOTE | 2018-12-09 18:21 | NUR ---
PT. WORE RESPIRATORY VEST X 1 FOR 20 MINUTES THIS AFTERNOON. HE WANTS TO TALK TO DR. AMBROCIO RE HIS HEALTH WANTS TO KNOW IF HE WILL GET BETTER. WANTS TO RETURN HOME SOON.
[2018-12-09 19:50] VITALS: BP 114/63
--- NOTE | 2018-12-10 05:39 | NUR ---
ASSUMED CARE AT 1929. PATIENT RESTED IN RECLINER UNTIL AROUND 2129. UP WITH SBA, GAIT BELT, WALKER, OXYGEN. WORE RESPIRATORY VEST FROM 2044 TO 2099. O2 2L/NC CONTINUOUSLY. HAD BM PER TOILET, SMALL AMOUNT OF BLOOD NOTED IN TOILET AFTER BM. GIVEN ANUSOL SUPP PER ORDER AT HS. TAKES PILLS WHOLE WITH WATER. HAD HS SNACK OF TWO SHERBETS, TWO APPLE JUICES, AND BOX LUNCH. APPLIES CPAP AT HS. NO C/O PAIN. HOURLY ROUNDS CONTINUE. ALARMS IN USE FOR SAFETY. CALL LITE IN REACH.
[2018-12-10 08:10] VITALS: BP 126/70
--- NOTE | 2018-12-10 16:41 | NUR ---
AM ASSESSMENT AND VITAL SIGNS COMPLETED DOCUMENTED. PT CONTINUES TO WORK WITH ALL THERAPIES AND IS WORKING TOWARD DISCHARGE GOALS. PT REMAINS ON HIS BASELINE O2 AT 2-3L/NC. PT ALSO USES AN AFLO VEST TO HELP WITH SECRETIONS. FALL PRECAUTIONS AND HOURLY ROUNDING CONTINUES.
--- NOTE | 2018-12-10 16:52 | NUR ---
SW working on obtaining new CPAP as recommended and ordered. SW spoke with pt, pt mother, aunt, pt guardian and left a message for group work program director Edita. SW spoke with Ashli who accepted referral and confirmed that first CPAP was issued in 2008, possible pt received new CPAP in 2013 but there was not a record of one being issued through Medicare in 2013. Regardless, pt would be eligible for new CPAP machine now because it has been at least 5 years. SW awaiting call back from [facility] to receive CPAP settings to be able to send order to [facility]. [facility] delivered new supplies, tubing, etc to [facility] already on 12/05 and will deliver new CPAP as soon as they receive order. SW to continue to follow to assist with safe dc planning.
[2018-12-10 19:35] VITALS: BP 117/68
--- NOTE | 2018-12-10 20:15 | NUR ---
SITTING UP IN RECLINER WATCHING WRESTLING ON TV. DENIES DISCOMFORT. 02 NC AT TWO LITERS. HAD BLOODY DISCHARGE ON TOILET FROM RECTUM. GAVE MARYANN CARE AFTERWARDS. CALL LIGHT WITHIN REACH.
--- NOTE | 2018-12-11 05:27 | NUR ---
RESTED QUIETLY WITH CPAP AND 02 AT TWO LITERS. NO COMPLAINTS VOICED. HOURLY ROUNDING IN PROGRESS.
[2018-12-11 07:27] VITALS: BP 124/73
--- NOTE | 2018-12-11 15:38 | EKG ---
[place] [address] ELECTROCARDIOGRAM REPORT Name: ROB BATESOLAS OZZIE Room: [address] ADM IN M.R.#: [id number] Admission: 11/29/18 Attend Phys: Remberto Sánchez MD Discharge: Date of : 84 Report #: [id number] THIS REPORT FOR: //name// [facility] Test Date: 2018-12-10 Test Time: 17:25:24 Pat Name: SONI BATES Department: Room: [address] Gender: M Nursing Home Assistant Administrator: JADE HO : 1980 Requested By: Remberto Sánchez Order Number: [id number] Nisha MD: Emilio Lowe Measurements Intervals [place] Rate: 101 P: 65 DE: 131 QRS: 68 QRSD: 77 T: 24 QT: 342 QTc: 444 Interpretive Statements Sinus tachycardia Compared to ECG 11/27/2018 22:23:20 No significant changes Electronically Signed On 12-11-2018 15:38:12 CDT by Emilio Lowe [email or web address] <ELECTRONICALLY SIGNED> By: Emilio Lowe MD, [facility] 12/11/18 1538 1725 24 Emilio Lowe MD, FACC /EPI
--- NOTE | 2018-12-11 15:44 | EKG ---
[place] [address] ELECTROCARDIOGRAM REPORT Name: BATESSONI Room: [address] ADM IN M.R.#: [id number] Admission: 11/29/18 Attend Phys: Remberto Sánchez MD Discharge: Date of : 84 Report #: [id number] THIS REPORT FOR: //name// [facility] Test Date: 2018-12-11 Test Time: 10:11:47 Pat Name: SONI BATES Department: Room: [address] Gender: M Bridge Opener: : 1980 Requested By: Ethel Bowie Order Number: [id number] Nisha MD: Emilio Lowe Measurements Intervals [place] Rate: 85 P: 33 AK: 125 QRS: 53 QRSD: 78 T: 16 QT: 346 QTc: 412 Interpretive Statements Sinus rhythm Compared to ECG 11/27/2018 22:23:20 Sinus tachycardia no longer present Electronically Signed On 12-11-2018 15:44:09 CDT by Emilio Lowe [email or web address] <ELECTRONICALLY SIGNED> By: Emilio Lowe MD, [facility] 12/11/18 1544 101 Emilio Lowe MD, FACC /EPI
--- NOTE | 2018-12-11 16:11 | NUR ---
ASSUMMED CARE OF PT [id number], PT ALERT AND ORIENTED, PT TRANSFERS WITH SBA, GB WALKER, PT ASKED IF HE WANTED TO NOT USE WALKER BUT STATED HE WANTS TO USE WALKER, PT DENIES PAIN THIS SHIFT, PT HAS RED AREA UNDER LEFT AXILLA, NYSTATIN APPLIED, TAKING FOOD AND FLUIDS WELL, CARDIOLOGY HERE TO SEE PT, PT TO HAVE STRESS TEST TOMORROW SO IS NOT TO HAVE ANY CAFFEINE AND NPO AFTER MIDNIGHT, PT HAD SEVERAL FORMED STOOLS THIS SHIFT, DOES HAVE SOME BRIGHT RED BLEEDING WITH STOOL, AMBULATED TO DININGROOM FOR LUNCH, PARTICIPATED IN ALL THERAPIES, HOURLY ROUNDING COMPLETED, ASSESSMENT COMPLETE, WILL CONTINUE TO MONITOR.
--- NOTE | 2018-12-11 16:22 | NUR ---
LOAN faxed order for new CPAP to [facility]. LOAN spoke with Edita who had a lead nurse at care home contact me to inform of the settings of the pressure being 9. LOAN mentioned preference of pt to have RW at [place] and would this be something that would be allowed in care home setting; Edita discussed with SW that she did not understand why pt would need a RW and it may be more "behavioral" than necessity. SW to discuss this with team tomorrow and LAON spoke with pt to encourage pt to trial walking without the walker during therapies.
[2018-12-11 18:10] LABS: IgA 180 mg/dL (90-386); IgG 630 mg/dL (700-1600); IgM 65 mg/dL (20-172)
[2018-12-11 19:00] VITALS: BP 97/62
--- NOTE | 2018-12-11 20:20 | NUR ---
SITTING UP IN RECLINER WATCHING TV. DENIES DISCOMFORT. 02 NASAL CANNULA AT TWO LITERS. CALL LIGHT WITHIN REACH. INSTRUCTED PATIENT ON NPO STATUS AFTER MIDNIGHT AND NO CAFFEINE INTAKE. PATIENT STATED HE UNDERSTOOD.
--- NOTE | 2018-12-12 05:38 | NUR ---
LAST NIGHT PATIENT'S GUARDIAN, KIM MCKEON, CALLED AND SAID THAT HE DIDN'T WANT PATIENT TO HAVE THE STRESS TEST AND TO MAKE SURE THAT THE PATIENT GOT BREAKFAST. MR. MCKEON STATED THAT HE DISCUSSED THE STRESS TEST WITH THE PATIENT'S MOTHER AND THAT THEY BOTH AGREED THAT THE STRESS TEST WAS UNNECESSARY. PATIENT RESTED QUIETLY WITH CPAP AND 02 AT 2 LITERS. HOURLY ROUNDING IN PROGRESS.
[2018-12-12 08:39] VITALS: BP 103/69
--- NOTE | 2018-12-12 11:16 | CON ---
[facility] [address] [place] [address] CONSULTATION Name: JANASONI OZZIE Room: [address] ADM IN M.R.#: [id number] Admission: 11/29/18 Attend Phys: Remberto Sánchez MD Discharge: Date of : 84 Report #: [id number] THIS REPORT FOR: //name// CC: Shae Sánchez REFERRING PHYSICIAN: Dr. Bowie. REASON FOR CONSULTATION: Persistent infiltrate, chronic respiratory failure and obstructive sleep apnea. HISTORY OF PRESENT ILLNESS: This is a patient who is 38-year-old male patient with known history of Down syndrome. He is well known to our service from previous hospitalization with recurrent respiratory failure. He was last time seen by our service back in 10/2018 when he was hospitalized with pneumonia. He has a background history of chronic respiratory failure, on home oxygen in addition to obstructive sleep apnea, on CPAP. He has a diagnosis of bronchiectasis, although it was minimal. He was hospitalized late October to this facility and from there he was sent to rehab unit. I saw him today in the rehab unit. His previous sputum culture was positive for MRSA. In the past, he had a bronchoscopy that showed ____ influenza and Renea albicans. He had 2 chest x-rays since transfer to rehab unit, still showing some persistent infiltrate, although improved compared to the chest x-ray in late 10/2018. Today, he looked comfortable. He is on 2-liter oxygen and he has the CPAP at the bedside. He sleeps with it every night. He reports that he is breathing at baseline. He has some cough, occasionally green sputum, but nothing significant. He is tolerating diet. He had no difficulty breathing and he had no fever, no chills. REVIEW OF SYSTEMS: All review of systems negative other than as mentioned above. PAST MEDICAL HISTORY: History of Down syndrome, history of asthma, obstructive sleep apnea, on CPAP at home, chronic respiratory failure, on home oxygen; history of bronchiectasis, history of MRSA infection in the past, history of cellulitis. Negative history of HIV. PAST SURGICAL HISTORY: Reviewed. SOCIAL HISTORY: Lives in a correction. He has no history of smoking or drug use. CURRENT MEDICATIONS: Reviewed as documented within the [facility]. HOME MEDICATION: Also reviewed. FAMILY HISTORY: [place] [address] CONSULTATION Name: SONI BATES Room: [address] IN [facility].#: [id number] Admission: 11/29/18 Attend Phys: Remberto Sánchez MD Discharge: Date of : 84 Report #: [id number] ALLERGIES: SULFA. PHYSICAL EXAMINATION: VITAL SIGNS: He is on 2 liter oxygen with O2 saturation more than 90%, afebrile with a pulse of 79 and blood pressure 124/73. GENERAL: Sitting on the side of the bed: Awake, alert, features of Down syndrome. HEENT: Head normocephalic, atraumatic. Pupils reactive to light. Externally, ear looks normal. Oral cavity crowded oral airways with large tongue. NECK: Full range of movement. No masses felt. Trachea central. CHEST: Air movement heard bilaterally. ____ rhonchi. No wheezes. Slightly prolonged expiratory phase. HEART: S1, S2, no murmur. ABDOMEN: Obese, soft, lax, benign, nontender. Positive bowel sounds. No masses felt, no rebound, no rigidity. EXTREMITIES: Lower extremity: No edema, no calf tenderness. SKIN: Normal for age and race. NEUROLOGIC: Moves all 4 extremities spontaneously. No focal weakness. LABORATORY DATA: He had 2 chest x-rays this month, showed bilateral lower lobe infiltrate versus atelectasis, although improved compared to the chest x-ray that was done in late October. His white blood count 14.6, hemoglobin 11.7, platelet 253. His creatinine is 1.6, which seems to be close to baseline. Potassium 3.9, sodium 140, bicarbonate 29. IMPRESSION: 1. Chronic respiratory failure, on home oxygen. 2. Asthma. 3. Pulmonary infiltrate. 4. Obstructive sleep apnea, on CPAP. 5. Down syndrome. 6. History of methicillin-resistant Staphylococcus aureus infection in the past. PLAN: At this point, I would continue the patient on his current nebulization treatment, Singulair. He is on minocycline and I would continue the incentive spirometry, the flutter valve and mucolytics. Monitor him for any signs of aspiration precautions. It was reported that his previous IgG, IgM levels were normal. I will do a repeat level. Please note his chest x-ray actually improving compared to last chest x-ray. These findings could be atelectasis versus some changes related to bronchiectasis and resolving infiltrate. Please note also pneumonia takes few weeks from the x-ray to resolve. [address] [address] CONSULTATION Name: SONI BATES Room: [address] [facility] IN .R.#: [id number] Admission: 11/29/18 Attend Phys: Remberto Sánchez MD Discharge: Date of : 84 Report #: [id number] Thank you for the consult. <ELECTRONICALLY SIGNED> By: Brian Brown MD 12/12/18 1116 1019 [id number] Brown MD /nt
--- NOTE | 2018-12-12 13:53 | NUR ---
LOAN and Dr Sánchez met with pt to review team conference summary and plan for pt to dc home to [facility] tomorrow 12/13. Pt in agreement with plan; SW to discuss plan with guardian Ramo and manager pool Edita. HH services through [facility] to follow. LOAN followed up with CPAP order through [facility]; LOAN faxed updated script with NPI and length of need. Ashli explained that pt will need to come in to company to receive new CPAP and that if it was to be delivered, it could take up to 2 weeks at least to receive new CPAP. LOAN explained pt needs CPAP jayshree and that SW will discuss with guardian about arranging for going with pt to coal picker CPAP. Pt not using rolling walker as much anymore and therapy and pt in agreement pt not needing RW at dc. Team recommending pt practice with backpack home oxygen for managing stairs, LOAN to discuss with [facility] to attempt for this to happen prior to dc.
--- NOTE | 2018-12-12 16:38 | NUR ---
PT PROGRESSING TOWARDS GOALS THIS SHIFT. VSS. WEEKLY TEAM MEETING COMPLETED. DISCUSSED PLAN OF CARE WITH PT'S MOTHER AND GUARDIAN. CASE MANAGEMENT REQUESTING PT'S HOME OXYGEN TO DEMONSTRATE ABILITY TO USE PRIOR TO DISCHARGE. POSSIBLE DISCHARGE TOMORROW. NO OTHER CONCERNS AT THIS TIME. CLWR. WCTM.
[2018-12-12 21:20] VITALS: BP 116/62
--- NOTE | 2018-12-13 01:24 | NUR ---
ASSUMED CARE @ 1924-12/12-MON.SITS IN RECLINER W/ O2 ON @ 2L/NC.CHAIR ALARM Already on @ 1924.ON HIS TABLET PLAYING CARD GAME.ISOLATION OBSERVED.TO BED @ 2199-AFTER BRP.HOB UP WHILE IN BED.BED ALARM PUT ON @ 2199.WANTS DOOR CLOSED @ NIGHT.LEFT AXILLA-RED.CLEANED & DRY @ 2199 & NYSTATIN POWDER APPLIED.PUTS C PAP ON SELF @ NIGHT.RN PUT SOME H20 IN C PAP MACHINE PER PT'S INSTRUCTION. SLEEPING @ 2300 W/ C PAP ON.ON HOURLY ROUNDS.
--- NOTE | 2018-12-13 05:46 | NUR ---
SLEEPING SINCE 2300 & SLEPT STRAIGHT SINCE 0600.AWAKENED @ 0600 FOR MEDS. BRP X1 ONLY W/ SBA.NO ASSISTIVE DEVICE.HAD SMALL AMOUNT RECTAL BLEEDING @ 2152.REFUSED HYDROCORTISONE CREAM.TOOK ALL TURKEY SANDWICH,IBIS CRACKERS,PEACHES,POP & CHIPS HS SNACKS.FOR DISCHARGE TODAY-12/13-MONDAY.
[2018-12-13 08:00] VITALS: BP 110/65
[2018-12-13 10:54] VITALS: BP 110/65
[2018-12-13] MEDS ORDERED: ANUSOL-HC25 MG RECTAL (11:07)
--- NOTE | 2018-12-13 11:12 | NUR ---
Pt to dc home to [facility] today. [facility] services to follow; LOAN faxed referral/orders/med list/resumption of care to intake at [facility]. LOAN spoke with Yolanda at [facility] again about the need for the new CPAP and an appt was scheduled for pt to receive CPAP at [facility] on Monday at 1 pm. LOAN provided information in dc instructions. half-way caregivers, day spa manager, and pt guardian Ramo all aware of dc plans.
[2018-12-13] MEDS ORDERED: NYAMYC15 GM TOP (11:19)
--- NOTE | 2018-12-13 17:26 | NUR ---
PT HAS BEEN PROVIDED WITH A COPY OF HIS DISCHARGE INSTRUCTIONS. A SECOND DISCHARGE PACKET SENT WITH TRANSPORTER FOR THE STAFF AT THE [facility]ENT[place]. PT AND BELONGINGS TRANSPORTED TO THE EXIT, ASSISTED INTO CAR, DISCHARGED IN STABLE CONDITION.
== END 2018-12-13 17:32 | disposition home health service (06) | DRG 189 ==
LOC: M.REH 11:41
PROVIDERS: Family Medicine; Internal Medicine; ADMIT Physical Medicine & Rehabilitation
DX: J96.21 Acute and chronic respiratory failure with hypoxia (principal); J15.6 Pneumonia due to other Gram-negative bacteria; J15.212 Pneumonia due to Methicillin resistant Staphylococcus aureus; E03.9 Hypothyroidism, unspecified; I27.20 Pulmonary hypertension, unspecified; I10 Essential (primary) hypertension; J45.50 Severe persistent asthma, uncomplicated; J44.9 Chronic obstructive pulmonary disease, unspecified; K64.8 Other hemorrhoids; R07.9 Chest pain, unspecified; G47.33 Obstructive sleep apnea (adult) (pediatric); Q90.9 Down syndrome, unspecified; Z87.01 Personal history of pneumonia (recurrent); Z88.2 Allergy status to sulfonamides

== ENCOUNTER → 2019-01-07 | Outpatient (CLI) | payer MEDICARE, MEDICAID ==
[~2019-01-07] MED LIST changes: +ANUSOL-HC25 MG RECTAL; +NYAMYC15 GM TOP
== END ==
LOC: M.PC 04:51
DX: J96.10 Chronic respiratory failure, unspecified whether with hypoxia or hypercapnia (principal); J18.9 Pneumonia, unspecified organism; J45.909 Unspecified asthma, uncomplicated; Q90.9 Down syndrome, unspecified; Z88.2 Allergy status to sulfonamides

== ENCOUNTER 2019-02-09 22:06 | Inpatient (IN) | payer MEDICARE, MEDICAID ==
[~2019-02-09] VITALS: Ht 152.4 cm; Wt 86.5 kg
[2019-02-09 22:07] VITALS: BP 105/64
[2019-02-09 22:35] LABS: HEMATOCRIT 41.3 % (42.0-52.0); HEMOGLOBIN 13.7 gm/dL (14.0-18.0); MCH 30.8 pg (26.0-34.0); MCHC 33.3 g/dL (28.0-37.0); MCV 92.6 fL (80.0-100.0); MPV 6.8 fl. (7.2-11.1); NUCLEATED RBCS 0 /100WBC; PLATELET COUNT* 286 thou/uL (150-400); RBC 4.47 mil/uL (4.50-6.00); RDW-CV 15.5 % (10.5-14.5); WBC 15.4 thou/uL (4.0-11.0)
[2019-02-09 22:41] LABS: CALCIUM 8.8 mg/dL (8.5-10.1); CREATININE 1.6 mg/dL (0.6-1.3); POTASSIUM 3.4 mmol/L (3.5-5.1)
[2019-02-09 22:44] LABS: APTT 26.1 Seconds (25.0-31.3); PROTIME 10.6 Seconds (9.20-11.50)
[2019-02-09 22:52] LABS: ALBUMIN 3.5 g/dL (3.4-5.0); TOTAL BILIRUBIN 0.4 mg/dL (<0.1-1.0); TOTAL PROTEIN 6.8 g/dL (6.4-8.2); TROPONIN-I LEVEL 0.09 ng/mL (<0.06)
[2019-02-09 22:57] LABS: ABSOLUTE BASOPHILS 0.5 thou/uL (0.0-0.2); ABSOLUTE EOSINOPHILS 0.2 thou/uL (0.0-0.7); ABSOLUTE LYMPHOCYTES 0.3 thou/uL (0.8-5.3); ABSOLUTE MONOCYTES 0.2 thou/uL (0.0-1.2); ABSOLUTE NEUTROPHILS 14.3 thou/uL (1.6-8.1); PLATELET ESTIMATE ADEQUATE
[2019-02-09] MEDS ORDERED: LEVAQUIN 500 M500 M2 PO (23:36)
[2019-02-09] MEDS ORDERED: AZITHROMYCIN 2250 MG PO (23:36)
[2019-02-09] MEDS ORDERED: MIRALAX17 GM PO (23:36)
[2019-02-09] MEDS ORDERED: PREDNISONE 10 M10 MG PO (23:36)
[2019-02-09] MEDS ORDERED: THEREMS1 EAC1 PO (23:37)
[2019-02-09] MEDS ORDERED: OMEPRAZOLE40 MG PO (23:37)
[2019-02-09] MEDS ORDERED: MAXZIDE-25 MG1 EACH PO (23:37)
[2019-02-09] MEDS ORDERED: DELSYM COU30 MG/5 M1 (23:38)
[2019-02-09] MEDS ORDERED: GYNE-LOTRIMIN-745 GM TOP (23:38)
[2019-02-09] MEDS ORDERED: IBUPROFEN 200200 M1 PO (23:39)
[2019-02-09] MEDS ORDERED: NAPROSYN500 MG (23:39)
[2019-02-09] MEDS ORDERED: MUPIROCIN22 GM TOP (23:39)
[2019-02-09] MEDS ORDERED: PROMETH-CODEIN 65 ML PO (23:40)
[2019-02-09] MEDS ORDERED: VENTOLIN HFA 1818 GM INH (23:40)
[2019-02-10 00:15] VITALS: BP 128/65
[2019-02-10 04:00] VITALS: BP 119/68
--- NOTE | 2019-02-10 07:39 | NUR ---
PT RECIEVED FROM ED. ALERT AD ORIENTED X4. SAT MAINTAINED IN O2. PT HAS COUGHING FITS. C/O SOB AND CHEST PAIN WHILE HE COUGHS, INFORMED PHYSICIAN, GOT ORDER FOR MEDICATION AND BREATHING TREATMENT. MEDICATION GIVEN PER EMAR. HOURLY ROUNDING DONE FOR PT SAFETY.
[2019-02-10 08:10] VITALS: BP 105/50
[2019-02-10 12:06] VITALS: BP 98/67
[2019-02-10 13:34] LABS: URINE BILIRUBIN NEGATIVE (Negative); URINE BLOOD NEGATIVE (Negative); URINE CLARITY CLEAR; URINE COLOR YELLOW; URINE GLUCOSE-RANDOM NEGATIVE (Negative); URINE KETONES NEGATIVE (Negative); URINE LEUKOCYTES-REFLEX NEGATIVE (Negative); URINE NITRITE-REFLEX NEGATIVE (Negative); URINE PROTEIN NEGATIVE (Negative); URINE SPECIFIC GRAVITY <= 1.005 (1.005-1.030); URINE UROBILINOGEN 0.2 E.U./dl (0.2-1.0)
[2019-02-10 15:47] VITALS: BP 117/58
--- NOTE | 2019-02-10 16:36 | NUR ---
VSS, ASSUMED CARE IN THE AM, ASSESSMENT PERFORMED AND CHARTED, FALL PRECAUTIONS IN PLACE AND CALL LIGHT IN REACH, PT DENIES ANY PAIN, HE IS ON 4L NC AND IS TRACING SR ON THE MONITOR, PT GOAL IS TO SIT UP IN CHAIR AND IMPROVE BREATHING, PT IS UP WITH STAND BY, AT THIS TIME GOALS HAVE BEEN MET, HOURLY ROUNDS COMPLTED AND WILL FOLLOW WITH PLAN OF CARE.
[2019-02-10 20:00] VITALS: BP 101/63
[2019-02-11 00:30] VITALS: BP 100/64
[2019-02-11 04:30] VITALS: BP 94/46
[2019-02-11 04:47] LABS: ABSOLUTE LYMPHOCYTES 0.4 thou/uL (0.8-5.3); ABSOLUTE NEUTROPHILS 7.7 thou/uL (1.6-8.1); BASOPHILS 0.6 %; EOSINOPHILS 0.1 %; HEMATOCRIT 39.2 % (42.0-52.0); HEMOGLOBIN 13.2 gm/dL (14.0-18.0); LYMPHOCYTES 4.7 %; MCH 31.1 pg (26.0-34.0); MCHC 33.7 g/dL (28.0-37.0); MCV 92.3 fL (80.0-100.0); MONOCYTES 0.6 %; MPV 7.4 fl. (7.2-11.1); NUCLEATED RBCS 0 /100WBC; PLATELET COUNT* 286 thou/uL (150-400); RBC 4.24 mil/uL (4.50-6.00); RDW-CV 15.7 % (10.5-14.5); WBC 8.1 thou/uL (4.0-11.0)
[2019-02-11 05:03] LABS: ANION GAP 8 mmol/L (7-16); BUN 14 mg/dL (7-18); CALCIUM 8.6 mg/dL (8.5-10.1); CHLORIDE 105 mmol/L (98-107); CHOLESTEROL 196 mg/dL (<200); CO2 27 mmol/L (21-32); CREATININE 1.4 mg/dL (0.6-1.3); GLUCOSE 147 mg/dL (70-99); HDL CHOLESTEROL 58 mg/dL (>40); LDL CHOLESTEROL 130 mg/dL (<100); POTASSIUM 4.1 mmol/L (3.5-5.1); SODIUM 140 mmol/L (136-145); TC:HDL 3.4 Ratio (Not establshd); TRIGLYCERIDE 42 mg/dL (<150); VLDL 8 mg/dL (<40)
[2019-02-11 05:07] LABS: SERUM ASSESSMENT CLEAR
[2019-02-11 09:11] VITALS: BP 120/68
--- NOTE | 2019-02-11 10:46 | NUR ---
ASSUMED CARE OF PATIENT THIS AM AT 0730. PATIENT IS ALERT ORIENTED X 4. HE DENIES PAIN AND SOA. PATIENT ASSISTED UP TO THE CHAIR THIS AM AND PERCUSSION VEST PLACED ON. TELE SHOWS NSR. PATIENT IS PROGRESSING TOWARDS GOALS. NO FALLS OR INJURY.
[2019-02-11 11:44] VITALS: BP 117/71
--- NOTE | 2019-02-11 14:04 | NUR ---
Pt is A&O. Resides at [facility]. Pt's cousin is his guardian. Independent. Pt has home o2 and a cpap through [facility], Pt also has a neb. Hx of acute rehab. Hx of HH with [facility]. No hx of SNF. [place] Following.
[2019-02-11 20:00] VITALS: BP 116/67
[2019-02-12 00:46] VITALS: BP 114/61
[2019-02-12 04:00] VITALS: BP 116/59
--- NOTE | 2019-02-12 04:46 | NUR ---
ASSUMED PATIENT CARE AT 1900. PATIENT ALERT AND ORIENTED, SHAKER VEST APPLIED INDICATED BY HOME CARE STAFF. MINOR COMPLAINTS OF PAIN NOTED, ORAL MEDICATION GIVEN. RURAL MAIL CARRIER AND HOURLY ROUNDING COMPLETED DOCUMENTED
[2019-02-12 08:00] VITALS: BP 106/58
--- NOTE | 2019-02-12 09:06 | NUR ---
ASSUMED CARE OF PT THIS AM AROUND 0715- OPERATING ROOM TECHNOLOGIST INPLACE ORDERED, TRACING SR- UPON ASSESSMENT PT NOTED TO BE SITTING UP IN BED, WATCHING TV- PT A&O X 4- CONTINENT OF BOWEL AND BLADDER- SBA WITH TRANSFERS FOR SAFETY-LCTA, RESP EVEN AND UN-LABORED- VSS, O2 SAT 93% ON CPAP THIS AM- ABD SOFT/ROUND/NON-TENDER, BS X4 QUADS- LAST BM REPORTED X2 DAYS AGO- TRACE EDEMA NOTED TO BLE- IV NOTED TO LEFT WRIST INTACT, IV ABT INFUSSING PRESCIBED- GOOD PO INTAKE NOTED THIS AM WITH BREAKFAST- PT DENIES ANY C/O PAIN/DISCOMFORT AT THIS TIME- CALL LIGHT AND PERSONAL BELONGINGS WITH IN REACH- HOURLY ROUNDS IN PLACE R/T SAFETY/NEEDS- ALL NEEDS MET AT THIS TIME-WCTM
--- NOTE | 2019-02-12 09:27 | EKG ---
[place] [address] ELECTROCARDIOGRAM REPORT Name: JANASONI OZZIE Room: [address] ADM IN M.R.#: [id number] Admission: 02/09/19 Attend Phys: Ethel Bowie MD Discharge: Date of : 84 Report #: [id number] THIS REPORT FOR: //name// [facility] ED Test Date: 2019-02-09 Test Time: 22:32:40 Pat Name: SONI BATES Department: Room: [facility] Gender: M Curator Of Education: : 1980 Requested By: Roc Paz Order Number: [id number] MD: Emilio Lowe Measurements Intervals [place] Rate: 114 P: 44 OR: 125 QRS: 38 QRSD: 75 T: 7 QT: 309 QTc: 426 Interpretive Statements Sinus tachycardia Compared to ECG 12/11/2018 10:11:47 Sinus rhythm no longer present Electronically Signed On 02-12-2019 9:27:04 CDT by Eimlio Lowe [email or web address] <ELECTRONICALLY SIGNED> By: Emilio Lowe MD, [facility] 02/12/19926 31 31 Emilio Lowe MD, FACC /EPI
[2019-02-12 12:00] VITALS: BP 123/66
[2019-02-12 16:00] VITALS: BP 144/75
--- NOTE | 2019-02-12 18:14 | CON ---
[address] [address] CONSULTATION Name: SONI BATES Room: [address] IN M.R.#: [id number] Admission: 02/09/19 Attend Phys: Ethel Bowie MD Discharge: Date of : 84 Report #: [id number] THIS REPORT FOR: //name// CC: Ethel Santoro CARDIOLOGY CONSULTATION INDICATION: Elevated troponin. HISTORY OF PRESENT ILLNESS: The patient is a very pleasant 39-year-old gentleman with Down syndrome. He has recurrent hospitalizations for respiratory distress and pneumonia. He was noted to have an elevated troponin of 0.09, 0.09 and now 0.07. He did note some midsternal chest discomfort lasting approximately 2 hours yesterday. EKGs were unremarkable. He is not having pain at this time. He remains hemodynamically stable. He has no history of coronary artery disease. He does appear to have a chronically elevated troponin. On telemetry, he is in sinus rhythm. Only known cardiac risk factor is hypertension. At the present time, he is without cardiac complaint. Serial echocardiograms have shown his ejection fraction to be approximately 50-55%. He has a chronic moderate sized pericardial effusion with no evidence of tamponade. PAST MEDICAL HISTORY: 1. Hypertension. 2. Pulmonary hypertension. 3. Asthma. 4. Hypothyroidism. 5. Chronic obstructive pulmonary disease. 6. Anemia. 7. Obstructive sleep apnea, on CPAP. 8. GERD. 9. Aspiration pneumonia. 10. Chronic hypoxic respiratory failure. 11. Chronic pericardial effusion. 12. Recurrent pneumonia. 13. Episodes of sepsis in the past. PAST SURGICAL HISTORY: 1. Chronically elevated troponin. 2. Down syndrome. 3. Seasonal allergies. ALLERGIES: SULFA. CURRENT MEDICATIONS: Loratadine 10 mg daily, levothyroxine 0.112 mg daily, [place] [address] CONSULTATION Name: BATESSONI Room: [address] IN [facility].#: [id number] Admission: 02/09/19 Attend Phys: Ethel Bowie MD Discharge: Date of : 84 Report #: [id number] methylprednisolone 40 mg b.i.d., Singulair 10 mg at bedtime, Lovenox 40 mg at bedtime, levofloxacin IV at bedtime, Folate 1 mg daily, vitamin C 500 mg daily, Prozac 10 mg daily, fluticasone nasal spray daily, benzonatate 100 mg p.o. q.6 hours, Mepresone t.i.d. topically, Maxzide one tablet daily, nystatin topically b.i.d. p.r.n., guaifenesin 600 mg b.i.d., Protonix 40 mg daily, hydralazine 10 mg q.6 hours p.r.n., Zofran 4 mg q.6 hours p.r.n., MiraLax 17 grams daily, levalbuterol q.6 hours inhaled, Unasyn every 8 hours, Tylenol p.r.n. PHYSICAL EXAMINATION: VITAL SIGNS: Stable. Blood pressure 105/50, pulse 76 and regular. Telemetry shows sinus rhythm. GENERAL: This is a pleasant young gentleman who is in no distress. Mood and affect appropriate. HEENT: The patient is wearing glasses. Extraocular muscles intact. Mucous membranes are moist. NECK: Shows no obvious jugular venous distention. CHEST: Reveals coarse breath sounds bilaterally. CARDIOVASCULAR: Reveals a regular rhythm without gallop, murmur or rub. ABDOMEN: Reveals normal bowel sounds. The abdomen is soft, nontender. EXTREMITIES: Shows no edema. Peripheral pulses palpable. SKIN: Warm and dry. LABORATORY DATA: A 12-lead EKG shows sinus tachycardia with no significant ST or T-wave abnormalities. Labs are evaluated and significant for troponin of 0.09, 0.09 and 0.07. IMPRESSION AND RECOMMENDATION: 1. Atypical chest pain. Doubt this represents an acute coronary syndrome. I would continue to treat conservatively. 2. Chronically elevated troponin. Troponins do not appear to be significantly different from previous measurements. We would not consider this to be due to acute coronary syndrome at this time. We would follow clinically. 3. Chronic pericardial effusion, presently stable. Serial EKGs have shown no significant change in the pericardial effusion size. We would follow clinically. 4. Hypertension, adequately controlled on current regimen. 5. Would check a fasting lipid profile to see if there is any significant hyperlipidemia. <ELECTRONICALLY SIGNED> By: Emilio Lowe MD, FACC 02/12/19 1814 1151 [id number] Lowe MD, FACC /nt
[2019-02-12 20:00] VITALS: BP 90/55
[2019-02-13] VITALS: BP 101/54
[2019-02-13 04:00] VITALS: BP 104/55
[2019-02-13 05:09] LABS: HEMOGLOBIN 13.4 gm/dL (14.0-18.0); MCH 30.2 pg (26.0-34.0); MCHC 32.6 g/dL (28.0-37.0); MCV 92.7 fL (80.0-100.0); MPV 7.1 fl. (7.2-11.1); NUCLEATED RBCS 0 /100WBC; PLATELET COUNT* 279 thou/uL (150-400); RBC 4.43 mil/uL (4.50-6.00); RDW-CV 15.3 % (10.5-14.5); WBC 13.4 thou/uL (4.0-11.0)
--- NOTE | 2019-02-13 05:17 | NUR ---
ASSUMED CARE AT 1930H, ON NC AT 2LP AND KEPT ON CPAP DURING SLEEP. NO RESPIRATORY DISTRESS NOTED AND NO CHEST PAIN. CONTINUE MONITORING, CALL LIGHT WITHIN REACH AND TOWARDS GOALS.
[2019-02-13 05:32] LABS: ALBUMIN 3.1 g/dL (3.4-5.0); CALCIUM 8.6 mg/dL (8.5-10.1); CREATININE 1.3 mg/dL (0.6-1.3); POTASSIUM 3.8 mmol/L (3.5-5.1); TOTAL BILIRUBIN 0.2 mg/dL (<0.1-1.0); TOTAL PROTEIN 6.5 g/dL (6.4-8.2)
[2019-02-13 05:56] LABS: ABSOLUTE LYMPHOCYTES 0.7 thou/uL (0.8-5.3); ABSOLUTE MONOCYTES 0.3 thou/uL (0.0-1.2); ABSOLUTE NEUTROPHILS 12.5 thou/uL (1.6-8.1); PLATELET ESTIMATE ADEQUATE
[2019-02-13 05:57] LABS: ANISOCYTOSIS 1+; POIKILOCYTOSIS 1+
--- NOTE | 2019-02-13 07:05 | NUR ---
CHANGE OF SHIFT, BEDSIDE REPORT GIVEN PATIENT SEEN AT BEDSIDE, IN BED ASLEEP WITH BIPAP ON ASSUMED PATIENT CARE
[2019-02-13 08:00] VITALS: BP 108/62
[2019-02-13 09:58] VITALS: BP 108/62
--- NOTE | 2019-02-13 11:56 | NUR ---
Pt discharging back to his long term today. Faxed HH orders to [facility]. Faxed neb orders to [facility] to deliver. Updated legal guardian of dc. [facility] staff to transport.
[2019-02-13] MEDS ORDERED: DOXYCYCLINE 10100 MG PO (14:57)
[2019-02-13] MEDS ORDERED: IPRATROPIU0.2 MG/1 M INH (15:04)
--- NOTE | 2019-02-13 19:00 | NUR ---
PATIENT DISCHARGED TO [facility] ALL DISCHARGE INSTRUCTIONS GIVEN, WRITTEN COPIES SIGNED IV AND HEART MONITOR REMOVED PERSONAL BELONGINGS RETURNED ASSISTED OUT TO WAITING CAR AMBULATORY WITH O2 AT 2L NC
== END 2019-02-13 18:45 | disposition home health service (06) | DRG 177 ==
LOC: M.ERS 22:06 → M.TBA-ER 23:23 → M.2W 23:23
PROVIDERS: Emergency Medicine Emergency Medical Services; Internal Medicine; ADMIT Internal Medicine
PROC: 5A09357 Assistance with Respiratory Ventilation, Less than 24 Consecutive Hours, Continuous Positive Airway Pressure (ICD-10-PCS; principal; 2019-02-11)
PROC: 5A09357 Assistance with Respiratory Ventilation, Less than 24 Consecutive Hours, Continuous Positive Airway Pressure (ICD-10-PCS; 2019-02-12)
PROC: 5A09357 Assistance with Respiratory Ventilation, Less than 24 Consecutive Hours, Continuous Positive Airway Pressure (ICD-10-PCS; 2019-02-13)
DX: J69.0 Pneumonitis due to inhalation of food and vomit (principal); J96.21 Acute and chronic respiratory failure with hypoxia; I31.3 Pericardial effusion (noninflammatory); I10 Essential (primary) hypertension; I27.20 Pulmonary hypertension, unspecified; J45.909 Unspecified asthma, uncomplicated; E03.9 Hypothyroidism, unspecified; J44.9 Chronic obstructive pulmonary disease, unspecified; G47.33 Obstructive sleep apnea (adult) (pediatric); K21.9 Gastro-esophageal reflux disease without esophagitis; Q90.9 Down syndrome, unspecified; Z88.2 Allergy status to sulfonamides; Z79.899 Other long term (current) drug therapy

== ENCOUNTER 2019-03-15 20:08 | Inpatient (IN) | payer MEDICARE, MEDICAID ==
[~2019-03-15] VITALS: Ht 165.1 cm; Wt 90.3 kg
[~2019-03-15 20:08] MED LIST changes: +DELSYM COU30 MG/5 M1; +GYNE-LOTRIMIN-745 GM TOP; +MUPIROCIN22 GM TOP; +NAPROSYN500 MG; +PROMETH-CODEIN 65 ML PO
[2019-03-15 20:19] VITALS: BP 107/70
[2019-03-15] MEDS ORDERED: MILK OF MA400 MG/5 M PO (20:37)
[2019-03-15] MEDS ORDERED: NAPROSYN500 MG PO (20:38)
[2019-03-15 20:50] LABS: ABSOLUTE BASOPHILS 0.1 thou/uL (0.0-0.2); ABSOLUTE EOSINOPHILS 0.2 thou/uL (0.0-0.7); ABSOLUTE LYMPHOCYTES 1.5 thou/uL (0.8-5.3); ABSOLUTE MONOCYTES 0.7 thou/uL (0.0-1.2); ABSOLUTE NEUTROPHILS 5.9 thou/uL (1.6-8.1); BASOPHILS 1.3 %; EOSINOPHILS 2.2 %; HEMATOCRIT 39.2 % (42.0-52.0); HEMOGLOBIN 13.4 gm/dL (14.0-18.0); LYMPHOCYTES 17.5 %; MCHC 34.1 g/dL (28.0-37.0); MCV 91.1 fL (80.0-100.0); MONOCYTES 8.3 %; NUCLEATED RBCS 0 /100WBC; PLATELET COUNT* 328 thou/uL (150-400); POLYS 70.7 %; RDW-CV 15.8 % (10.5-14.5); WBC 8.3 thou/uL (4.0-11.0)
[2019-03-15 20:58] LABS: CALCIUM 8.6 mg/dL (8.5-10.1); CREATININE 1.3 mg/dL (0.6-1.3); POTASSIUM 3.4 mmol/L (3.5-5.1)
[2019-03-15 21:02] LABS: ALBUMIN 2.9 g/dL (3.4-5.0); MAGNESIUM 2.1 mg/dL (1.8-2.4); TOTAL BILIRUBIN 0.3 mg/dL (<0.1-1.0); TOTAL PROTEIN 6.6 g/dL (6.4-8.2)
[2019-03-15 21:13] LABS: BE 2.8 mmol/L (-2 to +3); PCO2 38.9 mmHg (35.0-45.0); PO2 62.2 mmHg (75.0-100.0); pH 7.455 (7.340-7.450)
[2019-03-15 22:30] VITALS: BP 118/66
[2019-03-16 04:00] VITALS: BP 111/55
--- NOTE | 2019-03-16 06:36 | NUR ---
PATIENT ON UNIT AT 2245. CAREGIVER INITIALLY AT BEDSIDE, LEFT FOR THE NIGHT. PATIENT ON CPAP WHILE SLEEPING. LUNGS SOUND COARSE AND PATIENT IS COUGHING UP LARGE AMOUNTS OF THICK GREEN MUCUS. PATIENT REQURIES ASSISTANCE WITH ADLS. STILL WAITING FOR URINE SAMPLE FOR LABWORK. SPUTUM SAMPLE SENT TO LAB. WILL CONTINUE TO MONITOR
[2019-03-16 08:00] VITALS: BP 105/58
[2019-03-16 11:57] VITALS: BP 119/54
--- NOTE | 2019-03-16 13:55 | NUR ---
Pt is A&O. Known to this CM from previous hospital stay. Resides at [facility]. Cousin is guardian. Independent. Has home o2, cpap and neb through [facility]. Hx of acute rehab. Hx of HH with [facility]. No hx of SNF. [place]al [place] at [place]. Following.
[2019-03-16 15:56] VITALS: BP 117/55
--- NOTE | 2019-03-16 19:16 | NUR ---
PT A/O. TELE TRACKING SR/ST AND ALL VSS ON 2-4L. DENIES CP, STATES SOA IMPROVING. PRODUCTIVE COUGH. UP IN CHAIR AND AMBULATING MOST OF SHIFT. EDUCATED ON SAFETY AND PLAN OF CARE. PLEASE SEE ASSESSMENT FOR ADDITIONAL INFORMATION. WILL CONT TO MONITOR
[2019-03-16 20:15] VITALS: BP 107/56
[2019-03-17] VITALS: BP 113/64
[2019-03-17 04:00] VITALS: BP 128/69
[2019-03-17 05:15] LABS: HEMATOCRIT 38.3 % (42.0-52.0); HEMOGLOBIN 12.8 gm/dL (14.0-18.0); MCH 30.8 pg (26.0-34.0); MCHC 33.5 g/dL (28.0-37.0); MPV 7.5 fl. (7.2-11.1); RBC 4.17 mil/uL (4.50-6.00); RDW-CV 16.1 % (10.5-14.5); WBC 10.1 thou/uL (4.0-11.0)
--- NOTE | 2019-03-17 05:17 | NUR ---
PT SLEPT WELL OFF AND ON OVERNIGHT. O2 2L WHILE AT REST, 4L WITH ACTIVITY. CPAP OVERNIGHT. HAS DENIED PAIN OR PROBLEMS. AM LABS, CXR. OCC LOOSE COUGH HEARD. TELE SR. UP WITH SBA TO BR TO VOID AND BM OVERNIGHT. RT TX GIVEN ORDERED. LAC SL, ABX GIVEN ORDERED. RANKLE BANDAID CDI TO SITE OF I&D. REMANINS ON CONTACT ISOLATION FOR MRSA NARES. ABLE TO USE CALL LITE AND MAKE NEEDS KNOWN.
[2019-03-17 05:29] LABS: ALBUMIN 2.7 g/dL (3.4-5.0); CALCIUM 8.1 mg/dL (8.5-10.1); CREATININE 1.3 mg/dL (0.6-1.3); MAGNESIUM 1.8 mg/dL (1.8-2.4); POTASSIUM 3.8 mmol/L (3.5-5.1); TOTAL BILIRUBIN 0.3 mg/dL (<0.1-1.0); TOTAL PROTEIN 6.5 g/dL (6.4-8.2)
[2019-03-17 08:00] VITALS: BP 118/52
[2019-03-17 16:00] VITALS: BP 123/70
--- NOTE | 2019-03-17 18:31 | NUR ---
MOUSTAPHA RESTING IN CHAIR. UP WITH WALKER AND STANDBY ASSIST. AOX4. ABX PER ORDERS. HOURLY ROUNDING FOR PATIENT SAFETY.
[2019-03-17 20:35] VITALS: BP 117/78
[2019-03-17 22:32] LABS: HEMOGLOBIN 12.3 gm/dL (14.0-18.0); MCH 30.7 pg (26.0-34.0); MCHC 33.3 g/dL (28.0-37.0); MCV 92.2 fL (80.0-100.0); MPV 7.4 fl. (7.2-11.1); NUCLEATED RBCS 0 /100WBC; PLATELET COUNT* 353 thou/uL (150-400); RBC 4.01 mil/uL (4.50-6.00); RDW-CV 16.2 % (10.5-14.5); WBC 19.2 thou/uL (4.0-11.0)
[2019-03-18] VITALS: BP 125/69
[2019-03-18] LABS: ABSOLUTE EOSINOPHILS 0.8 thou/uL (0.0-0.7); ABSOLUTE LYMPHOCYTES 1.3 thou/uL (0.8-5.3); ABSOLUTE MONOCYTES 0.8 thou/uL (0.0-1.2); ABSOLUTE NEUTROPHILS 16.3 thou/uL (1.6-8.1)
[2019-03-18 00:01] LABS: PLATELET ESTIMATE ADEQUATE; TOXIC GRANULATION 1+
[2019-03-18 04:00] VITALS: BP 99/54
[2019-03-18 05:08] LABS: ABSOLUTE LYMPHOCYTES 1.3 thou/uL (0.8-5.3); ABSOLUTE MONOCYTES 0.7 thou/uL (0.0-1.2); ABSOLUTE NEUTROPHILS 11.7 thou/uL (1.6-8.1); BASOPHILS 0.3 %; EOSINOPHILS 0.2 %; HEMATOCRIT 35.8 % (42.0-52.0); LYMPHOCYTES 9.1 %; MCHC 33.6 g/dL (28.0-37.0); MCV 92.2 fL (80.0-100.0); MONOCYTES 5.1 %; MPV 7.3 fl. (7.2-11.1); NUCLEATED RBCS 0 /100WBC; PLATELET COUNT* 296 thou/uL (150-400); POLYS 85.3 %; RBC 3.88 mil/uL (4.50-6.00); RDW-CV 16.5 % (10.5-14.5); WBC 13.8 thou/uL (4.0-11.0)
--- NOTE | 2019-03-18 07:36 | NUR ---
PT SLEPT MOST OF SHIFT. ASSESSMENT DOCUMENTED. MEDS GIVEN PER E-AUG. IV PATENT. PT SHOWERED AND WALKED THIS SHIFT. NO REPORTS OF PAIN. PT DID HAVE ONE EPISODE OF EMESIS THIS SHIFT. WILL CONTINUE WITH PLAN OF CARE.
[2019-03-18 08:00] VITALS: BP 90/54
[2019-03-18 16:00] VITALS: BP 108/67
--- NOTE | 2019-03-18 18:49 | NUR ---
PT VSS, NSR ON TELE, PT HIGH FALL RISK- STAND BY ASSISTANCE, 2L O2, 4L O2 WHEN AMBULATING. PT HAS RASH ON LATERAL ASPECT OF RIGHT ANKLE. PT WALKS IN WALL WITH STAND BY ASSISTANCE. PT [id number] AND CALL LIGHT WITHIN REACH. HOURLY ROUNDING PERFORMED. PT HAS BROKEN BLOOD VESSELS IN RIGHT EYE FROM COUGHING, PT ALSO EXPECTING YELLOW SPUTUM WHEN COUGHING.
[2019-03-18 20:15] VITALS: BP 113/64
[2019-03-19] VITALS: BP 116/67
[2019-03-19 04:00] VITALS: BP 115/40
[2019-03-19 05:31] LABS: HEMOGLOBIN 11.8 gm/dL (14.0-18.0); MCH 31.3 pg (26.0-34.0); MCHC 33.9 g/dL (28.0-37.0); MCV 92.5 fL (80.0-100.0); MPV 7.6 fl. (7.2-11.1); RBC 3.78 mil/uL (4.50-6.00); RDW-CV 16.3 % (10.5-14.5); WBC 11.6 thou/uL (4.0-11.0)
--- NOTE | 2019-03-19 06:22 | NUR ---
PT SLEPT MOST OF SHIFT. ASSESSMENT DOCUMENTED. MEDS GIVEN PER E-MAR. IV PATENT. ABX INFUSED. AFFLO VEST WORN THIS SHIFT. PT WALKED HALLS. WILL CONTINUE WITH PLAN OF CARE.
[2019-03-19 06:26] LABS: ALBUMIN 2.6 g/dL (3.4-5.0); CALCIUM 7.7 mg/dL (8.5-10.1); CREATININE 1.3 mg/dL (0.6-1.3); POTASSIUM 3.6 mmol/L (3.5-5.1); TOTAL BILIRUBIN 0.1 mg/dL (<0.1-1.0); TOTAL PROTEIN 5.8 g/dL (6.4-8.2)
--- NOTE | 2019-03-19 10:04 | NUR ---
INITAL ASSESSMENT COMPLETED CHARTED. PT TRACING NSR ON MONITOR. VSS. PT REMAINS ON 2LPM VIA NC. PT DENIES PAIN. PT DENIES ANY FURTHER NEEDS AT THIS TIME. HOURLY ROUNDING IN PLACE FOR PT SAFETY. CLWR.
--- NOTE | 2019-03-19 10:06 | NUR ---
Pt changed from obs to admit yesterday
[2019-03-19 11:38] VITALS: BP 115/70
[2019-03-19 12:00] LABS: URINE BILIRUBIN NEGATIVE (Negative); URINE BLOOD NEGATIVE (Negative); URINE CLARITY CLEAR; URINE COLOR YELLOW; URINE GLUCOSE-RANDOM NEGATIVE (Negative); URINE KETONES NEGATIVE (Negative); URINE LEUKOCYTES-REFLEX NEGATIVE (Negative); URINE NITRITE-REFLEX NEGATIVE (Negative); URINE PROTEIN NEGATIVE (Negative); URINE SPECIFIC GRAVITY <= 1.005 (1.005-1.030); URINE UROBILINOGEN 0.2 E.U./dl (0.2-1.0)
[2019-03-19 15:50] VITALS: BP 128/75
[2019-03-19 20:30] VITALS: BP 117/68
[2019-03-20] VITALS: BP 124/67
[2019-03-20 04:00] VITALS: BP 117/65
--- NOTE | 2019-03-20 05:12 | NUR ---
PT SLEPT MOST OF SHIFT. ASSESSMENT DOCUMENTED. MEDS GIVEN PER E-AUG. IV PATENT, ABX INFUSED. NO REPORTS OF PAIN THIS SHIFT, PT STATES THAT CHEST PAIN FROM THE DAY HAS RESOLVED. AFFLO VEST WORN THIS SHIFT. HOME BIPAP WORN WHILE SLEEPING. WILL CONTINUE WITH PLAN OF CARE.
[2019-03-20 07:00] VITALS: BP 127/71
--- NOTE | 2019-03-20 09:15 | NUR ---
INITAL ASSESSMENT COMPLETED CHARTED. VSS. TRACING NSR ON MONITOR. PT DENIES SOA, CP, PAIN, N/V/D. MEDICATIONS GIVEN PER EMAR. PT DENIES ANY FURTHER NEEDS AT THIS TIME. HOURLY ROUNDING IN PLACE FOR PT SAFETY. CLWR
[2019-03-20 11:00] VITALS: BP 116/64
--- NOTE | 2019-03-20 11:47 | CON ---
[address] [address] CONSULTATION Name: BATESSONI OZZIE Room: [address] ADM IN M.R.#: [id number] Admission: 03/18/19 Attend Phys: Juan Pablo Valencia Discharge: Date of : 84 Report #: [id number] THIS REPORT FOR: //name// CC: Shae Salmon DATE OF SERVICE: 03/19/2019 ATTENDING PHYSICIAN: Conner Field MD REASON FOR EVALUATION: Pneumonitis in the setting of bronchiectasis, now with isolation of Pseudomonas aeruginosa. HISTORY OF PRESENT ILLNESS: Chart reviewed, patient examined. This is a 39-year-old well known to myself, has Down syndrome. He has been repeatedly hospitalized with respiratory related complaints primarily infections. He does frequently get lower lobe pneumonitis. He has had chronic respiratory failure requiring supplemental oxygen, who I last saw in October of this year, although he has been hospitalized since that time. He had developed a cough with yellowish type sputum over the course of the day or 2 prior to his admission with associated dyspnea not clear if he had any fevers or chills. Appetite has been somewhat variable without nausea, vomiting, or abdominal pain. Sputum was collected now with growth of Pseudomonas. He had been empirically started on piperacillin and tazobactam. Initial white count 10.1; however, it jumped to 19.2, more recently 11.6. CT of the chest was performed, showed bibasilar bronchiectasis and peribronchial thickening. He is maintained on supplemental oxygen. ALLERGIES: LISTED TO SULFA. CURRENT MEDICATIONS: Include Zosyn, doxycycline, fluconazole, montelukast, famotidine, fluoxetine, prednisone, loratadine, levothyroxine. PAST MEDICAL HISTORY: As described above. He does have a Down syndrome, history of hypertension, pulmonary hypertension, asthma, hypothyroidism, COPD, anemia, obstructive sleep apnea, reflux, bronchiectasis, seasonal allergies. SOCIAL HISTORY: Nonsmoker, no ethanol, no illicit drug use. FAMILY HISTORY: Noncontributory. REVIEW OF SYSTEMS: As above, otherwise unremarkable 10-point review of systems with exception noted in history of present illness. PHYSICAL EXAMINATION: GENERAL: Pleasant, alert and cooperative. He is not encephalopathic, [place] [address] CONSULTATION Name: SONI BATES Room: [address] IN [facility].#: [id number] Admission: 03/18/19 Attend Phys: Juan Pablo Valencia Discharge: Date of : 82 Report #: [id number] moderate distress. He does have a cough, somewhat audibly coarse, has features of Down syndrome. VITAL SIGNS: Temperature 98.1, pulse 84, respirations 17, blood pressure 115/40. SKIN: Warm, dry, no rashes. HEENT: Nasal cannula oxygen in place. Neck is supple. Normocephalic. Extraocular muscles are intact. LUNGS: Few scattered coarse breath sounds bilaterally. HEART: Regular, occasional ectopy. ABDOMEN: Obese, soft, nontender. There are no peritoneal signs. GENITOURINARY AND RECTAL: Deferred. LABORATORY DATA: Sputum cultures described above, susceptible Pseudomonas. Electrolytes: Sodium 148, potassium 3.6, chloride 106, bicarbonate is 27, anion gap of 9, BUN and creatinine 12 and 1.3, albumin of 2.6. Total protein 5.8, estimated GFR of 62. CBC: White count of 11.6, H and H 11.8 and 35.0, platelets 288. Chest x-ray shows bibasilar infiltrates. Blood cultures sterile thus far. ASSESSMENT AND PLAN: Lower respiratory tract infection in a setting of bronchiectasis with isolation of Pseudomonas. We will adjust antimicrobial therapy, utilize combination including cefepime and inhaled tobramycin. At this point, he is not overtly toxic, certainly a new finding for him, although he has had chronic issue has been isolated Pseudomonas. Continue supplemental oxygen and see how he does over the course of next 2-3 days. <ELECTRONICALLY SIGNED> By: Jermaine Carvajal MD 03/20/19 1147 1113 [id number] Carvajal MD /nt
[2019-03-20 15:00] VITALS: BP 128/68
[2019-03-21] VITALS: BP 106/45
[2019-03-21 04:00] VITALS: BP 125/61
--- NOTE | 2019-03-21 07:06 | NUR ---
PT RESTED COMFORTABLY T/O NIGHT WITHOUT COMPLAINTS OF SOA, MAINTAINED SAFETY.ASSESSMENT DOCUMENTED, MEDS GIVEN PER EMAR. BIPAP WORN T/O NIGHT.
--- NOTE | 2019-03-21 07:41 | NUR ---
I HAVE REVIEWED THE DOCUMENTATION OR YAHAIRA RN, I CONCUR WITH HER DOCUMENTATION.
[2019-03-21 08:00] VITALS: BP 104/65
--- NOTE | 2019-03-21 11:45 | NUR ---
PT A/O. TELE TRACKING SR AND ALL VSS ON 2-4L. DENIES CP. STATES SOA AT BASELINE. LOOKING FORWARD TO POTENTIAL DC TODAY. UP IN CHAIR AND AMBULATING. CALL LIGHT IN REACH. EDUCATED ON SAFETY AND PLAN OF CARE. PLEASE SEE ASSESSMENT FOR ADDITIONAL INFORMATION. WILL CONT TO MONITOR
[2019-03-21 12:32] VITALS: BP 138/72
--- NOTE | 2019-03-21 15:07 | NUR ---
FAXED SCRIPT TO [facility] FOR MAKEDA TO CHECK COVERAGE, AWAIT CALL BACK. THEY COULD NOT GIVE IT OVER THE PHONE
[2019-03-21 17:46] VITALS: BP 105/66
[2019-03-21 20:00] VITALS: BP 105/72
[2019-03-22 00:20] VITALS: BP 101/50
[2019-03-22 04:49] VITALS: BP 111/60
--- NOTE | 2019-03-22 06:28 | NUR ---
PT IS A&O X4. MAINTAINING O2 SAT ON 2L NC WITH CPAP AT HS. STAND BY ASSIST WITH AMBULATION AND TRANSFERS. NO C/O PAIN OR DISCOMFORT NOTED. CURRENTLY ASLEEP IN BED WITH CALL LIGHT WITHIN REACH, ALL NEEDS HAVE BEEN MET AT THIS TIME.
[2019-03-22 08:00] VITALS: BP 104/58
--- NOTE | 2019-03-22 10:26 | NUR ---
Prior auth denied, stated script will need to be filled through Pt's Med B not Med D. Spoke with [facility], they provided 2 options, CM discussed with Dr Carvajal, he chose to have a pharmacy fill the script that can bill through Pt's part B. CM spoke with Coco at [facility], faxed referral, awaiting approval. Updated half-way. Following.
[2019-03-22 12:13] VITALS: BP 118/66
[2019-03-22] MEDS ORDERED: CIPRO500 MG PO (12:46)
[2019-03-22] MEDS ORDERED: TOBRAMYCIN40 MG/1 ML INH (12:46)
[2019-03-22 16:30] VITALS: BP 118/66
--- NOTE | 2019-03-22 16:36 | NUR ---
SPOKE WITH ANGEL AT [facility] ([phone]), THEY CAN PROVIDE THE INHALED TOBRAMYCIN BUT THEY CANNOT SEND IT OUT UNTIL MONDAY (PATIENT HAS TO HAVE BEEN DISCHARGED FROM THE HOSPITAL BEFORE [facility] CAN SEND IT OUT AND BILL FOR IT). SPOKE WITH DR. MULLER, HE SAID IT WAS OKAY TO DISCHARGE PATIENT TODAY, HE IS AWARE PT WILL NOT GET HIS FIRST OUTPT DOSE OF TOBRAMYCIN UNTIL MONDAY. NURSING NOTIFIED IT IS OKAY TO DISCHARGE TODAY.
== END 2019-03-22 17:45 | disposition home or self-care (01) | DRG 871 ==
LOC: M.ERS 20:08 → M.2W 21:21 → M.TBA-ER 21:21 → M.2W 21:21
PROVIDERS: Family Medicine; Personal Emergency Response Attendant; ADMIT Internal Medicine
PROC: 5A09357 Assistance with Respiratory Ventilation, Less than 24 Consecutive Hours, Continuous Positive Airway Pressure (ICD-10-PCS; principal; 2019-03-15)
PROC: 0Y9K0ZZ Drainage of Right Ankle Region, Open Approach (ICD-10-PCS; principal; 2019-03-15)
PROC: 5A09357 Assistance with Respiratory Ventilation, Less than 24 Consecutive Hours, Continuous Positive Airway Pressure (ICD-10-PCS; 2019-03-16)
PROC: 5A09357 Assistance with Respiratory Ventilation, Less than 24 Consecutive Hours, Continuous Positive Airway Pressure (ICD-10-PCS; 2019-03-17)
PROC: 5A09357 Assistance with Respiratory Ventilation, Less than 24 Consecutive Hours, Continuous Positive Airway Pressure (ICD-10-PCS; 2019-03-18)
PROC: 5A09357 Assistance with Respiratory Ventilation, Less than 24 Consecutive Hours, Continuous Positive Airway Pressure (ICD-10-PCS; 2019-03-19)
PROC: 5A09357 Assistance with Respiratory Ventilation, Less than 24 Consecutive Hours, Continuous Positive Airway Pressure (ICD-10-PCS; 2019-03-20)
PROC: 5A09357 Assistance with Respiratory Ventilation, Less than 24 Consecutive Hours, Continuous Positive Airway Pressure (ICD-10-PCS; 2019-03-21)
DX: A41.9 Sepsis, unspecified organism (principal); J96.21 Acute and chronic respiratory failure with hypoxia; E43 Unspecified severe protein-calorie malnutrition; J13 Pneumonia due to Streptococcus pneumoniae; L03.115 Cellulitis of right lower limb; J47.9 Bronchiectasis, uncomplicated; G47.33 Obstructive sleep apnea (adult) (pediatric); E03.9 Hypothyroidism, unspecified; J30.2 Other seasonal allergic rhinitis; D64.9 Anemia, unspecified; I10 Essential (primary) hypertension; I27.20 Pulmonary hypertension, unspecified; Z68.33 Body mass index [BMI] 33.0-33.9, adult; Z86.14 Personal history of Methicillin resistant Staphylococcus aureus infection; Z99.81 Dependence on supplemental oxygen; Z79.899 Other long term (current) drug therapy; Z88.2 Allergy status to sulfonamides; Z88.8 Allergy status to other drugs, medicaments and biological substances

== ENCOUNTER 2019-04-30 21:00 | Inpatient (IN) | payer MEDICARE, MEDICAID ==
[~2019-04-30] VITALS: Ht 165.1 cm; Wt 96.8 kg
[~2019-04-30 21:00] MED LIST changes: +CIPRO500 MG PO; -DELSYM COU30 MG/5 M1; +MILK OF MA400 MG/5 M PO; +NEPHRO-VITE TA0.8 MG PO; -NEPHROCAPS SOFT1 CAP PO; +TOBRAMYCIN40 MG/1 ML INH
[2019-04-30 21:08] VITALS: BP 106/69
[2019-04-30] MEDS ORDERED: DOXYCYCLINE 10100 M1 PO (21:12)
[2019-04-30 21:30] LABS: ABSOLUTE LYMPHOCYTES 1.4 thou/uL (0.8-5.3); ABSOLUTE NEUTROPHILS 3.4 thou/uL (1.6-8.1); HEMOGLOBIN 14.1 gm/dL (14.0-18.0); RBC 4.31 mil/uL (4.50-6.00)
[2019-04-30 21:34] LABS: ABSOLUTE BASOPHILS 0.2 thou/uL (0.0-0.2); ABSOLUTE EOSINOPHILS 0.1 thou/uL (0.0-0.7); ABSOLUTE MONOCYTES 0.7 thou/uL (0.0-1.2); BASOPHILS 2.9 %; EOSINOPHILS 2.3 %; HEMATOCRIT 40.5 % (42.0-52.0); LYMPHOCYTES 23.8 %; MCH 32.7 pg (26.0-34.0); MCHC 34.8 g/dL (28.0-37.0); MCV 93.9 fL (80.0-100.0); MONOCYTES 11.4 %; MPV 7.1 fl. (7.2-11.1); NUCLEATED RBCS 0 /100WBC; PLATELET COUNT* 310 thou/uL (150-400); POLYS 59.6 %; RDW-CV 17.2 % (10.5-14.5); WBC 5.7 thou/uL (4.0-11.0)
[2019-04-30 21:38] LABS: CALCIUM 8.7 mg/dL (8.5-10.1); CREATININE 1.5 mg/dL (0.6-1.3); POTASSIUM 3.5 mmol/L (3.5-5.1)
[2019-04-30 21:41] LABS: PROTIME 10.5 Seconds (9.20-11.50)
[2019-04-30 21:52] LABS: ALBUMIN 3.5 g/dL (3.4-5.0); TOTAL BILIRUBIN 0.3 mg/dL (<0.1-1.0); TOTAL PROTEIN 6.7 g/dL (6.4-8.2)
[2019-04-30 22:39] LABS: BE 2.6 mmol/L (-2 to +3); PCO2 42.2 mmHg (35.0-45.0); PO2 68.4 mmHg (75.0-100.0); pH 7.428 (7.340-7.450)
[2019-04-30 22:45] LABS: URINE BILIRUBIN NEGATIVE (Negative); URINE BLOOD NEGATIVE (Negative); URINE CLARITY CLEAR; URINE COLOR YELLOW; URINE GLUCOSE-RANDOM NEGATIVE (Negative); URINE KETONES NEGATIVE (Negative); URINE LEUKOCYTES-REFLEX NEGATIVE (Negative); URINE NITRITE-REFLEX NEGATIVE (Negative); URINE PROTEIN NEGATIVE (Negative); URINE SPECIFIC GRAVITY 1.015 (1.005-1.030); URINE UROBILINOGEN 0.2 E.U./dl (0.2-1.0)
[2019-04-30 23:32] VITALS: BP 122/69
[2019-05-01 04:06] VITALS: BP 98/58
--- NOTE | 2019-05-01 06:56 | NUR ---
ASSUMMED CARE OF BED
[2019-05-01 07:04] VITALS: BP 105/61
[2019-05-01 07:53] VITALS: BP 105/61
[2019-05-01 08:30] VITALS: BP 85/55
--- NOTE | 2019-05-01 14:26 | EKG ---
[place] [address] ELECTROCARDIOGRAM REPORT Name: SONI BATES Room: [address] ADM IN M.R.#: [id number] Admission: 04/30/19 Attend Phys: Syl Smith Discharge: Date of : 84 Report #: [id number] THIS REPORT FOR: //name// [facility] ED Test Date: 2019-04-30 Test Time: 21:14:08 Pat Name: SONI BATES Department: Room: [facility] Gender: M Hub Associate: DAWOOD : 1980 Requested By: Nicolasa Estrada Order Number: [id number] MD: Derrick Polanco Measurements Intervals [place] Rate: 86 P: 32 SD: 136 QRS: 59 QRSD: 81 T: 4 QT: 362 QTc: 433 Interpretive Statements Sinus rhythm Low voltage, extremity leads Compared to ECG 02/09/2019 22:32:40 Low QRS voltage now present Sinus tachycardia no longer present Electronically Signed On 05-01-2019 14:25:52 CDT by Derrick Polanco [email or web address] <ELECTRONICALLY SIGNED> By: Derrick Polanco MD, FACC 05/01/19 1425 13 13 Derrick Polanco MD, [facility] /EPI
--- NOTE | 2019-05-01 14:29 | EKG ---
[place] [address] ELECTROCARDIOGRAM REPORT Name: JANASONI Room: [address] ADM IN M.R.#: [id number] Admission: 04/30/19 Attend Phys: Syl Smith Discharge: Date of : 84 Report #: [id number] THIS REPORT FOR: //name// [facility] ED Test Date: 2019-05-01 Test Time: 01:24:19 Pat Name: SONI BATES Department: Room: [address] Gender: M [employer] Associate: DAWOOD : 1980 Requested By: Syl Joel Order Number: [id number] Nisha MD: Derrick Polanco Measurements Intervals [place] Rate: 71 P: -17 AR: 131 QRS: 52 QRSD: 80 T: 16 QT: 396 QTc: 431 Interpretive Statements Sinus rhythm Borderline low voltage, extremity leads Compared to ECG 02/09/2019 22:32:40 no change Electronically Signed On 05-01-2019 14:29:41 CDT by Derrick Polanco [email or web address] <ELECTRONICALLY SIGNED> By: Derrick Polanco MD, [facility] 05/01/19 1429 0124 0124 Derrick Polanco MD, [facility] /EPI
--- NOTE | 2019-05-01 15:50 | NUR ---
Pt is A&O. Resides at [facility], known to this CM. Independent. Pt has home o2, cpap and neb through [facility]. Hx of acute rehab. Hx of HH with [facility]. Pt's cousin is guardian. Goal is home at [place]. Following.
[2019-05-01 16:20] VITALS: BP 115/59
--- NOTE | 2019-05-01 18:46 | NUR ---
PT ADMITTED ON TELE FLOOR FROM ER AT 0830. ON 2 L NC. VSS. IV FLUID INFUSING AT 100CC PER HOUR. NON RESPIRATORY MRSA ISOLATION MAINTAINED. IV ANTIBIOTIC GIVEN ORDERED. PT AMBULATED IN HALLWAY WITH THIS NURSE ASSISTANCE. BREATHING TREATMENTS. BIPAP PRN ORDERED. PT HAS NOT NEEDED BIPAP THIS SHIFT. PT OUT OF BED TO CHAIR AT MEAL TIME. PT HAS GOOD APPETITE. CRACKLE LUNG SOUNDS. WILL CONTINUE TO MONITOR
[2019-05-01 19:50] VITALS: BP 101/63
[2019-05-02] VITALS: BP 123/72
[2019-05-02 03:30] VITALS: BP 103/53
--- NOTE | 2019-05-02 05:08 | NUR ---
PT CARE ASSUMED AT 1930. SAT MAINTAINED IN O2 AND CPAP. ALERT AND ORIENTED X4. CALL LIGHT WITHIN REACH AND BED IN LOW POSITION. DENIES PAIN AND SOB. HOURLY ROUNDING DONE FOR PT SAFETY.
[2019-05-02 07:49] VITALS: BP 117/68
[2019-05-02 11:22] VITALS: BP 109/64
--- NOTE | 2019-05-02 11:53 | CON ---
[address] [address] CONSULTATION Name: JANASONI OZZIE Room: [address] ADM IN M.R.#: [id number] Admission: 04/30/19 Attend Phys: Syl Smith Discharge: Date of : 84 Report #: [id number] THIS REPORT FOR: //name// CC: Syl Joel Shae Santoro DATE OF SERVICE: 05/01/2019 INFECTIOUS DISEASE CONSULTATION ATTENDING PHYSICIAN: ySl Joel MD REASON FOR CONSULTATION: Recurrent pneumonitis. HISTORY OF PRESENT ILLNESS: Chart reviewed, patient examined. This is a 39-year-old gentleman with Down syndrome, who has got issues with chronic obstructive pulmonary disease, may have a component of bronchiectasis, who is repeatedly admitted to the hospital, is on chronic supplemental O2 at 2-4 liters, who over the course of the last 2 weeks had experienced increasing dyspnea, did have a cough, somewhat productive, recent history includes hospitalization in mid March. At that point, it was confirmed to have Pseudomonas aeruginosa. He has been on therapy with inhalational tobramycin. He was seen in followup, repeat sputum was collected and was found to have MRSA. He was treated with doxycycline. He was minimally symptomatic at that point. On evaluation today, seemingly is close to his baseline. He is on 2 liters. He is not evidently dyspneic, is actually eating well. Denies any recent fevers. No gastrointestinal related complaints. He was empirically started on piperacillin and tazobactam and levofloxacin. ALLERGIES: LISTED SULFA. MEDICATIONS: Include levofloxacin, Zosyn, ipratropium, and albuterol inhaler. PAST MEDICAL HISTORY: As described above, trisomy 21, Down syndrome, history of hypertension, pulmonary hypertension, hypothyroidism, COPD, chronic anemia, obstructive sleep apnea, utilizes CPAP, reflux, bronchiectasis. SOCIAL HISTORY: Nonsmoker, no ethanol. FAMILY HISTORY: Noncontributory. REVIEW OF SYSTEMS: Otherwise, unremarkable 10-point review of systems except noted the above history of present illness. PHYSICAL EXAMINATION: GENERAL: Pleasant, alert and cooperative, is coherent. At this point, [place] [address] CONSULTATION Name: SONI BATES Room: [address] IN [facility]#: [id number] Admission: 04/30/19 Attend Phys: Syl Smith Discharge: Date of : 84 Report #: [id number] not overtly distressed. VITAL SIGNS: Temperature 98.3, pulse 75, respirations 18, blood pressure is 85/55. SKIN: Warm, dry, no rashes. HEENT: Down syndrome appearance. Extraocular muscles intact. NECK: Supple. He does have nasal cannula in place. LUNGS: Few scattered coarse breath sounds with crackles at the bases. HEART: Regular. I do not appreciate any murmur. ABDOMEN: Mildly distended, soft, nontender. /RECTAL: Deferred. LABORATORY DATA: CBC: White count of 5.7, H and H of 14.1 and 40.5, platelets of 310. Lactic acid of 1.7. PT of 10.5, INR of 1.0. D-dimer of 0.59. Troponin less than 0.06. Electrolytes: Sodium 141, potassium 3.5, chloride 103, bicarbonate is 28, anion gap of 10, BUN and creatinine 13 and 1.5. LFTs unremarkable. Albumin of 3.5, total protein 6.7. Chest x-ray, hazy interstitial and airspace bibasilar opacities, slightly increased from previous, question atelectasis versus pneumonitis. ABGs: pH of 7.428, pCO2 of 42.2, pO2 of 68.4 on 4 liters. Urinalysis unremarkable. Blood cultures sterile thus far. ASSESSMENT AND PLAN: Pneumonitis in the setting of bronchiectasis, he is having on a recurrent basis, for the first time an isolated Pseudomonas had improved on inhalational tobramycin. Most recent culture interestingly had MRSA. At this point, he does not look overtly toxic. Seemingly would not favor virulent organism. We will continue current approach as prescribed, the levofloxacin, piperacillin and tazobactam. It is not certain if we will have any sputum forthcoming. We will see how he does clinically. Discussed with his extension service supervisor. <ELECTRONICALLY SIGNED> By: Jermaine Carvajal MD 05/02/19 1153 1609 [id number] Carvajal MD /nt
--- NOTE | 2019-05-02 15:07 | NUR ---
ASSUMED PT CARE AT 0730. ASSESSMENT COMPLETED CHARTED. ABLE TO MAKE NEEDS KNOWN. UP WITH ASSIST. PT RESTING IN BED AT THIS TIME. IV FLUIDS AND ABT RUNNING PER EMAR. NO C/O PAIN OR DISCOMFORT OR SOA. WILL CONTINUE TO MONITOR.
[2019-05-02 16:20] VITALS: BP 113/54
[2019-05-02 19:50] VITALS: BP 100/61
[2019-05-03] VITALS: BP 128/56
[2019-05-03 04:00] VITALS: BP 104/56
[2019-05-03 04:39] LABS: ABSOLUTE BASOPHILS 0.1 thou/uL (0.0-0.2); ABSOLUTE EOSINOPHILS 0.2 thou/uL (0.0-0.7); ABSOLUTE LYMPHOCYTES 1.3 thou/uL (0.8-5.3); ABSOLUTE MONOCYTES 0.6 thou/uL (0.0-1.2); ABSOLUTE NEUTROPHILS 2.9 thou/uL (1.6-8.1); BASOPHILS 2.8 %; EOSINOPHILS 4.6 %; HEMATOCRIT 38.4 % (42.0-52.0); HEMOGLOBIN 12.5 gm/dL (14.0-18.0); LYMPHOCYTES 24.1 %; MCH 31.3 pg (26.0-34.0); MCHC 32.6 g/dL (28.0-37.0); MCV 95.8 fL (80.0-100.0); MONOCYTES 12.4 %; MPV 7.3 fl. (7.2-11.1); NUCLEATED RBCS 0 /100WBC; PLATELET COUNT* 273 thou/uL (150-400); POLYS 56.1 %; RBC 4.01 mil/uL (4.50-6.00); RDW-CV 17.4 % (10.5-14.5); WBC 5.2 thou/uL (4.0-11.0)
--- NOTE | 2019-05-03 05:56 | NUR ---
PT CARE ASSUMED AT 1930. SAT MAINTAINED IN O2 AND CPAP. ALERT AND ORIENTED X4. CALL LIGHT WITHIN REACH AND BED IN LOW POSITON. DENIES PAIN AND SOB. HOURLY ROUNDING DONE FOR PT SAFETY.
[2019-05-03 07:43] VITALS: BP 113/55
[2019-05-03 08:50] VITALS: BP 113/55
[2019-05-03 11:20] VITALS: BP 105/81
[2019-05-03] MEDS ORDERED: LEVAQUIN 750 M750 MG PO (11:31)
--- NOTE | 2019-05-03 12:45 | NUR ---
Pt discharging to home today. Updated guardian. correction staff to provide traansportation.
--- NOTE | 2019-05-03 15:37 | NUR ---
ASSUMED PT CARE AT 0730. ASSESSMENT COMPLETED CHARTED. ABLE TO MAKE NEEDS KNOWN. UP WITH WALKER AND ASSIST. NO C/O PAIN OR DISCOMFORT. RESTING IN RECLINER FOR MOST OF THE DAY. D/C ACCEPTED, GAVE DISCHARGE PAPERS AND WENT OVER WITH CAREGIVER. SCRIPTS AND MED INFO GIVEN, IV AND HEART MONITOR REMOVED. PT WHEELED OUT IN WHEELCHAIR WITH ALL BELONGINGS TO CARE GIVERS CAR. WENT OVER PT MEDS AND MATCHED WHAT HE HAS WITH THE HOME. PT LEFT AT 1537 WITH ANTIQUER AND CAREGIVER. NO COMMENTS, QUESTIONS, OR CONCERNS NOTED.
== END 2019-05-03 15:35 | disposition home or self-care (01) | DRG 177 ==
LOC: M.ERS 21:00 → M.2W 22:16 → M.TBA-ER 22:16 → M.2W 05-01 08:12
PROVIDERS: Emergency Medicine; ADMIT Family Medicine
PROC: 5A09357 Assistance with Respiratory Ventilation, Less than 24 Consecutive Hours, Continuous Positive Airway Pressure (ICD-10-PCS; principal; 2019-05-01)
PROC: 5A09357 Assistance with Respiratory Ventilation, Less than 24 Consecutive Hours, Continuous Positive Airway Pressure (ICD-10-PCS; 2019-05-02)
PROC: 5A09357 Assistance with Respiratory Ventilation, Less than 24 Consecutive Hours, Continuous Positive Airway Pressure (ICD-10-PCS; 2019-05-03)
DX: J15.6 Pneumonia due to other Gram-negative bacteria (principal); J96.21 Acute and chronic respiratory failure with hypoxia; J44.0 Chronic obstructive pulmonary disease with (acute) lower respiratory infection; I10 Essential (primary) hypertension; I27.20 Pulmonary hypertension, unspecified; E03.9 Hypothyroidism, unspecified; J44.9 Chronic obstructive pulmonary disease, unspecified; G47.33 Obstructive sleep apnea (adult) (pediatric); K21.9 Gastro-esophageal reflux disease without esophagitis; Z86.14 Personal history of Methicillin resistant Staphylococcus aureus infection; Z88.8 Allergy status to other drugs, medicaments and biological substances; Z88.2 Allergy status to sulfonamides

== ENCOUNTER 2019-06-23 17:05 | Inpatient (IN) | payer MEDICARE, MEDICAID ==
[~2019-06-23] VITALS: Ht 152.4 cm; Wt 89.7 kg
[~2019-06-23 17:05] MED LIST changes: +DOXYCYCLINE 10100 M1 PO
[2019-06-23] MEDS ORDERED: IPRAT-ALBUT 0.5-3 ML INH ×2 (17:25→22:11)
[2019-06-23 18:27] LABS: ABSOLUTE EOSINOPHILS 0.6 thou/uL (0.0-0.7); ABSOLUTE LYMPHOCYTES 2.1 thou/uL (0.8-5.3); ABSOLUTE MONOCYTES 0.9 thou/uL (0.0-1.2); ABSOLUTE NEUTROPHILS 4.5 thou/uL (1.6-8.1); BASOPHILS 0.5 %; EOSINOPHILS 7.6 %; HEMATOCRIT 41.6 % (42.0-52.0); HEMOGLOBIN 14.5 gm/dL (14.0-18.0); LYMPHOCYTES 25.6 %; MCH 31.4 pg (26.0-34.0); MCHC 34.9 g/dL (28.0-37.0); MONOCYTES 11.3 %; MPV 7.3 fl. (7.2-11.1); NUCLEATED RBCS 0 /100WBC; PLATELET COUNT* 338 thou/uL (150-400); RBC 4.63 mil/uL (4.50-6.00); RDW-CV 14.4 % (10.5-14.5); WBC 8.2 thou/uL (4.0-11.0)
[2019-06-23 18:38] LABS: CALCIUM 8.3 mg/dL (8.5-10.1); CREATININE 1.4 mg/dL (0.6-1.3); POTASSIUM 3.5 mmol/L (3.5-5.1)
[2019-06-23 18:42] LABS: ALBUMIN 3.4 g/dL (3.4-5.0); TOTAL BILIRUBIN 0.3 mg/dL (<0.1-1.0); TOTAL PROTEIN 7.7 g/dL (6.4-8.2)
[2019-06-23 18:59] LABS: INFLUENZA A ANTIGEN Negative (Negative); INFLUENZA B ANTIGEN Negative (Negative)
[2019-06-23 19:53] VITALS: BP 157/87
[2019-06-23 20:00] VITALS: BP 105/69
[2019-06-23] MEDS ORDERED: RAYOS5 MG PO (22:14)
[2019-06-23] MEDS ORDERED: LOPROX90 GM TOP (22:15)
[2019-06-24] VITALS: BP 109/57
[2019-06-24 04:00] VITALS: BP 94/32
--- NOTE | 2019-06-24 05:38 | NUR ---
REPORT RECIEVED FROM ER. PT ORIENTED TO ROOM, CALL LIGHT SHOWN, FALL AGREEMENT GONE OVER, PT REPORTED UNDERSTANDING. ADMISSION DOCUMENTED. MEDS GIVEN PER E-MAR. IV PATENT, FLUIDS INFUSING. DR NOTIFIED OF CRITICAL LACTIC ACID. FALL PRECAUTIONS IN PLACE WILL CONTINUE WITH PLAN OF CARE.
[2019-06-24 08:00] VITALS: BP 106/69
--- NOTE | 2019-06-24 09:47 | NUR ---
ASSUMED CARE OF PT AT 0730. PT SITTING AT EDGE OF BED WAITING FOR BREAKFAST. A&0X4, DENIES ANY PAIN OR SHORTNESS OF BREATH AT THIS TIME. IN CONTACT ISOLATION FOR HISTORY MRSA. TRACING SR ON THE BACKER UP. ON 4L NC SAT 95%, DIMINISHED, WHEEZING LUNG SOUNDS NOTED. PT UP WITH 1 ASSIST AND WALKER TO BATHROOM. PT GOAL FOR TODAY IS INCREASE ACTIVITY, IVF, MONITOR LACTIC AND TITRATE OXYGEN. AM ASSESSMENT CHARTED. MEDICATIONS PER MAR. PT REPOSITIONS SELF. HOURLY ROUNDING OBSERVED. BED IN LOW POSITION. CALL LIGHT WITHIN REACH. WILL CONTINUE PLAN OF CARE.
[2019-06-24 11:53] VITALS: BP 117/60
--- NOTE | 2019-06-24 16:28 | NUR ---
MET WITH PT BRIEFLY IN [place], CALL TO GUARDIAN/DIAMOND MCKEON. HE STATED PT HAS BEEN DOING WELL AT [facility] VIZCAINO. PT USES WALKER, CPAP, O2 AND HAS HAD HH IN PAST BUT NOT RECENTLY. LAST HH WAS [facility]. PT WAS RECENTLY ON ANTIBIOTICS AT HOME BUT FINISHED 2 WEEKS AGO. PT IS FAIRLY INDEPENDENT AT [facility], THEY ASSIST WITH NEEDS ALSO. PLAN IS FOR HIM TO RETURN THERE AT [place]. WILL NEED TO CONTACT HIS GUARDIAN/DIAMOND AND [facility] AT [place]. SHANIA VIZCAINO [facility] [phone] FOR BRISSA MCKEON/GUARDIAN [phone] CELL
--- NOTE | 2019-06-24 17:15 | NUR ---
NO ACUTE CHANGES THROUGHOUT SHIFT. REFER TO CHARTING. PT NOT PROGRESSING TOWARDS GOALS- PULMONARY AND ID CONSULT IN PLACE FOR RECURRENT PSEUDOMONAS, PNEUMONIA. MULTIPLE IV ANTIBIOTICS STARTED TODAY. REFER TO EMAR. SPUTUM AND MRSA SWAB OBTAINED AND SENT TO LAB. AWAITING RESULTS. URINALYSIS NEEDS TO BE OBTAINED. IN CONTACT ISOLATION FOR HISTORY MRSA. PT AMBULATED IN HALLWAY WITH NURSING STAFF TODAY-TOLERATED WELL. CONTINUES TO TRACE SR/ST ON THE EMULSION COATER. CONTINUES TO BE ON 4L NC SAT 95%- UNABLE TO TITRATE OXYGEN. IVF. PT UP WITH 1 ASSIST AND WALKER TO BATHROOM. CAREGIVERS BROUGHT PT HOME BIPAP AND PERSONAL BELONGINGS TODAY. PT SAT UP IN RECLINER FOR ALL MEALS. TOLERATED WELL. MEDICATIONS PER AUG. PT REPOSITIONS SELF. HOURLY ROUNDING OBSERVED. BED IN LOW POSITION. CALL LIGHT WITHIN REACH. WILL CONTINUE PLAN OF CARE.
[2019-06-24 20:00] VITALS: BP 99/54
[2019-06-25] VITALS: BP 94/37
[2019-06-25 04:00] VITALS: BP 109/52
[2019-06-25 04:19] LABS: HEMATOCRIT 37.3 % (42.0-52.0); MCH 30.7 pg (26.0-34.0); MCHC 33.6 g/dL (28.0-37.0); MCV 91.4 fL (80.0-100.0); MPV 7.1 fl. (7.2-11.1); RBC 4.08 mil/uL (4.50-6.00); RDW-CV 14.8 % (10.5-14.5); WBC 14.4 thou/uL (4.0-11.0)
[2019-06-25 04:24] LABS: HEMOGLOBIN 12.5 gm/dL (14.0-18.0)
[2019-06-25 04:33] LABS: CALCIUM 8.2 mg/dL (8.5-10.1); CREATININE 1.3 mg/dL (0.6-1.3); MAGNESIUM 1.8 mg/dL (1.8-2.4); POTASSIUM 3.4 mmol/L (3.5-5.1)
--- NOTE | 2019-06-25 05:54 | NUR ---
PT SLEPT MOST OF SHIFT. ASSESSMENT DOCUMENTED. MEDS GIVEN PER E-AUG. IV PATENT, FLUIDS INFUSING. NO REPORTS OF PAIN. AFFLOVEST WORN THIS SHIFT. BIPAP WORN WHILE SLEEPING. WILL CONTINUE WITH PLAN OF CARE.
[2019-06-25 07:45] VITALS: BP 92/44
--- NOTE | 2019-06-25 10:00 | NUR ---
ASSUMED CARE OF PT AT 0730. PT SITTING IN CHAIR WAITING FOR BREAKFAST. A&0X4, DENIES ANY PAIN OR SHORTNESS OF BREATH AT THIS TIME. TRACING SR/ST ON THE COLORED LIQUID PLASTIC APPLIER. ON 4L NC SAT 96%. PT UP WITH 1 ASSIST AND WALKER TO BATHROOM. IVF. PT GOAL FOR TODAY IS PULM AND ID CONSULT IN PLACE, TRANSITION TO PO ANTIBIOTICS AND DISCHARGE PLANNING BACK TO [facility]. AM ASSESSMENT CHARTED. MEDICATIONS PER AUG. PT REPOSITIONS SELF. HOURLY ROUNDING OBSERVED. BED IN LOW POSITION. CALL LIGHT WITHIN REACH. WILL CONTINUE PLAN OF CARE.
[2019-06-25] MEDS ORDERED: PREDNISONE 20 M20 MG PO (10:31)
[2019-06-25] MEDS ORDERED: LEVAQUIN 500 M500 M1 PO (10:31)
[2019-06-25 11:27] VITALS: BP 92/44
[2019-06-25 12:08] VITALS: BP 120/65
--- NOTE | 2019-06-25 13:21 | CON ---
[address] [address] CONSULTATION Name: JANASONI HORNE Room: [place] [address] ADM IN M.R.#: [id number] Admission: 06/23/19 Attend Phys: Carl Reina MD Discharge: Date of : 84 Report #: [id number] THIS REPORT FOR: //name// CC: Carl Santoro DATE OF SERVICE: 06/24/2019 CONSULTATION: Infectious diseases. HISTORY OF PRESENT ILLNESS: The patient is a 39-year-old white male who was in his detention. The visiting nurse made her weekly visit. She was concerned that she heard some basilar rales. The patient has been recently hospitalized at [place] for pneumonia and was discharged on 05/03/2019. At that time, sputum grew Pseudomonas. The nurse was concerned and sent the patient to the ER where he was evaluated and admitted. Infectious disease consultation was requested. PAST MEDICAL HISTORY: Significant for Down syndrome with a history of pulmonary disease. The patient is a recurrent aspirator. He has bronchiectasis. This resulted in COPD and pulmonary hypertension. His last pneumonia grew Pseudomonas. 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 Other diagnoses include hypertension, hypothyroidism, and SULFA ALLERGY. FAMILY HISTORY: Noncontributory. SOCIAL HISTORY: The patient is single. He lives in a detention. He has a guardian. No history of tobacco, alcohol, or drugs. The patient is functional, but does not work outside of his detention. REVIEW OF SYSTEMS: GENERAL: The patient is awake, alert, and able to give a cogent history. He really denies any symptoms at all. He denies fevers, chills, sweats, weakness, or malaise. ENT: Denies headache, sinus congestion, sore throat, or trouble swallowing. CHEST: Denies cough, chest pain, or shortness of breath. He says that he normally is on 2 liters O2 at rest and 4 liters with activity. He is comfortable on 4 liters at rest here in the hospital. GASTROINTESTINAL: The patient denies nausea, vomiting, diarrhea, constipation, or abdominal pain. GENITOURINARY: No complaints. EXTREMITIES: No complaints. PHYSICAL EXAMINATION: GENERAL: The patient appears comfortable, not in any distress. VITAL SIGNS: Show the patient has been afebrile [place] [address] CONSULTATION Name: SONI BATES Room: [address] IN [facility]#: [id number] Admission: 06/23/19 Attend Phys: Carl Reina MD Discharge: Date of : 84 Report #: [id number] SKIN: Shows no rash or lesion. ENT: Demonstrates trisomy 21 facies. The patient is able to give a cogent history. I was able to call his guardian. Discussed the case with Mr. Main, his guardian. NECK: Supple. CARDIOVASCULAR: Heart sounds S1, S2. RESPIRATORY: Breath sounds were clear to anteriorly and posteriorly. ABDOMEN: Belly is obese, soft, and nontender. EXTREMITIES: Unremarkable. LABORATORY DATA: White count is 8.2, hemoglobin 14.8. Liver function tests normal. Electrolytes are normal. Glucose is 112. The chest x-ray shows chronic scarring, but no acute infiltrate. Influenza antigens are negative. ASSESSMENT AND PLAN: In summary, the patient appears to me to be about his what I expect to be his baseline. He has no fever, no dyspnea, and his usual chest x-ray. He does have a history of significant for pulmonary disease. At this time, I would like to deescalate the antibiotics to Levaquin 500 mg p.o. daily. We will repeat CBC and chest x-ray in the morning. We can try to obtain sputum for culture. If the patient continues to look good, and studies are negative, I would anticipate discharge back to his detention in the next day or so. Should he developed evidence of pneumonia, he may require further treatment. We may need to look further regarding aspiration. Hopefully, the patient will remain at his baseline and can go home soon. <ELECTRONICALLY SIGNED> By: Suresh Shay MD 06/25/19 1321 [id number] Shay MD /nt
--- NOTE | 2019-06-25 14:00 | NUR ---
ORDERS RECEIVED FOR DC HOME WITH HH. [facility] TO RETURN TO [facility]. NURSE CONTACTED BRISSA/[facility] VIZCAINO, THEY WILL ARRANGE TRANSPORATION. SPOKE WITH DIAMOND/GUARDIAN OVER THE PHONE, HE WAS AGREEABLE TO HH AND WANTED TO USE [facility] AGAIN. CALLED AND FAXED DC ORDERS TO MONICA/MARIO. NO OTHER NEEDS ID'D
--- NOTE | 2019-06-25 15:52 | NUR ---
DISCHARGE ORDERS RECEIVED. IV AND LAWYER PROBATE REMOVED. AWAITING CAREGIVER ARRIVAL TO PICK PT UP. SCRIPTS CALLED IN TO PT PHARMACY BY DR BALLESTEROS.
--- NOTE | 2019-06-25 16:28 | NUR ---
DISCHARGE ORDERS RECEIVED. DISCHARGE INSTRUCTIONS, CARE NOTES AND FOLLOW UP APPTS GIVEN TO PT AND PT CAREGIVER. PT CAREGIVER COMMUNICATES UNDERSTANDING OF TEACHING. PT DISCHARGED WITH ALL BELONGINGS AND PAPERWORK VIA WHEELCHAIR WITH NURSING STAFF TO CAREGIVERS OWN PERSONAL VEHICLE. SCRIPTS CALLED IN TO PHARMACY PER DR BALLESTEROS. IV AND MACHINE CRATER REMOVED.
== END 2019-06-25 16:42 | disposition home health service (06) | DRG 871 ==
LOC: M.ERS 17:05 → M.TBA-ER 18:42 → M.2W 18:42
PROVIDERS: Personal Emergency Response Attendant; ADMIT Internal Medicine
PROC: 5A09357 Assistance with Respiratory Ventilation, Less than 24 Consecutive Hours, Continuous Positive Airway Pressure (ICD-10-PCS; principal; 2019-06-23)
PROC: 5A09357 Assistance with Respiratory Ventilation, Less than 24 Consecutive Hours, Continuous Positive Airway Pressure (ICD-10-PCS; 2019-06-24)
PROC: 5A09357 Assistance with Respiratory Ventilation, Less than 24 Consecutive Hours, Continuous Positive Airway Pressure (ICD-10-PCS; 2019-06-25)
DX: A41.9 Sepsis, unspecified organism (principal); J15.1 Pneumonia due to Pseudomonas; J96.21 Acute and chronic respiratory failure with hypoxia; J45.901 Unspecified asthma with (acute) exacerbation; I10 Essential (primary) hypertension; I27.20 Pulmonary hypertension, unspecified; E03.9 Hypothyroidism, unspecified; E66.9 Obesity, unspecified; J32.9 Chronic sinusitis, unspecified; J47.9 Bronchiectasis, uncomplicated; G47.33 Obstructive sleep apnea (adult) (pediatric); K21.9 Gastro-esophageal reflux disease without esophagitis; Z87.01 Personal history of pneumonia (recurrent); Z79.899 Other long term (current) drug therapy; Z88.2 Allergy status to sulfonamides; Z91.048 Other nonmedicinal substance allergy status; Z68.38 Body mass index [BMI] 38.0-38.9, adult; Q90.9 Down syndrome, unspecified; Z23 Encounter for immunization

== ENCOUNTER 2019-06-30 12:03 | Inpatient (IN) | payer MEDICARE, MEDICAID ==
[~2019-06-30] VITALS: Ht 154.9 cm; Wt 86.8 kg
[~2019-06-30 12:03] MED LIST changes: +LOPROX90 GM TOP; +PREDNISONE 20 M20 MG PO; +RAYOS5 MG PO
[2019-06-30 12:04] VITALS: BP 80/59
[2019-06-30 12:31] LABS: INFLUENZA A ANTIGEN Negative (Negative); INFLUENZA B ANTIGEN Negative (Negative)
[2019-06-30 13:14] LABS: ABSOLUTE BASOPHILS 0.1 thou/uL (0.0-0.2); ABSOLUTE EOSINOPHILS 0.5 thou/uL (0.0-0.7); ABSOLUTE LYMPHOCYTES 1.9 thou/uL (0.8-5.3); ABSOLUTE MONOCYTES 0.9 thou/uL (0.0-1.2); ABSOLUTE NEUTROPHILS 6.6 thou/uL (1.6-8.1); BASOPHILS 1.1 %; EOSINOPHILS 5.4 %; HEMATOCRIT 46.6 % (42.0-52.0); HEMOGLOBIN 15.8 gm/dL (14.0-18.0); LYMPHOCYTES 18.6 %; MCH 30.7 pg (26.0-34.0); MCV 90.2 fL (80.0-100.0); MONOCYTES 9.3 %; MPV 7.1 fl. (7.2-11.1); NUCLEATED RBCS 0 /100WBC; PLATELET COUNT* 350 thou/uL (150-400); POLYS 65.6 %; RBC 5.16 mil/uL (4.50-6.00); RDW-CV 14.6 % (10.5-14.5); WBC 10.1 thou/uL (4.0-11.0)
[2019-06-30 13:25] LABS: APTT 28.5 Seconds (25.0-31.3); PROTIME 10.5 Seconds (9.20-11.50)
[2019-06-30 13:26] LABS: CALCIUM 8.9 mg/dL (8.5-10.1); CREATININE 1.5 mg/dL (0.6-1.3); POTASSIUM 3.7 mmol/L (3.5-5.1)
[2019-06-30 13:36] LABS: ALBUMIN 3.3 g/dL (3.4-5.0); MAGNESIUM 2.1 mg/dL (1.8-2.4); TOTAL BILIRUBIN 0.4 mg/dL (<0.1-1.0); TOTAL PROTEIN 6.8 g/dL (6.4-8.2)
[2019-06-30 16:01] VITALS: BP 111/60
[2019-06-30 16:40] VITALS: BP 112/61
--- NOTE | 2019-06-30 19:45 | NUR ---
PT ARRIVED TO ROOM 229 AT APPROX 1615 FROM ER. PT A/O X4, C/O SOME CHEST TIGHTNESS, VSS, SR ON THE MONITOR. ADMISSION HX AND ASSESMENT DONE CHARTED. PT PLACED ON CONTACT ISO FOR HX OF MRSA. PTS CAREGIVER PRESENT TO ANSWER QUESTIONS. FALL PRECAUTIONS IN PLACE. PT DOES CALL APPROPRIALTY FOR NEEDS. REPORT GIVEN TO CONCHITA HARMAN
[2019-06-30 20:10] VITALS: BP 118/68
[2019-07-01 00:49] VITALS: BP 91/55
[2019-07-01 04:43] LABS: HEMATOCRIT 42.5 % (42.0-52.0); HEMOGLOBIN 14.6 gm/dL (14.0-18.0); MCH 30.8 pg (26.0-34.0); MCHC 34.4 g/dL (28.0-37.0); MCV 89.5 fL (80.0-100.0); MPV 7.3 fl. (7.2-11.1); RBC 4.74 mil/uL (4.50-6.00); RDW-CV 14.7 % (10.5-14.5); WBC 15.3 thou/uL (4.0-11.0)
[2019-07-01 04:46] LABS: ALBUMIN 3.2 g/dL (3.4-5.0); ALKALINE PHOSPHATASE 67 U/L (46-116); ANION GAP 10 mmol/L (7-16); BUN 20 mg/dL (7-18); CALCIUM 8.5 mg/dL (8.5-10.1); CHLORIDE 98 mmol/L (98-107); CO2 27 mmol/L (21-32); CREATININE 1.6 mg/dL (0.6-1.3); GLUCOSE 153 mg/dL (70-99); POTASSIUM 4.5 mmol/L (3.5-5.1); SGOT 20 U/L (15-37); SGPT 64 U/L (30-65); SODIUM 135 mmol/L (136-145); TOTAL BILIRUBIN 0.3 mg/dL (<0.1-1.0); TOTAL PROTEIN 6.8 g/dL (6.4-8.2); TROPONIN-I LEVEL <0.06 ng/mL (<0.06)
--- NOTE | 2019-07-01 05:28 | NUR ---
PT CARE ASSUMED AT 1930. SAT MAINTAINED IN O2. C/O PAIN, MEDICATION GIVEN PER EMAR. ALERT AND ORIENTED X4. CALL LIGHT WITHIN REACH AND BED IN LOW POSITION. HOURLY ROUNDING DONE FOR PT SAFETY.
--- NOTE | 2019-07-01 08:46 | EKG ---
[place] [address] ELECTROCARDIOGRAM REPORT Name: SONI BATES Room: [address] ADM IN M.R.#: [id number] Admission: 06/30/19 Attend Phys: Juan Pablo Valencia Discharge: Date of : 84 Report #: [id number] THIS REPORT FOR: //name// [facility] ED Test Date: 2019-06-30 Test Time: 12:08:47 Pat Name: SONI BATES Department: Room: [facility] Gender: M Genetic Engineer: : 1980 Requested By: Soren Sanchez Order Number: [id number] MD: Derrick Polanco Measurements Intervals [place] Rate: 84 P: 7 MT: 138 QRS: 54 QRSD: 76 T: 19 QT: 351 QTc: 415 Interpretive Statements Sinus rhythm Borderline low voltage, extremity leads Artifact in lead(s) II,III,aVR,aVF,V1,V2 Compared to ECG 05/01/2019 01:24:19 No significant changes Electronically Signed On 07-01-2019 8:46:19 BAKER HEAD by Derrick Polanco [email or web address] <ELECTRONICALLY SIGNED> By: Derrick Polanco MD, FACC 07/01/19 0846 1208 [id number] Drerick Polanco MD, [facility] /EPI
--- NOTE | 2019-07-01 11:14 | NUR ---
PT TRANSFERRED TO UNIT. I AGREE [facility] MORNING ASSESSMENT. PT ORIENTED TO NEW ROOM. FALL RISK PRECAUTIONS IN PLACE. WILL CONTINUE TO MONITOR.
--- NOTE | 2019-07-01 13:43 | NUR ---
MET WITH PT, KNOWN TO CM FROM PREVIOUS ADMITS. PT JUST DC'D 06/25 WITH [facility]. SPOKE WITH PT, BRISSA AT [facility] WHERE PT LIVES AND DI[facility] LINDA/GUARDIAN. PT READMITTED WITH CHEST PAIN AND SOA, HAS HOME O2 AND CPAP WELL [facility]. PT TOLD NURSE HIS CPAP 'IS BROKEN' SPOKE WITH BRISSA AND DIAMOND, THEY STATE IT IS NOT, THAT IT'S A NEWER CPAP AND IT WORKS A LITTLE DIFFERENT THAN HIS OLD ONE, NOT 'CONSTANTLY' RUNNING PER DIAMOND. THE HOME AND HH HAVE BEEN WORKING WITH PT TO GET HIM TO UNDERSTAND. PT HAS DOWNS. PER DIAMOND, HH IS ALSO WORKING WITH PT RE: DEFINING HIS 'CHEST PAIN' AND TRYING TO REDUCE RETURNS TO HOSPITAL. PT UP IN CHAIR AND TALKING ON PHONE TODAY. PLAN IS FOR HIM TO RETURN TO [facility] WITH [facility]
[2019-07-01 13:49] VITALS: BP 91/55
--- NOTE | 2019-07-01 17:09 | NUR ---
pt remained alert and oriented. pt resting in bed. fall risk precautions in place. hourly rounding completed. will continue to monitor.
[2019-07-01 18:08] VITALS: BP 109/50
[2019-07-01 20:00] VITALS: BP 120/58
--- NOTE | 2019-07-02 06:27 | NUR ---
PATIENT WALKED WITH STAFF IN HALLS EARLY IN THE EVENING. PT ON O2 @ 2 LITERS PER NASAL CANNULA. PT WEARS HOME CPAP AT NIGHT. PT C/O CHRONIC HIP PAIN AND RECEIVED HYDROCODONE 2 TABS AT HS. PT WITH SALINE LOCK IN LT AC. PT DENIES NEEDS AT THIS TIME. 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 FREQUENTLY USED ITEMS AND CALL LIGHT WITHIN REACH. SIDERAILS UPX2. WILL CONTINUE TO MONITOR.
[2019-07-02 08:00] VITALS: BP 119/67
[2019-07-02] MEDS ORDERED: LEVAQUIN 500 M500 M3 PO (13:39)
[2019-07-02] MEDS ORDERED: PREDNISONE 10 M10 MG PO (13:40)
--- NOTE | 2019-07-02 15:00 | NUR ---
PT.TO BE DISCHARGED TO ASSISTED TODAY. DISCUSSED HOME HEALTH WITH . HE SAID HE DID NOT FEEL PT.NEEDED IT. NOTIFIED BRISSA/SHANIA ASSISTED OF DISCHARGE. SHE WILL HAVE SOMEONE PICK HIM UP BETWEEN 4:30 AND 5:00. NOTIFIED GHAZAL TOWNSEND. CHART COPIED TO GO WITH PT. CM NOTIFIED GUARDIAN DIAMOND LINDA. HE WAS AWARE, HAD SPOKEN WITH EARLIER. ELECTRONICALLY FILED SCRIPTS FOR LEVOFLOXACIN PO AND PREDNISONE WITH [facility]. SHAHIDA VERIFIED RECEIVING THEM. THEY WILL DELIVER TO [facility].
--- NOTE | 2019-07-02 17:02 | NUR ---
ASSUMMED CARE OF PT AT 0730, PT ALERT, UP AMBULATING SBA TO BATHROOM AND HALLWAYS, PT DENIES PAIN THIS SHIFT, TAKING FOOD AND FLUIDS WELL, PT ENCOURAGED TO TAKE DEEP BREATHES LUNG SOUNDS ARE DIMINISHED, ISOLATION PRECAUTIONS MAINTAINED, O2 ON AT 2L SATS OF 96%, PT VOIDS PER TOILET, ORDERS OBTAINED FOR DISCHARGE, PT EXCITED TO GO HOME, RETIREMENT CALLED AND WILL COME FOR PT AROUND 1700, WILL DISCUSS DISCHARGE ORDERS WITH PT AND RETIREMENT STAFF.
== END 2019-07-02 17:30 | disposition home or self-care (01) | DRG 191 ==
LOC: M.ERS 12:03 → M.3W 14:03 → M.TBA-ER 14:03 → M.2W 14:03 → M.3W 07-01 11:07
PROVIDERS: Family Medicine; Internal Medicine; ADMIT Internal Medicine
PROC: 5A09357 Assistance with Respiratory Ventilation, Less than 24 Consecutive Hours, Continuous Positive Airway Pressure (ICD-10-PCS; principal; 2019-06-30)
PROC: 5A09357 Assistance with Respiratory Ventilation, Less than 24 Consecutive Hours, Continuous Positive Airway Pressure (ICD-10-PCS; 2019-07-01)
PROC: 5A09357 Assistance with Respiratory Ventilation, Less than 24 Consecutive Hours, Continuous Positive Airway Pressure (ICD-10-PCS; 2019-07-02)
DX: J44.1 Chronic obstructive pulmonary disease with (acute) exacerbation (principal); R65.10 Systemic inflammatory response syndrome (SIRS) of non-infectious origin without acute organ dysfunction; J44.0 Chronic obstructive pulmonary disease with (acute) lower respiratory infection; I12.9 Hypertensive chronic kidney disease with stage 1 through stage 4 chronic kidney disease, or unspecified chronic kidney disease; N18.3 Chronic kidney disease, stage 3 (moderate); I27.20 Pulmonary hypertension, unspecified; E03.9 Hypothyroidism, unspecified; D64.9 Anemia, unspecified; G47.33 Obstructive sleep apnea (adult) (pediatric); K21.9 Gastro-esophageal reflux disease without esophagitis; J30.2 Other seasonal allergic rhinitis; Q90.9 Down syndrome, unspecified; Z87.01 Personal history of pneumonia (recurrent); Z86.14 Personal history of Methicillin resistant Staphylococcus aureus infection; Z79.899 Other long term (current) drug therapy; Z88.2 Allergy status to sulfonamides; Z91.09 Other allergy status, other than to drugs and biological substances

== ENCOUNTER 2019-07-14 11:16 | Inpatient (IN) | payer MEDICARE, MEDICAID ==
[~2019-07-14] VITALS: Ht 152.4 cm; Wt 87.1 kg
[~2019-07-14 11:16] MED LIST changes: +LEVAQUIN 500 M500 M3 PO
[2019-07-14 11:18] VITALS: BP 107/55
[2019-07-14] MEDS ORDERED: RAYOS5 MG PO (11:26)
[2019-07-14 11:37] LABS: BE 1.4 mmol/L (-2 to +3); PCO2 36.3 mmHg (35.0-45.0); pH 7.455 (7.340-7.450)
[2019-07-14 11:39] LABS: PO2 58.6 mmHg (75.0-100.0)
[2019-07-14 12:09] LABS: HEMOGLOBIN 13.1 gm/dL (14.0-18.0); NUCLEATED RBCS 0 /100WBC
[2019-07-14 12:12] LABS: HEMATOCRIT 38.2 % (42.0-52.0); MCHC 34.3 g/dL (28.0-37.0); MCV 90.3 fL (80.0-100.0); MPV 7.1 fl. (7.2-11.1); PLATELET COUNT* 221 thou/uL (150-400); RBC 4.22 mil/uL (4.50-6.00); RDW-CV 15.1 % (10.5-14.5); WBC 13.9 thou/uL (4.0-11.0)
[2019-07-14 12:16] LABS: CALCIUM 7.8 mg/dL (8.5-10.1); CREATININE 1.5 mg/dL (0.6-1.3); POTASSIUM 3.8 mmol/L (3.5-5.1)
[2019-07-14 12:21] LABS: ALBUMIN 2.8 g/dL (3.4-5.0); MAGNESIUM 1.5 mg/dL (1.8-2.4); TOTAL BILIRUBIN 0.5 mg/dL (<0.1-1.0); TOTAL PROTEIN 5.9 g/dL (6.4-8.2)
[2019-07-14 13:27] LABS: URINE BILIRUBIN NEGATIVE (Negative); URINE BLOOD NEGATIVE (Negative); URINE CLARITY CLEAR; URINE COLOR YELLOW; URINE GLUCOSE-RANDOM NEGATIVE (Negative); URINE KETONES NEGATIVE (Negative); URINE LEUKOCYTES-REFLEX NEGATIVE (Negative); URINE NITRITE-REFLEX NEGATIVE (Negative); URINE PROTEIN NEGATIVE (Negative); URINE UROBILINOGEN 0.2 E.U./dl (0.2-1.0)
[2019-07-14 13:31] LABS: INFLUENZA A ANTIGEN Negative (Negative); INFLUENZA B ANTIGEN Negative (Negative)
[2019-07-14 13:35] LABS: ABSOLUTE EOSINOPHILS 0.8 thou/uL (0.0-0.7); ABSOLUTE LYMPHOCYTES 0.1 thou/uL (0.8-5.3); ABSOLUTE MONOCYTES 0.3 thou/uL (0.0-1.2); ABSOLUTE NEUTROPHILS 12.6 thou/uL (1.6-8.1); ANISOCYTOSIS 1+; PLATELET ESTIMATE ADEQUATE; POIKILOCYTOSIS 1+
[2019-07-14 17:35] VITALS: BP 102/56
[2019-07-14 18:00] VITALS: BP 99/62
--- NOTE | 2019-07-14 19:07 | NUR ---
PT ADMITTED FROM ER ON 4 L NC. AOX4. ATE DINER. IV FLUID INFUSING. NO COMPLAINT. CALL LIGHT AT REACH. SITTING IN RECLINER WATCHING TV
--- NOTE | 2019-07-14 19:08 | NUR ---
VS STABLE. TRACING SINUS TACHY ON AIRPORT CONTROL OPERATOR
[2019-07-14 20:00] VITALS: BP 110/51
[2019-07-14 23:53] VITALS: BP 108/61
[2019-07-15 03:45] VITALS: BP 111/65
--- NOTE | 2019-07-15 05:11 | NUR ---
PT REPORTS TOLERABLE PAIN TO RIB AREA PRESENT WITH COUGH, NO MEDICATION NEEDED AT THIS TIME. MAINTAINING O2 SATS ON 2L NC WITH SATS >90%. PT HAD NO OTHER CONCERNS AT THIS TIME, CURRENTLY ASLEEP WITH BED ALARM ON AND CALL LIGHT WITHIN REACH.
[2019-07-15 08:00] VITALS: BP 113/65
[2019-07-15 08:43] LABS: ABSOLUTE LYMPHOCYTES 0.4 thou/uL (0.8-5.3); ABSOLUTE MONOCYTES 0.1 thou/uL (0.0-1.2); ABSOLUTE NEUTROPHILS 14.6 thou/uL (1.6-8.1); BASOPHILS 0.1 %; HEMATOCRIT 36.6 % (42.0-52.0); HEMOGLOBIN 12.5 gm/dL (14.0-18.0); LYMPHOCYTES 2.4 %; MCH 31.1 pg (26.0-34.0); MCV 91.3 fL (80.0-100.0); MONOCYTES 0.8 %; MPV 7.6 fl. (7.2-11.1); NUCLEATED RBCS 0 /100WBC; PLATELET COUNT* 221 thou/uL (150-400); POLYS 96.7 %; RBC 4.01 mil/uL (4.50-6.00); RDW-CV 15.9 % (10.5-14.5); WBC 15.1 thou/uL (4.0-11.0)
[2019-07-15 09:05] LABS: ALBUMIN 2.9 g/dL (3.4-5.0); CALCIUM 7.6 mg/dL (8.5-10.1); CREATININE 1.3 mg/dL (0.6-1.3); POTASSIUM 4.4 mmol/L (3.5-5.1); TOTAL BILIRUBIN 0.4 mg/dL (<0.1-1.0); TOTAL PROTEIN 5.7 g/dL (6.4-8.2)
[2019-07-15 11:36] VITALS: BP 98/62
--- NOTE | 2019-07-15 12:07 | NUR ---
Pt is A&O. Known to this CM from previous hospital stay. Resides at [facility]. Pt has a legal guardian. Pt has a walker that he can use for mobility. Pt has home o2 and a cpap. Hx of [facility]. No hx of SNF. Goal is home at sc. Following.
[2019-07-15 16:00] VITALS: BP 99/39
--- NOTE | 2019-07-15 17:06 | EKG ---
[place] [address] ELECTROCARDIOGRAM REPORT Name: SONI BATES Room: [address] ADM IN M.R.#: [id number] Admission: 07/14/19 Attend Phys: Juan Pablo Valencia Discharge: Date of : 84 Report #: [id number] THIS REPORT FOR: //name// [facility] ED Test Date: 2019-07-14 Test Time: 11:23:26 Pat Name: SONI BATES Department: Room: [facility] Gender: M Machine Bender: MATTHIEU : 1980 Requested By: Rosa Gonzalez Order Number: [id number] MD: Emilio Lowe Measurements Intervals [place] Rate: 132 P: 57 OK: 120 QRS: 72 QRSD: 83 T: 27 QT: 279 QTc: 414 Interpretive Statements Sinus tachycardia Low voltage, extremity leads Abnormal R-wave progression, late transition Compared to ECG 06/30/2019 12:08:47 Sinus rhythm no longer present Electronically Signed On 07-15-2019 17:06:01 WIRE HANGER by Emilio Lowe [email or web address] <ELECTRONICALLY SIGNED> By: Emilio Lowe MD, [facility] 07/15/19 1706 1123 [id number] Emilio Lowe MD, [facility] /EPI
--- NOTE | 2019-07-15 18:36 | NUR ---
MOUSTAPHA RESTING IN CHAIR IN ROOM. UP WITH STANDBY ASSISTANCE AND WALKER. 4L PER NASAL CANULA. PRODUCTIVE COUGH TODAY. VSS. HE DID HAVE ONE BOUT OF COUGHING TODAY WITH LARGE PHLEGM PRODUCTION. HOURY ROUNDING COMPLETED FOR PATIENT SAFETY.
[2019-07-15 20:00] VITALS: BP 125/68
[2019-07-16 00:12] VITALS: BP 114/58
[2019-07-16 04:25] VITALS: BP 117/70
--- NOTE | 2019-07-16 04:53 | NUR ---
PT STATED HE IS FEELING BETTER. MAINTAINING O2 SATS >92% ON 2L NC. PT HAD C/O TO IV SITE. IV WAS REMOVED NEW IV PLACED PER PT REQUEST. NO OTHER CONCERNS NOTED AT THIS TIME. PT IS CURRENTLY ASLEEP WITH CALL LIGHT WITHIN REACH.
[2019-07-16 08:11] VITALS: BP 124/62
[2019-07-16 12:34] VITALS: BP 107/58
[2019-07-16 14:22] LABS: ABSOLUTE BASOPHILS 0.1 thou/uL (0.0-0.2); ABSOLUTE LYMPHOCYTES 0.4 thou/uL (0.8-5.3); ABSOLUTE MONOCYTES 0.4 thou/uL (0.0-1.2); ABSOLUTE NEUTROPHILS 26.6 thou/uL (1.6-8.1); BASOPHILS 0.3 %; HEMATOCRIT 37.4 % (42.0-52.0); HEMOGLOBIN 12.6 gm/dL (14.0-18.0); LYMPHOCYTES 1.4 %; MCH 30.4 pg (26.0-34.0); MCHC 33.6 g/dL (28.0-37.0); MCV 90.6 fL (80.0-100.0); MONOCYTES 1.5 %; MPV 7.3 fl. (7.2-11.1); NUCLEATED RBCS 0 /100WBC; PLATELET COUNT* 249 thou/uL (150-400); POLYS 96.8 %; RBC 4.13 mil/uL (4.50-6.00); RDW-CV 15.5 % (10.5-14.5); WBC 27.5 thou/uL (4.0-11.0)
[2019-07-16 14:38] LABS: ALBUMIN 2.9 g/dL (3.4-5.0); CREATININE 1.3 mg/dL (0.6-1.3); POTASSIUM 3.3 mmol/L (3.5-5.1); TOTAL BILIRUBIN 0.3 mg/dL (<0.1-1.0); TOTAL PROTEIN 6.5 g/dL (6.4-8.2)
--- NOTE | 2019-07-16 14:39 | EKG ---
[place] [address] ELECTROCARDIOGRAM REPORT Name: ROB BATESOLAS OZZIE Room: [address] ADM IN M.R.#: [id number] Admission: 07/14/19 Attend Phys: Juan Pablo Valencia Discharge: Date of : 84 Report #: [id number] THIS REPORT FOR: //name// [facility] Test Date: 2019-07-16 Test Time: 10:21:28 Pat Name: SONI BATES Department: Room: [address] Gender: M Behavioral Health Rn: : 1980 Requested By: Ryan Salmon Order Number: [id number] Nisha MD: Emilio Lowe Measurements Intervals [place] Rate: 92 P: 57 AR: 132 QRS: 63 QRSD: 82 T: 29 QT: 361 QTc: 447 Interpretive Statements Sinus rhythm Compared to ECG 07/14/2019 11:23:26 Sinus tachycardia no longer present Electronically Signed On 07-16-2019 14:39:07 TUNNEL DRIER OPERATOR by Emilio Lowe [email or web address] <ELECTRONICALLY SIGNED> By: Emilio Lowe MD, [facility] 07/16/19 1439 D: [id number] 20 Emilio Lowe MD, [facility] /EPI
[2019-07-16 16:00] VITALS: BP 107/58
[2019-07-16 16:54] LABS: URINE BILIRUBIN NEGATIVE (Negative); URINE BLOOD NEGATIVE (Negative); URINE CLARITY CLEAR; URINE COLOR YELLOW; URINE GLUCOSE-RANDOM NEGATIVE (Negative); URINE KETONES NEGATIVE (Negative); URINE LEUKOCYTES NEGATIVE (Negative); URINE NITRITE NEGATIVE (Negative); URINE PROTEIN NEGATIVE (Negative); URINE SPECIFIC GRAVITY <= 1.005 (1.005-1.030); URINE UROBILINOGEN 0.2 E.U./dl (0.2-1.0)
--- NOTE | 2019-07-16 18:42 | NUR ---
MONTEZNET RESTING IN BED. UP WITH ASSIT X1 AND WALKER. AOX4. IV ABX PER ORDERS. PATIENTS LUNGS SOUNDS WERE COURSE THIS MORNING , AND ARE CONSIDERABLY MORE CLEAR THIS AFTERNOON. WBC COUNT HAS RISEN. MONTEZNET STATES THAT HE FEELS BETTER TODAY THAN YESTERDAY. HOURLY ROUNDING COMPLETED FOR MONTEZNET SAFETY.
[2019-07-16 20:00] VITALS: BP 117/70
[2019-07-17] VITALS: BP 112/57
[2019-07-17 03:44] VITALS: BP 113/55
--- NOTE | 2019-07-17 05:15 | NUR ---
PT REMAINS ON 3L NC AND CPAP AT HS. NO C/O PAIN OR DISCOMFORT NOTED AT THIS TIME. NO CONCERNS STATED BY PT. CURRENTLY ASLEEP IN BED WITH BED ALARM ON AND CALL LIGHT WITHIN REACH.
[2019-07-17 08:00] VITALS: BP 118/65; BP 152/61
--- NOTE | 2019-07-17 11:13 | NUR ---
ASSUMED CARE OF PT AT 0730. PT SITTING IN CHAIR WAITING FOR BREAKFAST. PT A&0X4, DENIES ANY PAIN AT THIS TIME. TRACING SR/ST ON THE SURGERY AID. ON 3L NC SAT 95%- PT HAS PRODUCTIVE COUGH-BROWN AND GREEN PHLEGM PER PT. PT COUGHING THIS AM-PRN MEDICATION GIVEN WITH PARTIAL RELIEF. PT IN CONTACT ISOLATION FOR HISTORY MRSA. PT UP WITH SBA TO BATHROOM. PULMONARY HERE TO SEE PT. ORDERS RECEIVED TO INCREASE FREQUENCY OF BREATHING TREATMENTS AND INCREASE IN IV STEROIDS. PT GOAL FOR TODAY IS REPLACE POTASSIUM PER ELECTROLYTE PROTOCOL, ID CONSULT IN PLACE, ST CONSULT TO RULE OUT POSSIBLE ASPIRATION. AM ASSESSMENT CHARTED. MEDICATIONS PER AUG. PT REPOSITIONS SELF. HOURLY ROUNDING OBSERVED. BED IN LOW POSITION. CALL LIGHT WITHIN REACH. WILL CONTINUE PLAN OF CARE.
[2019-07-17 12:19] VITALS: BP 98/54
[2019-07-17 17:26] VITALS: BP 120/59
--- NOTE | 2019-07-17 18:22 | NUR ---
NO ACUTE CHANGES THROUGHOUT SHIFT. REFER TO CHARTING. PT SEEN BY SPEECH THERAPY TODAY- ORDERS RECEIVED FOR CHOPPED DIET. PT TOLERATING WELL. PT AMBULATED IN HALLWAY TODAY WITH NURSING STAFF-TOLERATED WELL. OT CONTINUES TO TRACE SR/ST ON THE BUSINESS BANKING MANAGER. ON 3L NC SAT UPPER 90'S. PT DENIES ANY PAIN THIS AFTERNOON. PT UP SBA TO BATHROOM. PROGRESSING TOWARDS GOALS. MEDICATIONS PER AUG. PT REPOSITIONS SELF. HOURLY ROUNDING OBSERVED. BED IN LOW POSITION. CALL LIGHT WITHIN REACH. WILL CONTINUE PLAN OF CARE.
[2019-07-17 20:00] VITALS: BP 123/71
[2019-07-18] VITALS: BP 119/66
--- NOTE | 2019-07-18 03:20 | NUR ---
PT ALERT ORIENTED X4. UP TO BR WITH STD BY ASSIST. TELEMETRY SHOWS SR. O2 AT 3 LITERS NC. BIPAP AT HS. DENIES PAIN. NS AT 100MLS/HR. WCTM
[2019-07-18 04:13] VITALS: BP 111/68
--- NOTE | 2019-07-18 11:19 | NUR ---
Nutrition: screen for BMI >40. Pt Wt stable w/ prior UBW noted around 200 lb. Pt noted to be tolerating po. Albumin 2.9, ALT and AST low. Meds reviewed. [facility] from [facility]. No recommendations at this time, low nutrition risk.
[2019-07-18 16:34] VITALS: BP 121/73
--- NOTE | 2019-07-18 19:10 | NUR ---
PATINET RESTING IN CHAIR IN ROOM. VSS. 3L PER NASAL CANULA. RIGHT MIDDLE LOBE CRACKLES AND SLIGHT WHEEZING. HOURLY ROUNDING COMPLETED FOR PATINET SAFETY.
[2019-07-18 20:00] VITALS: BP 120/69
[2019-07-19] VITALS: BP 143/77
[2019-07-19 04:00] VITALS: BP 121/52
--- NOTE | 2019-07-19 05:56 | NUR ---
ASSUMED PATIENT CARE AT 1900. ASSESSMENT COMPLETED CHARTED. PATIENT IS NSR ON THE MONITOR. HOURLY ROUNDING IN PLACE FOR PATIENT SAFETY. CLWR.
[2019-07-19 07:05] VITALS: BP 131/78
--- NOTE | 2019-07-19 10:05 | NUR ---
INITAL ASSESSMENT COMPLETED CHARTED. VSS. TRACING SR ON MONITOR. REFER TO COMPUTER CHARTING FOR FURTHER DETAILS. HOURLY ROUNDING AND FALL PRECAUTIONS IN PLACE FOR PT SAFETY. CLWR.
[2019-07-19 12:38] VITALS: BP 101/59
--- NOTE | 2019-07-19 14:03 | CON ---
[address] [address] CONSULTATION Name: BATESSONI OZZIE Room: [address] IN M.R.#: [id number] Admission: 07/14/19 Attend Phys: Juan Pablo Valencia Discharge: Date of : 84 Report #: [id number] THIS REPORT FOR: //name// CC: Shae Salmon DATE OF SERVICE: 07/17/2019 REASON FOR CONSULT: I was asked to see this 39-year-old gentleman for laejn-xg-dtgxxmk respiratory failure, pneumonia, COPD with acute exacerbation. HISTORY OF PRESENT ILLNESS: He is a lifelong nonsmoker. He has multiple admissions for hwtap-ok-aoymzrw respiratory failure. He is on 3 L of oxygen continuously. He has sleep apnea, is on his CPAP. He has had increased cough with sputum production and wheezing. He denies gastroesophageal reflux symptoms. He has had chest pain. He is on CPAP now. He feels better since admission. PAST MEDICAL HISTORY: COPD, chronic respiratory failure, obstructive sleep apnea-hypopnea syndrome, gastroesophageal reflux disease, anemia, history of recurrent pneumonia and pseudomonas pneumonia, bronchiectasis, hypothyroidism, Down syndrome. ALLERGIES: SULFA, HORSE DANDER. MEDICATIONS: Currently, he is on vancomycin, Tylenol, vitamin C, azithromycin, Pulmicort, Solu-Medrol 62.5 mg every 8 hours, Prozac, Flonase, Mucinex, DuoNeb t.i.d. Levaquin, levothyroxine, magnesium, montelukast, Protonix and Rocephin. SOCIAL HISTORY: He is a lifelong nonsmoker. He lives in a snf. FAMILY HISTORY: Hypertension per chart. REVIEW OF SYSTEMS: As mentioned as above, other systems otherwise negative. PHYSICAL EXAMINATION: GENERAL: This is an overweight gentleman. He is on CPAP. VITAL SIGNS: His O2 saturation is 96%, respiratory rate 18, heart rate 80, blood pressure 130/55, temperature 36.4. HEENT: Normocephalic, atraumatic. Pupils equal, round, reactive to light. He has BiPAP mask on. NECK: Short and thick. No lymphadenopathy or thyromegaly. CARDIOVASCULAR: Regular rate and rhythm. PMI is nondisplaced. CHEST: Inspection is normal. LUNGS: There are a few end-expiratory wheezing, dullness at the bases. ABDOMEN: Soft and obese. Bowel sounds are good[place] [address] CONSULTATION Name: SONI BATES Room: [address]#: [id number] Admission: 07/14/19 Attend Phys: Juan Pablo Valencia Discharge: Date of : 84 Report #: [id number] EXTREMITIES: There is no edema. LYMPHATICS: There is no lymphadenopathy. SKIN: Chronic changes. NEUROLOGIC: Alert. LABORATORY DATA: I reviewed the following lab data: WBC 27.5, hemoglobin 12.6, platelet 249. ABG on admission pH 7.45, pCO2 of 36, pO2 of 58 on 3 liters of oxygen. Sodium 143, potassium 3.3, chloride 108, CO2 of 24, glucose 155, BUN 15, creatinine 1.3. Procalcitonin less than 0.05. Lactic acid 1.5. Influenza A and B negative. Chest x-ray, linear segmental patchy bibasilar opacities consistent with scarring. IMPRESSION: 1. Lsgbe-uf-bpqkjsl respiratory failure secondary to acute exacerbation of chronic obstructive pulmonary disease, pneumonia. 2. Acute exacerbation of chronic obstructive pulmonary disease. 3. Acute bronchitis versus pneumonia. 4. Obstructive sleep apnea-hypopnea syndrome. 5. Recurrent pneumonia ?aspiration. 6. Down syndrome. 7. Bronchiectasis. 8. History of pseudomonas pneumonia. 9. Hypokalemia. PLAN AND RECOMMENDATIONS: 1. Titrate FiO2 to keep O2 saturation 92%. 2. Use CPAP during sleep continuously and p.r.n. during day. 3. ID is consulted, follow ID recommendations. Antibiotic per ID. 4. Continue Solu-Medrol. No dose. 5. Continue Pulmicort. increase BD to q 4hrs 6. He had a CT of the chest done in 03/2019, which showed bibasilar bronchiectasis with peribronchial thickening. He may require a repeat CT. 6. I will consult the speech pathologist to rule out dysphagia and aspiration. 7. Protonix for stress ulcer prophylaxis. 8. Lovenox for DVT prophylaxis. 9. The findings and recommendations were discussed with the patient and RN. Thank you very much for allowing me to participate in care of this very nice gentleman. <ELECTRONICALLY SIGNED> By: Saurabh Moreno MD 07/19/19 1403 [id number] [id number] Moreno MD /nt
[2019-07-19 16:04] VITALS: BP 126/71
[2019-07-19 20:00] VITALS: BP 105/51; BP 162/70
[2019-07-20 04:17] VITALS: BP 113/57
--- NOTE | 2019-07-20 04:45 | NUR ---
ASSUMED PT CARE AT 1915. NURSING ASSESSMENT COMPLETED AT START OF SHIFT. PT VOICED NO CONCERNS THIS SHIFT. UP WITH O2 AND WALKER. SR ON TOUR CONDUCTOR. CPAP DURING SLEEP. HOURLY ROUNDING COMPLETED. HIGH FALL PRECAUTIONS IN PLACE. CALL LIGHT WITHIN REACH.
[2019-07-20 07:00] VITALS: BP 101/57
[2019-07-20 08:49] LABS: HEMATOCRIT 41.5 % (42.0-52.0); HEMOGLOBIN 14.2 gm/dL (14.0-18.0); MCH 30.8 pg (26.0-34.0); MCHC 34.1 g/dL (28.0-37.0); MCV 90.2 fL (80.0-100.0); MPV 7.1 fl. (7.2-11.1); RBC 4.6 mil/uL (4.50-6.00); RDW-CV 15.9 % (10.5-14.5); WBC 7.8 thou/uL (4.0-11.0)
[2019-07-20 09:05] LABS: ALBUMIN 2.8 g/dL (3.4-5.0); CALCIUM 7.5 mg/dL (8.5-10.1); CREATININE 1.3 mg/dL (0.6-1.3); MAGNESIUM 2.2 mg/dL (1.8-2.4); POTASSIUM 3.9 mmol/L (3.5-5.1); TOTAL BILIRUBIN 0.4 mg/dL (<0.1-1.0); TOTAL PROTEIN 6.1 g/dL (6.4-8.2)
--- NOTE | 2019-07-20 09:20 | NUR ---
INITAL ASSESSMENT COMPLETED CHARTED. VSS. PT DENIES PAIN, SOA, N/V/D. TRACING SR ON MONITOR. 3LPM VIA NC. UP WITH STEADY GAIT AND SBA. HOURLY ROUNDING AND FALL PRECAUTIONS IN PLACE FOR PT SAFETY. CLWR.
[2019-07-20 11:36] VITALS: BP 133/78
[2019-07-20 16:00] VITALS: BP 121/58
[2019-07-20 19:45] VITALS: BP 107/80
[2019-07-21] VITALS: BP 114/67
[2019-07-21 04:00] VITALS: BP 109/70
--- NOTE | 2019-07-21 04:58 | NUR ---
PT SLEPT MOST OF SHIFT. ASSESSMENT DOCUMENTED. MEDS GIVEN PER E-AUG. IV PATENT, ABX INFUSED. PAIN MEDS GIVEN FOR RIB PAIN. WILL CONTINUE WITH PLAN OF CARE.
[2019-07-21 07:30] VITALS: BP 93/55
--- NOTE | 2019-07-21 10:28 | NUR ---
ASSUMED CARE OF PT AT 0730. PT RESTING IN CHAIR WAITING FOR BREAKFAST. A&0X4, DENIES ANY PAIN OR SHORTNESS OF BREATH INITIALLY. PT COMPLAINED OF PLEURITIC PAIN FROM COUGHING LATER IN THE MORNING. TREATED WITH PRN TYLENOL WITH RELIEF. PRN TESSALON PEARLS GIVEN WELL. TRACING SR/ST ON THE MACHINE WEDGER. DR BALLESTEROS MADE PT MED SURG LATE MORNING. ON 2-3L NC SAT UPPER 90S'-HOME CPAP AT [facility]. PT UP AD MIKEY IN ROOM. PT GOAL FOR TODAY IS PAIN MGMT, INCREASE ACTIVITY AND ID AND PULM CONSULT IN PLACE. AM ASSESSMENT CHARTED. MEDICATIONS PER AUG. PT REPOSITIONS SELF. HOURLY ROUNDING OBSERVED. BED IN LOW POSITION. CALL LIGHT WITHIN REACH. WILL CONTINUE PLAN OF CARE.
[2019-07-21 17:00] VITALS: BP 94/70
--- NOTE | 2019-07-21 17:45 | NUR ---
NO ACUTE CHANGES THROUGHOUT SHIFT. REFER TO CHARTING. PT AMBULATED IN HALLWAY WITH NURSING STAFF-TOLERATED WELL. DENIED ANY PAIN OR SHORTNESS OF BREATH THIS AFTERNOON. PT SAT UP IN THE CHAIR MOST OF THE AFTERNOON WATCHING THE FOOTBALL GAME. VISITORS AT BEDSIDE THROUGHOUT SHIFT. PT MED SURG. PROGRESSING TOWARDS GOALS. POSSIBLE DISCHARGE HOME TOMORROW 07/22. MEDICATIONS PER AUG. PT REPOSITIONS SELF. HOURLY ROUNDING OBSERVED. BED IN LOW POSITION. CALL LIGHT WITHIN REACH. WILL CONTINUE PLAN OF CARE.
[2019-07-21 19:40] VITALS: BP 105/61
[2019-07-22 00:14] VITALS: BP 109/52
[2019-07-22 05:58] LABS: HEMATOCRIT 41.4 % (42.0-52.0); HEMOGLOBIN 14.1 gm/dL (14.0-18.0); MPV 7.3 fl. (7.2-11.1); RBC 4.55 mil/uL (4.50-6.00); RDW-CV 16.4 % (10.5-14.5); WBC 7.9 thou/uL (4.0-11.0)
[2019-07-22 06:16] LABS: ALBUMIN 2.7 g/dL (3.4-5.0); CALCIUM 7.3 mg/dL (8.5-10.1); CREATININE 1.4 mg/dL (0.6-1.3); MAGNESIUM 1.9 mg/dL (1.8-2.4); POTASSIUM 3.9 mmol/L (3.5-5.1); TOTAL BILIRUBIN 0.4 mg/dL (<0.1-1.0); TOTAL PROTEIN 5.8 g/dL (6.4-8.2)
--- NOTE | 2019-07-22 06:57 | NUR ---
PT CARE ASSUMED AT 1930. SAT MAINTAINED IN O2. ALERT AND ORIENTED X4. CALL LIGHT WITHIN REACH AND BED IN LOW POSITION. C/O PAIN, MEDICATION GIVEN PER EMAR. HOURLY ROUNDING DONE FOR PT SAFETY.
[2019-07-22 08:00] VITALS: BP 105/64
--- NOTE | 2019-07-22 12:51 | NUR ---
Spoke with , anticipate dc back to [facility] tomorrow. Following.
--- NOTE | 2019-07-22 15:46 | 2DMMODE ---
[place] [address] 2 D/M-MODE ECHOCARDIOGRAM Name: SONI BATES OZZIE Room: [facility] IN [facility]#: [id number] Admission: 07/14/19 Attend Phys: Ryan Salmon Discharge: Date of : 84 Date of Service: 07/22/19 1545 Report #: [id number] THIS REPORT FOR: //name// APPROVED REPORT Study performed: 07/22/2019 14:42:49 EXAM: Comprehensive 2D, Doppler, and color-flow Echocardiogram Patient Location: In-Patient Room #: 222 Status: routine BSA: 1.88 HR: 115 bpm BP: 105/64 mmHg Rhythm: NSR Other Information Study Quality: Good Indications Pericardial Effusion 2D Dimensions IVSd: 9.31 (7-11mm) LVOT Diam: 24.22 (18-24mm) LVDd: 44.19 mm PWd: 10.21 (7-11mm) Ascending Ao: 30.65 (22-36mm) LVDs: 24.69 (25-40mm) Aortic Root: 31.03 mm Volumes Left Atrial Volume (Systole) LA ESV Index: 13.00 mL/m2 Aortic Valve AoV Peak Romulo.: 1.11 m/s AO Peak Gr.: 4.95 mmHg LVOT Max P.08 mmHg AO Mean Gr.: 2.80 mmHg LVOT Mean P.51 mmHg LVOT Max V: 0.88 m/s AO V2 VTI: 17.54 cm LVOT Mean V: 0.57 m/s AKANKSHA (VTI): 3.79 cm2 LVOT V1 VTI: 14.44 cm Pulmonary Valve PV Peak Romulo.: 0.90 m/s PV Peak Gr.: 3.27 [place] [address] 2 D/M-MODE ECHOCARDIOGRAM Name: SONI BATES Room: [address] IN .R.#: [id number] Admission: 07/14/19 Attend Phys: Ryan Salmon Discharge: Date of : 84 Date of Service: 07/22/19 1545 Report #: [id number] The left ventricle is normal size. There is normal LV segmental wall motion. There is normal left ventricular wall thickness. Left ventricular systolic function is normal. The left ventricular ejection fraction is within the normal range. LVEF is 60-65%. Grade I - abnormal relaxation pattern. Right Ventricle The right ventricle is normal size. The right ventricular systolic function is normal. Atria The left atrium size is normal. The right atrium size is normal. Aortic Valve The aortic valve is not well visualized. Trace aortic regurgitation. There is no aortic valvular stenosis. Mitral Valve The mitral valve is normal in structure. There is no mitral valve regurgitation noted. No evidence of mitral valve stenosis. Tricuspid Valve The tricuspid valve is normal in structure. There is no tricuspid valve regurgitation noted. Pulmonic Valve Pulmonic valve is not well visualized. There is no pulmonic valvular regurgitation. Great Vessels The aortic root is normal in size. IVC is normal in size and collapses >50% with inspiration. Pericardium Mild circumferential pericardial effusion. <Conclusion> LVEF is 60-65%. Mild circumferential pericardial effusion. <ELECTRONICALLY SIGNED> By: Derrick Polanco MD, FACC 07/22/19 1545 1545 1545 Derrick Polanco MD, FACC /INF
[2019-07-22 16:25] VITALS: BP 127/79
--- NOTE | 2019-07-22 18:32 | NUR ---
PT A&O x4. VSS. WALKED THE HALLWAY WITH THE HELP OF A WALKER. ON NC 2L/MIN WHOLE DAY. PROGRESSING TOWARDS GOALS.
[2019-07-22 19:50] VITALS: BP 121/71
[2019-07-23 00:54] VITALS: BP 100/44
--- NOTE | 2019-07-23 05:26 | NUR ---
PT CARE ASSUMED AT 1930. SAT MAINTAINED IN O2. ALERT AND ORIENTED X4. C/O PAIN, MEDICATION GIVEN PER EMAR. CALL LIGHT WITHIN REACH AND BED IN LOW POSITION. HOURLY ROUNDING DONE FOR PT SAFETY.
[2019-07-23 05:32] LABS: HEMATOCRIT 40.7 % (42.0-52.0); HEMOGLOBIN 13.7 gm/dL (14.0-18.0); MCH 30.8 pg (26.0-34.0); MCHC 33.8 g/dL (28.0-37.0); MCV 91.1 fL (80.0-100.0); MPV 7.4 fl. (7.2-11.1); RBC 4.46 mil/uL (4.50-6.00); RDW-CV 16.5 % (10.5-14.5); WBC 11.6 thou/uL (4.0-11.0)
[2019-07-23 05:43] LABS: CALCIUM 7.6 mg/dL (8.5-10.1); CREATININE 1.2 mg/dL (0.6-1.3); MAGNESIUM 1.9 mg/dL (1.8-2.4); POTASSIUM 3.8 mmol/L (3.5-5.1)
[2019-07-23 06:00] VITALS: BP 101/52
[2019-07-23 09:11] VITALS: BP 122/73
[2019-07-23 09:52] LABS: ALBUMIN 2.9 g/dL (3.4-5.0); CALCIUM 7.8 mg/dL (8.5-10.1); CREATININE 1.2 mg/dL (0.6-1.3); POTASSIUM 3.9 mmol/L (3.5-5.1); TOTAL BILIRUBIN 0.7 mg/dL (<0.1-1.0); TOTAL PROTEIN 6.1 g/dL (6.4-8.2)
--- NOTE | 2019-07-23 10:13 | NUR ---
DC ORDERS RECEIVED. INFORMED DIAMOND CASTRO. SPOKE TO JOSH AT HALF-WAY. TRANSPORTATION TO BE PROVIDED APPROX 1700.
[2019-07-23 10:59] VITALS: BP 122/73
[2019-07-23] MEDS ORDERED: LEVAQUIN 750 M750 MG PO (11:42)
[2019-07-23] MEDS ORDERED: PREDNISONE 5 MG5 M1 PO (11:42)
--- NOTE | 2019-07-23 13:16 | NUR ---
WILL FAX DC ORDERS AND PAPERWORK TO [facility] PT HAS USED THEM IN THE PAST.
[2019-07-23 14:31] VITALS: BP 122/73
== END 2019-07-23 18:00 | disposition home health service (06) | DRG 871 ==
LOC: M.ERS 11:16 → M.TBA-ER 13:48 → M.2W 13:48
PROVIDERS: Internal Medicine; Personal Emergency Response Attendant; ADMIT Internal Medicine
PROC: 5A09357 Assistance with Respiratory Ventilation, Less than 24 Consecutive Hours, Continuous Positive Airway Pressure (ICD-10-PCS; principal; 2019-07-14)
PROC: 5A09357 Assistance with Respiratory Ventilation, Less than 24 Consecutive Hours, Continuous Positive Airway Pressure (ICD-10-PCS; 2019-07-16)
PROC: 5A09357 Assistance with Respiratory Ventilation, Less than 24 Consecutive Hours, Continuous Positive Airway Pressure (ICD-10-PCS; 2019-07-18)
PROC: 5A09357 Assistance with Respiratory Ventilation, Less than 24 Consecutive Hours, Continuous Positive Airway Pressure (ICD-10-PCS; 2019-07-20)
PROC: 5A09357 Assistance with Respiratory Ventilation, Less than 24 Consecutive Hours, Continuous Positive Airway Pressure (ICD-10-PCS; 2019-07-21)
PROC: 5A09357 Assistance with Respiratory Ventilation, Less than 24 Consecutive Hours, Continuous Positive Airway Pressure (ICD-10-PCS; 2019-07-22)
PROC: 5A09357 Assistance with Respiratory Ventilation, Less than 24 Consecutive Hours, Continuous Positive Airway Pressure (ICD-10-PCS; 2019-07-23)
DX: A41.52 Sepsis due to Pseudomonas (principal); J15.212 Pneumonia due to Methicillin resistant Staphylococcus aureus; J96.21 Acute and chronic respiratory failure with hypoxia; J15.1 Pneumonia due to Pseudomonas; J12.9 Viral pneumonia, unspecified; I31.3 Pericardial effusion (noninflammatory); J44.0 Chronic obstructive pulmonary disease with (acute) lower respiratory infection; J44.1 Chronic obstructive pulmonary disease with (acute) exacerbation; F84.0 Autistic disorder; E03.9 Hypothyroidism, unspecified; I27.20 Pulmonary hypertension, unspecified; J84.89 Other specified interstitial pulmonary diseases; G47.33 Obstructive sleep apnea (adult) (pediatric); I10 Essential (primary) hypertension; J30.2 Other seasonal allergic rhinitis; E88.09 Other disorders of plasma-protein metabolism, not elsewhere classified; K21.9 Gastro-esophageal reflux disease without esophagitis; D64.9 Anemia, unspecified; E87.6 Hypokalemia; Z79.899 Other long term (current) drug therapy; Q90.9 Down syndrome, unspecified; Z88.2 Allergy status to sulfonamides; Z91.048 Other nonmedicinal substance allergy status; Z99.81 Dependence on supplemental oxygen; Z87.01 Personal history of pneumonia (recurrent)

== ENCOUNTER 2019-08-24 12:17 | Inpatient (IN) | payer MEDICARE, MEDICAID ==
[~2019-08-24] VITALS: Ht 165.1 cm; Wt 90.3 kg
[2019-08-24 12:28] VITALS: BP 92/59
[2019-08-24] MEDS ORDERED: LEVAQUIN 500 M500 M3 PO (12:31)
[2019-08-24 12:57] LABS: ABSOLUTE BASOPHILS 0.2 thou/uL (0.0-0.2); ABSOLUTE EOSINOPHILS 0.1 thou/uL (0.0-0.7); ABSOLUTE LYMPHOCYTES 0.9 thou/uL (0.8-5.3); ABSOLUTE MONOCYTES 0.6 thou/uL (0.0-1.2); ABSOLUTE NEUTROPHILS 4.5 thou/uL (1.6-8.1); BASOPHILS 2.5 %; EOSINOPHILS 1.7 %; HEMATOCRIT 41.5 % (42.0-52.0); HEMOGLOBIN 14.3 gm/dL (14.0-18.0); LYMPHOCYTES 13.8 %; MCH 32.6 pg (26.0-34.0); MCHC 34.5 g/dL (28.0-37.0); MCV 94.4 fL (80.0-100.0); MONOCYTES 9.2 %; MPV 7.3 fl. (7.2-11.1); NUCLEATED RBCS 0 /100WBC; PLATELET COUNT* 265 thou/uL (150-400); POLYS 72.8 %; RBC 4.39 mil/uL (4.50-6.00); RDW-CV 19.8 % (10.5-14.5); WBC 6.2 thou/uL (4.0-11.0)
[2019-08-24 13:07] LABS: PROTIME 10.7 Seconds (9.20-11.50)
[2019-08-24 13:09] LABS: CALCIUM 8.7 mg/dL (8.5-10.1); CREATININE 1.3 mg/dL (0.6-1.3); POTASSIUM 4.1 mmol/L (3.5-5.1)
[2019-08-24 13:12] LABS: INFLUENZA A ANTIGEN Negative (Negative); INFLUENZA B ANTIGEN Negative (Negative)
[2019-08-24 13:19] LABS: ALBUMIN 3.5 g/dL (3.4-5.0); MAGNESIUM 1.8 mg/dL (1.8-2.4); TOTAL BILIRUBIN 0.6 mg/dL (<0.1-1.0); TOTAL PROTEIN 6.6 g/dL (6.4-8.2)
[2019-08-24 15:24] VITALS: BP 90/42
[2019-08-24 20:05] VITALS: BP 101/57
[2019-08-25 06:50] VITALS: BP 111/61
[2019-08-25 07:59] VITALS: BP 106/66
--- NOTE | 2019-08-25 12:18 | EKG ---
[place] [address] ELECTROCARDIOGRAM REPORT Name: JANASONI OZZIE Room: [address] ADM IN M.R.#: [id number] Admission: 08/24/19 Attend Phys: Ethel Bowie, Discharge: Date of : 84 Date of Service: 08/24/19 1242 Report #: [id number] THIS REPORT FOR: //name// [facility] ED Test Date: 2019-08-24 Test Time: 12:42:18 Pat Name: SONI BATES Department: Room: [facility] Gender: M Makeup Instructor: : 1980 Requested By: Soren Sanchez Order Number: [id number] MD: Derrick Polanco Measurements Intervals [place] Rate: 79 P: 70 PA: 137 QRS: 71 QRSD: 75 T: 56 QT: 360 QTc: 413 Interpretive Statements Sinus rhythm Low voltage with right axis deviation Compared to ECG 07/16/2019 10:21:28 no change Electronically Signed On 08-25-2019 12:17:50 BLACK OFF WORKER by Derrick Polanco [email or web address] <ELECTRONICALLY SIGNED> By: Derrick Polanco MD, FACC 08/25/19 1217 1242 1242 Derrick Polanco MD, FAC /EPI
[2019-08-25 16:00] VITALS: BP 109/57
[2019-08-25 20:36] VITALS: BP 110/75
[2019-08-26 04:02] LABS: HEMATOCRIT 37.8 % (42.0-52.0); HEMOGLOBIN 12.9 gm/dL (14.0-18.0); MCH 32.2 pg (26.0-34.0); MCHC 34.2 g/dL (28.0-37.0); MCV 94.2 fL (80.0-100.0); MPV 7.5 fl. (7.2-11.1); RBC 4.01 mil/uL (4.50-6.00); WBC 19.5 thou/uL (4.0-11.0)
[2019-08-26 04:13] LABS: ALBUMIN 3.3 g/dL (3.4-5.0); CALCIUM 8.4 mg/dL (8.5-10.1); CREATININE 1.2 mg/dL (0.6-1.3); POTASSIUM 3.8 mmol/L (3.5-5.1); TOTAL BILIRUBIN 0.2 mg/dL (<0.1-1.0); TOTAL PROTEIN 6.3 g/dL (6.4-8.2)
--- NOTE | 2019-08-26 07:27 | CON ---
[address] [address] CONSULTATION Name: SONI BATES Room: [address] IN M.R.#: [id number] Admission: 08/24/19 Attend Phys: Ethel Bowie MD Discharge: Date of : 84 Report #: [id number] THIS REPORT FOR: //name// cc: Shae Santoro Linda J. DO ~ THIS REPORT FOR: //name// CC: Ethel Santoro DATE OF SERVICE: 08/25/2019 INFECTIOUS DISEASE CONSULTATION ATTENDING PHYSICIAN: Dr. Bowie REASON FOR EVALUATION: Chronic respiratory failure, complicated by lower respiratory tract infection. He has a known history of bronchiectasis with recurrent pneumonitis including most recently Pseudomonas aeruginosa. He has been followed as an outpatient. He called a couple times this week with a productive cough that was worsening. He is maintained on 2-4 liters of nasal cannula oxygen. This is unchanged. It is not clear if he has had fevers or chills. He is quite anxious at times due to concerns about worsening clinical situation. He was suggested to come to the Emergency Room where he was evaluated and subsequently admitted. X-ray was with some scarring, otherwise not significantly changed. Influenza antigen was negative. Lactic acid was 1.1. White count was in the normal range. Blood cultures are sterile thus far and have been negative. He was empirically started on levofloxacin which he had been on as an outpatient as well as cefepime. ALLERGIES: SULFA. CURRENT MEDICATIONS: Include multivitamin, loratadine, fluoxetine, fluticasone, levofloxacin, pantoprazole, triamterene and hydrochlorothiazide, levothyroxine, budesonide, montelukast, cefepime, ascorbic acid, and methylprednisolone. PAST MEDICAL HISTORY: As described above, advanced COPD, O2 requiring; obstructive sleep apnea; CPAP; history of hypertension; pulmonary hypertension; hypothyroidism; bronchiectasis with respiratory tract Pseudomonas; history of anemia, likely aspirates reflux; and Down syndrome. SOCIAL AND FAMILY HISTORY: Available in the chart. REVIEW OF SYSTEMS: As above, otherwise unremarkable. Denies significant GI related complaints. His [place] [address] CONSULTATION Name: SONI BATES Room: [address]#: [id number] Admission: 08/24/19 Attend Phys: Ethel Bowie MD Discharge: Date of : 84 Report #: [id number] PHYSICAL EXAMINATION: GENERAL: He appears ill. He is anxious. VITAL SIGNS: Temperature 98.0, pulse 90, respirations 20, and blood pressure 106/66. SKIN: Warm and dry. No rashes. HEENT: Normocephalic. Extraocular muscles intact. NECK: Supple. LUNGS: Scattered coarse breath sounds. HEART: Borderline tachycardic. I do not appreciate a murmur. ABDOMEN: Obese, soft, and nontender. EXTREMITIES: No cyanosis. GENITOURINARY AND RECTAL: Deferred. LABORATORY DATA: Blood cultures sterile thus far. Troponin less than 0.06 on 3 occasions. Lactic acid 1.1. Influenza antigen for A and B is negative. CBC: White count of 6.2, H and H of 14.3 and 41.5, and platelets of 265. Sodium 143, potassium 4.1, chloride 106, bicarbonate is 26, and BUN and creatinine of 14 and 1.3. LFTs unremarkable. Albumin of 3.5 and total protein 6.6. Estimated GFR of 62. ASSESSMENT AND PLAN: Lower respiratory tract inflammation, likely component of infection as well. Interestingly, he previously had right-sided pain and discomfort that I felt was perhaps due to pleuritic-type pain. Now, it is more so in the left and he does hold it as if he is in splinting. Continue combination therapy at this point. We will try to collect sputum. We would assume Pseudomonas may be playing a role. <ELECTRONICALLY SIGNED> By: Jermaine Carvajal MD 08/26/19 0727 1119 1142Jomariana Carvajal MD /nt
[2019-08-26 08:45] VITALS: BP 109/60
[2019-08-26 16:00] VITALS: BP 106/61
[2019-08-26 20:00] VITALS: BP 112/67
[2019-08-27 05:13] LABS: HEMOGLOBIN 13.2 gm/dL (14.0-18.0); MCH 32.1 pg (26.0-34.0); MCHC 33.8 g/dL (28.0-37.0); MPV 7.5 fl. (7.2-11.1); RBC 4.11 mil/uL (4.50-6.00); WBC 23.5 thou/uL (4.0-11.0)
[2019-08-27 06:14] LABS: ALBUMIN 3.2 g/dL (3.4-5.0); CREATININE 1.1 mg/dL (0.6-1.3); MAGNESIUM 2.2 mg/dL (1.8-2.4); POTASSIUM 3.3 mmol/L (3.5-5.1); TOTAL BILIRUBIN 0.2 mg/dL (<0.1-1.0); TOTAL PROTEIN 6.1 g/dL (6.4-8.2)
[2019-08-27 07:35] VITALS: BP 115/70
[2019-08-27 16:00] VITALS: BP 114/64
[2019-08-27 19:45] VITALS: BP 107/55
[2019-08-28 05:16] LABS: HEMATOCRIT 39.7 % (42.0-52.0); HEMOGLOBIN 13.4 gm/dL (14.0-18.0); MCH 31.8 pg (26.0-34.0); MCHC 33.7 g/dL (28.0-37.0); MCV 94.6 fL (80.0-100.0); MPV 6.8 fl. (7.2-11.1); RBC 4.19 mil/uL (4.50-6.00); RDW-CV 19.7 % (10.5-14.5)
[2019-08-28 05:49] LABS: CALCIUM 8.1 mg/dL (8.5-10.1); CREATININE 1.2 mg/dL (0.6-1.3); MAGNESIUM 2.3 mg/dL (1.8-2.4); POTASSIUM 3.6 mmol/L (3.5-5.1)
[2019-08-28 08:14] VITALS: BP 112/65
[2019-08-28 16:00] VITALS: BP 124/63
[2019-08-28 19:30] VITALS: BP 106/65
[2019-08-29 08:25] VITALS: BP 98/65
[2019-08-29 16:31] VITALS: BP 111/63
[2019-08-29 19:50] VITALS: BP 98/53
[2019-08-30 03:59] LABS: HEMATOCRIT 42.4 % (42.0-52.0); HEMOGLOBIN 14.4 gm/dL (14.0-18.0); MCH 32.1 pg (26.0-34.0); MCV 94.5 fL (80.0-100.0); MPV 7.3 fl. (7.2-11.1); RBC 4.48 mil/uL (4.50-6.00); RDW-CV 19.7 % (10.5-14.5)
[2019-08-30 04:10] LABS: CALCIUM 7.8 mg/dL (8.5-10.1); CREATININE 1.2 mg/dL (0.6-1.3); MAGNESIUM 2.2 mg/dL (1.8-2.4); POTASSIUM 3.6 mmol/L (3.5-5.1)
[2019-08-30 08:39] VITALS: BP 102/65
[2019-08-30] MEDS ORDERED: PREDNISONE 5 MG5 M1 PO (09:46)
[2019-08-30] MEDS ORDERED: CEFUROXIME500 MG PO (09:46)
[2019-08-30 11:54] VITALS: BP 102/65
[2019-08-30 15:21] VITALS: BP 102/65
[2019-08-30 16:23] VITALS: BP 102/65
[2019-09-03 10:27] VITALS: BP 102/65
== END 2019-08-30 14:10 | disposition home health service (06) | DRG 177 ==
LOC: M.ERS 12:17 → M.TBA-ER 13:34 → M.3W 13:34
PROVIDERS: Family Medicine; ADMIT Internal Medicine
PROC: 5A09357 Assistance with Respiratory Ventilation, Less than 24 Consecutive Hours, Continuous Positive Airway Pressure (ICD-10-PCS; principal; 2019-08-24)
PROC: 5A09357 Assistance with Respiratory Ventilation, Less than 24 Consecutive Hours, Continuous Positive Airway Pressure (ICD-10-PCS; 2019-08-26)
PROC: 5A09357 Assistance with Respiratory Ventilation, Less than 24 Consecutive Hours, Continuous Positive Airway Pressure (ICD-10-PCS; 2019-08-27)
PROC: 5A09357 Assistance with Respiratory Ventilation, Less than 24 Consecutive Hours, Continuous Positive Airway Pressure (ICD-10-PCS; 2019-08-28)
PROC: 5A09357 Assistance with Respiratory Ventilation, Less than 24 Consecutive Hours, Continuous Positive Airway Pressure (ICD-10-PCS; 2019-08-29)
DX: J15.1 Pneumonia due to Pseudomonas (principal); J96.21 Acute and chronic respiratory failure with hypoxia; J44.0 Chronic obstructive pulmonary disease with (acute) lower respiratory infection; J44.1 Chronic obstructive pulmonary disease with (acute) exacerbation; J15.6 Pneumonia due to other Gram-negative bacteria; J15.212 Pneumonia due to Methicillin resistant Staphylococcus aureus; I10 Essential (primary) hypertension; I27.20 Pulmonary hypertension, unspecified; E03.9 Hypothyroidism, unspecified; G47.33 Obstructive sleep apnea (adult) (pediatric); K21.9 Gastro-esophageal reflux disease without esophagitis; J30.2 Other seasonal allergic rhinitis; Q90.9 Down syndrome, unspecified; Z99.81 Dependence on supplemental oxygen; Z79.899 Other long term (current) drug therapy; Z88.2 Allergy status to sulfonamides; Z91.09 Other allergy status, other than to drugs and biological substances

== ENCOUNTER 2019-09-20 13:14 | Inpatient (IN) | payer MEDICARE, MEDICAID ==
[~2019-09-20] VITALS: Ht 162.6 cm; Wt 90.3 kg
[2019-09-20 13:21] VITALS: BP 120/60
[2019-09-20 13:53] LABS: URINE BILIRUBIN NEGATIVE (Negative); URINE BLOOD NEGATIVE (Negative); URINE CLARITY CLEAR; URINE COLOR YELLOW; URINE GLUCOSE-RANDOM NEGATIVE (Negative); URINE KETONES NEGATIVE (Negative); URINE LEUKOCYTES-REFLEX NEGATIVE (Negative); URINE NITRITE-REFLEX NEGATIVE (Negative); URINE PROTEIN NEGATIVE (Negative); URINE SPECIFIC GRAVITY 1.015 (1.005-1.030); URINE UROBILINOGEN 0.2 E.U./dl (0.2-1.0)
[2019-09-20 13:58] LABS: BE 1.9 mmol/L (-2 to +3); PCO2 40.7 mmHg (35.0-45.0); PO2 81.2 mmHg (75.0-100.0); pH 7.429 (7.340-7.450)
[2019-09-20 14:03] LABS: ABSOLUTE BASOPHILS 0.2 thou/uL (0.0-0.2); ABSOLUTE EOSINOPHILS 0.2 thou/uL (0.0-0.7); ABSOLUTE LYMPHOCYTES 1.1 thou/uL (0.8-5.3); ABSOLUTE MONOCYTES 0.8 thou/uL (0.0-1.2); ABSOLUTE NEUTROPHILS 11.4 thou/uL (1.6-8.1); BASOPHILS 1.5 %; EOSINOPHILS 1.3 %; HEMATOCRIT 40.7 % (42.0-52.0); HEMOGLOBIN 14.3 gm/dL (14.0-18.0); LYMPHOCYTES 7.8 %; MCH 33.4 pg (26.0-34.0); MCHC 35.2 g/dL (28.0-37.0); MCV 94.9 fL (80.0-100.0); MONOCYTES 5.7 %; MPV 7.3 fl. (7.2-11.1); NUCLEATED RBCS 0 /100WBC; PLATELET COUNT* 313 thou/uL (150-400); POLYS 83.7 %; RBC 4.29 mil/uL (4.50-6.00); WBC 13.6 thou/uL (4.0-11.0)
[2019-09-20 14:06] LABS: CALCIUM 8.6 mg/dL (8.5-10.1); CREATININE 1.4 mg/dL (0.6-1.3); POTASSIUM 4.1 mmol/L (3.5-5.1)
[2019-09-20 14:08] LABS: INFLUENZA A ANTIGEN Negative (Negative); INFLUENZA B ANTIGEN Negative (Negative)
[2019-09-20 14:11] LABS: ALBUMIN 3.3 g/dL (3.4-5.0); MAGNESIUM 1.8 mg/dL (1.8-2.4); TOTAL BILIRUBIN 0.5 mg/dL (<0.1-1.0); TOTAL PROTEIN 6.7 g/dL (6.4-8.2)
[2019-09-20] MEDS ORDERED: SPORANOX100 MG PO (17:24)
[2019-09-20 18:11] VITALS: BP 132/75
[2019-09-20 18:39] VITALS: BP 124/64
[2019-09-20 19:06] VITALS: BP 178/78
[2019-09-20 19:30] VITALS: BP 104/68
[2019-09-21] VITALS: BP 103/65
[2019-09-21 04:00] VITALS: BP 89/65
[2019-09-21 05:45] LABS: HEMATOCRIT 36.3 % (42.0-52.0); MCH 32.5 pg (26.0-34.0); MCHC 33.7 g/dL (28.0-37.0); MCV 96.4 fL (80.0-100.0); RBC 3.77 mil/uL (4.50-6.00); WBC 17.5 thou/uL (4.0-11.0)
[2019-09-21 05:58] LABS: HEMOGLOBIN 12.2 gm/dL (14.0-18.0)
[2019-09-21 06:09] LABS: ALBUMIN 2.8 g/dL (3.4-5.0); CALCIUM 7.6 mg/dL (8.5-10.1); CREATININE 1.3 mg/dL (0.6-1.3); POTASSIUM 3.8 mmol/L (3.5-5.1); TOTAL BILIRUBIN 0.5 mg/dL (<0.1-1.0)
[2019-09-21 07:47] VITALS: BP 102/47
[2019-09-21] MEDS ORDERED: PREDNISONE 5 MG5 M1 PO (09:30)
[2019-09-21] MEDS ORDERED: B COMPLEX1 EACH PO (09:32)
[2019-09-21] MEDS ORDERED: CLOTRIMAZOLE 1%15 G1 TOP (09:34)
[2019-09-21] MEDS ORDERED: IPRAT-ALBUT 0.5-3 ML NEB (09:35)
[2019-09-21 12:23] VITALS: BP 109/63
[2019-09-21 16:07] VITALS: BP 104/45
[2019-09-21 21:10] VITALS: BP 106/64
[2019-09-22] VITALS: BP 99/47
[2019-09-22 04:34] LABS: HEMATOCRIT 34.1 % (42.0-52.0); HEMOGLOBIN 11.8 gm/dL (14.0-18.0); MCH 33.3 pg (26.0-34.0); MCHC 34.6 g/dL (28.0-37.0); MCV 96.3 fL (80.0-100.0); MPV 7.1 fl. (7.2-11.1); NUCLEATED RBCS 0 /100WBC; PLATELET COUNT* 273 thou/uL (150-400); RBC 3.54 mil/uL (4.50-6.00); RDW-CV 18.1 % (10.5-14.5); WBC 15.9 thou/uL (4.0-11.0)
[2019-09-22 04:46] LABS: ALBUMIN 2.7 g/dL (3.4-5.0); CALCIUM 7.6 mg/dL (8.5-10.1); CREATININE 1.3 mg/dL (0.6-1.3); MAGNESIUM 1.9 mg/dL (1.8-2.4); PHOSPHORUS* 3.5 mg/dL (2.5-4.9); POTASSIUM 3.7 mmol/L (3.5-5.1)
[2019-09-22 05:41] LABS: ABSOLUTE EOSINOPHILS 0.2 thou/uL (0.0-0.7); ABSOLUTE LYMPHOCYTES 1.1 thou/uL (0.8-5.3); ABSOLUTE MONOCYTES 0.5 thou/uL (0.0-1.2); ABSOLUTE NEUTROPHILS 14.2 thou/uL (1.6-8.1); ANISOCYTOSIS 1+; PLATELET ESTIMATE ADEQUATE; POIKILOCYTOSIS Occasional; TOXIC GRANULATION 1+
--- NOTE | 2019-09-22 08:05 | CON ---
[address] [address] CONSULTATION Name: SONI BATES Room: [place] [address] ADM IN M.R.#: [id number] Admission: 09/20/19 Attend Phys: Syl Smith Discharge: Date of : 84 Report #: [id number] THIS REPORT FOR: //name// cc: Shae Santoro Linda J. DO ~ THIS REPORT FOR: //name// CC: Syl Hayward DATE OF SERVICE: 09/21/2019 INFECTIOUS DISEASE CONSULTATION ATTENDING PHYSICIAN: Dr. Robins. REASON FOR EVALUATION: Lower respiratory tract infection. HISTORY OF PRESENT ILLNESS: Chart reviewed, patient examined. This is a 39-year-old well known to myself, has Down syndrome, has bronchiectasis, had repeated hospitalizations for lower respiratory tract infections. He has had a diagnosis of bronchiectasis. He has had pathogens including Pseudomonas. He was hospitalized recently and was isolated of Moraxella as well, had been restarted on antibiotics due to increased productive cough, had been on levofloxacin. His care provider called me and had some low-grade temperature elevations, persistent cough. She is instructed to call the Emergency Room. I did ask her to bring him in. He was subsequently admitted. At this point, he is not overtly ill appearing. He is on his baseline oxygen at 3 liters. He has had a bit of a cough. It is not clear that he has had fever since he has been here. Does admit to some chest-related discomfort. No GI-related complaints. ALLERGIES: LISTED TO SULFA. CURRENT MEDICATIONS: Include famotidine, montelukast, folic acid, ascorbic acid, itraconazole, loratadine, lactobacillus, fluoxetine, levofloxacin, pantoprazole, triamterene, vancomycin and piperacillin. PAST MEDICAL HISTORY: As noted above, underlying chronic obstructive pulmonary disease, bronchiectasis, pulmonary hypertension, history of hypothyroidism, chronic anemia, hypertension; obstructive sleep apnea, on CPAP; reflux; he is on chronic O2 therapy. SOCIAL HISTORY: On the chart. FAMILY HISTORY: [place] [address] CONSULTATION Name: SONI BATES Room: [address] IN [facility].#: [id number] Admission: 09/20/19 Attend Phys: Syl Smith Discharge: Date of : 84 Report #: [id number] REVIEW OF SYSTEMS: Otherwise, unremarkable as noted above. PHYSICAL EXAMINATION: GENERAL: He is pleasant, alert and cooperative. He is sitting up in chair. He is not overtly distressed. He is generally lucid. VITAL SIGNS: Temperature 98.3, pulse 77, respirations 22, blood pressure 102/47. SKIN: Warm, dry, no rashes. HEENT: Normocephalic. Extraocular muscles intact. NECK: Supple. LUNGS: Overall diminished breath sounds. She has scattered crackles, primarily at the bases. HEART: Regular. I do not appreciate murmur. ABDOMEN: Obese, soft, nontender. GENITOURINARY: Deferred. RECTAL: Deferred. LABORATORY DATA: Blood cultures sterile thus far. Electrolytes: Sodium 141, potassium 3.8, chloride 106, bicarbonate 24, anion gap of 11, BUN and creatinine 11 and 1.3, glucose 139, albumin of 2.8, total protein 6.0. White count of 17.5, H and H 12.2 and 36.3, platelets of 277. Lactic acid of 1.0. Chest CT showed pulmonary artery prominence, pericardial effusion, peribronchial thickening and bronchiectasis, mucus debris filling multiple left lower lobe bronchi. ASSESSMENT AND PLAN: Lower respiratory tract infection. We will continue empiric antibiotic pending rule out COVID-19. There was discussion about possible exposure to a staff member who is being tested. Continue isolation. We will monitor expectantly. <ELECTRONICALLY SIGNED> By: Jermaine Carvajal MD 09/22/19 0805 1113 1131Jermaine Carvajal MD /nt
[2019-09-22 08:17] VITALS: BP 105/63
[2019-09-22 11:56] VITALS: BP 125/55
[2019-09-22 16:19] VITALS: BP 110/56
[2019-09-22 20:00] VITALS: BP 106/47
[2019-09-23 00:20] VITALS: BP 115/60
[2019-09-23 04:34] VITALS: BP 115/70
[2019-09-23 04:52] LABS: HEMATOCRIT 35.3 % (42.0-52.0); HEMOGLOBIN 12.2 gm/dL (14.0-18.0); MCH 33.1 pg (26.0-34.0); MCHC 34.4 g/dL (28.0-37.0); MCV 96.3 fL (80.0-100.0); MPV 6.6 fl. (7.2-11.1); RBC 3.67 mil/uL (4.50-6.00); RDW-CV 18.3 % (10.5-14.5); WBC 8.3 thou/uL (4.0-11.0)
[2019-09-23 05:07] LABS: CALCIUM 7.2 mg/dL (8.5-10.1); CREATININE 1.3 mg/dL (0.6-1.3); MAGNESIUM 1.7 mg/dL (1.8-2.4); POTASSIUM 3.4 mmol/L (3.5-5.1)
[2019-09-23 07:50] VITALS: BP 95/60
[2019-09-23 13:06] VITALS: BP 107/58
[2019-09-23 17:53] VITALS: BP 99/58
[2019-09-23 20:00] VITALS: BP 109/61
[2019-09-23 22:16] LABS: CALCIUM 8.3 mg/dL (8.5-10.1); CREATININE 1.5 mg/dL (0.6-1.3); MAGNESIUM 1.8 mg/dL (1.8-2.4); POTASSIUM 3.8 mmol/L (3.5-5.1)
[2019-09-24] VITALS (7 sets, daily range): BP systolic 90–149; BP diastolic 42–68
--- NOTE | 2019-09-24 14:39 | EKG ---
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 [employer] Kitchen: CCD : 1980 Requested By: Syl Joel Order Number: [id number] Nisha MD: Derrick Polanco Measurements Intervals [place] Rate: 91 P: 69 MN: 122 QRS: 71 QRSD: 79 T: 42 QT: 351 QTc: 432 Interpretive Statements Sinus rhythm Borderline low voltage, extremity leads Compared to ECG 08/24/2019 12:42:18 no change Electronically Signed On 09-24-2019 14:38:34 CDT by Derrick Polanco [email or web address] <ELECTRONICALLY SIGNED> By: Derrick Polanco MD, FAC 09/24/19 1438 1144 1144 Derrick Polanco MD, [facility] /EPI
[2019-09-25] VITALS: BP 111/65
[2019-09-25 04:00] VITALS: BP 104/65
[2019-09-25 06:37] LABS: HEMATOCRIT 38.4 % (42.0-52.0); HEMOGLOBIN 13.2 gm/dL (14.0-18.0); MCH 33.2 pg (26.0-34.0); MCHC 34.4 g/dL (28.0-37.0); MCV 96.4 fL (80.0-100.0); MPV 7.5 fl. (7.2-11.1); RBC 3.99 mil/uL (4.50-6.00); WBC 5.1 thou/uL (4.0-11.0)
[2019-09-25 06:46] LABS: CALCIUM 8.6 mg/dL (8.5-10.1); CREATININE 1.4 mg/dL (0.6-1.3); MAGNESIUM 2.1 mg/dL (1.8-2.4); PHOSPHORUS* 4.6 mg/dL (2.5-4.9); POTASSIUM 4.2 mmol/L (3.5-5.1)
[2019-09-25 08:30] VITALS: BP 103/70
[2019-09-25 16:06] VITALS: BP 104/64
[2019-09-25 16:14] VITALS: BP 104/65
[2019-09-25 20:30] VITALS: BP 97/53
[2019-09-26] VITALS: BP 109/60; BP 147/69
[2019-09-26 04:00] VITALS: BP 90/58
[2019-09-26 07:51] VITALS: BP 105/65
[2019-09-26 11:42] VITALS: BP 105/65
[2019-09-26 12:27] VITALS: BP 106/65
[2019-09-26 14:32] VITALS: BP 105/65
[2019-09-26] MEDS ORDERED: ZYVOX600 MG PO (14:45)
== END 2019-09-26 16:45 | disposition home health service (06) | DRG 871 ==
LOC: M.ERS 13:14 → M.TBA-ER 14:27 → M.2W 14:27
PROVIDERS: Internal Medicine; Personal Emergency Response Attendant; ADMIT Family Medicine
PROC: 5A09357 Assistance with Respiratory Ventilation, Less than 24 Consecutive Hours, Continuous Positive Airway Pressure (ICD-10-PCS; principal; 2019-09-21)
PROC: 5A09357 Assistance with Respiratory Ventilation, Less than 24 Consecutive Hours, Continuous Positive Airway Pressure (ICD-10-PCS; 2019-09-22)
PROC: 5A09357 Assistance with Respiratory Ventilation, Less than 24 Consecutive Hours, Continuous Positive Airway Pressure (ICD-10-PCS; 2019-09-23)
PROC: 5A09357 Assistance with Respiratory Ventilation, Less than 24 Consecutive Hours, Continuous Positive Airway Pressure (ICD-10-PCS; 2019-09-24)
DX: A41.9 Sepsis, unspecified organism (principal); J96.21 Acute and chronic respiratory failure with hypoxia; J18.9 Pneumonia, unspecified organism; N17.0 Acute kidney failure with tubular necrosis; J47.0 Bronchiectasis with acute lower respiratory infection; E03.9 Hypothyroidism, unspecified; D64.9 Anemia, unspecified; G47.33 Obstructive sleep apnea (adult) (pediatric); I27.20 Pulmonary hypertension, unspecified; I10 Essential (primary) hypertension; K44.9 Diaphragmatic hernia without obstruction or gangrene; K21.9 Gastro-esophageal reflux disease without esophagitis; R65.20 Severe sepsis without septic shock; J30.2 Other seasonal allergic rhinitis; Q90.9 Down syndrome, unspecified; Z88.2 Allergy status to sulfonamides; Z91.09 Other allergy status, other than to drugs and biological substances; Z79.899 Other long term (current) drug therapy; Z99.81 Dependence on supplemental oxygen; Z28.89 Immunization not carried out for other reason

== ENCOUNTER 2019-10-23 20:49 | Inpatient (IN) | payer MEDICARE, MEDICAID ==
[~2019-10-23] VITALS: Ht 165.1 cm; Wt 89.1 kg
[~2019-10-23 20:49] MED LIST changes: +IPRAT-ALBUT 0.5-3 ML NEB; +SPORANOX100 MG PO
[2019-10-23 21:30] VITALS: BP 114/62
[2019-10-23 21:30] LABS: ABSOLUTE BASOPHILS 0.2 thou/uL (0.0-0.2); ABSOLUTE LYMPHOCYTES 0.9 thou/uL (0.8-5.3); ABSOLUTE NEUTROPHILS 12.1 thou/uL (1.6-8.1); BASOPHILS 1.2 %; EOSINOPHILS 0.4 %; HEMATOCRIT 37.2 % (42.0-52.0); HEMOGLOBIN 12.6 gm/dL (14.0-18.0); LYMPHOCYTES 6.5 %; MCH 32.1 pg (26.0-34.0); MCV 94.5 fL (80.0-100.0); MONOCYTES 6.9 %; MPV 7.1 fl. (7.2-11.1); NUCLEATED RBCS 0 /100WBC; PLATELET COUNT* 420 thou/uL (150-400); RBC 3.93 mil/uL (4.50-6.00); RDW-CV 17.1 % (10.5-14.5); WBC 14.2 thou/uL (4.0-11.0)
[2019-10-23 21:31] LABS: URINE BILIRUBIN NEGATIVE (Negative); URINE BLOOD NEGATIVE (Negative); URINE CLARITY CLEAR; URINE COLOR YELLOW; URINE GLUCOSE-RANDOM NEGATIVE (Negative); URINE KETONES NEGATIVE (Negative); URINE LEUKOCYTES-REFLEX NEGATIVE (Negative); URINE NITRITE-REFLEX NEGATIVE (Negative); URINE PROTEIN NEGATIVE (Negative); URINE UROBILINOGEN 0.2 E.U./dl (0.2-1.0)
[2019-10-23 21:40] LABS: CALCIUM 8.6 mg/dL (8.5-10.1); CREATININE 1.3 mg/dL (0.6-1.3); POTASSIUM 3.7 mmol/L (3.5-5.1)
[2019-10-23 21:45] LABS: ALBUMIN 3.4 g/dL (3.4-5.0); TOTAL BILIRUBIN 0.6 mg/dL (<0.1-1.0); TOTAL PROTEIN 6.8 g/dL (6.4-8.2)
[2019-10-24] VITALS (24 sets, daily range): BP systolic 99–163; BP diastolic 47–127
[2019-10-24 01:49] LABS: INFLUENZA A ANTIGEN Negative (Negative); INFLUENZA B ANTIGEN Negative (Negative)
--- NOTE | 2019-10-24 05:50 | NUR ---
PATIENT'S BP ELEVATED AFTER NS BOLUS FROM ER. LAST READING 163/127. PAGED DR. HAYWOOD FOR RECOMMENDATIONS AND ORDERS. PHSYICIAN DID NOT ANSWER REPEATED PAGES. WILL HOLD OVER UNTIL MORNING ROUNDS. PATIENT APPEARS STABLE, NOT EXHIBITNG ANY DISTRESS. WCTM
--- NOTE | 2019-10-24 07:24 | NUR ---
ASSESSMENTS CHARTED. PATIENT ARRIVED FROM ED AT 0300. CAREGIVER INTIALLY AT BEDSIDE, DID NOT STAY FOR THE REST OF THE SHIFT. PATIENT WAS PLACED ON PERSONAL CPAP AND IS TOLERATING WELL. ID CONSULT CALLED. BP DECREASING ON ITS OWN, FLUIDS STARTED BACK AT 130/HR.
[2019-10-24 08:57] LABS: CALCIUM 7.5 mg/dL (8.5-10.1); CREATININE 1.4 mg/dL (0.6-1.3); MAGNESIUM 1.8 mg/dL (1.8-2.4); POTASSIUM 3.7 mmol/L (3.5-5.1)
--- NOTE | 2019-10-24 11:35 | NUR ---
ICU rounds: A&O. Doesn't feel very well, weak. On nasal canula. IVABX. Covid pending. Pt known to this CM from previous hospital stays. CM spoke with House Mgr at Pt's longterm. Pt is normally independent. Has a walker that he uses for mobility as needed. Pt wears home o2 and has a cpap through [facility]. Hx of [facility]. Hx of acute rehab. Following.
--- NOTE | 2019-10-24 13:26 | EKG ---
[place] [address] ELECTROCARDIOGRAM REPORT Name: JANASONI OZZIE Room: [address] ADM IN .R.#: [id number] Admission: 10/23/19 Attend Phys: Ryan Salmon Discharge: Date of : 84 Date of Service: 10/23/192226 Report #: [id number] THIS REPORT FOR: //name// [facility] ED Test Date: 2019-10-23 Test Time: 22:27:26 Pat Name: SONI BATES Department: Room: [facility] Gender: M Publicity Director: : 1980 Requested By: Marely Vela Order Number: [id number] MD: Derrick Polanco Measurements Intervals [place] Rate: 95 P: 56 WI: 131 QRS: 56 QRSD: 76 T: 55 QT: 353 QTc: 444 Interpretive Statements Sinus rhythm Compared to ECG 09/24/2019 11:44:22 No significant changes Electronically Signed On 10-24-2019 13:25:19 CDT by Derrick Polanco [email or web address] <ELECTRONICALLY SIGNED> By: Derrick Polanco MD, [facility] 10/24/19 1325 26 26 Derrick Polanco MD, [facility] /EPI
--- NOTE | 2019-10-24 19:32 | NUR ---
PT OUT OF BED FOR MEALS. COUGHING SLOWED DOWN DURING THE DAY. O2 SUPPORT OF NC 2L/MIN. TOLERATING DIET. SPUTUM AND URINE SAMPLES SENT FOR CULTURE. PROGRESSING TOWARDS GOALS.
--- NOTE | 2019-10-24 22:07 | NUR ---
RECEIVED REPORT AND ASSUMED CARE OF THE PATIENT AT 1900. VSS. FULL ASSESSMENT COMPLETED CHARTED. BED LOCKED AND IN LOW POSITION. CALL LIGHT AND PERSONAL ITEMS IN REACH.
[2019-10-25] VITALS (8 sets, daily range): BP systolic 96–139; BP diastolic 50–79
[2019-10-25 04:03] LABS: HEMATOCRIT 31.6 % (42.0-52.0); HEMOGLOBIN 10.7 gm/dL (14.0-18.0); MCH 32.3 pg (26.0-34.0); MCHC 33.9 g/dL (28.0-37.0); MCV 95.5 fL (80.0-100.0); MPV 7.5 fl. (7.2-11.1); RBC 3.31 mil/uL (4.50-6.00); RDW-CV 16.8 % (10.5-14.5); WBC 22.7 thou/uL (4.0-11.0)
[2019-10-25 04:17] LABS: CALCIUM 7.2 mg/dL (8.5-10.1); CREATININE 1.2 mg/dL (0.6-1.3); MAGNESIUM 1.9 mg/dL (1.8-2.4); POTASSIUM 3.5 mmol/L (3.5-5.1)
--- NOTE | 2019-10-25 07:47 | CON ---
[address] [address] CONSULTATION Name: SONI BATES Room: [address] ADM IN M.R.#: [id number] Admission: 10/23/19 Attend Phys: Juan Pablo Valencia Discharge: Date of : 84 Report #: [id number] THIS REPORT FOR: //name// cc: Shae Santoro Linda J. DO ~ THIS REPORT FOR: //name// CC: Shae Salmon DATE OF SERVICE: 10/24/2019 INFECTIOUS DISEASE CONSULTATION ATTENDING PHYSICIAN: Ryan Salmon DO REASON FOR EVALUATION: Pneumonitis in setting of chronic respiratory failure. The patient was hospitalized multiple times including within the last month. HISTORY OF PRESENT ILLNESS: Chart reviewed, the patient examined. This is a 39-year-old gentleman with Down syndrome. He has had extensive medical history given his age. He has underlying bronchiectasis. He has repeated lower respiratory tract infections, usually most recently with Pseudomonas aeruginosa and multiple resistant to this point. He was hospitalized within the last 4-6 weeks, had isolation of MRSA as well. He has been on a course of antimicrobial therapy up until about 10 days ago. He does require supplemental oxygen in the range of 2-3 liters at baseline. It goes up with activity to 4 liters. He was called by his engineer process. He had developed productive cough of yellowish sputum and saturations were sort of borderline on his 3 liters is around 90%. Try to institute some pulmonary treatments, start inhalation of tobramycin as well, which he has tolerated in the past and he has some available. There was a return call within 1-2 hours. He was noted to have fevers in excess of 102 degrees Fahrenheit. He is complaining of chest-related discomfort with cough, dizziness. He had a poor appetite, which is unusual for him. As a result, he was recommended to go to the emergency room, which he did. He was found to be hypotensive. White count slightly elevated at 14.2. CRP elevated at 108.4. Due to the concern about early sepsis, he was placed in intensive care unit. He is ruling out for the novel coronavirus, SARS-CoV-2. Follow up chest x-ray compared to previous showed bibasilar infiltrates had progressed. Influenza antigen was negative. Blood cultures are sterile thus far. He is empirically started on therapy with vancomycin and cefepime. At this point, he is sitting up in the chair. He was maintained on 3-4 liters. He is at his baseline from a surgery standpoint. ALLERGIES: [place] [address] CONSULTATION Name: BATSESONI Room: [address] IN M.R.#: [id number] Admission: 10/23/19 Attend Phys: Juan Pablo Valencia Discharge: Date of : 84 Report #: [id number] CURRENT MEDICATIONS: Include prednisone, enoxaparin, montelukast, vancomycin, ascorbic acid, ipratropium and albuterol, multivitamin, loratadine, fluoxetine, lactobacillus, cefepime, pantoprazole, mupirocin, guaifenesin, levothyroxine, p.r.n. analgesics, antiemetics, vancomycin. PAST MEDICAL HISTORY: Includes hypertension, pulmonary hypertension, asthma, hypothyroidism, COPD with bronchiectasis, obstructive sleep apnea, reflux, chronic respiratory failure requiring supplemental oxygen. SOCIAL HISTORY AND FAMILY HISTORY: Available in chart. He is disabled, has Down syndrome. REVIEW OF SYSTEMS: Otherwise unremarkable, exception of the above noted in the history of present illness. PHYSICAL EXAMINATION: GENERAL: He is pleasant, alert and cooperative. He is not as animated as usual. He is mildly distressed, able to comprehend at his baseline. VITAL SIGNS: Temperature 98.4, pulse 111, respirations 63, blood pressure 138/61. SKIN: Warm, dry, no rashes. HEENT: Normocephalic. Extraocular muscles intact. NECK: Supple. LUNGS: Basilar coarse breath sounds. HEART: Regular, tachycardic. I do not appreciate any murmur. ABDOMEN: Soft, nontender, nondistended. It is somewhat distended. GENITOURINARY: Deferred. RECTAL: Deferred. LABORATORY DATA: Blood cultures sterile thus far. Most recent electrolytes: Sodium 142, potassium 3.7, chloride 109, bicarbonate 23, anion gap of 10, BUN and creatinine 7 and 1.4, glucose of 96. Estimated GFR of 57. Troponin borderline elevated at 0.07. Influenza antigen was negative. Rapid Strep was negative. Chest x-ray as described above. Liver functions otherwise unremarkable. Albumin 3.4, total protein 6.8. CRP as described 108.4, is elevated. CBC: White count of 14.2, H and H 12.6 and 37.2, platelets of 420. Urinalysis is unremarkable. ASSESSMENT AND PLAN: Febrile illness with suspected acute on chronic issue involving his lungs in the setting of chronic respiratory failure. We will continue empiric therapy. Cultures have been collected. We will await those results including the COVID-19 testing. At this point, he is overall improved [address] [place] [address] CONSULTATION Name: BATESSONI Room: [address] IN M.R.#: [id number] Admission: 10/23/19 Attend Phys: Juan Pablo Valencia Discharge: Date of : 84 Report #: [id number] even in the last 12 hours with some resuscitation. Discussed with his engineer process, Mr. Mark. <ELECTRONICALLY SIGNED> By: Jermaine Carvajal MD 10/25/19 0747 1335 1515Jomariana Carvajal MD /nt
--- NOTE | 2019-10-25 15:00 | NUR ---
ICU ROUNDS: SPOKE WITH PT.S RN ON PHONE. SHE SAID PT.IS NOW TELE STATUS AND WOULD BE MOVING TO TELE UNIT SHORTLY. HE IS FEELING BETTER TODAY. STILL WITH YELLOWISH PRODUCTIVE COUGH. O2 AT 3L/NC. CM WILL FOLLOW. PT.WILL NEED HH AT DISCHARGE. HE IS CURRENT WITH [facility] . [phone].
--- NOTE | 2019-10-25 16:00 | NUR ---
PT A&O x4. VSS. O2 SUPPORT OF NC 3L/MIN. OUT OF BED FOR MEALS, CLEANED HIMSELF. HAD A BM THIS AM. TOLERATING DIET. REPORT GIVEN TO GHAZAL FREEDMAN,TELE.
--- NOTE | 2019-10-25 16:45 | NUR ---
PT TRANSFERRED TO ROOM 215 VIA WHEELCHAIR FROM ED AT APPROX 1600. PT ORIENTED TO ROOM AND CALL LIGHT. THIS RN AGREES W/ PREVIOUS [facility] NURSE SUPERVISOR ASIDE FROM LUNG SOUNDS - WHEEZES, RHALES AND FINE CRACKLES NOTED. PT TRACING ST ON THE GASKET INSPECTOR, LOW 100S. ON 3 L SATTING 98%. PT UP W/ SBA W/ WALKER TO BATHROOM. IN CONTACT ISO FOR HX MRSA. PT CURRENTLY RESTING IN RECLINER AT THIS TIME. HOURLY ROUNDING OBSERVED, BED IN LOW POSITION, CALL LIGHT W/ IN REACH, WILL CONTINUE POC.
--- NOTE | 2019-10-25 23:59 | NUR ---
AT ABOUT 2235 PT AWOKE WITH INTENSE CHEST PAIN. OBTAINED AN EKG, INCREASED O2 AND PAGED THE MD FARMWORKER FRUIT. VS WERE STABLE. EKG DID NOT SHOW SIGNS OF AN INFARCT. MD CALLED BACK AND GAVE ORDER FOR IV MORPHINE. PT RECEIVED MORPHINE AND IS FEELING MUCH BETTER. WILL CONTINUE TO MONITOR PT FOR REOCCURANCE OF SYMPTOMS.
[2019-10-26 04:22] VITALS: BP 100/56
[2019-10-26 04:31] LABS: HEMATOCRIT 30.9 % (42.0-52.0); HEMOGLOBIN 10.4 gm/dL (14.0-18.0); MCH 32.2 pg (26.0-34.0); MCHC 33.8 g/dL (28.0-37.0); MCV 95.2 fL (80.0-100.0); MPV 7.5 fl. (7.2-11.1); RBC 3.25 mil/uL (4.50-6.00); RDW-CV 16.7 % (10.5-14.5); WBC 21.5 thou/uL (4.0-11.0)
[2019-10-26 04:45] LABS: CALCIUM 7.5 mg/dL (8.5-10.1); CREATININE 1.2 mg/dL (0.6-1.3); MAGNESIUM 1.9 mg/dL (1.8-2.4); POTASSIUM 3.1 mmol/L (3.5-5.1)
[2019-10-26 07:53] VITALS: BP 104/63
--- NOTE | 2019-10-26 07:53 | NUR ---
PT IS ABLE TO COMMUNICATE HIS NEEDS TO STAFF WITH ONLY MINOR DIFFICULTY; HE HAS DOWN'S SYNDROME, BUT IS QUITE HIGH FUNCTIONING. CURRENT PAIN MEDICATION REGIMEN HAS BEEN ADEQUATE FOR CONTROLLING HIS PAIN UP TO THIS TIME. NO REOCCURANCE OF CHEST PAIN MENTIONED IN EARLIER NOTE, UP TO THIS TIME. CONTACT ISOLATION MAINTAINED.
--- NOTE | 2019-10-26 11:40 | NUR ---
ASSUMED PT CARE AT 0730, PT RESTING IN BED, A&OX4, SATTING 98% ON 3L, TRACING SR ON THE COAL BAGGER AND HAS NO C/O PAIN OR SHORTNESS OF BREATH. PT HAS A PRODUCTIVE COUGH AND HAS BEEN WORKING W/ RESPIRATORY THIS MORNING. I SPOKE W/ DPOA THIS MORNING AND UPDATED HIM ON THE POC, DPOA IS BRINGING PT'S VEST UP HERE TO FURTHER HELP DECREASE RESPIRATORY SECRETIONS. PT GOAL IS TO INCREASE ACTIVITY AND MAINTAIN O2 SATS ABOVE 92%. AM ASSESSMENT CHARTED, MEDS GIVEN PER MAR, HOURLY ROUNDING OBSERVED, WILL CONTINUE POC.
[2019-10-26 13:57] VITALS: BP 120/68
[2019-10-26 16:00] VITALS: BP 135/72
--- NOTE | 2019-10-26 18:41 | NUR ---
NO ACUTE CHANGES THROUGHOUT SHIFT. PT CONTINUED TO STAY ON 3L NC AND TRACE SR ON THE RELATIONSHIP MANAGER. PT HAD NO C/O PAIN OR SHORTNESS OF BREATH AND DID RECEIVE VEST FROM [facility]. PT SAT UP TO EAT ALL MEALS TODAY AND AMBULATED TO BATHROOM MULTIPLE TIMES, HAD PULM AND ID CONSULT TODAY. PT HAD CXR, SEE RESULTS. MEDS GIVEN PER AUG, HOURLY ROUNDING OBSERVED, PT REPOSITIONS SELF, WILL CONTINUE POC.
[2019-10-26 21:04] VITALS: BP 118/64
[2019-10-27] VITALS: BP 138/81
[2019-10-27 04:00] VITALS: BP 114/68
[2019-10-27 07:48] VITALS: BP 119/70
--- NOTE | 2019-10-27 07:51 | NUR ---
PT IS ABLE TO COMMUNICATE HIS NEEDS WITH VERY MINOR DIFFICULTY; HE HAS DOWN'S SYNDROME. HE HAS DENIED THE NEED FOR PAIN MEDICATION UP TO THIS TIME. HE WORE HIS CPAP OVERNIGHT; TOLERATED WELL. CONTACT ISOLATION FOR MRSA MAINTAINED.
--- NOTE | 2019-10-27 11:00 | NUR ---
ASSUMED PT CARE AT 0730, PT SITTING UP IN BED, A&OX4, SATTING 100% ON 3L AND TRACING SR ON THE MICROPALEONTOLOGIST. PT HAS NO C/O PAIN OR SHORTNESS OF BREATH BUT CONTINUES TO HAVE A PRODUCTIVE COUGH. PT DC'D FROM TELE TODAY, CHANGED STATUS TO M/S. PT GOAL IS TO MAINTAIN O2 ABOVE 92% AND INCREASE ACTIVITY. AM ASSESSMENT CHARTED, MEDS GIVEN PER AUG, HOURLY ROUNDING OBSERVED, WILL CONTINUE POC.
--- NOTE | 2019-10-27 18:50 | NUR ---
NO ACUTE CHANGES THROUGHOUT SHIFT, PT CONTINUES TO BE ON 3L NC AND SATTING MID 90'S. PT C/O CHEST PAIN FROM COUGHING TODAY, TYLENOL GIVEN PER AUG W/ PARTIAL RELIEF. PT CONTINUES TO HAVE A PRODUCTIVE COUGH. HE AMBULATED MULTIPLES TIMES TO THE BATHROOM TODAY. MEDS GIVEN PER AUG, HOURLY ROUNGING OBSERVED, WILL CONTINUE POC.
[2019-10-27 20:30] VITALS: BP 109/55
[2019-10-28] VITALS: BP 119/60
[2019-10-28 04:42] LABS: HEMATOCRIT 33.6 % (42.0-52.0); HEMOGLOBIN 11.5 gm/dL (14.0-18.0); MCH 32.3 pg (26.0-34.0); MCHC 34.2 g/dL (28.0-37.0); MCV 94.6 fL (80.0-100.0); MPV 7.4 fl. (7.2-11.1); RBC 3.55 mil/uL (4.50-6.00); RDW-CV 17.3 % (10.5-14.5); WBC 7.2 thou/uL (4.0-11.0)
--- NOTE | 2019-10-28 04:53 | NUR ---
ASSUMED CARE FROM DAY SHIFT PT UP IN CHAIR HVE NO COMPLAINTS OR CONCERNS, PO MEDICATION AND IV ABX TOLERATED NEW IV PLACED DUE LEFT AC LEAKING. CPAP ON SAY 97 %. PT RESTING WELL THROUGHOUT HOLURLY ROUNDS, WILL REPORT CHANGES OR ABNORMAL FINDINGS.
[2019-10-28 04:56] LABS: CALCIUM 7.7 mg/dL (8.5-10.1); MAGNESIUM 1.8 mg/dL (1.8-2.4); POTASSIUM 3.9 mmol/L (3.5-5.1)
--- NOTE | 2019-10-28 09:22 | NUR ---
DC delayed, ID recommending an additional day of IVABX. Plan dc to home tomorrow with HH. Following.
[2019-10-28 11:43] VITALS: BP 119/60
--- NOTE | 2019-10-28 14:50 | EKG ---
[place] [address] ELECTROCARDIOGRAM REPORT Name: SONI BATES Room: [address] ADM IN M.R.#: [id number] Admission: 10/23/19 Attend Phys: Ryan Salmon Discharge: Date of : 84 Date of Service: 10/26/1904 Report #: [id number] THIS REPORT FOR: //name// [facility] Test Date: 2019-10-26 Test Time: 09:04:15 Pat Name: SONI BATES Department: Room: [address] Gender: Emergency Medicine Medical Director: 1883 : 1980 Requested By: Ryan Salmon Order Number: [id number] Nisha MD: Suresh Bradley Measurements Intervals [place] Rate: 92 P: 69 MD: 128 QRS: 67 QRSD: 80 T: 57 QT: 362 QTc: 448 Interpretive Statements Sinus rhythm Ventricular premature complex Compared to ECG 10/23/2019 22:27:26 Ventricular premature complex(es) now present Electronically Signed On 10-28-2019 14:48:35 CDT by Suresh Bradley [email or web address] <ELECTRONICALLY SIGNED> By: Suresh Bradley MD, [facility] 10/28/19 1448 0904 0904 Suresh Bradley MD, [facility] /EPI
[2019-10-28 16:16] VITALS: BP 103/67
--- NOTE | 2019-10-28 16:51 | NUR ---
PATIENT ALERT AND ORIENTED X 4. VITAL SIGNS STABLE ON 3L O2 NASAL CANULA. UP WITH ASSISTANCE TO THE BATHROOM. IV PATENT AND SALINE LOCKED. DENIES PAIN AND NAUSEA AT THIS TIME. ANTIBIOTICS GIVEN PER AUG. FALL PRECAUTIONS IN PLACE AND BED/CHAIR ALARM ON. HOURLY ROUNDS MAINTAINED THROUGHOUT THE SHIFT. CALL LIGHT WITHIN REACH. NURSING WILL CONTINUE TO MONITOR.
--- NOTE | 2019-10-28 16:54 | EKG ---
[place] [address] ELECTROCARDIOGRAM REPORT Name: BATESSONI Room: [address] ADM IN M.R.#: [id number] Admission: 10/23/19 Attend Phys: Ryan Salmon Discharge: Date of : 84 Date of Service: 10/25/19 2256 Report #: [id number] THIS REPORT FOR: //name// [facility] Test Date: 2019-10-25 Test Time: 22:56:12 Pat Name: SONI BATES Department: Room: [address] Gender: M Curriculum Assistant Principal: MEETA : 1980 Requested By: Ryan Salmon Order Number: [id number] Nisha MD: Suresh Bradley Measurements Intervals [place] Rate: 114 P: 78 SC: 134 QRS: 75 QRSD: 94 T: 54 QT: 330 QTc: 455 Interpretive Statements Sinus tachycardia Ventricular premature complex Compared to ECG 10/23/2019 22:27:26 Ventricular premature complex(es) now present baseline artifact is noted Electronically Signed On 10-28-2019 16:52:48 CDT by Suresh Bradley [email or web address] <ELECTRONICALLY SIGNED> By: Suresh Bradley MD, FAC 10/28/19 1652 2256 2256 Suresh Bradley MD, [facility] /EPI
[2019-10-28 20:00] VITALS: BP 91/50
[2019-10-28 23:52] VITALS: BP 120/61
--- NOTE | 2019-10-29 04:39 | NUR ---
ASSUMED CARE OF PT AFTER REPORT AT 1930. PT A&OX4. VSS. PHYSICAL ASSESSMENT COMPLETED AND CHARTED. PT ON O2 AT 3L NC/CPAP AT HS. PT ON MEDSURG STATUS. PT DENIES ANY PAIN. PT ABLE TO SLEEP WELL ON BED. CALL LIGHT WITHIN REACH.
[2019-10-29 09:52] VITALS: BP 120/61
--- NOTE | 2019-10-29 10:02 | NUR ---
Pt discharging back to [facility] today, Edita from [facility] to provide dc transportation. Faxed HH referral to [facility].
[2019-10-29 10:05] VITALS: BP 119/60
--- NOTE | 2019-10-29 14:36 | NUR ---
IV DISCONTINUED AND PT'SW CRISTIAN BRISSA SIGNED DISCHARGE PAPER WORK. BRISSA UNDERSTANDS ALL DISCHAGRE ORDERS. PT LEFT HOSPITAL IN PRIVATE VEHICLE.
== END 2019-10-29 14:30 | disposition home health service (06) | DRG 871 ==
LOC: M.ERS 20:49 → M.2W 23:58 → M.ICU 23:58 → M.TBA-ER 23:58 → M.ICU 10-24 02:15 → M.2W 10-25 16:39
PROVIDERS: Internal Medicine; Nurse Practitioner Family; ADMIT Internal Medicine
PROC: 5A09357 Assistance with Respiratory Ventilation, Less than 24 Consecutive Hours, Continuous Positive Airway Pressure (ICD-10-PCS; principal; 2019-10-24)
PROC: 5A09357 Assistance with Respiratory Ventilation, Less than 24 Consecutive Hours, Continuous Positive Airway Pressure (ICD-10-PCS; 2019-10-25)
PROC: 5A09357 Assistance with Respiratory Ventilation, Less than 24 Consecutive Hours, Continuous Positive Airway Pressure (ICD-10-PCS; 2019-10-26)
PROC: 5A09357 Assistance with Respiratory Ventilation, Less than 24 Consecutive Hours, Continuous Positive Airway Pressure (ICD-10-PCS; 2019-10-27)
PROC: 5A09357 Assistance with Respiratory Ventilation, Less than 24 Consecutive Hours, Continuous Positive Airway Pressure (ICD-10-PCS; 2019-10-28)
PROC: 5A09357 Assistance with Respiratory Ventilation, Less than 24 Consecutive Hours, Continuous Positive Airway Pressure (ICD-10-PCS; 2019-10-29)
DX: A41.50 Gram-negative sepsis, unspecified (principal); J15.212 Pneumonia due to Methicillin resistant Staphylococcus aureus; J96.21 Acute and chronic respiratory failure with hypoxia; J15.6 Pneumonia due to other Gram-negative bacteria; J44.0 Chronic obstructive pulmonary disease with (acute) lower respiratory infection; K21.9 Gastro-esophageal reflux disease without esophagitis; G47.33 Obstructive sleep apnea (adult) (pediatric); J30.2 Other seasonal allergic rhinitis; E03.9 Hypothyroidism, unspecified; E66.9 Obesity, unspecified; I10 Essential (primary) hypertension; Z20.828 Contact with and (suspected) exposure to other viral communicable diseases; Q90.9 Down syndrome, unspecified; Z68.32 Body mass index [BMI] 32.0-32.9, adult; Z99.81 Dependence on supplemental oxygen; Z79.899 Other long term (current) drug therapy; Z88.2 Allergy status to sulfonamides; Z91.09 Other allergy status, other than to drugs and biological substances; Z87.01 Personal history of pneumonia (recurrent)

== ENCOUNTER 2019-12-03 12:53 | Inpatient (IN) | payer MEDICARE, MEDICAID ==
[~2019-12-03] VITALS: Ht 165.1 cm; Wt 82.6 kg
--- NOTE | 2019-12-03 13:00 | NUR ---
THIS NURSE AND GHAZAL GILMORE CALLED [facility] AT [phone] FOR CONSENT TO TREAT THE PATIENT.
[2019-12-03 13:01] VITALS: BP 132/52
[2019-12-03 13:33] LABS: HEMATOCRIT 38.7 % (42.0-52.0); HEMOGLOBIN 13.3 gm/dL (14.0-18.0); MCH 31.6 pg (26.0-34.0); MCHC 34.3 g/dL (28.0-37.0); MCV 92.3 fL (80.0-100.0); MPV 7.3 fl. (7.2-11.1); NUCLEATED RBCS 0 /100WBC; PLATELET COUNT* 341 thou/uL (150-400); RDW-CV 20.3 % (10.5-14.5); WBC 6.1 thou/uL (4.0-11.0)
[2019-12-03 13:38] LABS: APTT 28.9 Seconds (25.0-31.3); CALCIUM 8.5 mg/dL (8.5-10.1); CREATININE 1.3 mg/dL (0.6-1.3); POTASSIUM 4.1 mmol/L (3.5-5.1); PROTIME 10.7 Seconds (9.20-11.50)
--- NOTE | 2019-12-03 13:38 | NUR ---
MIDLINE INSERTED BY JASMYN BORGES RN
[2019-12-03 13:48] LABS: ALBUMIN 3.5 g/dL (3.4-5.0); MAGNESIUM 1.9 mg/dL (1.8-2.4); TOTAL BILIRUBIN 0.6 mg/dL (<0.1-1.0); TOTAL PROTEIN 6.8 g/dL (6.4-8.2)
[2019-12-03 14:01] LABS: ABSOLUTE BASOPHILS 0.2 thou/uL (0.0-0.2); ABSOLUTE EOSINOPHILS 0.1 thou/uL (0.0-0.7); ABSOLUTE LYMPHOCYTES 0.8 thou/uL (0.8-5.3); ABSOLUTE MONOCYTES 0.2 thou/uL (0.0-1.2); ABSOLUTE NEUTROPHILS 4.8 thou/uL (1.6-8.1); PLATELET ESTIMATE ADEQUATE
[2019-12-03 14:43] LABS: URINE BILIRUBIN NEGATIVE (Negative); URINE BLOOD NEGATIVE (Negative); URINE CLARITY CLEAR; URINE COLOR YELLOW; URINE GLUCOSE-RANDOM NEGATIVE (Negative); URINE KETONES NEGATIVE (Negative); URINE LEUKOCYTES-REFLEX NEGATIVE (Negative); URINE NITRITE-REFLEX NEGATIVE (Negative); URINE PROTEIN NEGATIVE (Negative); URINE SPECIFIC GRAVITY <= 1.005 (1.005-1.030); URINE UROBILINOGEN 0.2 E.U./dl (0.2-1.0)
[2019-12-03 15:34] VITALS: BP 117/55
[2019-12-03 16:00] VITALS: BP 115/50
--- NOTE | 2019-12-03 16:00 | NUR ---
ER ADMIT TO RM 210 PATIENT TO RM VIA CART TRANSPORT TO ROOM AND ORIENTED RM AND CALL LIGHT LIGHT VANESA MESSINA
[2019-12-03] MEDS ORDERED: ITRACONAZOLE100 MG PO (18:45)
[2019-12-03 20:00] VITALS: BP 107/55
[2019-12-04] VITALS: BP 100/55
[2019-12-04 04:00] VITALS: BP 118/71; BP 99/46
[2019-12-04 06:24] LABS: HEMATOCRIT 38.1 % (42.0-52.0); HEMOGLOBIN 12.9 gm/dL (14.0-18.0); MCH 31.3 pg (26.0-34.0); MCHC 33.8 g/dL (28.0-37.0); MCV 92.6 fL (80.0-100.0); MPV 7.6 fl. (7.2-11.1); RBC 4.11 mil/uL (4.50-6.00); RDW-CV 20.6 % (10.5-14.5); WBC 7.8 thou/uL (4.0-11.0)
[2019-12-04 06:49] LABS: ALBUMIN 3.5 g/dL (3.4-5.0); CALCIUM 8.3 mg/dL (8.5-10.1); CREATININE 1.2 mg/dL (0.6-1.3); MAGNESIUM 1.8 mg/dL (1.8-2.4); PHOSPHORUS* 3.8 mg/dL (2.5-4.9); POTASSIUM 4.2 mmol/L (3.5-5.1)
--- NOTE | 2019-12-04 07:01 | NUR ---
ASSUMED PT CARE AT 1910. NURSING ASSESSMENT COMPLETED AT START OF SHIFT. PT TRACING SR/ST ON HOUSE CARPENTER HELPER. CONTINUES ON 5L NC. HOURLY ROUNDING COMPLETED. CALL LIGHT WITHIN REACH. PT VOICED NO CONCERNS THIS SHIFT.
[2019-12-04 07:20] VITALS: BP 112/66
--- NOTE | 2019-12-04 10:11 | EKG ---
[place] [address] ELECTROCARDIOGRAM REPORT Name: ROB BATESOLAS OZZIE Room: [address] ADM IN M.R.#: [id number] Admission: 12/03/19 Attend Phys: Syl cho Sa Discharge: Date of : 84 Date of Service: 12/03/19 [facility] Report #: [id number] THIS REPORT FOR: //name// [facility] ED Test Date: 2019-12-03 Test Time: 13:00:00 Pat Name: SONI BATES Department: Room: [facility] Gender: M Air Crew Supervisor: LIZBETH : 1980 Requested By: Soren Sanchez Order Number: [id number] MD: Derrick Polanco Measurements Intervals [place] Rate: 90 P: 42 [place]: 132 QRS: 61 QRSD: 78 T: 36 QT: 361 QTc: 442 Interpretive Statements Sinus rhythm Ventricular premature complex Low voltage, extremity leads Compared to ECG 10/26/2019 09:04:15 no change Electronically Signed On 12-04-2019 10:09:15 CDT by Derrick Polanco [email or web address] <ELECTRONICALLY SIGNED> By: Derrick Polanco MD, FACC 12/04/19 1009 1300 1300 Derrick Polanco MD, [facility] /EPI
[2019-12-04 12:27] VITALS: BP 105/80
--- NOTE | 2019-12-04 15:46 | NUR ---
Pt known to this CM from previous hospital stays. Pt resides at [facility]. Pt uses walker for mobility and [facility] o[facility] Hx of [facility]. Hx of [facility]. CM left VM for Pt's guardian and house steward/stewardess. CM plans to discuss if Pt is appropriately placed, with his continuous repeat hospital stays. Awaiting call back. Following.
--- NOTE | 2019-12-04 18:30 | NUR ---
RECEIVED REPORT FROM YESENIA HARMAN. ASSUMED PT CARE AROUND 0715. AM ASSESSMENT AND VITALS COMPLETED CHARTED. MATTRESS AND BOXSPRINGS SUPERVISOR IN PLACE TRACING SR TO ST WITH PVC'S. PT TOLERATING DIET. NC IN PLACE AT 5L. PT UP WITH SBA TO BEDSIDE COMMODE, SOB WITH EXERTION. PT MADE M/S STATUS AND TRANSFERED UPSTAIRS TO ROOM 308. REPORT CALLED TO ANSLEY HARMAN. ALL BELONGINGS GATHERED AND SENT UPSTAIRS WITH PT.
[2019-12-04 20:00] VITALS: BP 127/62
[2019-12-05 05:24] LABS: HEMATOCRIT 38.7 % (42.0-52.0); HEMOGLOBIN 12.8 gm/dL (14.0-18.0); MCH 30.9 pg (26.0-34.0); MCV 93.6 fL (80.0-100.0); MPV 7.4 fl. (7.2-11.1); RBC 4.14 mil/uL (4.50-6.00); RDW-CV 20.3 % (10.5-14.5); WBC 20.3 thou/uL (4.0-11.0)
--- NOTE | 2019-12-05 05:40 | NUR ---
PT A&O, VSS ON 5L BY NC. MEDS, BREATHING TREATMENT GIVEN ORDERED. HOME CPAP ON WHILE SLEEPING. NO C/O PAIN. CALL LIGHT WITHIN REACH. WILL CONTINUE TO MONITOR.
[2019-12-05 05:57] LABS: ALBUMIN 3.5 g/dL (3.4-5.0); CALCIUM 8.2 mg/dL (8.5-10.1); CREATININE 1.1 mg/dL (0.6-1.3); PHOSPHORUS* 4.3 mg/dL (2.5-4.9); POTASSIUM 4.1 mmol/L (3.5-5.1)
--- NOTE | 2019-12-05 08:01 | NUR ---
Pt's guardian left message for CM regarding Pt possibly needing a higher level of care, guardian is content with Pt's current placement and believes that Pt's repeat hospitalizations are d/t his worsening condition. Plan is for Pt to return [facility] longterm at [facility]. Following.
[2019-12-05 08:25] VITALS: BP 139/84
--- NOTE | 2019-12-05 11:29 | CON ---
[address] [address] CONSULTATION Name: SONI BATES Room: [address] IN M.R.#: [id number] Admission: 12/03/19 Attend Phys: Syl Smith Discharge: Date of : 84 Report #: [id number] THIS REPORT FOR: //name// cc: Shae Santoro Linda J. DO ~ THIS REPORT FOR: //name// CC: Syl Hayward DATE OF SERVICE: 12/04/2019 INFECTIOUS DISEASE CONSULTATION ATTENDING PHYSICIAN: Dr. Robins. REASON FOR EVALUATION: Pneumonitis. HISTORY OF PRESENT ILLNESS: Chart reviewed, patient examined. This is a 39-year-old gentleman with Down syndrome, I know very well. He has been hospitalized numerous times, especially within the last 4 months, has underlying bronchiectasis, O2 requiring COPD. He has frequent lower respiratory tract infections, often with Pseudomonas aeruginosa or more recently MRSA. He has been on multiple courses of antibiotics. Generally, he responds to treatment; however, he woke up the morning of admission, had complained of chest pain and discomfort, has required increased oxygen support, 5-6 liters, temporarily improved; however, he has a history of anxiety, which likely exacerbated. He had been coughing a little sputum production. He denies any fevers or chills. His appetite has been reasonably good. No GI-related complaints. ALLERGIES: SULFA. CURRENT MEDICATIONS: Include ascorbic acid, lorazepam, vancomycin, multivitamin, loratadine, lactobacillus, fluoxetine, ceftriaxone, levothyroxine, methylprednisolone, montelukast, cefepime, p.r.n. analgesics, and inhalational treatment. PAST MEDICAL HISTORY: As described above, history of bronchiectasis with O2 requiring COPD, has pulmonary hypertension, asthma, hypertension, chronic anemia, obstructive sleep apnea on CPAP, reflux, frequent lower respiratory tract infections, trisomy 21 with Down syndrome, and seasonal allergies. SOCIAL HISTORY: Nonsmoker, no ethanol, no illicit drug use. FAMILY HISTORY: [place] [address] CONSULTATION Name: SONI BATES Room: [address] IN ..#: [id number] Admission: 12/03/19 Attend Phys: Syl Smith Discharge: Date of : 84 Report #: [id number] REVIEW OF SYSTEMS: Otherwise, unremarkable, 10-point review of system with exception of the above. PHYSICAL EXAMINATION: GENERAL: He appears in moderate respiratory distress. He is tachypneic. He has got the nasal cannula oxygen in place. He is generally lucid. He is somewhat more difficult to understand his speech, I think due to the breathing difficulties when talking. VITAL SIGNS: Temperature 98.3, pulse 90, respirations 17, and blood pressure 105/80. SKIN: Warm, dry, no rashes. HEENT: Typical Down syndrome appearance. He is alert. Extraocular muscles intact. NECK: Supple. Nasal cannula oxygen in place. LUNGS: Diminished breath sounds overall, some crackles at the bases. HEART: Regular. I do not appreciate a murmur. ABDOMEN: Obese, soft, nontender. EXTREMITIES: No cyanosis. GENITOURINARY AND RECTAL: Deferred. LABORATORY DATA: Blood cultures sterile thus far. Electrolytes: Sodium 139, potassium 4.2, chloride 105, bicarbonate is 25, anion gap of 9, BUN and creatinine 15 and 1.2, glucose of 133, albumin of 3.5, and estimated GFR of 68. CBC: White count of 7.8, H and H 12.9 and 38.1, and platelets of 318. Urinalysis unremarkable. Chest x-ray showed improved aeration of the lung bases compared to study of 10/26/2019. Lactic acid 0.9. Troponin 0.11. LFTs unremarkable. Albumin of 3.5. ASSESSMENT AND PLAN: Lower respiratory tract infection, likely he has pneumonitis. At this point, he is not producing much sputum. We will continue empiric therapy based on previous culture results. He is quite tenuous at this point. This is typical hospitalization thus far, should hopefully improve in the next 48-72 hours approaching baseline. Continue to monitor expectantly. <ELECTRONICALLY SIGNED> By: Jermaine Carvajal MD 12/05/19 1129 1521 [id number] Carvajal MD /nt
[2019-12-05 16:00] VITALS: BP 118/68
--- NOTE | 2019-12-05 17:23 | NUR ---
PT A&Ox4. VITALS STBALE. MIDLINE PATENT. DENIED PAIN. DENIED N/V. UP AD MIKEY. BED BATH GIVEN. CALL LIGHT WITHIN REACH. WILL CONTINUE TO MONITOR.
[2019-12-05 20:00] VITALS: BP 125/47
--- NOTE | 2019-12-06 06:03 | NUR ---
PT A&O, VSS ON 5L BY DAIN. MEDS GIVEN ORDERED. PT REPORTED DIFFICULTY BREATHING IN THE MIDDLE OF THE NIGHT, PRN BREATHING TREATMENT GIVEN PER PT REQUEST. ATIVAN GIVEN FOR ANXIETY. PT ALSO REPORTED PAIN R/T COUGHING AND TYLENOL GIVEN, PT SLEEPING AFTER. HOURLY ROUNDING COMPLETED. WILL CONTINUE TO MONITOR.
[2019-12-06 07:55] VITALS: BP 120/72
[2019-12-06 16:00] VITALS: BP 126/67
--- NOTE | 2019-12-06 16:12 | NUR ---
DR. FRANKLIN REQUESTED SWALLOW EVAL AND VIDEO SWALLOW STUDY ORDERS. COGNITIVE EVALUATION NOT APPROPRIATE OR REQUESTED BY DOCTOR AT THIS TIME. WILL COMPLETE THE ORDERS THIS DATE.
--- NOTE | 2019-12-06 18:52 | NUR ---
PT A&Ox4. UP AD MIKEY. 3LOX. TOLERATING FOOD. MIDLINE PATENT. CALL LIGHT WITHIN REACH. WILL CONTINUE TO MONITOR.
[2019-12-07 05:02] LABS: ABSOLUTE LYMPHOCYTES 0.7 thou/uL (0.8-5.3); ABSOLUTE MONOCYTES 0.9 thou/uL (0.0-1.2); ABSOLUTE NEUTROPHILS 18.3 thou/uL (1.6-8.1); BASOPHILS 0.1 %; HEMATOCRIT 37.6 % (42.0-52.0); HEMOGLOBIN 12.6 gm/dL (14.0-18.0); LYMPHOCYTES 3.3 %; MCH 31.2 pg (26.0-34.0); MCHC 33.5 g/dL (28.0-37.0); MONOCYTES 4.7 %; MPV 7.4 fl. (7.2-11.1); NUCLEATED RBCS 0 /100WBC; PLATELET COUNT* 265 thou/uL (150-400); POLYS 91.9 %; RBC 4.04 mil/uL (4.50-6.00); RDW-CV 20.1 % (10.5-14.5); WBC 19.9 thou/uL (4.0-11.0)
[2019-12-07 05:15] LABS: ALBUMIN 3.3 g/dL (3.4-5.0); CALCIUM 7.6 mg/dL (8.5-10.1); CREATININE 1.2 mg/dL (0.6-1.3); MAGNESIUM 2.1 mg/dL (1.8-2.4); POTASSIUM 3.9 mmol/L (3.5-5.1); TOTAL BILIRUBIN 0.3 mg/dL (<0.1-1.0); TOTAL PROTEIN 6.3 g/dL (6.4-8.2)
--- NOTE | 2019-12-07 05:19 | NUR ---
PATIENT HAS SLEPT WELL THROUGHOUT THE NIGHT. VSS ON 3L 02 VIA NASAL CANNULA. MEDICATIONS GIVEN ORDERED AND CHARTED. LUNG SOUNDS ARE COURSE AND SLIGHT WHEEZES HEARD. NO C/O PAIN. PATIENT UP WITH SBA TO THE BATHROOM. MIDLINE TO LEFT ARM-SL. IV ABT'S GIVEN ORDERED AND CHARTED. PATIENT INSTRUCTED TO USE CALL LIGHT WHEN NEEDING ASSISTANCE. HOURLY ROUNDS MADE. WILL CONTINUE WITH PLAN OF CARE AND NURSING TO MONITOR.
[2019-12-07 07:15] VITALS: BP 112/72
--- NOTE | 2019-12-07 10:20 | 2DMMODE ---
[place] [address] 2 D/M-MODE ECHOCARDIOGRAM Name: SONI BATES Room: [address] IN M.R.#: [id number] Admission: 12/03/19 Attend Phys: Syl cho Sa Discharge: Date of : 84 Date of Service: 12/07/19 1018 Report #: [id number] THIS REPORT FOR: cc: Shae Santoro,Shae Spann,Derrick Cedillo MD [facility] ~ APPROVED REPORT Study performed: 12/06/2019 17:32:19 EXAM: Comprehensive 2D, Doppler, and color-flow Echocardiogram Patient Location: In-Patient BSA: 1.90 HR: 77 bpm BP: 120/72 mmHg Other Information Study Quality: Fair Technically limited study due to body habitus, lung disease, inability to position patient. Indications COPD Pericardial Effusion 2D Dimensions IVSd: 9.30 (7-11mm) LVOT Diam: 24.16 (18-24mm) LVDd: 45.92 mm PWd: 8.86 (7-11mm) Ascending Ao: 33.33 (22-36mm) LVDs: 34.77 (25-40mm) Aortic Root: 32.80 mm Volumes Left Atrial Volume (Systole) LA ESV Index: 19.90 mL/m2 Aortic Valve AoV Peak Romulo.: 0.94 m/s AO Peak Gr.: 3.50 mmHg LVOT Max P.42 mmHg AO Mean Gr.: 2.07 mmHg LVOT Mean P.36 mmHg LVOT Max V: 1.05 m/s AO V2 VTI: 18.77 cm LVOT Mean V: 0.71 m/s AKANKSHA (VTI): 5.24 cm2 LVOT V1 VTI: 21.45 [place] [address] 2 D/M-MODE ECHOCARDIOGRAM Name: SONI BATES Room: [address] IN .R.#: [id number] Admission: 12/03/19 Attend Phys: Syl cho Sa Discharge: Date of : 84 Date of Service: 12/07/19 1018 Report #: [id number] Mitral Valve E/A Ratio: 1.18 MV Decel. Time: 203.05 ms MV E Max Romulo.: 0.94 m/s MV PHT: 58.88 ms MVA (PHT): 3.74 cm2 TDI E/Lateral E': 5.88 E/Medial E': 6.71 Medial E' Romulo.: 0.14 m/s Lateral E' Romulo.: 0.16 m/s Pulmonary Valve PV Peak Romulo.: 0.90 m/s PV Peak Gr.: 3.23 mmHg Left Ventricle The left ventricle is normal size. There is normal LV segmental wall motion. There is normal left ventricular wall thickness. Left ventricular systolic function is normal. The left ventricular ejection fraction is within the normal range. LVEF is 55-60%. Right Ventricle The right ventricle is normal size. The right ventricular systolic function is normal. Atria The left atrium size is normal. Interatrial septum not well visualized. The right atrium size is normal. Aortic Valve The aortic valve is not well visualized. Trace aortic regurgitation. There is no aortic valvular stenosis. Mitral Valve The mitral valve is normal in structure. There is no mitral valve regurgitation noted. No evidence of mitral valve stenosis. Tricuspid Valve The tricuspid valve is normal in structure. There is trace tricuspid valve regurgitation noted. Pulmonic Valve Pulmonic valve is not well visualized. There is no pulmonic [place] [address] 2 D/M-MODE ECHOCARDIOGRAM Name: SONI BATES Room: [address] IN ..#: [id number] Admission: 12/03/19 Attend Phys: Syl cho Sa Discharge: Date of : 84 Date of Service: 12/07/19 1018 Report #: [id number] Great Vessels The aortic root is normal in size. IVC is not well visualized. Pericardium Trace pericardial effusion. <Conclusion> LVEF is 55-60%. Trace pericardial effusion. <ELECTRONICALLY SIGNED> By: Derrick Polanco MD, [facility] 12/07/19 1018 1018 1018 Derrick Polanco MD, [facility] /INF
[2019-12-07 16:23] VITALS: BP 119/77
--- NOTE | 2019-12-07 17:04 | NUR ---
pt remained alert and oriented. pt resting in bed. pt up in room stand by. pt c/o chest discomfort from coughing, meds given as ordered. fall risk precautions in place. hourly rounding completed. will continue to monitor.
[2019-12-07 20:30] VITALS: BP 121/79
--- NOTE | 2019-12-08 02:23 | NUR ---
ASSUMED CARE AT 1930. SHIFT ASSESSMENT CHARTED. PATIENT UP IN CHAIR AT FIRST ROUNDS PLAYING ON HIS TABLET. O2 ON AT 3L/MIN BY NASAL CANNULA. CONTINUES TO HAVE TIGHTNESS/PAIN IN HIS CHEST AND RIBS WITH COUGHING. MEDS PROVIDED ORDERED TO SOME HELP. AMBULATED TO BR WITH CGA AT HS THEN PATIENT TO BED. SWITCHED TO CPAP WITH O2 BLEED IN FOR OVERNIGHT. IV ANTIBIOTICS PER ORDER. VITAL SIGNS STABLE. HOURLY ROUNDS. CONTINUE TO MONITOR.
--- NOTE | 2019-12-08 06:21 | NUR ---
PATIENT UP EARLY AM FOR 0500 RT TX. TO BR FOR MOD BM. TYLENOL REPEATED FOR RIB/CHEST PAIN. NO OTHER ADDITIONS TO EARLIER ENTRY. HOURLY ROUNDING. CONTINUE TO MONITOR.
[2019-12-08 07:21] VITALS: BP 118/82
[2019-12-08 16:51] VITALS: BP 122/75
--- NOTE | 2019-12-08 17:01 | NUR ---
PT REMAINED ALERT AND ORIENTED. PT WALKED IN ROOM AND CLEANED SELF UP. MEDS GIVEN ORDERED. FALL RISK PRECAUTIONS IN PLACE. HOURLY ROUDING COMPLETED. WILL CONTINUE TO MONITOR.
[2019-12-08 20:50] VITALS: BP 130/91
--- NOTE | 2019-12-09 03:27 | NUR ---
PATIENT HAS REMAINED ALERT AND ORIENTED X 4 THROUGHOUT THE SHIFT AND RESTING QUIETLY ON HOURLY ROUNDS. HAVE NOTED LESS STATED CHEST DISCOMFORT AND LESS COUGH TONIGHT. VITAL SIGNS STABLE AND AFEBRILE. O2 REMAINS ON AT 3L/MIN NASAL CANNULA AND WITH CPAP. MEDS/ANTIBIOTICS PER ORDER. HOURLY ROUNDING. OVERALL SLIGHT IMPROVEMENT IN PATIENT PRESENTATION. ISOLATION MAINTAINED FOR HX MRSA. CONTINUE TO MONITOR.
--- NOTE | 2019-12-09 05:27 | NUR ---
NO CHANGES FROM PREVIOUS ENTRY. HOURLY ROUNDING COMPLETED. CONTINUE TO MONITOR.
[2019-12-09 08:15] VITALS: BP 122/71
[2019-12-09 09:22] LABS: HEMATOCRIT 42.3 % (42.0-52.0); HEMOGLOBIN 14.2 gm/dL (14.0-18.0); MCH 31.3 pg (26.0-34.0); MCHC 33.6 g/dL (28.0-37.0); MCV 93.2 fL (80.0-100.0); MPV 7.1 fl. (7.2-11.1); NUCLEATED RBCS 0 /100WBC; PLATELET COUNT* 255 thou/uL (150-400); RBC 4.54 mil/uL (4.50-6.00); RDW-CV 19.8 % (10.5-14.5); WBC 12.6 thou/uL (4.0-11.0)
[2019-12-09 09:31] LABS: ALBUMIN 3.3 g/dL (3.4-5.0); CALCIUM 7.7 mg/dL (8.5-10.1); CREATININE 1.1 mg/dL (0.6-1.3); MAGNESIUM 1.9 mg/dL (1.8-2.4); PHOSPHORUS* 3.2 mg/dL (2.5-4.9); POTASSIUM 3.8 mmol/L (3.5-5.1); TOTAL BILIRUBIN 0.5 mg/dL (<0.1-1.0); TOTAL PROTEIN 6.5 g/dL (6.4-8.2)
[2019-12-09 10:00] LABS: ABSOLUTE LYMPHOCYTES 1.5 thou/uL (0.8-5.3); ABSOLUTE MONOCYTES 0.8 thou/uL (0.0-1.2); ABSOLUTE NEUTROPHILS 10.3 thou/uL (1.6-8.1); ANISOCYTOSIS 1+; PLATELET ESTIMATE ADEQUATE; POIKILOCYTOSIS 1+
--- NOTE | 2019-12-09 13:49 | CON ---
[address] [address] CONSULTATION Name: SONI BATES Room: [address] IN M.R.#: [id number] Admission: 12/03/19 Attend Phys: Syl Smith Discharge: Date of : 84 Report #: [id number] THIS REPORT FOR: //name// cc: Shae Santoro Linda J. DO ~ THIS REPORT FOR: //name// CC: Syl Hayward DATE OF SERVICE: 12/06/2019 REQUESTING PHYSICIAN: Paula Marcelino MD INDICATION FOR CONSULTATION: Shortness of breath and recurrent infiltrates. HISTORY OF PRESENT ILLNESS: This is a 39-year-old gentleman. Past medical history is as mentioned below. The patient does have a history of Down's syndrome. The patient also does have a history of obstructive sleep apnea. He is on CPAP as well as oxygen long-term. The patient also does have bronchial asthma, does also require oxygen during the daytime, the etiology of which is not fully defined. The patient has had multiple previous admissions to this hospital with pulmonary infiltrates. The patient is now admitted here again with increase in shortness of breath. The patient at baseline was requiring 2-3 liters oxygen via nasal cannula. There is an increase in oxygen requirements to about 5 liters to maintain O2 saturation in the low 90s. The patient also has had a cough. There is a mild increase in sputum production. The patient, however, reported to have his sputum as being small in amount. He did not describe chest pain. He did have mild swelling of lower extremities. He is not describing pain in his lower extremities. He has been afebrile since admission. Since admission, the patient has been treated with broad-spectrum antibiotics. He has also received Solu-Medrol. Overall, he reports improvement in his respiratory status. He is now down to 3 liters oxygen via nasal cannula. He is oxygenating in the mid 90s. The patient has had an increase in WBC count as of yesterday. His clinical picture is suspicious of aspiration and we have had concerns that he may not be always sitting up while eating. I therefore did consult Speech and we did repeat a video swallow. This is as discussed below. The patient is limited in providing a history or review of systems. REVIEW OF SYSTEMS: For 10 points is negative except as mentioned above. PAST MEDICAL HISTORY: Down's syndrome, bronchial asthma, obstructive sleep apnea, chronic hypoxemic respiratory failure not [place] [address] CONSULTATION Name: TATI BATESS OZZIE Room: [address] IN M.R.#: [id number] Admission: 12/03/19 Attend Phys: Syl Smith Discharge: Date of : 84 Report #: [id number] oxygen, in line with his CPAP at night, he has required oxygen during the day as well. Etiology of him requiring oxygen during the daytime is not fully defined. There is mention of bronchiectasis on his records; however, based on his previous CAT scans, I am not convinced if the patient does in fact have bronchiectasis. Pericardial effusion, which is reported to be of varying sizes between the small and the moderate on previous echocardiograms as well as CAT scans. He has also previously had a bronchoscopy, which was positive for MRSA as well as Haemophilus parainfluenzae as well as Renea albicans, two recent +ve C/S for pseudomonas The patient's previous GINNY markers have been unremarkable. ANCA markers also unremarkable. He has had previous cellulitis, previously is tested negative for HIV, previously his immune globulins have been normal. SOCIAL HISTORY: He lives at a intermediate. No known history of heavy alcohol use or illegal drug use. ALLERGIES: SULFONAMIDE ANTIBIOTICS. CURRENT MEDICATIONS: List in [facility] reviewed. HOME MEDICATIONS: In [facility] reviewed. FAMILY HISTORY: Negative for heart or lung disease. PHYSICAL EXAMINATION: GENERAL: He is alert, awake, and oriented; however, provides only a limited history. VITAL SIGNS: He is on 3 liters nasal cannula. He is oxygenating in the mid 90s. His pulse is around 76 and a blood pressure of 120/72. His respiratory rate was 18. He did not appear to be in any distress. His body mass index is elevated to 33. HEENT: Head is normocephalic and atraumatic. Pupils equal, reactive. No throat erythema, narrow airway. NECK: Does not show raised JVP, asymmetry, mass, or lymph nodes. CHEST: Symmetrical expansion on inspection and palpation. On auscultation, breath sounds are equal, mildly decreased. I do not hear any added sounds. HEART: Regular, no murmur. ABDOMEN: Soft and nontender. EXTREMITIES: Lower extremities showed trace edema. There is no calf tenderness. SKIN: Dry and intact. NEUROLOGICAL: Moves all extremities bilaterally equally and spontaneously, showed no focal deficit identified. LABORATORY DATA: The patient's CBC repeated 3 times during this admission, last [facility] [address] [place] [address] CONSULTATION Name: SONI BATES Room: [address] IN Peña#: [id number] Admission: 12/03/19 Attend Phys: Syl Smith Discharge: Date of : 84 Report #: [id number] yesterday in [facility] reviewed, significant leukocytosis developing yesterday in [facility] reviewed. The patient's chemistries also in [facility] reviewed. Mild hyperglycemia is noted, likely secondary to steroid therapy. His lactate level was not elevated on initial presentation. Troponin I was mildly elevated to 0.11. Coagulation studies unremarkable. Urinalysis also in [facility] reviewed. IMAGING: The patient had a chest x-ray performed twice during this admission. There are some infiltrative changes noted on the first chest x-ray; however, I am not convinced that there are any new infiltrates. Findings could represent chronic changes. The patient's second chest x-ray, which I just had performed today, looks significantly worse than the previous chest x-ray. The radiologist has expressed suspicion that the infiltrates have gotten worse. This will certainly be possible. Atypical pneumonia can give this picture; however, it appears more likely to me that this is secondary to a mild increase in pulmonary vascular congestion. I also requested a video swallow to perform. This has just been performed and is unremarkable except that the speech therapist has reported some changes consistent with gastroesophageal reflux on this study. ASSESSMENT/PLAN: 1. Acute on chronic hypoxemic respiratory failure. The etiology does not appear to be fully defined at this time, while it does appear that the patient has significant obstructive sleep apnea which will not explain hypoxemia while awake. His history of bronchial asthma by itself is perhaps not sufficient to explain hypoxemia while awake. Also, despite mentioned on the records, upon reviewing his previous CAT scans, I am not convinced that he in fact has bronchiectasis and this does need to be assessed further as well. 2. Pulmonary infiltrates. Certainly, there are some infiltrative changes noted on the patient's chest x-ray done on admission; however, this chest x-ray does not look significantly different compared with the patient's previous chest x-ray. A new pneumonia would be possible, but chronic changes alone could also lead to this picture. There is worsening on the second chest x-ray. Atypical pneumonia can lead to this picture, but as above it appears more likely to me that the difference between these 2 chest x-rays is due to interval development of mild increase in pulmonary vascular congestion. The patient does remain on antibiotics, managed by the ID Service. I will plan to diurese the patient first. After diuresis, we will plan on subsequently repeating a chest x-ray and then considering a CT chest without contrast to assess further. 3. Mild fluid overload. Again, etiology not fully defined. I will go ahead and give him 1 dose of diuretics today. Repeat labs in the morning, then consider more diuretics. 4. Pericardial effusion. See discussion above. Considering that his development of fluid overload is not fully defined either, I would go ahead and obtain a 2D echo with mild elevation in troponin I as well initially. For this same reason, I would also go ahead and repeat troponin I and see where we stand. The patient's previous GINNY and ANCA markers are reported normal. 5. Obstructive sleep apnea. In addition to oxygen, the patient remains on a [address] [place] [address] CONSULTATION Name: JANASONI HORNE Room: [address] IN .R.#: [id number] Admission: 12/03/19 Attend Phys: Syl Smith Discharge: Date of : 84 Report #: [id number] CPAP while asleep long-term. Weight loss is strongly recommended. 6. Bronchial asthma exacerbation, not actively bronchospastic now. I did cut down the steroid dose. 7. Leukocytosis. This is likely secondary to steroids. We will follow response to a reduction in steroid dose. 8. Past medical history of methicillin-resistant Staphylococcus aureus colonization. 9. High aspiration risk. Video swallow is as discussed above. I recommend maintaining strict aspiration precautions. Thanks for this consultation. <ELECTRONICALLY SIGNED> By: Abel Long MD 12/09/19 1349 [id number] [id number] Long MD /nt
--- NOTE | 2019-12-09 14:15 | NUR ---
SW was informed pt may need a couple more days with ID following as well. SW to continue to follow to assist with safe dc planning to [facility] when pt is ready to dc.
[2019-12-09 17:10] VITALS: BP 120/73
--- NOTE | 2019-12-09 20:25 | NUR ---
I ASSUMED CARE OF THE PATIENT AT 0700. HE IS ALERT AND ORIENTED X4 AND IS UP AD MIKEY. BED IS IN THE LOW LOCKED POSITION AND CALL LIGHT IS IN REACH. HOURLY ROUNDING IS COMPLETED AND PATIENT NEEDS ARE MET. PAIN IS MANAGED WITH PRN MEDS. HE WORE HIS PERCUSSION VEST ONCE IN THE MORNING AFTER HIS BREATHING TREATMENT. LABS ARE IMPROVING. NO SPUTUM WAS OBTAINED. HIS RETIREMENT CALLED TO GET AN UPDATE ON HIS CARE. HIS MIDLINE INFLITRATED AND JASMYN FROM INFUSION CAME AND REPLACED IT WITH A RIGHT AC. WILL CONTINUE TO MONITOR. CT WAS COMPLETED.
[2019-12-09 20:30] VITALS: BP 102/62
--- NOTE | 2019-12-10 04:55 | NUR ---
PT SLEPT WELL THIS SHIFT. UP IN CHAIR AT START OF SHIFT WITH O2 3L NC SAT 100%. OCC CONGESTED VALET RUNNER COUGH HEARD. LUNGS DIM, SL COARSE. RFA IV SL, PLACED ON PUMP FOR ABX INFUSION ORDERED. TAKES PILLS WHOLE WITH APPLESAUCE WITHOUT DIFFICULTY. AO X4, PLEASANT AND COOPERATIVE. RT TX GIVEN ORDERED. ABLE TO USE CALL LITE AND MAKE NEEDS KNOWN. REMAINS ON CONTACT ISOLATION FOR MRSA HX NARES AND SPUTUM. L EYE BLOODSHOT, EYE DROPS GIVEN ORDERED.CPAP ON OVERNIGHT. AM LABS.
[2019-12-10 08:21] VITALS: BP 116/80
[2019-12-10 08:37] LABS: HEMATOCRIT 43.4 % (42.0-52.0); HEMOGLOBIN 14.4 gm/dL (14.0-18.0); MCHC 33.2 g/dL (28.0-37.0); MCV 93.4 fL (80.0-100.0); MPV 7.3 fl. (7.2-11.1); RBC 4.65 mil/uL (4.50-6.00); WBC 14.8 thou/uL (4.0-11.0)
[2019-12-10 08:48] LABS: ALBUMIN 3.3 g/dL (3.4-5.0); CALCIUM 7.8 mg/dL (8.5-10.1); CREATININE 1.1 mg/dL (0.6-1.3); POTASSIUM 3.8 mmol/L (3.5-5.1); TOTAL BILIRUBIN 0.4 mg/dL (<0.1-1.0); TOTAL PROTEIN 6.7 g/dL (6.4-8.2)
--- NOTE | 2019-12-10 09:19 | NUR ---
Nutirtion: screen for LOS. No new wt since admit; per hx UBW 189-199 lb past 6 months or so. Adequate appetite noted. BUN 21, Albumin 3.3. Prednisone and other meds reviewed. Pt with Down's and chronic respiratory issues. Assess at low nutrition risk at this time. Recommend obtain current wt.
[2019-12-10 16:00] VITALS: BP 122/76
--- NOTE | 2019-12-10 16:43 | NUR ---
ASSUMED CARE OF PT AROUND 0730 THIS AM. REFER TO ASSESSMENT. PT ON 3L O2/NC. TOLERATING WELL. PT'S HOME DOSE IS 3L/NC. NOT COUGHING UP ANY SPUTUM. UNABLE TO OBTAIN SPUTUM SAMPLES THIS SHIFT. DR. FRANKLIN REQUESTED TO CHECK PULSE OX ON RA, PT REMAINED AROUND 93-94% FOR ABOUT [address] FRANKLIN REQUESTING RT TO OBTAIN REST AND EXERCISE PULSE OX. PULMONOLOGISTS REQUESTING SPUTUM FOR AFB BUT STATES IT IS NOT FOR TB AND ISOLATION FOR TB IS NOT NECESSARY. PT GIVEN PRN TYLENOL FOR CHEST TIGHTNESS FROM COUGHING. MEDICATION EFFECTIVE. PT'S FACILITY REQUESTED COVID TEST PRIOR TO DISCHARGE. OBTAINED THIS SHIFT. NO OTHER CONCERNS AT THIS TIME. CLWR. WCTM.
[2019-12-10 20:15] VITALS: BP 116/70
--- NOTE | 2019-12-11 05:30 | NUR ---
PT SLEPT WELL OVERNIGHT USING CPAP WITH O2. RFA SL IV, ABX GIVEN ORDERED. OCC CONGESTED JUMPBASTING CANVAS BASTER COUGH HEARD-NEEDS SPUTUM SPECIMEN BUT NOT ABLE TO OBTAIN THIS SHIFT. REMAINS ON CONTACT ISOLATION FOR MRSA. NO CO PAIN THIS SHIFT. COVID NEGATIVE. R EYE RED, DROPS GIVEN ORDERED. PULMONARY CONSULTING. ABLE TO USE CALL LITE AND MAKE NEEDS KNOWN. AOX4.
[2019-12-11 08:00] VITALS: BP 119/66
--- NOTE | 2019-12-11 15:05 | NUR ---
SW continuing to follow. Possible dc Monday.
[2019-12-11 16:48] VITALS: BP 109/61
--- NOTE | 2019-12-11 17:04 | NUR ---
PATIENT RESTING IN CHAIR. PATIEN TIS UP AD MIKEY IN ROOM. PATIENT HAS HAD COMPLAINTS OF LEFT SIDE PAIN TREATED ADEQUATELY WITH TRAMADOL AND LIDOCAINE PATCH. PATIENT HAS EXCELLENT APPETITE. PATIENT UNABLE TO PRODUCE SPUTUM AT THIS TIME. PATIENT HAD BUBBLE STUDY DONE AT BEDSIDE WITHOUT INCIDENT. PATIENT DENIES ANY NEEDS AT THIS TIME. CALL LIGHT WITHIN REACH.
--- NOTE | 2019-12-11 17:56 | 2DMMODE ---
[place] [address] 2 D/M-MODE ECHOCARDIOGRAM Name: SONI BATES Room: [address] IN M.R.#: [id number] Admission: 12/03/19 Attend Phys: Syl cho Sa Discharge: Date of : 84 Date of Service: 12/11/19 1755 Report #: [id number] THIS REPORT FOR: cc: Shae Santoro Linda J. DO Liston, Michael J. MD [facility] ~ APPROVED REPORT Study performed: 12/11/2019 14:25:24 EXAM: Limited 2D Echocardiogram Patient Location: In-Patient BSA: 1.90 HR: 71 bpm BP: 119/66 mmHg Other Information Study Quality: Fair Indications COPD Bubble study R/O shunt Echo Enhancing Agent Indication: Rule out Shunt Agent(s) / Amount(s) Used: Agitated Saline cc Left Ventricle The left ventricle is normal size. There is normal left ventricular wall thickness. The left ventricular systolic function is normal. The left ventricular ejection fraction is within the normal range. LVEF is 55-60%. Atria Injection of bubbles documented no interatrial shunt. <Conclusion> The left ventricle is normal size. There is normal left ventricular wall thickness. The left ventricular systolic function is normal. The left ventricular ejection fraction [place] [address] 2 D/M-MODE ECHOCARDIOGRAM Name: SONI BATES Room: [address] ADM IN M.R.#: [id number] Admission: 12/03/19 Attend Phys: Syl cho Sa Discharge: Date of : 84 Date of Service: 12/11/191754 Report #: [id number] LVEF is 55-60%. Injection of bubbles documented no interatrial shunt. <ELECTRONICALLY SIGNED> By: Emilio Lowe MD, FACC 12/11/191754 54 54 Emilio Lowe MD, FACC /INF
[2019-12-11 20:10] VITALS: BP 108/67
--- NOTE | 2019-12-12 06:47 | NUR ---
PT ALERT AND ORIENTED. NC TURNED DOWN TO 2L. SATTING IN THE 90'S. MEDS GIVEN PER EMAR. PT DENIED PAIN THIS SHIFT. ISOLATION PRECAUTION IN PLACE. CALL LIGHT WITHIN REACH. HOURLY ROUNDINGS MADE. WILL CONTINUE TO MONITOR.
[2019-12-12 08:05] VITALS: BP 116/72
[2019-12-12 16:00] VITALS: BP 116/66
--- NOTE | 2019-12-12 19:41 | NUR ---
PATIENT RESTING UP IN CHAIR. PATIENT IS UP AD MIKEY IN ROOM. PATIENT HAS HAD COMPLAINTS OF LEFT SIDE PAIN, PARTIALLY TREATED WITH TRAMADOL AND LIDOCAINE PATCH. PATIENT HAS EXCELLENT APPETITE. PATIENT IS ON 2L/NC WITH NO SHORTNESS OF BREATH. IV INFILTRATED AND REMOVED TO RIGHT FOREARM. PATIENT DENIES ANY NEEDS AT THIS TIME. CALL LIGHT WITHIN REACH.
[2019-12-12 20:00] VITALS: BP 104/65
--- NOTE | 2019-12-13 04:44 | NUR ---
PT A&O. ON 3L O2. MEDS GIVEN ORDERED. PT HAD BM LAST NIGHT, MINOR BLOOD IN STOOL NOTICED. PT PROCEEDED TO HAVE ANXIETY, C/O ABD PAIN 04/11. DR NOTIFIED AND ORDER RECEIVED. ATIVAN GIVEN. PT SLEEPING QUIETLY THROUGH THE NIGHT WITH CPAP ON. WILL CONTINUE TO MONITOR.
[2019-12-13 04:52] LABS: HEMATOCRIT 39.1 % (42.0-52.0); MCH 31.1 pg (26.0-34.0); MCHC 33.3 g/dL (28.0-37.0); MCV 93.3 fL (80.0-100.0); MPV 7.5 fl. (7.2-11.1); RBC 4.19 mil/uL (4.50-6.00); WBC 16.7 thou/uL (4.0-11.0)
[2019-12-13 05:05] LABS: CALCIUM 7.7 mg/dL (8.5-10.1); CREATININE 1.1 mg/dL (0.6-1.3); MAGNESIUM 1.9 mg/dL (1.8-2.4); POTASSIUM 3.9 mmol/L (3.5-5.1)
[2019-12-13 08:10] VITALS: BP 112/68
[2019-12-13 16:00] VITALS: BP 114/75
--- NOTE | 2019-12-13 16:53 | NUR ---
LOAN spoke with Dr Bowie about dc planning and plan for pt to dc home to [facility] on Monday. orders to be sent to Replaced by [facility] as they are previous agency/pt preference. Replaced by [facility] [phone] fax [phone] Caregiver from [facility] and/or guardian arrange to provide pt ride home.
--- NOTE | 2019-12-13 19:06 | NUR ---
PT A&OX4 VSS. PT ON ISOLATION PRECAUTIONS R/T MRSA. PT UP AD MIKEY, GAIT STEADY. PT C/O PAIN TO LEFT RIBS, LIDOCAINE PATCH TO AREA. REDNESS NOTED TO L EYE PRESENT PRIOR TO THIS NURSE ASSUMING CARE. NO INJURY REPORTED. PT TO DC HOME TOMORROW W/HH RESOURCES. PT REMAINS CONTINENT OF B/B. NO C/O BLOOD IN STOOL THIS SHIFT. PT RESTS IN RECLINER AT THIS TIME W/ CALL LIGHT IN REACH. WILL CONTINUE TO MONITOR.
[2019-12-13 19:45] VITALS: BP 120/65
--- NOTE | 2019-12-14 04:35 | NUR ---
ASSUMED CARE OF PT 12/13/19 AT APPROX 1915. PT A&OX4, ON ROOM AIR, VSS, NWB TO LLE MAINTAINED. POTASSIUM REPLACEMENT COMPLETED. PAIN MEDS REQUESTED AND GIVEN ORDERED. WILL CONTINUE WITH PLAN OF CARE.
--- NOTE | 2019-12-14 04:39 | NUR ---
ASSUMED CARE OF PATIENT 12/13/19 AT APPROX 1915. PT A&OX4, ON 3L NC - CPAP WHILE SLEEPING, VSS, PT UP AD MIKEY. PAIN MEDS REQUESTED AND GIVEN ORDERED. WILL CONTINUE WITH PLAN OF CARE.
[2019-12-14 08:00] VITALS: BP 125/74
[2019-12-14] MEDS ORDERED: MUCUS RLF DM E1 EACH PO (10:54)
[2019-12-14] MEDS ORDERED: DOXYCYCLINE 10100 MG PO (10:54)
[2019-12-14] MEDS ORDERED: LEVAQUIN 750 M750 MG PO (10:54)
[2019-12-14] MEDS ORDERED: TRAMADOL 50 MG50 MG PO (10:54)
[2019-12-14] MEDS ORDERED: TESSALON PERLE100 MG PO (10:54)
[2019-12-14 15:48] VITALS: BP 120/65
[2019-12-14 16:00] VITALS: BP 106/68
--- NOTE | 2019-12-14 19:40 | NUR ---
PATIENT DISCHARGED TO HOME. DISCHARGE PAPERS REVIEWED WITH JOSH AT [facility] AND BRISSA NOTIFIED WELL. COPY OF CHART AND DISCHARGE ORDERS/PAPERS GIVEN AT DISCHARGE. NO IV. PATIENT DISCHARGED ON OXYGEN AT 3L/NC. PATIENT BELONGINGS PACKED AND SENT WITH PATIENT. PATIENT DENIES ANY FURTHER NEEDS. PATIENT TAKEN BY WHEELCHAIR TO EXIT. LEFT BY CAR.
== END 2019-12-14 19:40 | disposition home health service (06) | DRG 177 ==
LOC: M.ERS 12:53 → M.2W 13:53 → M.TBA-ER 13:53 → M.2W 15:49 → M.3W 12-04 18:59
PROVIDERS: Family Medicine; Internal Medicine; Internal Medicine Critical Care Medicine; ADMIT Family Medicine; ATTEND Family Medicine
PROC: 5A09357 Assistance with Respiratory Ventilation, Less than 24 Consecutive Hours, Continuous Positive Airway Pressure (ICD-10-PCS; principal; 2019-12-04)
PROC: 5A09357 Assistance with Respiratory Ventilation, Less than 24 Consecutive Hours, Continuous Positive Airway Pressure (ICD-10-PCS; 2019-12-05)
PROC: 5A09357 Assistance with Respiratory Ventilation, Less than 24 Consecutive Hours, Continuous Positive Airway Pressure (ICD-10-PCS; 2019-12-06)
PROC: 5A09357 Assistance with Respiratory Ventilation, Less than 24 Consecutive Hours, Continuous Positive Airway Pressure (ICD-10-PCS; 2019-12-07)
PROC: 5A09357 Assistance with Respiratory Ventilation, Less than 24 Consecutive Hours, Continuous Positive Airway Pressure (ICD-10-PCS; 2019-12-08)
PROC: 5A09357 Assistance with Respiratory Ventilation, Less than 24 Consecutive Hours, Continuous Positive Airway Pressure (ICD-10-PCS; 2019-12-09)
PROC: 5A09357 Assistance with Respiratory Ventilation, Less than 24 Consecutive Hours, Continuous Positive Airway Pressure (ICD-10-PCS; 2019-12-10)
PROC: 5A09357 Assistance with Respiratory Ventilation, Less than 24 Consecutive Hours, Continuous Positive Airway Pressure (ICD-10-PCS; 2019-12-11)
PROC: 5A09357 Assistance with Respiratory Ventilation, Less than 24 Consecutive Hours, Continuous Positive Airway Pressure (ICD-10-PCS; 2019-12-12)
PROC: 5A09357 Assistance with Respiratory Ventilation, Less than 24 Consecutive Hours, Continuous Positive Airway Pressure (ICD-10-PCS; 2019-12-13)
PROC: 5A09357 Assistance with Respiratory Ventilation, Less than 24 Consecutive Hours, Continuous Positive Airway Pressure (ICD-10-PCS; 2019-12-14)
DX: J15.6 Pneumonia due to other Gram-negative bacteria (principal); J96.21 Acute and chronic respiratory failure with hypoxia; J44.1 Chronic obstructive pulmonary disease with (acute) exacerbation; J44.0 Chronic obstructive pulmonary disease with (acute) lower respiratory infection; I31.3 Pericardial effusion (noninflammatory); J45.901 Unspecified asthma with (acute) exacerbation; I10 Essential (primary) hypertension; E87.70 Fluid overload, unspecified; G47.33 Obstructive sleep apnea (adult) (pediatric); E03.9 Hypothyroidism, unspecified; I27.20 Pulmonary hypertension, unspecified; D64.9 Anemia, unspecified; K21.9 Gastro-esophageal reflux disease without esophagitis; Z20.828 Contact with and (suspected) exposure to other viral communicable diseases; Z88.2 Allergy status to sulfonamides; Z91.09 Other allergy status, other than to drugs and biological substances; Z79.899 Other long term (current) drug therapy; Q90.9 Down syndrome, unspecified; Z99.81 Dependence on supplemental oxygen; Z87.01 Personal history of pneumonia (recurrent)

== ENCOUNTER 2019-12-18 17:36 | Inpatient (IN) | payer MEDICARE, MEDICAID ==
[~2019-12-18] VITALS: Ht 162.6 cm; Wt 88.3 kg
[~2019-12-18 17:36] MED LIST changes: +ITRACONAZOLE100 MG PO; +MUCUS RLF DM E1 EACH PO; +TESSALON PERLE100 MG PO; +TRAMADOL 50 MG50 MG PO
[2019-12-18 17:45] VITALS: BP 110/71
[2019-12-18 18:33] LABS: ABSOLUTE BASOPHILS 0.1 thou/uL (0.0-0.2); ABSOLUTE EOSINOPHILS 0.2 thou/uL (0.0-0.7); ABSOLUTE LYMPHOCYTES 1.7 thou/uL (0.8-5.3); ABSOLUTE MONOCYTES 0.7 thou/uL (0.0-1.2); BASOPHILS 1.2 %; EOSINOPHILS 2.3 %; HEMATOCRIT 40.4 % (42.0-52.0); HEMOGLOBIN 13.7 gm/dL (14.0-18.0); LYMPHOCYTES 25.5 %; MCH 31.2 pg (26.0-34.0); MCHC 33.9 g/dL (28.0-37.0); MONOCYTES 10.9 %; MPV 7.1 fl. (7.2-11.1); NUCLEATED RBCS 0 /100WBC; PLATELET COUNT* 264 thou/uL (150-400); POLYS 60.1 %; RBC 4.39 mil/uL (4.50-6.00); RDW-CV 20.1 % (10.5-14.5); WBC 6.6 thou/uL (4.0-11.0)
[2019-12-18 18:42] LABS: CALCIUM 8.2 mg/dL (8.5-10.1); CREATININE 1.3 mg/dL (0.6-1.3); POTASSIUM 3.6 mmol/L (3.5-5.1)
[2019-12-18 18:55] LABS: ALBUMIN 3.2 g/dL (3.4-5.0); TOTAL BILIRUBIN 0.4 mg/dL (<0.1-1.0); TOTAL PROTEIN 6.1 g/dL (6.4-8.2)
[2019-12-18 19:01] LABS: ANISOCYTOSIS 2+; LARGE PLATELETS OCCASIONAL; PLATELET ESTIMATE ADEQUATE
[2019-12-18 19:04] LABS: POIKILOCYTOSIS 1+
[2019-12-18 22:39] VITALS: BP 120/70
[2019-12-19 08:00] VITALS: BP 114/64
--- NOTE | 2019-12-19 10:18 | EKG ---
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 : 1980 Requested By: Marely Vela Order Number: [id number] MD: Derrick Polanco Measurements Intervals [place] Rate: 81 P: 29 TX: 134 QRS: 50 QRSD: 75 T: 40 QT: 373 QTc: 433 Interpretive Statements Sinus rhythm Compared to ECG 12/03/2019 13:00:00 Ventricular premature complex(es) no longer present Electronically Signed On 12-19-2019 10:17:12 CDT by Derrick Polanco [email or web address] <ELECTRONICALLY SIGNED> By: Derrick Polanco MD, FACC 12/19/19 1017 1819 1819 Derrick Polanco MD, [facility] /EPI
[2019-12-19 12:11] LABS: ABSOLUTE BASOPHILS 0.1 thou/uL (0.0-0.2); ABSOLUTE EOSINOPHILS 0.1 thou/uL (0.0-0.7); ABSOLUTE LYMPHOCYTES 0.8 thou/uL (0.8-5.3); ABSOLUTE MONOCYTES 0.5 thou/uL (0.0-1.2); ABSOLUTE NEUTROPHILS 3.9 thou/uL (1.6-8.1); BASOPHILS 1.4 %; EOSINOPHILS 2.4 %; HEMATOCRIT 39.5 % (42.0-52.0); HEMOGLOBIN 13.4 gm/dL (14.0-18.0); LYMPHOCYTES 14.7 %; MCH 31.6 pg (26.0-34.0); MCHC 33.9 g/dL (28.0-37.0); MCV 93.3 fL (80.0-100.0); MONOCYTES 9.4 %; MPV 6.9 fl. (7.2-11.1); NUCLEATED RBCS 0 /100WBC; PLATELET COUNT* 232 thou/uL (150-400); POLYS 72.1 %; RBC 4.23 mil/uL (4.50-6.00); RDW-CV 19.8 % (10.5-14.5); WBC 5.4 thou/uL (4.0-11.0)
[2019-12-19 12:23] LABS: CREATININE 1.2 mg/dL (0.6-1.3); POTASSIUM 3.9 mmol/L (3.5-5.1); TOTAL BILIRUBIN 0.7 mg/dL (<0.1-1.0); TOTAL PROTEIN 5.9 g/dL (6.4-8.2)
[2019-12-19 12:38] VITALS: BP 108/65
--- NOTE | 2019-12-19 13:13 | NUR ---
Pt is A&O. Resides at [facility]. Known to this CM. Pt recently dc from the hospital on 12/12 to home with [facility]. Pt has a walker and wc for mobility. Pt wears home o2. GI following. Goal is home with HH at [place].
[2019-12-19 17:13] VITALS: BP 100/61
[2019-12-19 20:00] VITALS: BP 108/62
[2019-12-19 23:45] VITALS: BP 103/59
[2019-12-20 04:23] VITALS: BP 113/62
--- NOTE | 2019-12-20 05:04 | NUR ---
PT A&O. VSS ON 3L O2 BY NC, HOME CPAP WHILE SLEEPING. NO C/O PAIN. NPO SINCE MIDNIGHT FOR COLONOSCOPY. BOWEL PREP IN PROGRESS. GAMMA RAY OPERATOR IN PLACE. WILL CONTINUE TO MONITOR.
[2019-12-20 06:12] LABS: ABSOLUTE BASOPHILS 0.1 thou/uL (0.0-0.2); ABSOLUTE EOSINOPHILS 0.1 thou/uL (0.0-0.7); ABSOLUTE LYMPHOCYTES 0.9 thou/uL (0.8-5.3); ABSOLUTE MONOCYTES 0.5 thou/uL (0.0-1.2); BASOPHILS 2.4 %; EOSINOPHILS 3.1 %; HEMATOCRIT 33.6 % (42.0-52.0); HEMOGLOBIN 11.7 gm/dL (14.0-18.0); LYMPHOCYTES 19.7 %; MCH 32.3 pg (26.0-34.0); MCHC 34.9 g/dL (28.0-37.0); MCV 92.3 fL (80.0-100.0); MONOCYTES 9.8 %; MPV 7.3 fl. (7.2-11.1); NUCLEATED RBCS 0 /100WBC; PLATELET COUNT* 198 thou/uL (150-400); RBC 3.64 mil/uL (4.50-6.00); WBC 4.6 thou/uL (4.0-11.0)
[2019-12-20 06:28] LABS: CALCIUM 7.3 mg/dL (8.5-10.1); POTASSIUM 3.1 mmol/L (3.5-5.1)
[2019-12-20 08:02] VITALS: BP 110/45
--- NOTE | 2019-12-20 09:34 | NUR ---
ASSUMED CARE OF PT THIS AM AROUND 0715- DISPATCHER CHIEF OIL IN PLACE ORDERED, TRACING SR- UPON ASSESSMENT PT NOTED TO BE RESTING IN BED, WATCHING TV- PT A&O X4- CONT OF BOWEL AND BLADDER- SBA WITH TRANSFERS FOR SAFETY- LEFT UPPER AND LOWER LOBES NOTED WITH EXPIRATORY WHEEZING- VSS, O2 SAT 95% ON 3L VIA NC- ABD SOFT/ROUND/NON-TENDER, BS X4 QUADS- LAST BM REPORTED 12/19/19- IV NOTED TO LEFT AC INTACT, SL; IV ABT GIVEN THIS AM PRESCRIBED- PT ZEENATTY NPO FOR PLANNED COLONOSCOPY THIS AM-CONCENT SIGNED AND ON CHART FOR VIEWING- K+ NOTED AT 3.1 THIS AM, KYLEE NEW REPLACED PER PROTOCOL- PT STATES PAIN TO LUQ THIS AM- CALL LIGHT AND PERSONAL BELONGINGS WITH IN REACH- HOURLY ROUNDS IN PLACE R/T SAFETY/NEEDS- ALL NEEDS MET AT THIS TIME-WCTM
--- NOTE | 2019-12-20 16:16 | NUR ---
Per , Pt may be ready to dc to home tomorrow, pending his colon today. When Pt dc, fax his H&P, facesheet and dc orders to [facility] at [phone]. Pt's guardian will need to be updated on dispo. penitentiary to transport
[2019-12-20 19:51] VITALS: BP 114/65
[2019-12-20 19:52] VITALS: BP 93/58
[2019-12-20 23:20] VITALS: BP 111/66
[2019-12-21 04:00] VITALS: BP 118/69
--- NOTE | 2019-12-21 04:20 | NUR ---
PT A&OX4, ON 3L NC - CPAP WHILE SLEEPING, UP WITH ASSIST, SR ON TELE MONITOR, VSS, NO COMPLAINTS OF DISCOMFORT THIS SHIFT, ISOLATION FOR MRSA OF NARES MAINTAINED. WILL CONTINUE WITH PLAN OF CARE.
[2019-12-21 07:47] VITALS: BP 99/55
[2019-12-21 08:01] LABS: ABSOLUTE BASOPHILS 0.1 thou/uL (0.0-0.2); ABSOLUTE EOSINOPHILS 0.2 thou/uL (0.0-0.7); ABSOLUTE LYMPHOCYTES 0.9 thou/uL (0.8-5.3); ABSOLUTE MONOCYTES 0.8 thou/uL (0.0-1.2); BASOPHILS 1.4 %; EOSINOPHILS 2.9 %; HEMATOCRIT 38.2 % (42.0-52.0); HEMOGLOBIN 12.9 gm/dL (14.0-18.0); LYMPHOCYTES 12.7 %; MCH 31.4 pg (26.0-34.0); MCHC 33.8 g/dL (28.0-37.0); MCV 93.1 fL (80.0-100.0); MONOCYTES 11.8 %; NUCLEATED RBCS 0 /100WBC; PLATELET COUNT* 199 thou/uL (150-400); POLYS 71.2 %; RDW-CV 20.3 % (10.5-14.5)
[2019-12-21 08:25] LABS: ALBUMIN 2.9 g/dL (3.4-5.0); CREATININE 1.2 mg/dL (0.6-1.3); POTASSIUM 3.9 mmol/L (3.5-5.1); TOTAL BILIRUBIN 0.3 mg/dL (<0.1-1.0); TOTAL PROTEIN 5.8 g/dL (6.4-8.2)
[2019-12-21 09:09] LABS: ESR (SEDRATE) 5 mm/hr (0-15)
--- NOTE | 2019-12-21 09:17 | NUR ---
ASSUMED CARE OF PT THIS AM AROUND 0715- CHILDREN'S LITERATURE PROFESSOR IN PLACE ORDERED, TRACING SR- UPON ASSESSMENT PT NOTED TO BE RESTING IN BED, CPAP IN PLACE- PT A&O X4- CONT OF BOWEL AND BLADDER- SBA WITH TRANSFERS FOR SAFETY- COURSE/RHONCHI LUNG SOUNDS NOTED THIS AM WITH WHEEZING- BREATHING TX GIVEN PER RT- VSS, O2 SAT 99% ON 3L VIA NC- ABD SOFT/ROUND/ON-TENDER, BS X4 QUADS- BM NOTED THIS AM- IV NOTED TO RIGHT HAND INTACT AND SL; IV ABT GIVEN THIS AM PRESCRIBED- PT UP TO BED SIDE CHAIR WITH BREAKFAST THIS AM, GOOD PO INTAKE NOTED- CALL LIGHT AND PERSONAL BELONGINGS WITH- ALL NEEDS MET AT THIS TIME-WCTM
[2019-12-21 13:13] VITALS: BP 108/66
[2019-12-21 20:00] VITALS: BP 125/69
[2019-12-22] VITALS: BP 109/57
[2019-12-22 04:00] VITALS: BP 105/96
--- NOTE | 2019-12-22 05:15 | NUR ---
ASSUMED PT CARE AT APPROX 1930. PT IS AWAKE AND ORIENTED X4. PT IS TRACING SR ON THE MANAGER LEGAL. PT IS NOT IN RESPIRATORY DISTRESS. NO DESATURATIONS NOTED ON 3L OF O2/NC. PT C/O LUQ ABDOMINAL PAIN RELIEVED BY PAIN MEDICINE GIVEN PER AUG. NO ACUTE CHANGES OVERNIGHT. CALL LIGHT WITHIN REACH. HOURLY ROUNDING DONE FOR PT SAFETY. FALL PRECAUTIONS IN PLACE.
[2019-12-22 08:00] VITALS: BP 108/64
--- NOTE | 2019-12-22 08:00 | NUR ---
AM ASSESSMENT COMPLETE, DEFER TO COMPUTER CHARTING. MUCKER COFFERDAM TRACKING SR. ALERT ORIENTED. REPORTING HAVING LEFT SIDED UPPER QUAD ABD DISCOMFORT, DENIES NAUSEA. WILL GIVE REPEAT PAIN MEDICATION PER ORDERS. ASSIST GIVEN UP TO CHAIR, REASSURACE GIVEN. CALL LIGHT WITHIN REACH.
[2019-12-22 12:00] VITALS: BP 110/63
--- NOTE | 2019-12-22 13:30 | NUR ---
PATIENT UP TO BATHROOM HAD MOD BM EARLIER AND NOTED BLOOD WHEN WIPING. PATIENT HAND ANOTHER SM BM AT THIS TIME, ALSO NAUSEA-VOMITING IN TRASH CAN IN BATHROOM, CRYING STATING STOMACH HURTING - REPORTING HAVING GENERALIZED ABD DISCOMFORT. ALSO, NOTED SM/MOD AMT OF BRIGHT RED BLOOD IN TOILET - MARYANN CARE GIVEN. PATIENT ASSISTED BACK TO BED - GIVEN IV FENTANYL AND IV ZOFRAN TO ASSIST WITH PAIN CONTROL AND NAUSEA. CALL PLACED TO DR AGUILERA TO NOTIFY. PATIENT CRYING ASKING FOR CHARBEL BEAR - CALL PLACED TO DIAMOND CASTRO - GIVEN UPDATE AND ASKED TO BRING PATIENT CHARBEL BEAR. WILL MONITOR.
[2019-12-22 16:00] VITALS: BP 114/59
--- NOTE | 2019-12-22 16:41 | NUR ---
SURGERY INTO SEE PATIENT AT THIS TIME.
[2019-12-22 20:00] VITALS: BP 101/55
[2019-12-23] VITALS: BP 110/60
[2019-12-23 05:48] VITALS: BP 115/89
[2019-12-23 07:06] LABS: HEMATOCRIT 38.4 % (42.0-52.0); HEMOGLOBIN 13.1 gm/dL (14.0-18.0); MCH 31.8 pg (26.0-34.0); MCV 93.5 fL (80.0-100.0); MPV 6.9 fl. (7.2-11.1); RBC 4.11 mil/uL (4.50-6.00); WBC 5.7 thou/uL (4.0-11.0)
--- NOTE | 2019-12-23 07:10 | NUR ---
CHANGE OF SHIFT BEDSIDE REPORT GIVEN PATIENT SEEN AT BEDSIDE, IN BED ASLEEP ASSUMED PATIENT CARE
[2019-12-23 07:27] LABS: CALCIUM 7.8 mg/dL (8.5-10.1); CREATININE 1.2 mg/dL (0.6-1.3); MAGNESIUM 1.8 mg/dL (1.8-2.4); PHOSPHORUS* 4.1 mg/dL (2.5-4.9); POTASSIUM 3.7 mmol/L (3.5-5.1)
--- NOTE | 2019-12-23 07:42 | NUR ---
ASSUMED PT CARE AT APPROX 1930. PT IS AWAKE AND ORIENTED X4. SCIENTIFIC SPECIALIST IS TRACING SR. PT IS NOT IN ANY DISTRESS. NOTED TO HAVE A LITTLE HEMATOCHEZIA. ROUNDING SURGERY RESIDENT INFORMED. CALL LIGHT WITHIN REACH. HIGH FALL PRECAUTIONS IN PLACE. HOURLY ROUNDING DONE FOR PT SAFETY.
[2019-12-23 08:00] VITALS: BP 111/69
[2019-12-23 11:07] VITALS: BP 104/62
[2019-12-23] MEDS ORDERED: HYDROCORTISONE30 G9 RECTAL (11:08)
[2019-12-23 12:38] VITALS: BP 104/62
--- NOTE | 2019-12-23 12:44 | NUR ---
Pt discharging to home today, faxed HH resumption orders to [facility]
[2019-12-23 15:32] VITALS: BP 104/62
--- NOTE | 2019-12-23 16:45 | NUR ---
PATIENT DISCHARGED TO LONG TERM DISCHARGE INSTRUCTIONS GIVEN AND COPIES SENT IV AND HEART MONITOR REMOVED PERSONAL BELONGIGNS RETURNED PATIENT ASSISTED OUT VIA WC GOOD CONDITION TO WAITNTG CAR WITH 3L NC OXYGEN
--- NOTE | 2020-01-05 08:28 | CON ---
[address] [address] CONSULTATION Name: SONI BATES Room: [address] IN M.R.#: [id number] Admission: 12/18/19 Attend Phys: Ethel Bowie MD Discharge: 12/23/19 Date of : 84 Report #: [id number] THIS REPORT FOR: //name// cc: Shae Santoro Linda J. DO ~ THIS REPORT FOR: //name// CC: Ethel Santoro DATE OF SERVICE: 12/19/2019 HISTORY OF PRESENT ILLNESS: This is a pleasant 39-year-old gentleman with a history of Down syndrome, bronchiectasis, chronic respiratory failure, who is presenting for evaluation of bright red blood per rectum. The patient reports he had pain in his abdomen in the right and left lower quadrants. This was followed by an episode of bloody stool on Monday. Yesterday, the patient began having more severe abdominal cramps followed by 2-3 episodes of bright red blood in stool along with blood clots. This prompted the hospital visit. No such episodes in the past, although he has had some blood on wiping secondary to hemorrhoids. The patient has never had a colonoscopy in the past. PAST MEDICAL HISTORY: Down syndrome, bronchiectasis, COPD. PAST SURGICAL HISTORY: None. SOCIAL HISTORY: No history of smoking, alcohol or recreational drug use. The patient lives in a [facility] and has a legal guardian who I spoke with. FAMILY HISTORY: No family history of colon cancer. REVIEW OF SYSTEMS: A comprehensive 10-point review of systems is negative except for what was mentioned in the HPI. PHYSICAL EXAMINATION: VITAL SIGNS: Temperature 36.8, pulse rate 71, respirations 20, blood pressure 114/64, pulse ox 99%. GENERAL: The patient is alert, awake, oriented x 3. HEENT: Pupils are equal and reactive. Mucous membranes are moist. There is no congestion. LUNGS: Bilateral coarse crepitations. CARDIOVASCULAR: Rate and rhythm regular, S1, S2 present. ABDOMEN: Soft. There is no distention. Mild tenderness to palpation in the left lower quadrant, right lower quadrant. EXTREMITIES: [place], [place] [address] CONSULTATION Name: SONI BATES Room: [address] IN [facility].#: [id number] Admission: 12/18/19 Attend Phys: Ethel Bowie MD Discharge: 12/23/19 Date of : 84 Report #: [id number] LABORATORY DATA: Hemoglobin 13.7, hematocrit 40.4, platelet count 264, WBC count 6.6. Sodium 139, potassium 3.6, chloride 103, bicarbonate 29, BUN 12, creatinine 1.3, total bilirubin 0.4, AST 23, ALT 38, alkaline phosphatase 56. IMAGING: CT angiogram, no significant evidence of active gastrointestinal bleeding, mild diverticulosis of sigmoid colon. ASSESSMENT AND PLAN: Pleasant 39-year-old male with past medical history significant for Down syndrome, COPD, who is presenting with painful hematochezia. PROBLEM: Working diagnosis is ischemic colitis. I would recommend getting the patient on Cipro 400 b.i.d. IV, Flagyl 500 t.i.d. IV. Prep him with GoLYTELY prep today. We will anticipation of colonoscopy tomorrow. Further recommendations can be based on results of colonoscopy. The above plan was also discussed with his legal guardian Angel Tavera cell phone [phone]. Thank you for this consultation. <ELECTRONICALLY SIGNED> By: Chucho Combs MD 01/05/20 0828 1045 [id number] Combs MD /nt
== END 2019-12-23 16:30 | disposition home health service (06) | DRG 394 ==
LOC: M.ERS 17:36 → M.TBA-ER 18:51 → M.2W 18:51
PROVIDERS: Internal Medicine; Internal Medicine Gastroenterology; Nurse Practitioner Family; ADMIT Internal Medicine; ATTEND Internal Medicine
PROC: 0DJD8ZZ Inspection of Lower Intestinal Tract, Via Natural or Artificial Opening Endoscopic (ICD-10-PCS; principal; 2019-12-20)
PROC: 5A09357 Assistance with Respiratory Ventilation, Less than 24 Consecutive Hours, Continuous Positive Airway Pressure (ICD-10-PCS; principal; 2019-12-20)
PROC: 5A09357 Assistance with Respiratory Ventilation, Less than 24 Consecutive Hours, Continuous Positive Airway Pressure (ICD-10-PCS; 2019-12-21)
PROC: 5A09357 Assistance with Respiratory Ventilation, Less than 24 Consecutive Hours, Continuous Positive Airway Pressure (ICD-10-PCS; 2019-12-22)
DX: K64.4 Residual hemorrhoidal skin tags (principal); J96.11 Chronic respiratory failure with hypoxia; K86.1 Other chronic pancreatitis; K92.1 Melena; I10 Essential (primary) hypertension; I27.20 Pulmonary hypertension, unspecified; J45.909 Unspecified asthma, uncomplicated; E03.9 Hypothyroidism, unspecified; G47.33 Obstructive sleep apnea (adult) (pediatric); K21.9 Gastro-esophageal reflux disease without esophagitis; F41.9 Anxiety disorder, unspecified; Z87.01 Personal history of pneumonia (recurrent); Z79.899 Other long term (current) drug therapy; J47.9 Bronchiectasis, uncomplicated; Z88.1 Allergy status to other antibiotic agents; Z88.2 Allergy status to sulfonamides; Z91.048 Other nonmedicinal substance allergy status; Q90.9 Down syndrome, unspecified

== ENCOUNTER 2019-12-29 13:22 | Inpatient (IN) | payer MEDICARE, MEDICAID ==
[~2019-12-29] VITALS: Ht 152.4 cm; Wt 84.8 kg
--- NOTE | ~2019-12-29 | CON ---
[address] [address] CONSULTATION Name: SONI BATES Room: [address] ADM IN M.R.#: [id number] Admission: 12/29/19 Attend Phys: Juan Pablo Valencia Discharge: Date of : 84 Report #: [id number] THIS REPORT FOR: //name// cc: Shae Santoro Linda J. DO ~ THIS REPORT FOR: //name// CC: Shae Slamon DATE OF SERVICE: 12/30/2019 CONSULTATION: Infectious diseases. HISTORY OF PRESENT ILLNESS: The patient is a 39-year-old white male with Down syndrome, who has had recurring admissions to [facility] for pulmonary complaints. The patient presented to the ER complaining of chest pain in the left lower lateral chest, which was pleuritic in nature. This was associated with dyspnea, shortness of breath, increased oxygen supplementation, and also had some nausea and vomiting. Today, the patient says he still feels like he needs more air and still has the pleuritic pain. He was given a dose of Rocephin plus azithromycin in the Emergency Room. Infectious Disease consultation was requested. The patient was hospitalized 12/17 to 12/20 with GI bleeding and 12/02-12/13 with respiratory failure. He has had a number of hospitalizations. PAST MEDICAL HISTORY: Includes the trisomy 21. The patient has history of hypertension, asthma, COPD, bronchiectasis, pulmonary hypertension, sleep apnea using CPAP at night, and pseudomonas infections in the past. He has had pseudomonas in the sputum in July of this year as well as June and March last year. He has a history of GI bleeding and hypothyroidism. ALLERGIES: HE HAS AN ALLERGIES TO SULFA DRUGS. SOCIAL HISTORY: The patient is unmarried. [facility] lives in a [facility] He says there are four other residents. No one has been sick. He has a emergency manager guardian, Aquiles, he does not work outside of the fpc. No history of tobacco, alcohol, nor drugs. REVIEW OF SYSTEMS: GENERAL: The patient is not complaining of fevers, chills, sweats. He is complaining of weakness and malaise. ENT: The patient is not complaining of headache, sinus congestion, sore throat, trouble swallowing. CHEST: The patient is not complaining of cough, but does [place] [address] CONSULTATION Name: SONI BATES Room: [address]#: [id number] Admission: 12/29/19 Attend Phys: Juan Pablo Valencia Discharge: Date of : 84 Report #: [id number] since then he needs more air. His chest pain is on the left side below and lateral to the left nipple. It sounds, pleuritic with some discomfort with pressure as well as increased pain with deep breathing and coughing. The patient does not have a productive cough or even a nonproductive cough. GASTROINTESTINAL: The patient denies nausea, vomiting, diarrhea, constipation. He is not aware of any choking or swallowing down the wrong tube. GENITOURINARY: No complaints. EXTREMITIES: No complaints. PHYSICAL EXAMINATION: GENERAL: The patient appears alert, oriented, comfortable, not in any distress. He has typical Down facies, although he does not have the significant increase on his hands. VITAL SIGNS: Show the patient is afebrile since coming to the hospital. Respirations have ranged from 16-24, blood pressure 100/74, oxygen saturation in the ER was 97%. SKIN: The patient has no rash, lesion or exanthem. ENT: ENT examination has the Down facies, but otherwise unremarkable. The patient is awake, alert, cogent able to give a clear history HEART: Sounds S1, S2. Regular rate and rhythm. LUNGS: Breath sounds are somewhat coarse with some rhonchi, particularly at the bases. I cannot appreciate any changes in the left chest where he was having the pleuritic pain. The area was not particularly tender. ABDOMEN: Belly is obese, soft, not tender. Bowel sounds unremarkable. EXTREMITIES: Downs changes, but otherwise unremarkable. LABORATORY DATA: The white count is 5.4, hemoglobin 12.7. Electrolytes, BUN and creatinine, liver function tests are normal. Glucose is normal. TSH is normal. BNP is normal. The troponin is slightly elevated at 0.12. Lactate is normal. The chest x-ray shows some chronic basilar infiltrates really not different than before. COVID-19 antigen test was negative. Cultures of blood x 2 are negative at 24 hours. ASSESSMENT AND PLAN: In summary, the patient with Down syndrome with chronic lung disease. He is thought to have recurring aspiration, although swallow study a year ago was negative. He presents now with dyspnea and chest pain. The patient does not have the typical symptoms and signs of pneumonia. There is no cough or sputum production. There are no fevers, leukocytosis or changes on the chest x-ray. His lactic acid was normal. We can check for inflammatory markers including sedimentation rate, CRP and procalcitonin. At this time, I would suggest that we discontinue antibiotic therapy until we get a clear idea of what is causing the patient's recurring symptoms. Pulmonary [address] [address] CONSULTATION Name: SONI BATES Room: [address] ADM IN M.R.#: [id number] Admission: 12/29/19 Attend Phys: Juan Pablo Valencia Discharge: Date of : 84 Report #: [id number] consultation has been requested. We may want to consider repeat swallow study, CT imaging of the chest, imaging of the chest wall, and possible bronchoscopy for sputum. The electronic record shows gram stains and identification of pseudomonas in July, June and March, but I was not able to retrieve sensitivity studies for this organism. It may be worthwhile to obtain another sputum to see if there is a microbiological explanation for the patient's symptoms. I did order a urine pneumococcal antigen as well. The patient has not yet had pneumococcal vaccine. He may be an appropriate candidate for them given his underlying pulmonary disease. I appreciate the opportunity of input in the care of this complex patient. Dr. Carvajal will return tomorrow and assume follow up Infectious Disease care. Thank you again for this consultation. By: 1403 1633Suresh Shay MD /ginna
[~2019-12-29 13:22] MED LIST changes: +HYDROCORTISONE30 G9 RECTAL
[2019-12-29 13:30] VITALS: BP 128/81
[2019-12-29 14:09] LABS: APTT 27.2 Seconds (25.0-31.3); CALCIUM 8.2 mg/dL (8.5-10.1); CREATININE 1.1 mg/dL (0.6-1.3); POTASSIUM 3.9 mmol/L (3.5-5.1); PROTIME 10.4 Seconds (9.20-11.50)
[2019-12-29 14:15] LABS: ABSOLUTE BASOPHILS 0.1 thou/uL (0.0-0.2); ABSOLUTE EOSINOPHILS 0.2 thou/uL (0.0-0.7); ABSOLUTE LYMPHOCYTES 0.9 thou/uL (0.8-5.3); ABSOLUTE MONOCYTES 0.4 thou/uL (0.0-1.2); ABSOLUTE NEUTROPHILS 3.8 thou/uL (1.6-8.1); BASOPHILS 2.7 %; HEMATOCRIT 37.5 % (42.0-52.0); HEMOGLOBIN 12.7 gm/dL (14.0-18.0); LYMPHOCYTES 15.9 %; MCH 30.9 pg (26.0-34.0); MONOCYTES 8.1 %; MPV 7.3 fl. (7.2-11.1); NUCLEATED RBCS 0 /100WBC; PLATELET COUNT* 336 thou/uL (150-400); POLYS 70.3 %; RBC 4.12 mil/uL (4.50-6.00); RDW-CV 19.3 % (10.5-14.5); WBC 5.4 thou/uL (4.0-11.0)
[2019-12-29 14:23] LABS: ALBUMIN 3.2 g/dL (3.4-5.0); MAGNESIUM 1.8 mg/dL (1.8-2.4); TOTAL BILIRUBIN 0.3 mg/dL (<0.1-1.0); TOTAL PROTEIN 6.4 g/dL (6.4-8.2)
[2019-12-29 17:21] VITALS: BP 99/59
[2019-12-29 17:54] VITALS: BP 91/49
--- NOTE | 2019-12-29 18:34 | NUR ---
PT ADMITTED TO ROOM 231 VIA CART FROM ED AT APPROXIMATELY 1740 WITH CHEST PAIN, ELEVATED TROPONIN AND PNEUMONIA. ADMISSION ASSESSMENT AND HISTORY COMPLETED. REFER TO CHARTING. PT A&0X4, DENIES ANY PAIN OR SHORTNESS OF BREATH AT THIS TIME. PT GIVEN PAIN MED IN ED FOR CHEST PAIN WITH RELIEF. PT UP WITH SBA TO BATHROOM. ON 3L NC SAT 96%- WHEEZES AND RHONCHI NOTED. TRACING SR ON THE BAND NAILER. PT IN CONTACT ISOLATION FOR HISTORY MRSA. MEDS PER AUG. PT REPOSITIONS SELF. HOURLY ROUNDING OBSERVED. BED IN LOW POSITION. CALL LIGHT WITHIN REACH. WILL CONTINUE PLAN OF CARE.
[2019-12-29 19:50] VITALS: BP 99/52
[2019-12-30] VITALS: BP 105/56
[2019-12-30 04:43] VITALS: BP 94/55
--- NOTE | 2019-12-30 05:02 | NUR ---
PT SLEPT MOST OF SHIFT. ASSESSMENT DOCUMENTED. MEDS GIVEN PER E-MAR. IV PATENT. PT ABLE TO MAKE NEEDS KNOWN. WILL CONTINUE WITH PLAN OF CARE.
[2019-12-30 08:00] VITALS: BP 108/65
--- NOTE | 2019-12-30 10:41 | EKG ---
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: CCD : 1980 Requested By: Roc Paz Order Number: [id number] MD: Derrick Polanco Measurements Intervals [place] Rate: 84 P: 48 ID: [id number] QRS: 64 QRSD: 79 T: 23 QT: 352 QTc: 417 Interpretive Statements Sinus rhythm Low voltage, extremity leads Compared to ECG 12/18/2019 18:19:45 Low QRS voltage now present Electronically Signed On 12-30-2019 10:40:57 CDT by Derrick Polanco [email or web address] <ELECTRONICALLY SIGNED> By: Derrick Polanco MD, FACC 12/30/19 1040 1333 1333 Derrick Polanco MD, [facility] /EPI
[2019-12-30 11:03] LABS: CHOLESTEROL 173 mg/dL (<200); HDL CHOLESTEROL 53 mg/dL (>40); LDL CHOLESTEROL 96 mg/dL (<100); TC:HDL 3.3 Ratio (Not establshd); TRIGLYCERIDE 121 mg/dL (<150); TROPONIN-I LEVEL 0.12 ng/mL (<0.06); VLDL 24 mg/dL (<40)
[2019-12-30 11:04] LABS: SERUM ASSESSMENT Clear
[2019-12-30 12:24] VITALS: BP 100/74
--- NOTE | 2019-12-30 15:39 | EKG ---
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
--- NOTE | 2019-12-30 16:23 | CON ---
[address] [address] CONSULTATION Name: SONI BATES Room: [address] IN M.R.#: [id number] Admission: 12/29/19 Attend Phys: Juan Pablo Valencia Discharge: Date of : 84 Report #: [id number] THIS REPORT FOR: //name// cc: Shae Santoro Linda J. DO ~ THIS REPORT FOR: //name// CC: Shae Salmon DATE OF SERVICE: 12/30/2019 HISTORY OF PRESENT ILLNESS: The patient is a 39-year-old single white male with Down syndrome, who I was asked to see in the hospital after he had an elevated troponin. History is obtained from the patient as well as some old records available. The patient was just discharged from [place] 12/23/2019 with lower GI bleeding, respiratory distress and pneumonia. He was found to have evidence of bronchiectasis and pulmonary hypertension. He does have a history of sleep apnea. The patient was just discharged last week, was brought back to the Emergency Room yesterday with chest pain. He described the pain on the left side of his chest. There is no radiation. He did note some nausea and vomiting and some shortness of breath. He has had no swelling of his feet. He denies any increased shortness of breath, palpitations, syncope. Because of abnormal troponin, cardiology consultation requested. PAST MEDICAL HISTORY: Otherwise, he has had frequent admissions for bronchitis with bronchiectasis. He has a history of Down syndrome. MEDICATIONS: On admission included tramadol, Neurontin, Synthroid. ALLERGIES: HE HAS AN ALLERGY TO SULFA DRUGS. FAMILY HISTORY: Not obtained. SOCIAL HISTORY: He is single, lives with neighbors in [place]. No smoking or alcohol abuse. REVIEW OF SYSTEMS: No history of stroke, liver disease, kidney disease or cancer. He does wear glasses. PHYSICAL EXAMINATION: GENERAL: Revealed a middle-aged male, lying in bed. He appeared in no distress. VITAL SIGNS: He had a blood pressure of 100/70, pulse is 80, he is afebrile. HEENT: He was anicteric. Conjunctivae pink. Mucous membranes moist. NECK: Veins [place] [address] CONSULTATION Name: JANAROBSONI GEORGE Room: [address]#: [id number] Admission: 12/29/19 Attend Phys: Juan Pablo aVlencia Discharge: Date of : 84 Report #: [id number] CHEST: Clear to auscultation. CARDIOVASCULAR: Regular rate and rhythm, no murmur. ABDOMEN: Soft. EXTREMITIES: Had no edema. SKIN: Warm and dry. NEUROLOGIC: Nonfocal. IMAGING: His ECG showed a sinus rhythm. There was no ST or T-wave change noted. His chest x-ray yesterday showed normal heart size, clear lung basurto and basilar infiltrate noted. He actually had a CT scan of the chest without contrast last week that showed a small pericardial effusion and infiltrates. LABORATORY WORK: Sodium 138, creatinine 1.1. Liver function studies were normal. Albumin 3.2. Troponin minimally elevated at 0.12. His cholesterol 133, triglyceride 121, HDL 53, LDL 96. TSH 0.4. White blood cell count 5.4, hemoglobin 12.7. The patient had an echocardiogram done earlier this month that showed an ejection fraction 60% with trace pericardial effusion. Injection of saline bubbles showed no evidence of a shunt. IMPRESSION AND RECOMMENDATIONS: 1. Borderline troponins. Atypical chest pain. Suspect no myocardial infarction as well as no ECG changes. Recommend no further cardiac evaluation. 2. Pneumonia. 3. Down syndrome. 4. Bronchiectasis. <ELECTRONICALLY SIGNED> By: Derrick Polanco MD, FACC 12/30/19 1623 1432 1501Dolesya Polanco MD, FACC /nt
--- NOTE | 2019-12-30 16:33 | NUR ---
ASSUMED CARE OF PATIENT THIS MORNING FROM NIGHT NURSE. PT IS DOING WELL WITH NO CO OF PAIN OR NAUSEA. HE WAS EDUCATED ON POC AND FALLS AFETY AND USING THE CALL LIGHT FOR ASSISTANCE. BED IS IN THE LOWEST POSITION AND CALL LIGHT IS IN REACH. WILL CONTINUE TO MONITOR.
[2019-12-30 16:53] VITALS: BP 71/46
--- NOTE | 2019-12-30 17:36 | NUR ---
Pt known to CM from previous admissions; pt is recent readmit. Pt lives in [facility] and has caregivers as well as guardian. SW to discuss again about care and longer term care options with guardian (although this was not received well by juancho as an option a couple of weeks ago). Pt is active with [facility]. Pt possibly to receive bronchoscopy. SW to continue to follow to assist with safe dc planning.
[2019-12-30 20:00] VITALS: BP 107/63
[2019-12-31] VITALS: BP 97/48
[2019-12-31 04:00] VITALS: BP 111/50
--- NOTE | 2019-12-31 05:15 | NUR ---
PT SLEPT MOST OF SHIFT. ASSESSMENT DOCUMENTED. MEDS GIVEN PER E-MAR. IV PATENT. PAIN MEDS GIVEN PER E-MAR WITH RELIEF. FALL PRECAUTIONS IN PLACE, WILL CONTINUE WITH PLAN OF CARE.
[2019-12-31 05:24] LABS: ABSOLUTE BASOPHILS 0.1 thou/uL (0.0-0.2); ABSOLUTE EOSINOPHILS 0.2 thou/uL (0.0-0.7); ABSOLUTE LYMPHOCYTES 0.9 thou/uL (0.8-5.3); ABSOLUTE MONOCYTES 0.4 thou/uL (0.0-1.2); ABSOLUTE NEUTROPHILS 2.4 thou/uL (1.6-8.1); EOSINOPHILS 5.6 %; HEMATOCRIT 35.5 % (42.0-52.0); HEMOGLOBIN 12.1 gm/dL (14.0-18.0); MCHC 34.1 g/dL (28.0-37.0); MCV 90.9 fL (80.0-100.0); MONOCYTES 10.5 %; MPV 6.8 fl. (7.2-11.1); NUCLEATED RBCS 0 /100WBC; PLATELET COUNT* 322 thou/uL (150-400); POLYS 57.9 %; RBC 3.91 mil/uL (4.50-6.00); RDW-CV 19.7 % (10.5-14.5); WBC 4.1 thou/uL (4.0-11.0)
[2019-12-31 05:37] LABS: CALCIUM 8.3 mg/dL (8.5-10.1); MAGNESIUM 1.9 mg/dL (1.8-2.4); POTASSIUM 3.7 mmol/L (3.5-5.1)
[2019-12-31 08:00] VITALS: BP 94/55
[2019-12-31 16:33] VITALS: BP 109/63
[2019-12-31 20:20] VITALS: BP 117/64
[2020-01-01] VITALS: BP 101/59
[2020-01-01] LABS: URINE BILIRUBIN NEGATIVE (Negative); URINE BLOOD NEGATIVE (Negative); URINE CLARITY CLEAR; URINE COLOR STRAW; URINE GLUCOSE-RANDOM NEGATIVE (Negative); URINE KETONES NEGATIVE (Negative); URINE LEUKOCYTES-REFLEX NEGATIVE (Negative); URINE NITRITE-REFLEX NEGATIVE (Negative); URINE PROTEIN NEGATIVE (Negative); URINE SPECIFIC GRAVITY <= 1.005 (1.005-1.030); URINE UROBILINOGEN 0.2 E.U./dl (0.2-1.0)
[2020-01-01 03:46] VITALS: BP 125/45
[2020-01-01 05:53] LABS: HEMATOCRIT 36.7 % (42.0-52.0); HEMOGLOBIN 12.3 gm/dL (14.0-18.0); MCH 30.8 pg (26.0-34.0); MCHC 33.5 g/dL (28.0-37.0); MCV 91.8 fL (80.0-100.0); MPV 6.9 fl. (7.2-11.1); NUCLEATED RBCS 0 /100WBC; PLATELET COUNT* 388 thou/uL (150-400); RDW-CV 19.8 % (10.5-14.5); WBC 12.4 thou/uL (4.0-11.0)
[2020-01-01 06:13] LABS: CALCIUM 8.4 mg/dL (8.5-10.1); CREATININE 1.3 mg/dL (0.6-1.3); MAGNESIUM 1.9 mg/dL (1.8-2.4); POTASSIUM 4.5 mmol/L (3.5-5.1)
--- NOTE | 2020-01-01 06:29 | NUR ---
PATIENT VERY ANXIOUS ABOUT PROCEDURE TODAY. REASSURANCE PROVIDED AND ANTI-ANXIETY MEDICATION GIVEN WITH SOME RELIEF. PATIENT NPO FOR PROCEDURE THIS MORNING. CALL LIGHT WITHIN REACH
[2020-01-01 07:49] LABS: ABSOLUTE LYMPHOCYTES 0.7 thou/uL (0.8-5.3); ABSOLUTE NEUTROPHILS 11.7 thou/uL (1.6-8.1); PLATELET ESTIMATE ADEQUATE
[2020-01-01 08:00] VITALS: BP 113/71
--- NOTE | 2020-01-01 14:11 | NUR ---
LOAN called pt guardian Ramo in preparation for possible dc in a couple of days depending on whenever pt is medically ready, possible bronchoscopy today and then pulmonary recommendations. Ramo stated that he continues to want plan to be for pt to return to [facility] with [facility] whenever pt is ready to dc. [facility] [phone] fax [phone]
[2020-01-01 16:00] VITALS: BP 103/54
--- NOTE | 2020-01-01 17:30 | NUR ---
ASSUMED CARE OF PT AROUND 0730 THIS AM. REFER TO ASSESSMENT. PT COMPLETED US ABDOMEN THIS AM AND COMPLETED BRONCH THIS AFTERNOON. PT TOLERATED WELL. MAINTAINING OXYGEN SATURATION >92% ON 4L O2/NC. PT TOLERATING DIET POST PROCEDURE. NO OTHER CONCERNS AT THIS TIME. CLWR. WCTM.
[2020-01-01 19:40] VITALS: BP 107/50
[2020-01-02] VITALS (7 sets, daily range): BP systolic 71–125; BP diastolic 48–68
--- NOTE | 2020-01-02 05:20 | NUR ---
PATIENT PROGRESSING TOWARDS GOALS: PAIN RELIEVED WITH MEDICATION PER MAR AND RELAXATION. PATIENT SLEEPING WELL THIS SHIFT. DENIES SOA. NO COMPLICATIONS POST BRONCHOSCOPY NOTED. TOLERATED DIET WELL. CALL LIGHT WITHIN REACH
[2020-01-02 05:49] LABS: ABSOLUTE BASOPHILS 0.1 thou/uL (0.0-0.2); ABSOLUTE LYMPHOCYTES 1.1 thou/uL (0.8-5.3); ABSOLUTE MONOCYTES 0.8 thou/uL (0.0-1.2); ABSOLUTE NEUTROPHILS 12.1 thou/uL (1.6-8.1); BASOPHILS 0.4 %; EOSINOPHILS 0.2 %; HEMATOCRIT 35.3 % (42.0-52.0); HEMOGLOBIN 11.9 gm/dL (14.0-18.0); LYMPHOCYTES 7.6 %; MCH 31.4 pg (26.0-34.0); MCHC 33.7 g/dL (28.0-37.0); MCV 93.2 fL (80.0-100.0); MONOCYTES 5.8 %; MPV 7.1 fl. (7.2-11.1); NUCLEATED RBCS 0 /100WBC; PLATELET COUNT* 356 thou/uL (150-400); RBC 3.79 mil/uL (4.50-6.00); RDW-CV 20.4 % (10.5-14.5); WBC 14.1 thou/uL (4.0-11.0)
[2020-01-02 06:08] LABS: CREATININE 1.3 mg/dL (0.6-1.3); MAGNESIUM 1.9 mg/dL (1.8-2.4); PHOSPHORUS* 3.5 mg/dL (2.5-4.9); POTASSIUM 3.9 mmol/L (3.5-5.1)
--- NOTE | 2020-01-02 14:16 | NUR ---
Nutrition: Pt admitted with PNA. H/o downs, RODRI. CPAP use. Labs: BG WNL, alb 3.2, WBC 14.1. Tolerating regular diet. Wt stable at usual of ~190#. Assessed for LOS. Appears nutritionally stable at this time. Low risk.
--- NOTE | 2020-01-02 15:16 | PROC ---
[facility] [address] [place] [address] PROCEDURE REPORT Name: SONI BATES Room: [address] IN M.R.#: [id number] Admission: 12/29/19 Attend Phys: Juan Pablo Valencia Discharge: Date of : 84 Report #: [id number] THIS REPORT FOR: //name// cc: Shae Santoro Linda J. DO ~ THIS REPORT FOR: //name// CC: Shae Salmon DATE OF SERVICE: 01/01/2020 PROCEDURES PERFORMED: Bronchoscopy with bronchial washings. INDICATIONS FOR PROCEDURE: Left lower lobe infiltrate. POSTPROCEDURE DIAGNOSIS: Copious amounts of thick purulent mucus is noted throughout the left lung consistent with pneumonia. CONSENT: Informed consent was obtained. I personally spoke with the patient as well as his guardian yesterday. Sedation in addition to administering local anesthesia as is described with the procedure below. The patient was administered in different increments of total of 4 mg of Versed in addition to 150 mcg of fentanyl. Considering his history of obstructive sleep apnea, we elected to reverse these with Narcan 0.4 mg in addition to flumazenil 0.5 mg at the end of the procedure. COMPLICATIONS: There were no complications as a result of this procedure. SPECIMEN COLLECTED: Bronchial washings obtained from the left lower lobe had been sent for cultures. PROCEDURE: Informed consent was obtained as described above. The patient was then transferred to the bronchoscopy suite where I examined the patient prior to the procedure and a timeout was called. The respiratory therapist had prepared the upper airway with local anesthetic solution per protocol. The patient had also been overnight premedicated with Solu-Medrol. A timeout was called after which we in several increments sedated the patient with Versed and fentanyl as described above. Considering the possibility that the bronchoscope may need to be removed and reinserted as well as narrow appearance of his nostrils, I decided to proceed with this procedure through his mouth with a mouthguard in place. Initially the patient had significant amount of gagging however, we proceeded with administering Versed and fentanyl in several increments to a total dose as above. We also instilled 3 mL of 2% Xylocaine in the posterior aspect of his pharynx in addition to 6 mL being inserted onto his vocal cords after which gagging as well as cough reflex was suppressed. [place] [address] PROCEDURE REPORT Name: SONI BATES Room: [address] IN R.#: [id number] Admission: 12/29/19 Attend Phys: Juan Pablo Valencia Discharge: Date of : 84 Report #: [id number] instilled an additional 3 mL of 2% Xylocaine onto the vocal cords and then proceeded to advancing the bronchoscope into the trachea where another 3 mL of 2% Xylocaine were instilled and now proceeded to evaluating the trachea as well as the left bronchial tree. Considering that the patient has a fairly narrow airway and has a history of obstructive sleep apnea and as expected did have an increase in oxygen requirements. I performed limited evaluation of the right bronchial tree only. In summary, there are no additional findings in the right bronchial tree, which appears unremarkable. Trachea also appears unremarkable; however, there is a large amount of thick purulent mucus, which is present throughout the left bronchial tree. The mucosa of the left bronchial tree also appears to be edematous. There is in fact partial occlusion of the left mainstem with thick mucus, which was most prominent in the left lower lobe, smaller amounts of thick light yellow colored mucus were also noted in the lingula and the left upper lobe. I proceeded to collecting this mucus in a trap. We instilled a total of 20 mL of saline, we got back a return of turbid-looking fluid back over 20 mL collected in the trap after which the trap was removed and additional amounts were suctioned out. I would estimate that I suctioned out another 30 mL subsequently. Throughout this procedure, we elected to keep the patient on a nonrebreather mask. The procedure was performed through an opening in the nonrebreather mask. The patient remained hemodynamically stable throughout this procedure. The patient also continued to maintain O2 saturation throughout this procedure. The specimen collected from the left lower lobe has been sent to the laboratory and will be followed up. The patient does have a history of severe obstructive sleep apnea. Therefore, we already had the patient's CPAP at his bedside in the bronchoscopy suite. The patient was now switched over to his CPAP with oxygen in line from the nonrebreather mask. Also, due to the history, I decided to go ahead and reverse him with 0.4 mg of Narcan in addition to 0.5 mg of flumazenil. The patient went on the CPAP with 10 liters oxygen, had an O2 saturation of mid 90s after he had been reversed as above. We were then able to quickly titrate him down to his baseline 3L O2 via n/c. I saw him again in the afternoon in his room, he was now on his basline 3L O2, sitting comfortable, wide awake and had no compliants. <ELECTRONICALLY SIGNED> By: Abel Long MD 01/02/20 1516 1221 1320MD ama Alvarez
--- NOTE | 2020-01-02 19:09 | NUR ---
I ASSUMED CARE OF THE PATIENT AT 0700. HE IS ALERT AND ORIENTED X4 AND IS UP AD MIKEY. BED IS IN THE LOW LOCKED POSITION AND PATIENT NEEDS ARE MET. HOURLY ROUNDING IS COMPLETED AND PATIENT NEEDS ARE MET. PAIN IS MANAGED WITH PRN MEDS. DR MULLER IS INITIATING VANC AFTER BEING CONTACTED VIA NURSE A FOLLOW UP TO DR FRANKLIN. PATIENT'S VEST IS AT THE BEDSIDE AND HE WEARS IT TWICE A DAY, BUT NEEDS ASSISTANCE. BRONCH WAS COMPLETED YESTERDAY AND ISOLATION WAS MAINTAINED. WILL CONTINUE TO MONITOR.
[2020-01-03 04:59] VITALS: BP 93/45
[2020-01-03 05:26] LABS: CALCIUM 7.8 mg/dL (8.5-10.1); CREATININE 1.4 mg/dL (0.6-1.3); MAGNESIUM 1.8 mg/dL (1.8-2.4); POTASSIUM 3.6 mmol/L (3.5-5.1)
--- NOTE | 2020-01-03 05:36 | NUR ---
PT RECIEVED FROM [facility]. SAT MAINTAINED IN O2. DENIES SOB. PT ABLE TO REST WELL AFETR NIDNIGHT. CALL LIGHT WITHIN REACH AND BED IN LOW POSITION. HOURLY ROUNDING DONE FOR PT SAFETY.
--- NOTE | 2020-01-03 07:21 | NUR ---
THIS NURSE AGREES WITH THE ASSESSMENT OF [facility]
[2020-01-03 07:33] VITALS: BP 118/61
--- NOTE | 2020-01-03 08:37 | NUR ---
ASSUMED CARE OF PT THIS AM AROUND 0715- AIR ANALYST IN PLACE ORDERED, TRACING SR- UPON ASSESSMENT PT NOTED TO BE SITTING UP IN BED, WATCHING TV- PT A&O X4- CONT OF BOWEL AND BLADDER- SBA WITH TRANSFERS FOR SAFETY- COURSE LUNG SOUNDS WITH NOTED WHEEZING- VSS, O2 SAT 95% ON 3L VIA NC-WET COUGH NOTED- ABD SOFT/ROUND/NON-TENDER, BS X4 QUADS-BM NOTED THIS AM- HYDROCORTISONE CREAM TO RECTUM THIS AM PRESCRIBED- IV NOTED TO LEFT FA INTACT AND SL; IV ABT GIVEN THIS AM PRESCRIBED-PT UP TO BED SIDE CHAIR THIS AM WITH BREAKFAST, GOOD PO INTAKE NOTED- PT DENIES ANY C/O PAIN/DISCOMFORT AT THIS TIME-CALL LIGHT AND PERSONAL BELONGINGS WITH IN REACH- PT MAKES NEEDS KNOWN- ALL NEEDS MET AT THIS TIME-WCTM
[2020-01-03 12:43] VITALS: BP 101/59
[2020-01-03 15:56] LABS: CALCIUM 8.3 mg/dL (8.5-10.1); CREATININE 1.4 mg/dL (0.6-1.3)
[2020-01-03 17:17] VITALS: BP 119/69
--- NOTE | 2020-01-03 19:48 | CON ---
[address] [address] CONSULTATION Name: SONI BATES Room: [address] ADM IN M.R.#: [id number] Admission: 12/29/19 Attend Phys: Juan Pablo Valencia Discharge: Date of : 84 Report #: [id number] THIS REPORT FOR: //name// cc: Shae Santoro Linda J. DO ~ THIS REPORT FOR: //name// CC: Shae Salmon DATE OF SERVICE: 12/30/2019 REQUESTING PHYSICIAN: Suresh Shay MD. INDICATION FOR CONSULTATION: Chest pain. HISTORY OF PRESENT ILLNESS: A 39-year-old gentleman with past medical history as mentioned below. The patient is well known to our service, who was only recently seen in this hospital. During his previous admission, he did have mild bronchiectasis on previous CAT scans. He is also colonized with pseudomonas as well as MRSA and was suspected to have pneumonia secondary to these organisms during the last hospitalization for which he was treated with broad-spectrum antibiotics through the ID service. During the last hospitalization in addition to other symptoms as previously documented in my previous notes, the patient did have chest pain on the left side with respirations and coughing. At that time, our suspicion of thromboembolism was low. His D-dimer was also low and we therefore did not proceed to performing a CTA chest. The patient did have lower extremity venous Dopplers performed, which were negative. The patient has now been transferred here for ongoing left-sided chest pain. He essentially describes to me no other new symptoms compared with his baseline. He says he has chest pain on the left side of his chest associated with respiration and coughing. The patient does have some shortness of breath on exertion; however, this is at baseline. He has a cough without sputum, which is also at baseline. He does not have upper respiratory complaints. He does not have swelling of lower extremities or calf pain. He does have a longstanding history of disturbed sleep at night as well as sleepiness during the day, this is improved, but not fully controlled with CPAP. He has not reported any change in these symptoms either. I asked him a total of 12 questions for review of systems. The patient answered in the negative except as mentioned above, essentially with the exception of chest pain with respiration and coughing. He does not have any other new complaints compared with his baseline. PAST MEDICAL HISTORY: Down syndrome, bronchial asthma, obstructive sleep apnea, [place] [address] CONSULTATION Name: SONI BATES Room: [address]#: [id number] Admission: 12/29/19 Attend Phys: Juan Pablo Valencia Discharge: Date of : 84 Report #: [id number] on CPAP and oxygen while asleep alf, mild bronchiectasis, Pseudomonas aeruginosa as well as MRSA pneumonia. The patient is colonized with these organisms, previously has also had Haemophilus parainfluenzae as well as Renea albicans cultured from a bronchoscopy. The patient during a previous bronchoscopy did have AFB smear as well as culture ordered. For some reason, the same was not performed. He also had a small pericardial effusion. His ANCA markers as well as GINNY markers previously have been negative. He has also previously tested negative for HIV. He has no cellulitis in the past. His previous immunoglobulins were normal. During the last hospitalization, considering the fact that the patient had previously been on oxygen 3 liters during the day without full explanation, we performed an echocardiogram and then repeated it with a bubble study. There were no major abnormalities detected. His left ventricular ejection fraction was normal at 55%-60%. No significant elevation in right heart pressures. The bubble study was negative. We did take him off oxygen during the last hospitalization. He did maintain O2 saturation in the low 90s on room air while awake. The patient, however, had significant anxiety in being off oxygen during the day and therefore we did keep him on oxygen during the daytime as well. His swallow studies were unremarkable, although there is suspicion that he aspirates when he is not fully sitting up. SOCIAL HISTORY: Lives at a retirement. No known history of heavy alcohol use or illegal drug use. No history of smoking. ALLERGIES: SULFONAMIDE ANTIBIOTICS. CURRENT MEDICATIONS: List in [employer] reviewed. HOME MEDICATIONS: List in [employer] reviewed. FAMILY HISTORY: Negative for heart disease or lung disease. PHYSICAL EXAMINATION: GENERAL: Alert, awake and oriented; however, is able to provide only a limited history. VITAL SIGNS: He has a pulse of 60 and a blood pressure of 100/74, respiratory rate around 16-18. He is afebrile with a temperature last recorded at 36.7. His body mass index is elevated to 36.6. HEENT: Head is normocephalic and atraumatic. There is no throat erythema. He does have a narrow airway. NECK: Does not show raised JVP, asymmetry, mass or lymph nodes. CHEST: Symmetrical expansion on inspection and palpation. On auscultation, chest is clear. HEART: Regular. There is no murmur. ABDOMEN: Soft and nontender. EXTREMITIES: Lower extremities show no edema, no calf tenderness. [place]: [place] [address] CONSULTATION Name: SONI BATES Room: [address] IN [facility].#: [id number] Admission: 12/29/19 Attend Phys: Juan Pablo Valencia Discharge: Date of : 84 Report #: [id number] NEUROLOGICAL: Moves all extremities bilaterally equally and spontaneously with no focal deficit identified. LABORATORY DATA: The patient did have a chest x-ray performed yesterday. It does not show any new findings. There are patchy bilateral basilar opacities, which are not significantly different compared with his previous imaging. ASSESSMENT AND PLAN: 1. Chest pain with respiration and coughing. My clinical impression remains that this is a musculoskeletal chest pain. His previous venous Dopplers are negative. His D-dimer previously was not elevated. However, considering that this is a significant ongoing complaint for him, I decided to go ahead with a CTA chest and the same is therefore ordered. In case there are no additional findings seen on the CTA chest then we would also consider evaluating him for upper GI causes of chest pain. 2. Obstructive sleep apnea. The patient does need CPAP and oxygen while asleep long-term. He previously was maintaining O2 saturation during the daytime on room air; however, had significant anxiety in being off oxygen. Therefore, we kept him on oxygen during the daytime as well. Further titration of his CPAP and a repeat sleep study is suggested as an outpatient after recovery from the current episode. 3. Pulmonary infiltrates/bronchiectasis. The patient has recently been treated for Pseudomonas steroids. Nose as well as MRSA pneumonia with broad-spectrum antibiotics. There is no evidence of a new respiratory tract infection so far. His COVID-19 repeated again now is negative as well. We will review further after the CTA chest is performed. There is mild bronchiectasis on previous imaging and therefore, I had previously discussed with the guardian as well as the patient regarding whether a bronchoscopy should be considered to rule out a low-grade underlying Mycobacterium avium infection and both the patient and guardian were reluctant and the guardian had informed me that previously his mother was also reluctant about having a bronchoscopy. Therefore, we had decided only perform a followup CT during the previous hospitalization. The patient's current symptoms do not appear severe. 4. Bronchial asthma. He is not currently bronchospastic. He remains on inhaled corticosteroid, Singulair as well as nebulized bronchodilators. 5. Down syndrome. 6. High aspiration risk. I still feel that he at times aspirates when he is fully sitting up and taking orally. Therefore, recommend fully sitting him up when he is taking orally. 7. Gastroesophageal reflux disease. This is mentioned in his records; however, I do not see him being on a proton pump inhibitor recently as upper GI etiologies are also considered as a possible etiology of his chest pain. I will go ahead and treat him with a proton pump inhibitor. I will go ahead and also add lipase to his last set of lab work again; however, as above it appears more likely to me that this pain is musculoskeletal. 8. History of a small peric[place] [address] CONSULTATION Name: BATESSONI Room: [address] IN M.R.#: [id number] Admission: 12/29/19 Attend Phys: Juan Pablo Valencia Discharge: Date of : 84 Report #: [id number] Thanks for this consultation. <ELECTRONICALLY SIGNED> By: Abel Long MD 01/03/20 1948 1951 [id number] Long MD /nt
[2020-01-03 20:00] VITALS: BP 124/76
[2020-01-04 00:09] VITALS: BP 111/63
[2020-01-04 04:47] LABS: HEMATOCRIT 35.4 % (42.0-52.0); HEMOGLOBIN 12.1 gm/dL (14.0-18.0); MCH 31.4 pg (26.0-34.0); MCHC 34.2 g/dL (28.0-37.0); MCV 91.9 fL (80.0-100.0); MPV 6.7 fl. (7.2-11.1); RBC 3.85 mil/uL (4.50-6.00); RDW-CV 19.8 % (10.5-14.5); WBC 10.1 thou/uL (4.0-11.0)
[2020-01-04 05:06] LABS: ALBUMIN 2.9 g/dL (3.4-5.0); CALCIUM 8.4 mg/dL (8.5-10.1); CREATININE 1.2 mg/dL (0.6-1.3); MAGNESIUM 2.4 mg/dL (1.8-2.4); PHOSPHORUS* 4.1 mg/dL (2.5-4.9); POTASSIUM 4.8 mmol/L (3.5-5.1)
[2020-01-04 05:22] VITALS: BP 115/60
--- NOTE | 2020-01-04 07:54 | NUR ---
ASSUMED CARE OF PT AFTER REPORT AT 1930. PT A&ox4. VSS. PHYSICAL ASSESSMENT COMPLETED AND CHARTED. PT ON O2 AT 3L NC/CPAP AT HS. PT TRACING SR ON TELE. PT UPSTANDBY TO RESTROOM. PT COMPLAINED OF LEFT RIB PAIN-MED GIVEN PER MAR. PT ABLE TO SLEEP WELL ON BED. CALL LIGHT WITHIN REACH.
[2020-01-04 08:30] VITALS: BP 119/71
[2020-01-04 13:38] VITALS: BP 121/61
[2020-01-04 16:00] VITALS: BP 117/67
--- NOTE | 2020-01-04 19:40 | NUR ---
I ASSUMED CARE OF THE PATIENT AT 0700. HE IS ALERT AND ORIENTED X4 AND IS UP AD MIKEY. HE USES THE RESTROOM APPRORIATELY. BED IS IN THE LOW LOCKED POSITION AND CALL LIGHT IS IN REACH. HOURLY ROUNDING IS COMPLETED AND PATIENT NEEDS ARE MET. PAIN IS MANAGED WITH PRN MEDS. PATIENT BATHED AND SHAVED TODAY. HE HAD HIS IV REPLACED AND FLUIDS ARE INFUSING. HE HAD A LARGE BOWEL MOVEMENT TODAY. WILL CONTINUE TO MONITOR.
[2020-01-04 20:00] VITALS: BP 111/59
[2020-01-05] VITALS: BP 108/65
[2020-01-05 04:00] VITALS: BP 119/72
--- NOTE | 2020-01-05 05:46 | NUR ---
ASSUMED CARE OF PT AFTER REPORT AT 1930. PT A&OX4. VSS.PHYSICAL ASSESMENT COMOKETED AND CHARTED. PT ON O2 AT 3L NC/CPAP AT HS. PT TRACING SR ON TELE. PT UPSTANDBY TO RESTROOM. PT DENIES PAIN. PT ABLE TO SLEEP WELL ON BED. CALL LIGHT WITHIN REACH.
[2020-01-05 07:37] VITALS: BP 98/38
--- NOTE | 2020-01-05 11:42 | NUR ---
ASSUMED CARE OF PT AT 0730. PT SITTING IN RECLINER WAITING FOR BREAKFAST. A&0X4, COMPLAINS OF PAIN TO LEFT RIBS-TREATED WITH PRN NORCO WITH PARTIAL RELIEF. TRACING SR ON THE DOUBLE NEEDLE STITCHER. ON 3L NC SAT 96%. PT DENIES ANY SHORTNESS OF BREATH. IVF. PT UP WITH SBA TO BATHROOM. TELE PULM COMPLETED THIS AM. NO NEW ORDERS RECEIVED. PT GOAL FOR TODAY IS PAIN MGMT AND INCREASE ACTIVITY. AM ASSESSMENT CHARTED. MEDICATIONS PER AUG. PT REPOSITIONS SELF. HOURLY ROUNDING OBSERVED. BED IN LOW POSITION. CALL LIGHT WITHIN REACH. WILL CONTINUE PLAN OF CARE.
[2020-01-05 12:02] LABS: HEMATOCRIT 36.3 % (42.0-52.0); MCH 30.8 pg (26.0-34.0); MCV 93.2 fL (80.0-100.0); MPV 7.4 fl. (7.2-11.1); RBC 3.9 mil/uL (4.50-6.00); RDW-CV 19.6 % (10.5-14.5); WBC 12.3 thou/uL (4.0-11.0)
[2020-01-05 12:17] LABS: ALBUMIN 2.8 g/dL (3.4-5.0); CALCIUM 8.1 mg/dL (8.5-10.1); CREATININE 1.1 mg/dL (0.6-1.3); MAGNESIUM 1.8 mg/dL (1.8-2.4); POTASSIUM 3.7 mmol/L (3.5-5.1)
[2020-01-05 12:19] VITALS: BP 131/57
[2020-01-05 16:14] VITALS: BP 122/64
--- NOTE | 2020-01-05 18:31 | NUR ---
NO ACUTE CHANGES THROUGHOUT SHIFT. REFER TO CHARTING. PT PROGRESSING TOWARDS GOALS-DENIED ANY PAIN THIS AFTERNOON. MOTHER AT BEDSIDE THIS AFTERNOON. PROBABLE DISCHARGE BACK TO [facility] TOMORROW 01/05. IV IN RIGHT AC INFILTRATED THIS AM-NEW IV PLACED TO LEFT FOREARM. ULTRASOUND RUE ORDERED PER DR MCCAIN-NEGATIVE FOR BLOOD CLOT. REFER TO RESULTS. MEDS PER AUG. PT REPOSITIONS SELF WITH REMINDERS. HOURLY ROUNDING OBSERVED. BED IN LOW POSITION. CALL LIGHT WITHIN REACH. WILL CONTINUE PLAN OF CARE.
[2020-01-05 20:00] VITALS: BP 110/73
[2020-01-06] VITALS (7 sets, daily range): BP systolic 97–134; BP diastolic 60–78
[2020-01-06 04:57] LABS: ALBUMIN 2.8 g/dL (3.4-5.0); CALCIUM 8.1 mg/dL (8.5-10.1); CREATININE 1.1 mg/dL (0.6-1.3); MAGNESIUM 1.9 mg/dL (1.8-2.4); PHOSPHORUS* 4.9 mg/dL (2.5-4.9); POTASSIUM 3.8 mmol/L (3.5-5.1)
--- NOTE | 2020-01-06 05:05 | NUR ---
ASSUMED CARE OF PT AFTER REPORT AT 1930. PT A&OX4. VSS. PHYSICAL ASSESSMENT COMPLETED AND CHARTED. PT ON O2 AT 3L NC/CPAP AT HS. OT TRACING SR/PVC ON TELE. PT UPDTANDBY TO RESTROOM. PT COMPLAINED OF LEFT RIB PAIN-MED GIVEN PER AUG. PT ACCIDENTALLY BROKE CPAP CONNECTOR. PT ABLE TO SLEEP WELL ON BED. CALL LIGHT WITHIN REACH.
[2020-01-06 05:17] LABS: HEMOGLOBIN 11.8 gm/dL (14.0-18.0); MCH 31.2 pg (26.0-34.0); MCHC 33.8 g/dL (28.0-37.0); MCV 92.1 fL (80.0-100.0); MPV 7.4 fl. (7.2-11.1); RBC 3.8 mil/uL (4.50-6.00); RDW-CV 19.4 % (10.5-14.5)
--- NOTE | 2020-01-06 16:01 | NUR ---
SW called pt guardimaría Ralph and Edita from [facility] in preparation for pt to dc home tomorrow. SW left messages as neither of them were able to answer their phones at the time. SW to continue to follow to assist with finalizing safe dc plan.
--- NOTE | 2020-01-06 17:39 | NUR ---
ALERT AND ORIENTED. HAS DX OF DOWNS. PLEASANT AND COOPERATIVE WITH STAFF. USES CALL LIGHT WHEN NEEDING ASSIST. FALL PRECAUTIONS IN PLACE. BED ALARM AND CHAIR ALARM IN PLACE. UP WITH STAND BY ASSIST AND WALKER. REMAINS ON HEART MONITOR IN SINUS RHYTHM. C/O PAIN IN LEFT RIB AREA AND PAIN MEDICATION GIVEN AND HELPFUL. ON O2 AT 3L/NC TO KEEP O2 SATS IN 90'S. IVF INFUSING WITHOUT DIFFICULTY. REMAINS ON CONTACT ISOLATION FOR MRSA. CONTINUES ON IV ANTIBIODICS WITH NO ADVERSE REACTIONS OR SIDE EFFECTS.
[2020-01-07 05:14] VITALS: BP 132/73
--- NOTE | 2020-01-07 05:45 | NUR ---
PT IS ABLE TO COMMUNICATE HIS NEEDS TO STAFF EFFECTIVELY. HE HAS DENIED THE NEED FOR PAIN MEDICATION UP TO THIS TIME. CONTACT ISOLATION FOR MRSA IN HIS SPUTUM MAINTIANED. POSSIBLE DISCHARGE TODAY.
[2020-01-07 06:18] LABS: HEMOGLOBIN 12.4 gm/dL (14.0-18.0); MCH 30.5 pg (26.0-34.0); MCHC 33.4 g/dL (28.0-37.0); MCV 91.4 fL (80.0-100.0); RBC 4.05 mil/uL (4.50-6.00); RDW-CV 19.9 % (10.5-14.5); WBC 13.3 thou/uL (4.0-11.0)
[2020-01-07 09:00] VITALS: BP 118/65
--- NOTE | 2020-01-07 11:40 | NUR ---
PT ALERT AND ORIENTED C/O PAIN TO LEFT RIBS AND REC'D NORCO WITH RELIEF PLAN TO DC TODAY VANC IV RAN THIS AM BM THIS AM ON PRECAUTIONS FOR MRSA IN SPUTUM LS COARSE ON LEFT MAINLY CALL LIGHT IN REACH
[2020-01-07] MEDS ORDERED: LINEZOLID600 MG PO (12:06)
[2020-01-07 12:38] VITALS: BP 110/60
[2020-01-07 13:07] VITALS: BP 110/60
--- NOTE | 2020-01-07 13:19 | NUR ---
Pt to dc home to [facility] custodial today. LOAN confirmed no HH ordered/necessary at this time for dc. LOAN called Edita, Crematory Operator at [facility] and informed of pt dc today. Edita plans to pick remover pt between 4 and 5 pm to provide pt ride home. Pt guardian informed of pt dc, LOAN left message.
[2020-01-07 13:55] VITALS: BP 110/60
--- NOTE | 2020-01-07 17:51 | NUR ---
DISCHARGED WITH RESIDENTIAL CANNERY TENDER ENGINEER WENT THROUGH MEDS AND DISCHARGE INSTRUCTIONS NO QUESTIONS OR CONCERNS
[2020-01-07 17:52] VITALS: BP 95/62
== END 2020-01-07 17:53 | disposition home or self-care (01) | DRG 177 ==
LOC: M.ERS 13:22 → M.TBA-ER 15:12 → M.2W 15:12
PROVIDERS: Emergency Medicine Emergency Medical Services; Family Medicine; Internal Medicine Critical Care Medicine; ADMIT Internal Medicine; ATTEND Internal Medicine
PROC: 5A09357 Assistance with Respiratory Ventilation, Less than 24 Consecutive Hours, Continuous Positive Airway Pressure (ICD-10-PCS; principal; 2019-12-30)
PROC: 5A09357 Assistance with Respiratory Ventilation, Less than 24 Consecutive Hours, Continuous Positive Airway Pressure (ICD-10-PCS; 2019-12-31)
PROC: 0BJ08ZZ Inspection of Tracheobronchial Tree, Via Natural or Artificial Opening Endoscopic (ICD-10-PCS; 2020-01-01)
PROC: 0BDB8ZX Extraction of Left Lower Lobe Bronchus, Via Natural or Artificial Opening Endoscopic, Diagnostic (ICD-10-PCS; 2020-01-01)
PROC: 5A09357 Assistance with Respiratory Ventilation, Less than 24 Consecutive Hours, Continuous Positive Airway Pressure (ICD-10-PCS; 2020-01-01)
PROC: 5A09357 Assistance with Respiratory Ventilation, Less than 24 Consecutive Hours, Continuous Positive Airway Pressure (ICD-10-PCS; 2020-01-02)
PROC: 5A09357 Assistance with Respiratory Ventilation, Less than 24 Consecutive Hours, Continuous Positive Airway Pressure (ICD-10-PCS; 2020-01-03)
PROC: 5A09357 Assistance with Respiratory Ventilation, Less than 24 Consecutive Hours, Continuous Positive Airway Pressure (ICD-10-PCS; 2020-01-04)
PROC: 5A09357 Assistance with Respiratory Ventilation, Less than 24 Consecutive Hours, Continuous Positive Airway Pressure (ICD-10-PCS; 2020-01-05)
PROC: 5A09357 Assistance with Respiratory Ventilation, Less than 24 Consecutive Hours, Continuous Positive Airway Pressure (ICD-10-PCS; 2020-01-06)
DX: J69.0 Pneumonitis due to inhalation of food and vomit (principal); J96.21 Acute and chronic respiratory failure with hypoxia; J44.0 Chronic obstructive pulmonary disease with (acute) lower respiratory infection; N17.9 Acute kidney failure, unspecified; E44.0 Moderate protein-calorie malnutrition; G47.33 Obstructive sleep apnea (adult) (pediatric); I10 Essential (primary) hypertension; K21.9 Gastro-esophageal reflux disease without esophagitis; I27.20 Pulmonary hypertension, unspecified; E03.9 Hypothyroidism, unspecified; M54.9 Dorsalgia, unspecified; I99.8 Other disorder of circulatory system; R79.89 Other specified abnormal findings of blood chemistry; D64.9 Anemia, unspecified; T50.995A Adverse effect of other drugs, medicaments and biological substances, initial encounter; Q90.9 Down syndrome, unspecified; Z79.899 Other long term (current) drug therapy; Z88.2 Allergy status to sulfonamides; Z91.09 Other allergy status, other than to drugs and biological substances; Z99.81 Dependence on supplemental oxygen; Y92.89 Other specified places as the place of occurrence of the external cause; Z68.36 Body mass index [BMI] 36.0-36.9, adult; Z87.01 Personal history of pneumonia (recurrent); Z03.818 Encounter for observation for suspected exposure to other biological agents ruled out

== ENCOUNTER → 2020-02-03 | Outpatient (CLI) | payer MEDICARE, MEDICAID | LOC: M.ULTRA 01-07 13:30 | PROVIDERS: ATTEND Internal Medicine | DX: N28.89 Other specified disorders of kidney and ureter (principal) ==

== ENCOUNTER → 2021-07-30 | Outpatient (CLI) | payer MEDICARE, MEDICAID ==
[2021-07-30 18:40] LABS: URINE BILIRUBIN NEGATIVE (Negative); URINE BLOOD NEGATIVE (Negative); URINE CLARITY CLEAR; URINE COLOR YELLOW; URINE GLUCOSE-RANDOM NEGATIVE (Negative); URINE KETONES NEGATIVE (Negative); URINE LEUKOCYTES-REFLEX NEGATIVE (Negative); URINE NITRITE-REFLEX NEGATIVE (Negative); URINE PROTEIN NEGATIVE (Negative); URINE SPECIFIC GRAVITY 1.015 (1.005-1.030); URINE UROBILINOGEN 0.2 E.U./dl (0.2-1.0)
== END ==
LOC: M.LAB 17:03
PROVIDERS: ATTEND Internal Medicine
DX: R39.9 Unspecified symptoms and signs involving the genitourinary system (principal)